=== PATIENT | female | born 1935 | race Caucasian/White ===

== ENCOUNTER 2020-01-27 09:09 | Inpatient (IN) | payer OTHER, SELFPAY ==
[2020-01-27 09:32] VITALS: BP 168/90; PULSE 75; PULSE 80; RESP 16; RESP 18; TEMP 36.9; O2SAT 95; BMI 24.5
--- NOTE | 2020-01-27 09:42 | ECG_ITS ---
Test Reason : HEADACHE Blood Pressure : / mmHG Vent. Rate : 063 BPM Atrial Rate : 063 BPM P-R Int : 158 ms QRS Dur : 080 ms QT Int : 420 ms P-R-T Axes : 020 -03 033 degrees QTc Int : 429 ms Normal sinus rhythm T wave abnormality, consider anterior ischemia Abnormal ECG When compared with ECG of 21-SEP-2014 07:11, No significant change was found Referred By: Gina Dominique Electronically Signed By:ROSHAN KRAMER MD
--- NOTE | 2020-01-27 09:42 | XR_ITS ---
EXAMINATION: XR CHEST CLINICAL INFORMATION: Shortness of breath. Chest pain. COMPARISON: 10/20/2014 TECHNIQUE: Frontal view of the chest was obtained. FINDINGS: Cardiac leads overlie the chest. The lungs are well expanded. There is no focal consolidation, edema, or effusion. No pneumothorax. The cardiomediastinal silhouette is within normal limits of size with a tortuous aorta. No acute osseous abnormality. IMPRESSION: No acute pulmonary finding.
--- NOTE | 2020-01-27 09:42 | US_ITS ---
EXAMINATION: US ABDOMEN LIMITED CLINICAL INFORMATION: Right upper quadrant pain and epigastric pain. COMPARISON: Report abdominal ultrasound 06/30/2007. TECHNIQUE: Real-time imaging of the right upper quadrant abdominal viscera. FINDINGS: PANCREAS: The pancreatic head, neck, and body appears normal in size and contour and echogenicity. The distal body and tail are partly obscured by bowel gas and not completely imaged. There is no pancreatic ductal distention or retroperitoneal effusion. LIVER: Normal. The liver is normal in size. The liver contour is normal. Parenchymal echogenicity is normal. No focal hepatic lesion. There is no intrahepatic biliary duct dilatation seen. Doppler shows portal flow towards the liver. GALLBLADDER: Normal. The gallbladder is physiologically distended without evidence of stones, sludge, polyps, wall thickening or pericholecystic fluid. COMMON BILE DUCT: Normal in caliber measuring 0.4 cm in diameter. RIGHT KIDNEY: The right kidney is normal in size measuring 10.4 cm in length. There is normal renal parenchymal thickness and echogenicity. There is mild fullness central renal collecting system. No significant hydronephrosis. No perinephric fluid. No visible renal calculi. There is a circumscribed homogeneous echogenic lesion lower pole measuring 0.9 cm statistically most likely angiomyolipoma. There is also a tiny cyst interpolar region measuring 0.5 cm. FREE FLUID: None. IMPRESSION: 1. No cholelithiasis or ductal dilatation. 2. Normal liver. Visualized pancreas unremarkable. 3. Mild fullness right renal collecting system. No visible calculi. 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
--- NOTE | 2020-01-27 10:06 | ED_ITS ---
HPI - General Adult General Chief complaint: General Medical Stated complaint: HEADACHE Time Seen by Provider: 01/27/20 09:25 Source: patient Mode of arrival: ambulatory History of Present Illness HPI narrative: 84-year-old female with a past medical history of hypertension, hyperlipidemia presenting to ED complaining of myalgias, subjective fever, dry cough, SOB, CP, upper back pain times a few days. Admits was with son who recently tested positive for COVID-19. Also reports upper abdominal pain. Denies sore throat, Nausea, vomiting, diarrhea, recent travel, LE edema Onset (ago): day(s) Related Data Allergies Allergy/AdvReac Type Severity Reaction Status Date / Time No Known Allergies Allergy Unverified 12/23/19 15:31 [No Known Allergies*] Review of Systems Review of Systems: Constitutional: No Weight loss, +subjective Fever,+ Chills, No Night Sweats, + Fatigue, + Malaise ENT/Mouth: No sore throat, No Rhinorrhea Cardiovascular: + Chest Pain, + SOB, No Dyspnea on Exertion, No Edema Respiratory: No Cough, No Sputum, No Wheezing, No Smoke Exposure, No Dyspnea Gastrointestinal: No Nausea, No Vomiting, No Diarrhea, No Constipation, + Abdo branden pain Genitourinary: No Urinary Incontinence, No Urgency, No Flank Pain Musculoskeletal: +back pain, + Myalgias, No Joint Swelling Skin: No Skin Lesions, No rash Yes all other systems are reviewed and are negative [facility] Past Medical History Attestation statement: The following information was validated with the patient. Medical History (Updated 01/27/20 @ 11:17 by ANJANA De La O) Dyspnea Hypertension Social History Social History Alcohol intake: unknown Smoking Status: Unknown if ever smoked Use of substances other than those prescribed or required for medical reasons: No Advance Directives: No Advance Directives Information Provided: Yes Physical Exam Vital Signs: Vital Signs: Vital Signs Temp Pulse Resp BP Pulse Ox 01/27/20 09:32 98.4 F 75 16 168/90 H 95 Body Mass Index 24.5 Const: General: cooperative and healthy appearing O rientation/consciousness: patient oriented x3 Limitations: no limitations HENMT: Head: Yes normal to inspection Ears: hearing grossly normal bilaterally General nose exam: Normal external nose present Face and sinu s: Yes normal facial exam Eyes: General: appearance normal, both eyes and all related structures EOM: EOMs intact bilaterally Neck: Neck: Yes normal visual inspection and Yes no meningeal signs Resp: Effort & Inspection: normal respiratory effort Auscultation: clear to auscultation bilaterally, no crackles, no rales and no rhonchi Cardio: Rate: regular rate Heart sounds: S1 normal heart sound present and S2 normal heart sound present GI: Inspection: Yes normal to inspection Palpation (GI): Soft to palpation, Tenderness to palpation present (GI) in the epigastrum and in the RUQ, no guarding and not rigid Back/Spine/Pelvis: Other: no midline spinous tenderness throughout Skin: Rashes: no rashes Wounds: no wounds Neuro: General: patient oriented x3, no meningeal signs and no focal motor deficits Extrem: General: Yes normal to inspection Course Course Course Narrative: -1112-- ferritin elevated, labs otherwise unremarkable, CXR neg -US: mild fulness right renal collecting system. No visible calculi. no cholelithiasis or ductal dilation. Normal liver -1154-- Initial troponin 7.7 > will obtain 3 hour repeat -1432-- 2nd troponin 20.2 > cardiology paged - spoke to Dr. Morgan, likely patient with COVID-19 rather than acute ischemic changes. Recommended additional repeat troponin 3 hours (5:45pm) -1709-- ED care transferred to [facility] E[facility]ria pending repeat troponin at 5:45 p.m. Medical Decision Making [facility] Narrative Medical decision making narrative: 84-year-old female with a past medical history of hypertension, hyperlipidemia presenting to ED complaining of myalgias, subjective fever, dry cough, SOB, CP, upper back pain x a few days. On exam VS, NAD/ nontoxic appearing, lungs CTA, abdomen soft with RUQ / epigastric TTP. Concern for viral syndrome/COVID-19 vs cholecystitis/pancreatitis. Rule out pneumonia and ACS. Low concern for PE/DVT, appendicitis / diverticulitis Plan: EKG, labs, UA, CXR, abdomen US, reassess Lab Data Result diagrams: 01/27/20 09:55 01/27/20 09:55 Labs: Lab Results 01/27/20 01/27/20 01/27/20 Range/Units 09:55 09:55 09:55 WBC 3.7 L (4.8-10.8) X10*3/uL RBC 4.87 (4.20-5.50) X10*6/uL Hgb 14.3 (12.0-16.0) g/dl Hct 43.6 (37-47) % MCV 89.5 (80-98) fL MCH 29.4 (27.0-33.0) pg MCHC 32.8 (31.0-35.0) g/dl RDW 12.7 (11.0-16.0) % Plt Count 145 L (160-400) X10*3/uL MPV 9.1 L (9.4-12.3) fL Immature Gran % (Auto) 0.3 (0.0-0.4) % Neut % (Auto) 63.4 (45-73) % Lymph % (Auto) 20.6 (20-40) % [place] % (Auto) 15.4 H (2-11) % Eos % (Auto) 0.0 (0-4) % Baso % (Auto) 0.3 (0-2) % Lymph # (Auto) 0.8 L (1.2-4.9) X10*3/uL [place] # (Auto) 0.6 (0.1-1.2) X10*3/uL Eos # (Auto) 0.0 (0.0-0.4) X10*3/uL Baso # (Auto) 0.0 (0.0-0.2) X10*3/uL Abs Immat Gran (auto) 0.01 (0.00-0.03) X10*3/uL Absolute Neuts (auto) 2.3 (2.0-8.3) X10*3/uL Absolute Nucleated RBC 0.000 (0.0-0.012) X10*3/uL Nucleated RBC % (auto) 0.0 (0.0-0.2) /100WBC Hold Blue Top SEE NOTE Sodium 139 (135-145) mmol/L Potassium 4.1 (3.3-5.1) mmol/l Chloride 103 (96-108) mmol/L Carbon Dioxide 26 (22-29) mmol/L Anion Gap 14 (12-20) BUN 13 (9-16) mg/dL Creatinine 0.94 (0.5-1.4) mg/dL Estim Creat Clear Calc 36.8 Estimated GFR 57 Random Glucose 110 (60-115) mg/dL Calcium 9.0 (8.4-10.2) mg/dL Magnesium 1.9 (1.6-2.6) mg/dL Ferritin 260 H (10-250) ng/mL Total Bilirubin 0.5 (0.0-1.0) mg/dL Direct Bilirubin 0.2 (0.0-0.5) mg/dL AST 25 (5-31) U/L ALT 16 (0-31) U/L Alkaline Phosphatase 53 (39-117) U/L Lactate Dehydrogenase 193 (122-220) U/L Troponin I High Sens (<3.5-17.0) ng/L Total Protein 6.9 (6.5-8.0) g/dL Albumin 4.4 (3.5-5.0) g/dL Lipase 40 (8-78) U/L Procalcitonin ng/mL Urine Color Urine Appearance Urine pH (5.0-8.0) Ur Specific [place] (1.005-1.025) Urine Protein (NEG-TRACE) MG/DL Urine Glucose (UA) (NEG) MG/DL Urine Ketones (NEG) MG/DL Urine Blood (NEG) Urine Nitrite (NEG) Ur Leukocyte Esterase (NEG) Urine RBC (0) /HPF Urine WBC (0-4) /HPF Ur Squamous Epith Cells /LPF Urine Bacteria /LPF 01/27/20 01/27/20 01/27/20 Range/Units 09:55 09:55 12:45 WBC (4.8-10.8) X10*3/uL RBC (4.20-5.50) X10*6/uL Hgb (12.0-16.0) g/dl Hct (37-47) % MCV (80-98) fL MCH (27.0-33.0) pg MCHC (31.0-35.0) g/dl RDW (11.0-16.0) % Plt Count (160-400) X10*3/uL MPV (9.4-12.3) fL Immature Gran % (Auto) (0.0-0.4) % Neut % (Auto) (45-73) % Lymph % (Auto) (20-40) % [place] % (Auto) (2-11) % Eos % (Auto) (0-4) % Baso % (Auto) (0-2) % Lymph # (Auto) (1.2-4.9) X10*3/uL [place] # (Auto) (0.1-1.2) X10*3/uL Eos # (Auto) (0.0-0.4) X10*3/uL Baso # (Auto) (0.0-0.2) X10*3/uL Abs Immat Gran (auto) (0.00-0.03) X10*3/uL Absolute Neuts (auto) (2.0-8.3) X10*3/uL Absolute Nucleated RBC (0.0-0.012) X10*3/uL Nucleated RBC % (auto) (0.0-0.2) /100WBC Hold Blue Top Sodium (135-145) mmol/L Potassium (3.3-5.1) mmol/l Chloride (96-108) mmol/L Carbon Dioxide (22-29) mmol/L Anion Gap (12-20) BUN (9-16) mg/dL Creatinine (0.5-1.4) mg/dL Estim Creat Clear Calc Estimated GFR Random Glucose (60-115) mg/dL Calcium (8.4-10.2) mg/dL Magnesium (1.6-2.6) mg/dL Ferritin (10-250) ng/mL Total Bilirubin (0.0-1.0) mg/dL Direct Bilirubin (0.0-0.5) mg/dL AST (5-31) U/L ALT (0-31) U/L Alkaline Phosphatase (39-117) U/L Lactate Dehydrogenase (122-220) U/L Troponin I High Sens 7.7 (<3.5-17.0) ng/L Total Protein (6.5-8.0) g/dL Albumin (3.5-5.0) g/dL Lipase (8-78) U/L Procalcitonin 0.05 ng/mL Urine Color YELLOW Urine Appearance CLEAR Urine pH 6.0 (5.0-8.0) Ur Specific [place] 1.020 (1.005-1.025) Urine Protein NEG (NEG-TRACE) MG/DL Urine Glucose (UA) NEG (NEG) MG/DL Urine Ketones 5 (NEG) MG/DL Urine Blood 1+ H (NEG) Urine Nitrite NEG (NEG) Ur Leukocyte Esterase NEG (NEG) Urine RBC 1-4 (0) /HPF Urine WBC 0 (0-4) /HPF Ur Squamous Epith Cells NONE /LPF Urine Bacteria NONE /LPF 01/27/20 Range/Units 13:17 WBC (4.8-10.8) X10*3/uL RBC (4.20-5.50) X10*6/uL Hgb (12.0-16.0) g/dl Hct (37-47) % MCV (80-98) fL MCH (27.0-33.0) pg MCHC (31.0-35.0) g/dl RDW (11.0-16.0) % Plt Count (160-400) X10*3/uL MPV (9.4-12.3) fL Immature Gran % (Auto) (0.0-0.4) % Neut % (Auto) (45-73) % Lymph % (Auto) (20-40) % [place] % (Auto) (2-11) % Eos % (Auto) (0-4) % Baso % (Auto) (0-2) % Lymph # (Auto) (1.2-4.9) X10*3/uL [place] # (Auto) (0.1-1.2) X10*3/uL Eos # (Auto) (0.0-0.4) X10*3/uL Baso # (Auto) (0.0-0.2) X10*3/uL Abs Immat Gran (auto) (0.00-0.03) X10*3/uL Absolute Neuts (auto) (2.0-8.3) X10*3/uL Absolute Nucleated RBC (0.0-0.012) X10*3/uL Nucleated RBC % (auto) (0.0-0.2) /100WBC Hold Blue Top Sodium (135-145) mmol/L Potassium (3.3-5.1) mmol/l Chloride (96-108) mmol/L Carbon Dioxide (22-29) mmol/L Anion Gap (12-20) BUN (9-16) mg/dL Creatinine (0.5-1.4) mg/dL Estim Creat Clear Calc Estimated GFR Random Glucose (60-115) mg/dL Calcium (8.4-10.2) mg/dL Magnesium (1.6-2.6) mg/dL Ferritin (10-250) ng/mL Total Bilirubin (0.0-1.0) mg/dL Direct Bilirubin (0.0-0.5) mg/dL AST (5-31) U/L ALT (0-31) U/L Alkaline Phosphatase (39-117) U/L Lactate Dehydrogenase (122-220) U/L Troponin I High Sens 20.2 H D (<3.5-17.0) ng/L Total Protein (6.5-8.0) g/dL Albumin (3.5-5.0) g/dL Lipase (8-78) U/L Procalcitonin ng/mL Urine Color Urine Appearance Urine pH (5.0-8.0) Ur Specific [place] (1.005-1.025) Urine Protein (NEG-TRACE) MG/DL Urine Glucose (UA) (NEG) MG/DL Urine Ketones (NEG) MG/DL Urine Blood (NEG) Urine Nitrite (NEG) Ur Leukocyte Esterase (NEG) Urine RBC (0) /HPF Urine WBC (0-4) /HPF Ur Squamous Epith Cells /LPF Urine Bacteria /LPF ECG Data Attestation: I personally reviewed and interpreted this ECG as follows: Prior ECG tracings: available for review Interpretation: vital signs stable. Rate 63. Nonspecific T-wave abnormality. No acute ischemic changes. Good tracing Discharge Plan Discharge Clinical Impression: Viral syndrome Patient Disposition: Home, Self-Care Instructions: Viral Syndrome (ED) Additional Instructions: Based on your symptoms and history we have sent a COVID-19. Although your RESULT IS PENDING at this time. RESULTS should return within 72 hours. At this time you will be contacted with either NEGATIVE OR POSITIVE results. -Please wait until we contact you for your results. At this time you will be okay for discharge. Please plan for self quarantine for up to 14 days. Do not expose yourself to others. You may not go to work. If testing does come back negative you may return to activities as long as you are no longer having any symptoms for at least 3 days. Please continue to follow cold instructions and wash your hands frequently. You may take Tylenol as directed on the bottle for pain or fever. Patient seen in the emergency department on 10/01/2019 and should be excused from work until negative test results AND until 72 hours without any symptoms AND at least 10 days have passed since symptoms first appeared or since last exposure to COVID-19 positive patient CDC Guidelines for home isolation: - Stay away from others - WEAR A MASK if you are sick AND STAY HOME - Cover your mouth and nose with a tissue when you cough or sneeze. Dispose of tissues in a lined trash can and wash your hands immediately with soap and water for at least 20 seconds. If soap and water are not available, clean hands with a lcohol-based hand forensic materials engineer that contains at least 60% alcohol. - Clean your hands often with soap and water for at least 20 seconds - Avoid touching your eyes, nose and mouth with unwashed hands - Do not share dishes, drinking glasses, cups, eating utensils, towels, or bedding with other people in your home. After using these items, wash them thoroughly with soap and water or put in the optical worker. - Clean high-touch surfaces in your isolation area ( sick room and bathroom) every day; let a caregiver clean and disinfect high-touch surfaces in other areas of the home. Clean the area or item with soap and water or another detergent if it is dirty. Then, use a household disinfectant. - Limit contact with pets and animals: If you must care for a pet, wash your hands before and after interacting with them) Referrals: Krissy Shirley NP [Primary Care Provider] - 2 days Print Language: Paraguayan
[2020-01-27 10:08] LABS: MANUAL DIFF FLAG NO
[2020-01-27 10:16] LABS: Basophils Percent Auto 0.3 % (0-2); Hematocrit 43.6 % (37-47); Hemoglobin 14.3 g/dl (12.0-16.0); Imm Gran Abs Auto 0.01 X10*3/uL (0.00-0.03); Imm Gran Pct Auto 0.3 % (0.0-0.4); Lymphocytes Absolute Auto 0.8 X10*3/uL (1.2-4.9); Lymphocytes Percent Auto 20.6 % (20-40); Mean Corpuscular HGB Conc 32.8 g/dl (31.0-35.0); Mean Corpuscular Hemoglobin 29.4 pg (27.0-33.0); Mean Corpuscular Volume 89.5 fL (80-98); Mean Platelet Volume 9.1 fL (9.4-12.3); Monocytes Absolute Auto 0.6 X10*3/uL (0.1-1.2); Monocytes Percent Auto 15.4 % (2-11); Neutrophils Absolute Auto 2.3 X10*3/uL (2.0-8.3); Neutrophils Percent Auto 63.4 % (45-73); Platelet Count 145 X10*3/uL (160-400); Red Blood Count 4.87 X10*6/uL (4.20-5.50); Red Cell Distribution Width 12.7 % (11.0-16.0); White Blood Count 3.7 X10*3/uL (4.8-10.8)
[2020-01-27 10:38] LABS: Alanine Aminotransferase 16 U/L (0-31); Albumin Level 4.4 g/dL (3.5-5.0); Alkaline Phosphatase 53 U/L (39-117); Anion Gap 14 (12-20); Aspartate Amino Transferase 25 U/L (5-31); Bilirubin Direct 0.2 mg/dL (0.0-0.5); Bilirubin Total 0.5 mg/dL (0.0-1.0); Blood Urea Nitrogen 13 mg/dL (9-16); Carbon Dioxide 26 mmol/L (22-29); Chloride 103 mmol/L (96-108); Creatinine Clr Calc Pharmacy 36.8; Estimated Glomerular Filt Rate 57; Glucose Random 110 mg/dL (60-115); Lactate Dehydrogenase 193 U/L (122-220); Lipase 40 U/L (8-78); Magnesium 1.9 mg/dL (1.6-2.6); Potassium 4.1 mmol/l (3.3-5.1); Sodium 139 mmol/L (135-145); Total Protein 6.9 g/dL (6.5-8.0)
[2020-01-27 10:58] LABS: Ferritin 260 ng/mL (10-250)
[2020-01-27] MEDS: Magnesium Hydrox/Alum Hydrox 30 ML ORAL.SUSP PO (10:58)
[2020-01-27] MEDS: Famotidine/PF 20 MG/2 ML VIAL IVPUSH (10:58)
[2020-01-27 11:02] LABS: Procalcitonin 0.05 ng/mL
[2020-01-27 11:44] LABS: Troponin-I High Sensitivity 7.7 ng/L (<3.5-17.0)
[2020-01-27 13:14] LABS: Glucose Urine UA NEG (NEG); Leukocyte Esterase Urine NEG (NEG); Nitrite Urine NEG (NEG); Urine Blood 1+ (NEG); Urine Ketones 5 MG/DL (NEG); Urine Protein NEG (NEG-TRACE)
[2020-01-27 13:20] LABS: Appearance Urine CLEAR; Color Urine YELLOW
[2020-01-27 13:49] LABS: WBC Urine 0 /HPF (0-4)
[2020-01-27 14:11] LABS: Troponin-I High Sensitivity 20.2 ng/L (<3.5-17.0)
[2020-01-27 18:49] LABS: Troponin-I High Sensitivity 115.7 ng/L (<3.5-17.0)
[2020-01-27 19:05] VITALS: BP 182/81; PULSE 61; RESP 16; TEMP 37.3; O2SAT 97
[2020-01-27 20:00] VITALS: BP 168/92; PULSE 68; RESP 16; O2SAT 97
--- NOTE | 2020-01-27 20:23 | P.HPIM_ITS ---
History of Present Illness Date of Service: 01/27/20 Chief Complaint: generalized pain 84 y/o female with PMHX of vertigo and HTN who presented from home due to generalized pain / malaise. Per patient's history, for the past 3-4 days has been having on and off episodes of mild dizziness assocaited with generalized pain more present in the chest/back. Patient denies any fever, cough, nausea, vomiting or diarrhea, no sick contacts or recent travel. Does reports occasional SOB when has this episodes. BP elevated, now 160/90 mmHg, HR 80 and saturation of oxygen normal on room air. WBC of 3.7, plt 145, ferritin 260. Troponin increased from 7 to 20 to 115. EKG shows T wave inversion in anterior leads concerning for ischemia. Dr Morgan contaqcted per ED but no recommendations for heparin drip were given as it is unlikely patient is having true NSTEMI. Decision for admission given and covid test is pending. Patient seen and examined at the bedside, remains mildly hypertensive now but reports that feels well and denies any chest pain or dizziness at present. ROS as above otherwise negative. Physical exam unremarkable. PMHX: HTN, Vertigo PSX: none Toxic habits: No hx of alcohol abuse, smoking or IVDA Review of Systems Constitutional: Constitutional: Reports malaise and Reports other (dizziness) Cardiovascular: Cardiovascular: Reports chest pain Musculoskeletal: Musculoskeletal: Reports back pain [facility] Medical History Dyspnea Hypertension Functional capacity: independent ambulation Family history: reviewed and not pertinent Social History Alcohol intake: unknown Smoking Status: Unknown if ever smoked Use of substances other than those prescribed or required for medical reasons: No Advance Directives: No Advance Directives Information Provided: Yes Meds Allergies Allergy/AdvReac Type Severity Reaction Status Date / Time No Known Allergies Allergy Unverified 12/23/19 15:31 [No Known Allergies*] Home Medications Medication Instructions Recorded Confirmed Type ergocalciferol (vitamin D2) 1,250 mcg PO QWEEK 01/27/20 01/27/20 History fluticasone propionate 2 spray INTRANASAL QAM 01/27/20 01/27/20 History gabapentin 100 mg PO BEDTIME 01/27/20 01/27/20 History lisinopril-hydrochlorothiazide 1 tab PO DAILY 01/27/20 01/27/20 History meclizine 12.5 mg PO 01/27/20 History rosuvastatin 20 mg PO BEDTIME 01/27/20 01/27/20 History triamcinolone acetonide applic TOPICAL ONCE 01/27/20 History Physical Exam Vital Signs and Narrative: Vital Signs: Last Vital Signs Temp 99.1 F 01/27/20 19:05 Pulse 61 01/27/20 19:05 Resp 16 01/27/20 19:05 BP 182/81 H 01/27/20 19:05 Pulse Ox 97 01/27/20 19:05 Body Mass Index 24.5 Const: General: cooperative, healthy appearing and comfortable HENMT: Head: Yes normal to inspection Eyes: General: appearance normal, both eyes and all related structures Neck: Yes normal visual inspection Chest: Chest palpation & inspection: normal inspection of the chest Resp: Effort & Inspection: normal respiratory effort Results Labs Labs: Laboratory Tests 01/27/20 01/27/20 01/27/20 09:55 09:55 09:55 WBC 3.7 L RBC 4.87 Hgb 14.3 Hct 43.6 MCV 89.5 MCH 29.4 MCHC 32.8 RDW 12.7 Plt Count 145 L MPV 9.1 L Immature Gran % (Auto) 0.3 Neut % (Auto) 63.4 Lymph % (Auto) 20.6 [place] % (Auto) 15.4 H Eos % (Auto) 0.0 Baso % (Auto) 0.3 Lymph # (Auto) 0.8 L [place] # (Auto) 0.6 Eos # (Auto) 0.0 Baso # (Auto) 0.0 Abs Immat Gran (auto) 0.01 Absolute Neuts (auto) 2.3 Absolute Nucleated RBC 0.000 Nucleated RBC % (auto) 0.0 Hold Blue Top SEE NOTE Sodium 139 Potassium 4.1 Chloride 103 Carbon Dioxide 26 Anion Gap 14 BUN 13 Creatinine 0.94 Estim Creat Clear Calc 36.8 Estimated GFR 57 Random Glucose 110 Calcium 9.0 Magnesium 1.9 Ferritin 260 H Total Bilirubin 0.5 Direct Bilirubin 0.2 AST 25 ALT 16 Alkaline Phosphatase 53 Lactate Dehydrogenase 193 Troponin I High Sens Total Protein 6.9 Albumin 4.4 Lipase 40 Procalcitonin Urine Color Urine Appearance Urine pH Ur Specific [place] Urine Protein Urine Glucose (UA) Urine Ketones Urine Blood Urine Nitrite Ur Leukocyte Esterase Urine RBC Urine WBC Ur Squamous Epith Cells Urine Bacteria 01/27/20 01/27/20 01/27/20 09:55 09:55 12:45 WBC RBC Hgb Hct MCV MCH MCHC RDW Plt Count MPV Immature Gran % (Auto) Neut % (Auto) Lymph % (Auto) [place] % (Auto) Eos % (Auto) Baso % (Auto) Lymph # (Auto) [place] # (Auto) Eos # (Auto) Baso # (Auto) Abs Immat Gran (auto) Absolute Neuts (auto) Absolute Nucleated RBC Nucleated RBC % (auto) Hold Blue Top Sodium Potassium Chloride Carbon Dioxide Anion Gap BUN Creatinine Estim Creat Clear Calc Estimated GFR Random Glucose Calcium Magnesium Ferritin Total Bilirubin Direct Bilirubin AST ALT Alkaline Phosphatase Lactate Dehydrogenase Troponin I High Sens 7.7 Total Protein Albumin Lipase Procalcitonin 0.05 Urine Color YELLOW Urine Appearance CLEAR Urine pH 6.0 Ur Specific [place] 1.020 Urine Protein NEG Urine Glucose (UA) NEG Urine Ketones 5 Urine Blood 1+ H Urine Nitrite NEG Ur Leukocyte Esterase NEG Urine RBC 1-4 Urine WBC 0 Ur Squamous Epith Cells NONE Urine Bacteria NONE 01/27/20 01/27/20 13:17 18:05 WBC RBC Hgb Hct MCV MCH MCHC RDW Plt Count MPV Immature Gran % (Auto) Neut % (Auto) Lymph % (Auto) [place] % (Auto) Eos % (Auto) Baso % (Auto) Lymph # (Auto) [place] # (Auto) Eos # (Auto) Baso # (Auto) Abs Immat Gran (auto) Absolute Neuts (auto) Absolute Nucleated RBC Nucleated RBC % (auto) Hold Blue Top Sodium Potassium Chloride Carbon Dioxide Anion Gap BUN Creatinine Estim Creat Clear Calc Estimated GFR Random Glucose Calcium Magnesium Ferritin Total Bilirubin Direct Bilirubin AST ALT Alkaline Phosphatase Lactate Dehydrogenase Troponin I High Sens 20.2 H D 115.7 H D Total Protein Albumin Lipase Procalcitonin Urine Color Urine Appearance Urine pH Ur Specific [place] Urine Protein Urine Glucose (UA) Urine Ketones Urine Blood Urine Nitrite Ur Leukocyte Esterase Urine RBC Urine WBC Ur Squamous Epith Cells Urine Bacteria Assessment and Plan (1) NSTEMI (non-ST elevated myocardial infarction): Status: Acute Elevated troponin with changes on EKG as above surveillance system monitor IMC No heparin drip at present per cardio Follow up 2D echo in the am Cardiology consult in the am (2) Generalized pain: Status: Acute none specific. likely viral in etiology follow up covid test to r/o continue with gabapentin for peripheral neuropathy (3) Hypertension: Status: Acute cone dose of lisinopril to be given now and then continue with home dose (4) Hyperlipidemia: Status: Acute continue with statin home dose
[2020-01-27 20:56] LABS: SARS COV2 PCR INHOUSE POSITIVE (Negative)
[2020-01-27] MEDS: Gabapentin 100 MG CAPSULE PO (21:27)
[2020-01-27] MEDS: Atorvastatin Calcium 80 MG TABLET PO (21:27)
[2020-01-27 21:32] VITALS: BP 169/87; PULSE 66; RESP 16; O2SAT 97
--- NOTE | 2020-01-27 21:40 | PC.NURSE ---
pt daughter franklin called and made aware the pt is going to [facility] to [facility]. [facility] rn will call back for report.
--- NOTE | 2020-01-27 22:25 | PC.NURSE ---
nurse to nurse report given to davonte millan on [facility]. pt is ready for transfer.
[2020-01-27 22:52] VITALS: BP 169/87; PULSE 63; RESP 18; TEMP 36.8; O2SAT 94
[2020-01-28] VITALS (7 sets, daily range): BP systolic 108–147; BP diastolic 56–86; PULSE 53–77; RESP 14–19; TEMP 36.7–37.4; O2SAT 93–96; BMI 24.7
[2020-01-28] MEDS: Heparin Sodium,Porcine 5,000 UNIT/ML VIAL 5000 UNIT SUBCUT ×4 (00:02→23:48)
[2020-01-28] MEDS: 0.9 % Sodium Chloride Flush 3 ML SYRINGE IVFLUSH ×4 (00:03→23:48)
[2020-01-28 04:30] LABS: Glucose, Whole Blood 107 mg/dL (60-115)
[2020-01-28 06:16] LABS: MANUAL DIFF FLAG NO
[2020-01-28 06:30] LABS: Hematocrit 41.6 % (37-47); Hemoglobin 13.6 g/dl (12.0-16.0); Imm Gran Abs Auto 0.01 X10*3/uL (0.00-0.03); Imm Gran Pct Auto 0.3 % (0.0-0.4); Lymphocytes Absolute Auto 0.8 X10*3/uL (1.2-4.9); Mean Corpuscular HGB Conc 32.7 g/dl (31.0-35.0); Mean Corpuscular Hemoglobin 29.2 pg (27.0-33.0); Mean Corpuscular Volume 89.5 fL (80-98); Mean Platelet Volume 9.4 fL (9.4-12.3); Monocytes Absolute Auto 0.4 X10*3/uL (0.1-1.2); Monocytes Percent Auto 10.6 % (2-11); Neutrophils Absolute Auto 2.4 X10*3/uL (2.0-8.3); Neutrophils Percent Auto 68.1 % (45-73); Platelet Count 141 X10*3/uL (160-400); Red Blood Count 4.65 X10*6/uL (4.20-5.50); Red Cell Distribution Width 12.7 % (11.0-16.0); White Blood Count 3.6 X10*3/uL (4.8-10.8)
[2020-01-28 06:55] LABS: Anion Gap 14 (12-20); Blood Urea Nitrogen 16 mg/dL (9-16); Carbon Dioxide 25 mmol/L (22-29); Chloride 101 mmol/L (96-108); Creatinine Clr Calc Pharmacy 43.2; Estimated Glomerular Filt Rate > 60; Glucose Random 120 mg/dL (60-115); Potassium 3.3 mmol/l (3.3-5.1); Sodium 137 mmol/L (135-145)
[2020-01-28 07:07] LABS: Calcium 8.5 mg/dL (8.4-10.2)
[2020-01-28 07:57] LABS: Troponin-I High Sensitivity 203.9 ng/L (<3.5-17.0)
--- NOTE | 2020-01-28 09:05 | ECG_ITS ---
Test Reason : elevated trop Blood Pressure : / mmHG Vent. Rate : 063 BPM Atrial Rate : 063 BPM P-R Int : 166 ms QRS Dur : 078 ms QT Int : 432 ms P-R-T Axes : -04 -25 041 degrees QTc Int : 442 ms Normal sinus rhythm ST & T wave abnormality, consider anterior ischemia Abnormal ECG Compare to Previous EKG 27-Jan-2020 09:58 No significant changes seen Referred By: Bipin Galarza Electronically Signed By:ROSHAN KRAMER MD
[2020-01-28] MEDS: lisinopriL 20 MG TABLET PO (09:13)
[2020-01-28] MEDS: hydroCHLOROthiazide 12.5 MG TABLET PO (09:26)
--- NOTE | 2020-01-28 10:08 | P.CONCA_ITS ---
History of Present Illness History of Present Illness Date of Consult: January 28, 2020 Requesting physician: Bipin Galarza Chief complaint: NSTEMI Narrative: 84-year-old female with background history of hypertension and hyperlipidemia. I saw her in the office last year and she had dyspnea on exertion for which she underwent echocardiography and stress testing. She also had some chest discomfort at that time. She underwent exercise stress test which did not show any perfusion defect. echocardiography showed normal biventricular function without any significant valvular pathology with mildly dilated ascending aorta. She is now presenting with generalized body ache and dizziness. She also had abdominal distension and abdominal pain. She also had upper back discomfort. She did not have chest pain. Her younger son has alvino richardsonirus. She has been admitted for rule out for coronavirus. Her high sensitivity troponin is positive. She is denying any chest discomfort right now. Review of Systems Review of Systems: Dizziness, body aches Yes all other systems are reviewed and are negative PMFSH Past Medical History Medical History (Updated 01/27/20 @ 20:33 by Romie Lai MD) Dyspnea Hypertension Functional capacity: independent ambulation Family History Family history: reviewed and not pertinent Social History Social History Household Members: Other Housing: Unknown / Unable to assess Do you presently have visiting nurse or other home services: Yes ([employer]) Alcohol intake: unknown Smoking Status: Never smoker Use of substances other than those prescribed or required for medical reasons: No Currently Displaying Signs/Symptoms of Drug Intoxication Withdrawal: No [facility] Practices: EPISCOPAL Advance Directives: No Advance Directives Information Provided: Yes Do you have thoughts of harming others: None Recently lost weight without trying: Unsure Meds Allergies Allergy/AdvReac Type Severity Reaction Status Date / Time No Known Allergies Allergy Verified 01/28/20 02:27 [No Known Allergies*] Home Medications Medication Instructions Recorded Confirmed Type ergocalciferol (vitamin D2) 1,250 mcg PO QWEEK 01/27/20 01/27/20 History fluticasone propionate 2 spray INTRANASAL QAM 01/27/20 01/27/20 History gabapentin 100 mg PO BEDTIME 01/27/20 01/27/20 History lisinopril-hydrochlorothiazide 1 tab PO DAILY 01/27/20 01/27/20 History meclizine 12.5 mg PO 01/27/20 History rosuvastatin 20 mg PO BEDTIME 01/27/20 01/27/20 History triamcinolone acetonide applic TOPICAL ONCE 01/27/20 History Physical Exam Vital Signs: Vital Signs: Vital Signs Temp Pulse Resp BP Pulse Ox 01/28/20 03:43 98.3 F 68 18 133/82 94 01/28/20 00:11 98.1 F 69 18 147/86 H 96 01/27/20 22:52 98.2 F 63 18 169/87 H 94 01/27/20 21:32 66 16 169/87 H 97 01/27/20 20:00 68 16 168/92 H 97 01/27/20 19:05 99.1 F 61 16 182/81 H 97 Body Mass Index 24.7 GENERAL APPEARANCE: in no acute distress, well developed, well nourished. HEENT: unremarkable. HEAD: normocephalic, atraumatic. NECK/THYROID: no carotid bruit, no jugular venous distention. SKIN: no suspicious lesions, warm and dry. HEART: no murmurs, regular rate and rhythm, S1, S2 normal. LUNGS: clear to auscultation bilaterally. ABDOMEN: normal, bowel sounds present, soft, nontender, nondistended. EXTREMITIES: no clubbing, cyanosis, or edema. PERIPHERAL PULSES: equal. NEUROLOGIC: nonfocal, alert and oriented. PSYCH: mood/affect full range. Results Labs and Meds Result diagrams: 01/28/20 05:44 01/28/20 05:44 Lab results: Laboratory Results - last 24 hr 01/27/20 01/27/20 01/27/20 09:55 09:55 09:55 WBC 3.7 L RBC 4.87 Hgb 14.3 Hct 43.6 MCV 89.5 MCH 29.4 MCHC 32.8 RDW 12.7 Plt Count 145 L MPV 9.1 L Immature Gran % (Auto) 0.3 Neut % (Auto) 63.4 Lymph % (Auto) 20.6 [place] % (Auto) 15.4 H Eos % (Auto) 0.0 Baso % (Auto) 0.3 Lymph # (Auto) 0.8 L [place] # (Auto) 0.6 Eos # (Auto) 0.0 Baso # (Auto) 0.0 Abs Immat Gran (auto) 0.01 Absolute Neuts (auto) 2.3 Absolute Nucleated RBC 0.000 Nucleated RBC % (auto) 0.0 Hold Blue Top SEE NOTE Sodium 139 Potassium 4.1 Chloride 103 Carbon Dioxide 26 Anion Gap 14 BUN 13 Creatinine 0.94 Estim Creat Clear Calc 36.8 Estimated GFR 57 POC Glucose Random Glucose 110 Calcium 9.0 Magnesium 1.9 Ferritin 260 H Total Bilirubin 0.5 Direct Bilirubin 0.2 AST 25 ALT 16 Alkaline Phosphatase 53 Lactate Dehydrogenase 193 Troponin I High Sens Total Protein 6.9 Albumin 4.4 Lipase 40 Procalcitonin Urine Color Urine Appearance Urine pH Ur Specific [place] Urine Protein Urine Glucose (UA) Urine Ketones Urine Blood Urine Nitrite Ur Leukocyte Esterase Urine RBC Urine WBC Ur Squamous Epith Cells Urine Bacteria Coronavirus (PCR) 01/27/20 01/27/20 01/27/20 09:55 09:55 12:45 WBC RBC Hgb Hct MCV MCH MCHC RDW Plt Count MPV Immature Gran % (Auto) Neut % (Auto) Lymph % (Auto) [place] % (Auto) Eos % (Auto) Baso % (Auto) Lymph # (Auto) [place] # (Auto) Eos # (Auto) Baso # (Auto) Abs Immat Gran (auto) Absolute Neuts (auto) Absolute Nucleated RBC Nucleated RBC % (auto) Hold Blue Top Sodium Potassium Chloride Carbon Dioxide Anion Gap BUN Creatinine Estim Creat Clear Calc Estimated GFR POC Glucose Random Glucose Calcium Magnesium Ferritin Total Bilirubin Direct Bilirubin AST ALT Alkaline Phosphatase Lactate Dehydrogenase Troponin I High Sens 7.7 Total Protein Albumin Lipase Procalcitonin 0.05 Urine Color YELLOW Urine Appearance CLEAR Urine pH 6.0 Ur Specific [place] 1.020 Urine Protein NEG Urine Glucose (UA) NEG Urine Ketones 5 Urine Blood 1+ H Urine Nitrite NEG Ur Leukocyte Esterase NEG Urine RBC 1-4 Urine WBC 0 Ur Squamous Epith Cells NONE Urine Bacteria NONE Coronavirus (PCR) 01/27/20 01/27/20 01/27/20 13:17 18:05 20:11 WBC RBC Hgb Hct MCV MCH MCHC RDW Plt Count MPV Immature Gran % (Auto) Neut % (Auto) Lymph % (Auto) [place] % (Auto) Eos % (Auto) Baso % (Auto) Lymph # (Auto) [place] # (Auto) Eos # (Auto) Baso # (Auto) Abs Immat Gran (auto) Absolute Neuts (auto) Absolute Nucleated RBC Nucleated RBC % (auto) Hold Blue Top Sodium Potassium Chloride Carbon Dioxide Anion Gap BUN Creatinine Estim Creat Clear Calc Estimated GFR POC Glucose Random Glucose Calcium Magnesium Ferritin Total Bilirubin Direct Bilirubin AST ALT Alkaline Phosphatase Lactate Dehydrogenase Troponin I High Sens 20.2 H D 115.7 H D Total Protein Albumin Lipase Procalcitonin Urine Color Urine Appearance Urine pH Ur Specific [place] Urine Protein Urine Glucose (UA) Urine Ketones Urine Blood Urine Nitrite Ur Leukocyte Esterase Urine RBC Urine WBC Ur Squamous Epith Cells Urine Bacteria Coronavirus (PCR) POSITIVE A 01/28/20 01/28/20 01/28/20 04:25 05:44 05:44 WBC 3.6 L RBC 4.65 Hgb 13.6 Hct 41.6 MCV 89.5 MCH 29.2 MCHC 32.7 RDW 12.7 Plt Count 141 L MPV 9.4 Immature Gran % (Auto) 0.3 Neut % (Auto) 68.1 Lymph % (Auto) 21.0 [place] % (Auto) 10.6 Eos % (Auto) 0.0 Baso % (Auto) 0.0 Lymph # (Auto) 0.8 L [place] # (Auto) 0.4 Eos # (Auto) 0.0 Baso # (Auto) 0.0 Abs Immat Gran (auto) 0.01 Absolute Neuts (auto) 2.4 Absolute Nucleated RBC 0.000 Nucleated RBC % (auto) 0.0 Hold Blue Top Sodium 137 Potassium 3.3 Chloride 101 Carbon Dioxide 25 Anion Gap 14 BUN 16 Creatinine 0.87 Estim Creat Clear Calc 43.2 Estimated GFR > 60 POC Glucose 107 Random Glucose 120 H Calcium 8.5 Magnesium Ferritin Total Bilirubin Direct Bilirubin AST ALT Alkaline Phosphatase Lactate Dehydrogenase Troponin I High Sens Total Protein Albumin Lipase Procalcitonin Urine Color Urine Appearance Urine pH Ur Specific [place] Urine Protein Urine Glucose (UA) Urine Ketones Urine Blood Urine Nitrite Ur Leukocyte Esterase Urine RBC Urine WBC Ur Squamous Epith Cells Urine Bacteria Coronavirus (PCR) 01/28/20 05:44 WBC RBC Hgb Hct MCV MCH MCHC RDW Plt Count MPV Immature Gran % (Auto) Neut % (Auto) Lymph % (Auto) [place] % (Auto) Eos % (Auto) Baso % (Auto) Lymph # (Auto) [place] # (Auto) Eos # (Auto) Baso # (Auto) Abs Immat Gran (auto) Absolute Neuts (auto) Absolute Nucleated RBC Nucleated RBC % (auto) Hold Blue Top Sodium Potassium Chloride Carbon Dioxide Anion Gap BUN Creatinine Estim Creat Clear Calc Estimated GFR POC Glucose Random Glucose Calcium Magnesium Ferritin Total Bilirubin Direct Bilirubin AST ALT Alkaline Phosphatase Lactate Dehydrogenase Troponin I High Sens 203.9 H D Total Protein Albumin Lipase Procalcitonin Urine Color Urine Appearance Urine pH Ur Specific [place] Urine Protein Urine Glucose (UA) Urine Ketones Urine Blood Urine Nitrite Ur Leukocyte Esterase Urine RBC Urine WBC Ur Squamous Epith Cells Urine Bacteria Coronavirus (PCR) Cardiology Testing Echo: report reviewed EKG Interpretation EKG Comments: Sinus rhythm, anterior T-wave inversions. Assessment and Plan (1) Hypertension: Status: Acute (2) NSTEMI (non-ST elevated myocardial infarction): Status: Acute (3) Generalized pain: Status: Acute (4) Viral syndrome: Status: Acute Pleasant 84-year-old female here for generalized body aches and dizziness. Her son had coronavirus recently. She is positive for coronavirus at this point. In this setting she had mildly abnormal troponin levels. I think she has a type 2 [place]. Blood pressure is well controlled. I do not think she needs further testing inpatient. With elevated troponins and COVID-19 1 c oncern can be venous thromboembolism. I think it will be worth checking a D- dimer on her to make sure she does not have significantly elevated D-dimer levels because in that situation anticoagulation will help. Clinically she does not look like severe COVID-19 infection. Thank you for allowing me to participate in the care of your patient. Please feel free to contact me if you have any questions.
--- NOTE | 2020-01-28 13:34 | HO.PM.IMPN ---
Subjective Subjective Date of Service: 01/28/20 Interval History: patient seen and examined at bedside patient reported weakness denies any chest pain Constitutional Constitutional: Reports weakness Cardiovascular Cardiovascular: Denies chest pain and Denies dyspnea Respiratory Respiratory: Denies dyspnea Neurologic Neurologic: Reports weakness Physical Exam Vital Signs: Vital Signs: Vital Signs Temp Pulse Resp BP Pulse Ox 01/28/20 11:12 99.0 F 77 120/78 93 01/28/20 08:00 98.6 F 65 18 114/77 93 01/28/20 03:43 98.3 F 68 18 133/82 94 01/28/20 00:11 98.1 F 69 18 147/86 H 96 01/27/20 22:52 98.2 F 63 18 169/87 H 94 01/27/20 21:32 66 16 169/87 H 97 01/27/20 20:00 68 16 168/92 H 97 01/27/20 19:05 99.1 F 61 16 182/81 H 97 Body Mass Index 24.7 Const: General: no acute distress Orientation/consciousness: patient oriented x3 Resp: Effort & Inspection: normal respiratory effort Cardio: Jugular venous distension: no JVD Heart sounds: S1 normal heart sound present and S2 normal heart sound present Neuro: General: patient oriented x3 Objective Data Current Medications Generic Name Dose Route Start Last Admin Trade Name Davidq PRN Reason Stop Dose Admin Atorvastatin Calcium 80 mg 01/27/20 21:00 01/27/20 21:27 Atorvastatin Calcium 80 Mg Tablet PO 80 mg BEDTIME MARY ANN Administration Gabapentin 100 mg 01/27/20 21:00 01/27/20 21:27 Gabapentin 100 Mg Capsule PO 100 mg BEDTIME MARY ANN Administration Heparin Sodium (Porcine) 5,000 unit 01/27/20 23:00 01/28/20 06:20 Heparin Sodium,Porcine 5,000 Unit/Ml Vial SUBCUT 5,000 unit Q8H MARY ANN Administration Hydrochlorothiazide 12.5 mg 01/28/20 09:00 01/28/20 09:26 Hydrochlorothiazide 12.5 Mg Tablet PO 12.5 mg DAILY MARY ANN Administration Protocol Lisinopril 20 mg 01/28/20 09:00 01/28/20 09:13 Lisinopril 20 Mg Tablet PO 20 mg DAILY MARY ANN Administration Sodium Chloride 3 ml 01/28/20 00:00 01/28/20 09:15 0.9 % Sodium Chloride Flush 3 Ml Syringe IVFLUSH 3 ml QSHIFT MARY ANN Administration Labs CBC & Chem 7: 01/28/20 05:44 01/28/20 05:44 Assessment and Plan (1) NSTEMI (non-ST elevated myocardial infarction): Status: Acute (2) Generalized pain: Status: Acute (3) Hypertension: Status: Acute (4) Hyperlipidemia: Status: Acute (5) COVID-19 virus detected: Status: Acute Assessment and Plan: type 2 NSTEMI troponin mildly elevated with EKG change no chest pain now seen by Cardiology recommended no intervention and medical management COVID-19 infection currently not hypoxic COVID PCR positive will check D-dimer continue supportive management chest x-ray shows no acute infiltrates hypertension continue lisinopril and hydrochlorothiazide hyperlipidemia continue statin DVT prophylaxis heparin subcu
--- NOTE | 2020-01-28 13:41 | MHC.CM.PN ---
Addendum entered by Zamzam Chacko 01/28/20 13:52: PCP: Krissy Shirley Original Note: CM spoke to pts daughter Julissa Bain [phone] who reports the pt lives alone and has [employer] services daily. She reports the pt has a walker but does not use it most of the time. Pts [employer] drives her to appointments however, Julissa reports she can pick her up at DC. Julissa reports she does not know the pts PCP off hand but she goes to the [facility], CM will call to verify PCP. Julissa also reports the pt has completed a HCP in the past. IMM delivered and a copy will be mailed. Current DC plan is home with resumption of [employer] daughterJulissa, to transport
[2020-01-28 14:23] LABS: D Dimer 414 NG/ML
[2020-01-28] MEDS: Gabapentin 100 MG CAPSULE PO (20:34)
[2020-01-28] MEDS: Atorvastatin Calcium 80 MG TABLET PO (20:34)
[2020-01-29 03:23] VITALS: BP 99/60; PULSE 76; RESP 19; TEMP 36.7; O2SAT 94
[2020-01-29] MEDS: Heparin Sodium,Porcine 5,000 UNIT/ML VIAL 5000 UNIT SUBCUT (06:21)
[2020-01-29 07:17] VITALS: BP 94/53; PULSE 60; RESP 18; TEMP 36.9; O2SAT 96
[2020-01-29 08:34] VITALS: BP 132/70; PULSE 72
[2020-01-29] MEDS: 0.9 % Sodium Chloride Flush 3 ML SYRINGE IVFLUSH (08:43)
[2020-01-29 08:44] VITALS: BP 132/70; PULSE 72
[2020-01-29] MEDS: hydroCHLOROthiazide 12.5 MG TABLET PO (08:44)
[2020-01-29] MEDS: lisinopriL 20 MG TABLET PO (08:44)
[2020-01-29 11:13] VITALS: BP 94/71; PULSE 68; RESP 18; TEMP 37.2; O2SAT 94
[2020-01-29 11:37] LABS: Troponin-I High Sensitivity 47.3 ng/L (<3.5-17.0)
[2020-01-29 11:50] VITALS: BP 100/53; PULSE 72
--- NOTE | 2020-01-29 11:53 | PM.DS ---
DS: Providers Provider Date of admission: 01/27/20 20:50 Primary care physician: Krissy Shirley NP Consults: 01/27/20 22:25 Consult to Physician Routine [place]ing [place] [facility] [place] [facility] Reason for consultation: NSTEMI Has provider been notified: Yes DS: Diagnosis Discharge Diagnosis (1) NSTEMI (non-ST elevated myocardial infarction): Status: Acute (2) Generalized pain: Status: Acute (3) Hypertension: Status: Acute (4) Hyperlipidemia: Status: Acute (5) COVID-19 virus detected: Status: Acute DS: Summary Hospital Course Hospital Course: 84-year-old female admitted with generalized pain and chest pain found to have mildly elevated troponin with EKG changes admitted with NSTEMI and COVID PCR was positive cardiology was consulted troponin was mildly elevated and remains flat , patient remains chest pain-free, cardiology reconciled likely secondary NSTEMI and no further intervention for now, COVID PCR was positive , patient remains afebrile and was saturating well on room air, chest x-ray was negative for any infiltrate, patient remained stable and asymptomatic and discharged home, patient was instructed to isolate for 2 weeks, patient was also instructed to come to emergency if patient developed shortness of breath or worsening symptoms Time Spent with Patient Time attestation: Total time spent providing and/or coordinating discharge services: Physical Exam Vital Signs: Vital Signs: Vital Signs Temp Pulse Resp BP Pulse Ox 01/29/20 11:13 98.9 F 68 18 94/71 94 01/29/20 08:44 72 132/70 01/29/20 08:34 72 132/70 01/29/20 07:17 98.4 F 60 18 94/53 L 96 01/29/20 03:23 98.1 F 76 19 99/60 94 01/28/20 23:25 98.5 F 53 19 108/68 94 01/28/20 19:15 99.3 F 76 19 109/56 L 94 01/28/20 16:00 99 F 69 14 114/81 96 Body Mass Index 24.7 DS: Data Data Completed and Pending Labs on day of discharge: Labs from last 24 hours 01/29/20 01/28/20 10:15 13:50 D-Dimer 414 Troponin I High Sens 47.3 H D Discharge Plan Discharge Anticipated Discharge Date/Time: 10/24/20 11:51 Patient Disposition: Home, Self-Care Referrals: Krissy Shirley NP [Primary Care Provider] - 2 days Discharge Medications: Continued lisinopril-hydrochlorothiazide 20-12.5 mg tablet 1 tab PO DAILY RF: 0 meclizine 12.5 mg tablet 12.5 mg PO RF: 0 triamcinolone acetonide 0.1 % cream topical ONCE RF: 0 gabapentin 100 mg capsule 100 mg PO BEDTIME RF: 0 ergocalciferol (vitamin D2) 1,250 mcg (50,000 unit) capsule 1,250 mcg PO QWEEK RF: 0 fluticasone propionate 50 mcg/actuation spray,suspension 2 spray intranasal QAM RF: 0 rosuvastatin 20 mg tablet 20 mg PO BEDTIME RF: 0 Discharge Orders: Discharge Order (Routine); Ordered 01/29/20 Ordered By: Bipin Galarza Activity on Discharge: As tolerated Patient Instructions: Viral Syndrome (ED) Print Language: American Activity Restrictions/Additional Instructions: Based on your symptoms and history we have sent a COVID-19. Although your RESULT IS PENDING at this time. RESULTS should return within 72 hours. At this time you will be contacted with either NEGATIVE OR POSITIVE results. -Please wait until we contact you for your results. At this time you will be okay for discharge. Please plan for self quarantine for up to 14 days. Do not expose yourself to others. You may not go to work. If testing does come back negative you may return to activities as long as you are no longer having any symptoms for at least 3 days. Please continue to follow cold instructions and wash your hands frequently. You may take Tylenol as directed on the bottle for pain or fever. Patient seen in the emergency department on 10/01/2019 and should be excused from work until negative test results AND until 72 hours without any symptoms AND at least 10 days have passed since symptoms first appeared or since last exposure to COVID-19 positive patient CDC Guidelines for home isolation: - Stay away from others - WEAR A MASK if you are sick AND STAY HOME - Cover your mouth and nose with a tissue when you cough or sneeze. Dispose of tissues in a lined trash can and wash your hands immediately with soap and water for at least 20 seconds. If soap and water are not available, clean hands with alcohol-based hand marketing proposal coordinator that contains at least 60% alcohol. - Clean your hands often with soap and water for at least 20 seconds - Avoid touching your eyes, nose and mouth with unwashed hands - Do not share dishes, drinking glasses, cups, eating utensils, towels, or bedding with other people in your home. After using these items, wash them thoroughly with soap and water or put in the shuttle inspector. - Clean high-touch surfaces in your isolation area ( sick room and bathroom) every day; let a caregiver clean and disinfect high-touch surfaces in other areas of the home. Clean the area or item with soap and water or another detergent if it is dirty. Then, use a household disinfectant. - Limit contact with pets and animals: If you must care for a pet, wash your hands before and after interacting with them) Visit Report Forms: Patient Portal Discharge page Care Plan Goals: See discharge instructions Health Concerns: see discharge instruction Plan of Treatment: see discharge instructions
== END 2020-01-29 14:30 | disposition home or self-care (01) | DRG 177 ==
LOC: HO.ED 19:35 → HO.IMC 21:18
PROVIDERS: Nurse Practitioner Family; Physician Assistant; Admitting Provider Internal Medicine; Emergency Provider Emergency Medicine; PCP Nurse Practitioner Family; Visit Provider Internal Medicine
DX: U07.1 COVID-19 (principal); I21.A1 Myocardial infarction type 2; E78.5 Hyperlipidemia, unspecified; G62.9 Polyneuropathy, unspecified; I10 Essential (primary) hypertension; Z79.51 Long term (current) use of inhaled steroids; Z79.899 Other long term (current) drug therapy
CPT/HCPCS: 36415; 71045; 76705; 80048; 80076; 81001; 81003; 82728; 82947; 83615; 83690; 83735; 84145; 84484; 85025; 85379; 87635; 93005; 96374; 99285

== ENCOUNTER 2020-01-31 19:32 | Emergency (ER) | payer OTHER, SELFPAY ==
[2020-01-31 20:11] VITALS: BP 125/79; PULSE 70; RESP 20; TEMP 37.1; O2SAT 100; BMI 23.4
--- NOTE | 2020-01-31 20:24 | ECG_ITS ---
Test Reason : CHEST PAIN Blood Pressure : / mmHG Vent. Rate : 065 BPM Atrial Rate : 065 BPM P-R Int : 176 ms QRS Dur : 072 ms QT Int : 418 ms P-R-T Axes : 023 -26 004 degrees QTc Int : 434 ms Normal sinus rhythm Left axis deviation Low voltage QRS RSR' or QR pattern in V1 suggests right ventricular conduction delay ST & T wave abnormality, consider anterolateral ischemia Abnormal ECG When compared with ECG of 28-JAN-2020 08:40, Inverted T waves have replaced nonspecific T wave abnormality in Lateral leads Referred By: Deborah Holloway Electronically Signed By:ROSHAN KRAMER MD
[2020-01-31 20:43] LABS: MANUAL DIFF FLAG NO
[2020-01-31 20:44] LABS: Hematocrit 41.9 % (37-47); Hemoglobin 13.9 g/dl (12.0-16.0); Imm Gran Abs Auto 0.01 X10*3/uL (0.00-0.03); Imm Gran Pct Auto 0.2 % (0.0-0.4); Lymphocytes Absolute Auto 0.8 X10*3/uL (1.2-4.9); Lymphocytes Percent Auto 20.7 % (20-40); Mean Corpuscular HGB Conc 33.2 g/dl (31.0-35.0); Mean Corpuscular Hemoglobin 29.3 pg (27.0-33.0); Mean Corpuscular Volume 88.4 fL (80-98); Mean Platelet Volume 9.4 fL (9.4-12.3); Monocytes Absolute Auto 0.6 X10*3/uL (0.1-1.2); Monocytes Percent Auto 15.1 % (2-11); Neutrophils Absolute Auto 2.6 X10*3/uL (2.0-8.3); Platelet Count 128 X10*3/uL (160-400); Red Blood Count 4.74 X10*6/uL (4.20-5.50); Red Cell Distribution Width 12.6 % (11.0-16.0); White Blood Count 4.1 X10*3/uL (4.8-10.8)
[2020-01-31 21:13] LABS: Alanine Aminotransferase 62 U/L (0-31); Alkaline Phosphatase 50 U/L (39-117); Anion Gap 15 (12-20); Aspartate Amino Transferase 66 U/L (5-31); Bilirubin Total 0.5 mg/dL (0.0-1.0); Blood Urea Nitrogen 23 mg/dL (9-16); Calcium 8.3 mg/dL (8.4-10.2); Carbon Dioxide 24 mmol/L (22-29); Chloride 101 mmol/L (96-108); Creatinine Clr Calc Pharmacy 41.9; Estimated Glomerular Filt Rate 55; Glucose Random 106 mg/dL (60-115); Potassium 3.7 mmol/l (3.3-5.1); Sodium 136 mmol/L (135-145); Total Protein 6.4 g/dL (6.5-8.0)
--- NOTE | 2020-01-31 21:18 | ED.CHESTPAIN ---
HPI - Chest Pain General Chief Complaint: Chest Pain Stated Complaint: COVID+ Time Seen by Provider: 01/31/20 20:02 Source: patient Mode of arrival: EMS Limitations: language barrier History of Present Illness HPI narrative: patient is an 84-year-old female with a past medical history hypertension who was diagnosed with COVID-19 2 days ago, brought in by EMS complaining intermittent chest pain and nausea, patient received 324 mg aspirin with EMS. patient denies fevers but admits to abdominal pain specifically in the right upper quadrant. she denies shortness of breath, arm pain neck pain are any other complaints. Related Data Home Medications Medication Instructions Recorded Confirmed ergocalciferol (vitamin D2) 1,250 mcg PO QWEEK 01/27/20 01/27/20 fluticasone propionate 2 spray INTRANASAL QAM 01/27/20 01/27/20 gabapentin 100 mg PO BEDTIME 01/27/20 01/27/20 lisinopril-hydrochlorothiazide 1 tab PO DAILY 01/27/20 01/27/20 meclizine 12.5 mg PO 01/27/20 rosuvastatin 20 mg PO BEDTIME 01/27/20 01/27/20 triamcinolone acetonide applic TOPICAL ONCE 01/27/20 Allergies Allergy/AdvReac Type Severity Reaction Status Date / Time No Known Allergies Allergy Verified 01/28/20 02:27 [No Known Allergies*] Review of Systems Review of Systems: Constitutional: No Weight loss, No Fever, No Chills, No Night Sweats, No Fatigue, No Malaise ENT/Mouth: No Hearing loss, No Ear Pain, No Nasal Congestion, No Sinus Pain, No Hoarseness, No sore throat, No Rhinorrhea, No Swallowing Difficulty Eyes: No Eye Pain, No Swelling, No Redness, No Foreign Body, No Discharge, No Vision Changes Cardiovascular: intermittent chest pain, denies radiation Respiratory: no SOB Gastrointestinal: + right-sided abdominal pain, + Nausea, No Vomiting, No Diarrhea, No Constipation, No Hematochezia, No Melena Genitourinary: no irregular bleeding, No Dysuria, No Urinary Frequency, No Hematuria, No Urinary Incontinence, No Urgency, No Flank Pain, No Urinary Flow Changes, No Hesitancy Musculoskeletal: No joint pain, No Myalgias, No Joint Swelling Skin: No Skin Lesions, No rash Neuro: No Weakness, No Numbness, No Paresthesias, No Loss of Consciousness, No Dizziness, No Headache Yes all other systems are reviewed and are negative [facility] Past Medical History Attestation statement: The following information was validated with the patient. Medical History Dyspnea Hypertension Social History Social History Household Members: Other Housing: Unknown / Unable to assess Alcohol intake: unknown Smoking Status: Never smoker Advance Directives: No service: No Current occupational status: retired Physical Exam Vital Signs: Vital Signs: Vital Signs Temp Pulse Resp BP Pulse Ox 01/31/20 23:46 98.4 F 65 18 119/64 98 01/31/20 21:58 62 20 127/70 95 01/31/20 20:11 98.7 F 70 20 125/79 100 Body Mass Index 23.4 Const: General: cooperative, healthy appearing, comfortable, no acute distress and well developed Orientation/consciousness: patient oriented x3 Limitations: no limitations HENMT: Head: Yes normal to inspection Eyes: General: appearance normal, both eyes and all related structures Neck: Neck: Yes normal visual inspection, Yes full ROM and Yes supple Chest: Chest palpation & inspection: normal inspection of the chest Resp: Effort & Inspection: normal respiratory effort and able to speak in complete sentences Auscultation: clear to auscultation bilaterally, no crackles, no rales, no rhonchi and no wheezes Cardio: Rate: regular rate Rhythm: regular rhythm Heart sounds: S1 normal heart sound present, S2 normal heart sound present and normal S1 and S2 GI: Inspection: Yes normal to inspection Palpation (GI): Soft to palpation and Tenderness to palpation present (GI) in the RUQ and Rosen's sign positive; not in the epigastrum, not in the LLQ, not in the RLQ, not in the LUQ, not periumbilically and not suprapubicly Skin: General skin exam: no rashes or lesions noted Neuro: General: patient oriented x3 Extrem: General: Yes normal to inspection Course Course Course Narrative: EDT 4-year-old female diagnosed with COVID-19 2 days ago complaining of intermittent chest pain and nausea. Given 324 ASA with EMS. Will get EKG, troponin, labs and reassess. 11pm EKG was NSR, troponin negative US abdomen showed: Patient: Tisha LopezMR#: [id number] : 6Acct:[id number] Age/Sex: 84 / FADM Date: 01/31/20 Loc: HO.ED Attending Dr: Ordering Physician: YASMEEN BUITRAGO Date of Service: 01/31/20 Procedure(s): US abdomen limited Accession Number(s): [id number] cc: YASMEEN BUITRAGO~ EXAMINATION: US ABDOMEN LIMITED CLINICAL INFORMATION: Elevated LFTs. Tenderness to palpation.. COMPARISON: 01/27/2020 TECHNIQUE: Real-time imaging of the right upper quadrant abdominal viscera. FINDINGS: PANCREAS: Normal. LIVER: Normal. The liver is normal in size. The liver contour is normal. Parenchymal echogenicity is normal. No focal hepatic lesion. There is no intrahepatic biliary duct dilatation seen. GALLBLADDER: 0.2 cm gallbladder wall polyp noted. The gallbladder is physiologically distended without evidence of stones, sludge, wall thickening or pericholecystic fluid. COMMON BILE DUCT: Normal in caliber measuring 0.7 cm in diameter. RIGHT KIDNEY: Visualization is limited. No hydronephrosis. No renal calculi or focal parenchymal lesions. The kidney measures 9.9 cm in maximum dimension. FREE FLUID: None. US/US abdomen limited IMPRESSION: No acute or suspicious findings. Normal appearance of the liver. No inflammatory changes. with gastroenterology professor over the phone, patient states she is feeling better and is okay to go home and feels she can continue to eating soup and staying hydrated, she has a a pickler helper with her tomorrow. we will try to reach her kids to pick her up. I will also send a prescription for Zofran to her pharmacy. MDM - Chest Pain Lab Data Attestation: I reviewed the patient's lab results. Result diagrams: 01/31/20 20:36 01/31/20 20:36 Labs: Lab Results 01/31/20 01/31/20 01/31/20 Range/Units 20:36 20:36 20:36 WBC 4.1 L (4.8-10.8) X10*3/uL RBC 4.74 (4.20-5.50) X10*6/uL Hgb 13.9 (12.0-16.0) g/dl Hct 41.9 (37-47) % MCV 88.4 (80-98) fL MCH 29.3 (27.0-33.0) pg MCHC 33.2 (31.0-35.0) g/dl RDW 12.6 (11.0-16.0) % Plt Count 128 L (160-400) X10*3/uL MPV 9.4 (9.4-12.3) fL Immature Gran % (Auto) 0.2 (0.0-0.4) % Neut % (Auto) 64.0 (45-73) % Lymph % (Auto) 20.7 (20-40) % [place] % (Auto) 15.1 H (2-11) % Eos % (Auto) 0.0 (0-4) % Baso % (Auto) 0.0 (0-2) % Lymph # (Auto) 0.8 L (1.2-4.9) X10*3/uL [place] # (Auto) 0.6 (0.1-1.2) X10*3/uL Eos # (Auto) 0.0 (0.0-0.4) X10*3/uL Baso # (Auto) 0.0 (0.0-0.2) X10*3/uL Abs Immat Gran (auto) 0.01 (0.00-0.03) X10*3/uL Absolute Neuts (auto) 2.6 (2.0-8.3) X10*3/uL Absolute Nucleated RBC 0.000 (0.0-0.012) X10*3/uL Nucleated RBC % (auto) 0.0 (0.0-0.2) /100WBC Hold Blue Top SEE NOTE Sodium 136 (135-145) mmol/L Potassium 3.7 (3.3-5.1) mmol/l Chloride 101 (96-108) mmol/L Carbon Dioxide 24 (22-29) mmol/L Anion Gap 15 (12-20) BUN 23 H (9-16) mg/dL Creatinine 0.97 (0.5-1.4) mg/dL Estim Creat Clear Calc 41.9 Estimated GFR 55 Random Glucose 106 (60-115) mg/dL Calcium 8.3 L (8.4-10.2) mg/dL Total Bilirubin 0.5 (0.0-1.0) mg/dL AST 66 H (5-31) U/L ALT 62 H (0-31) U/L Alkaline Phosphatase 50 (39-117) U/L Troponin I High Sens (<3.5-17.0) ng/L Total Protein 6.4 L (6.5-8.0) g/dL Albumin 4.0 (3.5-5.0) g/dL 01/31/20 Range/Units 20:36 WBC (4.8-10.8) X10*3/uL RBC (4.20-5.50) X10*6/uL Hgb (12.0-16.0) g/dl Hct (37-47) % MCV (80-98) fL MCH (27.0-33.0) pg MCHC (31.0-35.0) g/dl RDW (11.0-16.0) % Plt Count (160-400) X10*3/uL MPV (9.4-12.3) fL Immature Gran % (Auto) (0.0-0.4) % Neut % (Auto) (45-73) % Lymph % (Auto) (20-40) % [place] % (Auto) (2-11) % Eos % (Auto) (0-4) % Baso % (Auto) (0-2) % Lymph # (Auto) (1.2-4.9) X10*3/uL [place] # (Auto) (0.1-1.2) X10*3/uL Eos # (Auto) (0.0-0.4) X10*3/uL Baso # (Auto) (0.0-0.2) X10*3/uL Abs Immat Gran (auto) (0.00-0.03) X10*3/uL Absolute Neuts (auto) (2.0-8.3) X10*3/uL Absolute Nucleated RBC (0.0-0.012) X10*3/uL Nucleated RBC % (auto) (0.0-0.2) /100WBC Hold Blue Top Sodium (135-145) mmol/L Potassium (3.3-5.1) mmol/l Chloride (96-108) mmol/L Carbon Dioxide (22-29) mmol/L Anion Gap (12-20) BUN (9-16) mg/dL Creatinine (0.5-1.4) mg/dL Estim Creat Clear Calc Estimated GFR Random Glucose (60-115) mg/dL Calcium (8.4-10.2) mg/dL Total Bilirubin (0.0-1.0) mg/dL AST (5-31) U/L ALT (0-31) U/L Alkaline Phosphatase (39-117) U/L Troponin I High Sens 16.5 D (<3.5-17.0) ng/L Total Protein (6.5-8.0) g/dL Albumin (3.5-5.0) g/dL ECG Data ECG #1: Attestation: I personally reviewed and interpreted this ECG as follows: ECG interpretation date: 01/31/20 ECG interpretation time: 21:19 Prior ECG tracings: available for review Interpretation: 833 ANJANA Back Find Patient ECG 12 lead EKG Stat Tisha Lopez 84 F 1935 ACTIVITY DATE EXAM STATUS AUTHOR 01/31/20 20:24 Draft [place] [id number] Electrocardiograph Report Draft Patient: Tisha LopezMR#: [id number] : 1935cct:[id number] Age/Sex: 84 / FADM Date: 01/31/20 Loc: HO.ED Attending Dr: Ordering Physician: YASMEEN BUITRAGO Date of Service: 01/31/20 Procedure(s): ECG 12 lead EKG Accession Number(s): [id number] cc: ~ Test Reason : CP Blood Pressure : / mmHG Vent. Rate : 065 BPM Atrial Rate : 065 BPM P-R Int : 176 ms QRS Dur : 072 ms QT Int : 418 ms P-R-T Axes : 023 -26 004 degrees QTc Int : 434 ms Normal sinus rhythm Low voltage QRS ST & T wave abnormality, consider anterolateral ischemia Abnormal ECG When compared with ECG of 28-JAN-2020 08:40, Inverted T waves have replaced nonspecific T wave abnormality in Lateral leads Referred By: Yasmeen Buitrago Electronically Signed By: reviewed EKG with Dr. Weaver and compared to previous EKG done 3 days ago, he agreed today's actually looks better, nothing acute. Discharge Plan Discharge Clinical Impression: COVID-19 virus detected Patient Disposition: Home, Self-Care Instructions: COVID-19 (Coronavirus Disease 2019) (ED) Prescriptions: No Action lisinopril-hydrochlorothiazide 20-12.5 mg tablet 1 tab PO DAILY RF: 0 meclizine 12.5 mg tablet 12.5 mg PO RF: 0 triamcinolone acetonide 0.1 % cream topical ONCE RF: 0 gabapentin 100 mg capsule 100 mg PO BEDTIME RF: 0 ergocalciferol (vitamin D2) 1,250 mcg (50,000 unit) capsule 1,250 mcg PO QWEEK RF: 0 fluticasone propionate 50 mcg/actuation spray,suspension 2 spray intranasal QAM RF: 0 rosuvastatin 20 mg tablet 20 mg PO BEDTIME RF: 0 Print Language: Khmer
[2020-01-31 21:19] LABS: Troponin-I High Sensitivity 16.5 ng/L (<3.5-17.0)
--- NOTE | 2020-01-31 21:37 | US_ITS ---
EXAMINATION: US ABDOMEN LIMITED CLINICAL INFORMATION: Elevated LFTs. Tenderness to palpation.. COMPARISON: 01/27/2020 TECHNIQUE: Real-time imaging of the right upper quadrant abdominal viscera. FINDINGS: PANCREAS: Normal. LIVER: Normal. The liver is normal in size. The liver contour is normal. Parenchymal echogenicity is normal. No focal hepatic lesion. There is no intrahepatic biliary duct dilatation seen. GALLBLADDER: 0.2 cm gallbladder wall polyp noted. The gallbladder is physiologically distended without evidence of stones, sludge, wall thickening or pericholecystic fluid. COMMON BILE DUCT: Normal in caliber measuring 0.7 cm in diameter. RIGHT KIDNEY: Visualization is limited. No hydronephrosis. No renal calculi or focal parenchymal lesions. The kidney measures 9.9 cm in maximum dimension. FREE FLUID: None. US/US abdomen limited IMPRESSION: No acute or suspicious findings. Normal appearance of the liver. No inflammatory changes.
[2020-01-31 21:58] VITALS: BP 127/70; PULSE 62; RESP 20; O2SAT 95
[2020-01-31 23:46] VITALS: BP 119/64; PULSE 65; RESP 18; TEMP 36.9; O2SAT 98
[2020-01-31] MEDS: ondansetron HCL 4 MG/2 ML VIAL IVPUSH (23:47)
[2020-01-31] MEDS: 0.9 % Sodium Chloride 1,000 ML 500 ML IVCONT (23:48)
--- NOTE | 2020-02-01 00:31 | PC.NURSE ---
Provider to bedside at this time to discuss plan for DC with phone general lithographic worker.
== END 2020-02-01 01:35 | disposition home or self-care (01) ==
PROVIDERS: Physician Assistant; Emergency Provider Internal Medicine
DX: U07.1 COVID-19 (principal); Z79.899 Other long term (current) drug therapy
CPT/HCPCS: 36415; 76705; 80053; 84484; 85025; 93005; 96361; 96374; 99284; J2405

== ENCOUNTER 2020-03-15 09:42 | Outpatient (RCR) | payer OTHER, SELFPAY ==
[2020-03-15 10:14] VITALS: BP 146/74; PULSE 61
== END 2020-03-27 09:26 | disposition other institution (70) ==
LOC: HO.PT 09:42
PROVIDERS: PCP Nurse Practitioner Family; Visit Provider Family Medicine
DX: R26.81 Unsteadiness on feet (principal)
CPT/HCPCS: 97162

== ENCOUNTER → 2020-04-24 10:29 | Outpatient (BNVA) | payer OTHER, SELFPAY | PROVIDERS: Visit Provider Internal Medicine Cardiovascular Disease ==

== ENCOUNTER → 2020-05-29 09:35 | Outpatient (BNVA) | payer OTHER, SELFPAY | PROVIDERS: Visit Provider Internal Medicine Cardiovascular Disease ==

== ENCOUNTER 2020-09-22 08:30 | Outpatient (REF) | payer MEDICARE, SELFPAY ==
[2020-09-22 09:14] LABS: MANUAL DIFF FLAG NO
[2020-09-22 09:21] LABS: Basophils Percent Auto 0.3 % (0-2); Eosinophils Absolute Auto 0.1 X10*3/uL (0.0-0.4); Eosinophils Percent Auto 1.5 % (0-4); Hematocrit 42.2 % (37-47); Hemoglobin 13.6 g/dl (12.0-16.0); Imm Gran Abs Auto 0.03 X10*3/uL (0.00-0.03); Imm Gran Pct Auto 0.5 % (0.0-0.4); Lymphocytes Absolute Auto 1.7 X10*3/uL (1.2-4.9); Lymphocytes Percent Auto 28.2 % (20-40); Mean Corpuscular HGB Conc 32.2 g/dl (31.0-35.0); Mean Corpuscular Hemoglobin 29.5 pg (27.0-33.0); Mean Corpuscular Volume 91.5 fL (80-98); Mean Platelet Volume 9.3 fL (9.4-12.3); Monocytes Absolute Auto 0.4 X10*3/uL (0.1-1.2); Monocytes Percent Auto 6.8 % (2-11); Neutrophils Absolute Auto 3.9 X10*3/uL (2.0-8.3); Neutrophils Percent Auto 62.7 % (45-73); Platelet Count 187 X10*3/uL (160-400); Red Blood Count 4.61 X10*6/uL (4.20-5.50); Red Cell Distribution Width 12.9 % (11.0-16.0); White Blood Count 6.2 X10*3/uL (4.8-10.8)
[2020-09-22 09:40] LABS: Alanine Aminotransferase 18 U/L (0-31); Albumin Level 4.4 g/dL (3.5-5.0); Alkaline Phosphatase 63 U/L (39-117); Anion Gap 13 (12-20); Aspartate Amino Transferase 18 U/L (5-31); Bilirubin Total 0.5 mg/dL (0.0-1.0); Blood Urea Nitrogen 20 mg/dL (9-16); Calcium 9.7 mg/dL (8.4-10.2); Carbon Dioxide 27 mmol/L (22-29); Chloride 108 mmol/L (96-108); Cholesterol 221 mg/dL; Estimated Glomerular Filt Rate 54; Glucose Fasting 101 mg/dL (60-99); HDL Cholesterol 45 mg/dL; LDL Cholesterol Calculated 149 mg/dl; Potassium 4.5 mmol/L (3.3-5.1); Sodium 143 mmol/L (135-145); Total Protein 6.8 g/dL (6.5-8.0); Triglycerides 138 mg/dL
[2020-09-26 20:37] LABS: Vitamin D 25-OH, D2 109 ng/mL; Vitamin D 25-OH, D3 4 ng/mL; Vitamin D 25-OH, Total 113 ng/mL (30-100)
== END 2020-09-22 08:31 | disposition home or self-care (01) ==
LOC: HO.LAB 08:30
PROVIDERS: PCP Internal Medicine; Visit Provider Internal Medicine
DX: E55.9 Vitamin D deficiency, unspecified (principal); D64.9 Anemia, unspecified; I10 Essential (primary) hypertension; D75.89 Other specified diseases of blood and blood-forming organs; E78.5 Hyperlipidemia, unspecified
CPT/HCPCS: 36415; 80053; 80061; 82306; 85025

== ENCOUNTER → 2020-11-09 12:46 | Outpatient (BNVA) | payer MEDICARE, SELFPAY | PROVIDERS: PCP Internal Medicine; Referring Provider Internal Medicine; Visit Provider Internal Medicine Cardiovascular Disease | DX: R07.89 Other chest pain (principal); I10 Essential (primary) hypertension; E78.5 Hyperlipidemia, unspecified | CPT/HCPCS: 93005; 99212 ==

== ENCOUNTER 2021-07-04 09:12 | Outpatient (REF) | payer MEDICARE, SELFPAY ==
[2021-07-04 09:48] LABS: MANUAL DIFF FLAG NO
[2021-07-04 09:59] LABS: Basophils Percent Auto 0.3 % (0-2); Eosinophils Absolute Auto 0.1 X10*3/uL (0.0-0.4); Eosinophils Percent Auto 1.4 % (0-4); Hematocrit 40.1 % (37.0-47.0); Hemoglobin 13.2 g/dl (12.0-16.0); Imm Gran Abs Auto 0.02 X10*3/uL (0.00-0.03); Imm Gran Pct Auto 0.3 % (0.0-0.4); Lymphocytes Percent Auto 34.4 % (20-40); Mean Corpuscular HGB Conc 32.9 g/dl (31.0-35.0); Mean Corpuscular Hemoglobin 29.6 pg (27.0-33.0); Mean Corpuscular Volume 89.9 fL (80.0-98.0); Monocytes Absolute Auto 0.5 X10*3/uL (0.1-1.2); Monocytes Percent Auto 8.2 % (2-11); Neutrophils Absolute Auto 3.2 x10*3/uL (2.0-8.3); Neutrophils Percent Auto 55.4 % (45-73); Platelet Count 171 X10*3/uL (160-400); Red Blood Count 4.46 X10*6/uL (4.20-5.50); White Blood Count 5.9 X10*3/uL (4.8-10.8)
[2021-07-04 10:39] LABS: Alanine Aminotransferase 13 U/L (0-31); Albumin Level 4.2 g/dL (3.5-5.0); Alkaline Phosphatase 53 U/L (39-117); Anion Gap 9 (12-20); Aspartate Amino Transferase 15 U/L (5-31); Bilirubin Total 0.6 mg/dL (0.0-1.0); Blood Urea Nitrogen 16 mg/dL (9-16); Calcium 9.6 mg/dL (8.4-10.2); Carbon Dioxide 28 mmol/L (22-29); Chloride 106 mmol/L (96-108); Cholesterol 267 mg/dL; Estimated Glomerular Filt Rate 50; Glucose Fasting 96 mg/dL (60-99); HDL Cholesterol 44 mg/dL; LDL Cholesterol Calculated 193 mg/dl; Potassium 4.3 mmol/L (3.3-5.1); Sodium 139 mmol/L (135-145); Total Protein 6.4 g/dL (6.5-8.0); Triglycerides 150 mg/dL
[2021-07-08 13:41] LABS: Vitamin D 25-OH, D2 33 ng/mL; Vitamin D 25-OH, D3 8 ng/mL; Vitamin D 25-OH, Total 41 ng/mL (30-100)
== END 2021-07-04 09:13 | disposition home or self-care (01) ==
LOC: HO.LAB 09:12
PROVIDERS: PCP Internal Medicine; Visit Provider Internal Medicine
DX: E55.9 Vitamin D deficiency, unspecified (principal); E78.5 Hyperlipidemia, unspecified; I10 Essential (primary) hypertension; D75.89 Other specified diseases of blood and blood-forming organs
CPT/HCPCS: 36415; 80053; 80061; 82306; 85025

== ENCOUNTER → 2021-08-15 13:13 | Outpatient (BNVA) | payer MEDICARE, SELFPAY | PROVIDERS: PCP Internal Medicine; Referring Provider Internal Medicine; Visit Provider Nurse Practitioner Family | DX: I10 Essential (primary) hypertension (principal); E78.5 Hyperlipidemia, unspecified | CPT/HCPCS: 99212 ==

== ENCOUNTER 2021-10-12 08:22 | Outpatient (REF) | payer MEDICARE, SELFPAY ==
[2021-10-12 08:37] LABS: MANUAL DIFF FLAG NO
[2021-10-12 08:50] LABS: Basophils Percent Auto 0.4 % (0-2); Eosinophils Absolute Auto 0.1 X10*3/uL (0.0-0.4); Hematocrit 41.6 % (37.0-47.0); Hemoglobin 13.7 g/dl (12.0-16.0); Imm Gran Abs Auto 0.02 X10*3/uL (0.00-0.03); Imm Gran Pct Auto 0.4 % (0.0-0.4); Lymphocytes Absolute Auto 1.7 X10*3/uL (1.2-4.9); Mean Corpuscular HGB Conc 32.9 g/dl (31.0-35.0); Mean Corpuscular Hemoglobin 29.4 pg (27.0-33.0); Mean Corpuscular Volume 89.3 fL (80.0-98.0); Mean Platelet Volume 8.8 fL (9.4-12.3); Monocytes Absolute Auto 0.4 X10*3/uL (0.1-1.2); Monocytes Percent Auto 7.4 % (2-11); Neutrophils Absolute Auto 3.2 x10*3/uL (2.0-8.3); Neutrophils Percent Auto 58.8 % (45-73); Platelet Count 174 X10*3/uL (160-400); Red Blood Count 4.66 X10*6/uL (4.20-5.50); Red Cell Distribution Width 12.9 % (11.0-16.0); White Blood Count 5.4 X10*3/uL (4.8-10.8)
[2021-10-12 09:14] LABS: Alanine Aminotransferase 24 U/L (0-31); Albumin Level 4.3 g/dL (3.5-5.0); Alkaline Phosphatase 65 U/L (39-117); Anion Gap 10 (12-20); Aspartate Amino Transferase 22 U/L (5-31); Bilirubin Total 0.3 mg/dL (0.0-1.0); Blood Urea Nitrogen 15 mg/dL (9-16); Calcium 9.2 mg/dL (8.4-10.2); Carbon Dioxide 28 mmol/L (22-29); Chloride 107 mmol/L (96-108); Cholesterol 165 mg/dL; Estimated Glomerular Filt Rate 53; Glucose Fasting 120 mg/dL (60-99); HDL Cholesterol 45 mg/dL; LDL Cholesterol Calculated 106 mg/dl; Potassium 4.2 mmol/L (3.3-5.1); Sodium 141 mmol/L (135-145); Total Protein 6.6 g/dL (6.5-8.0); Triglycerides 73 mg/dL
== END 2021-10-12 08:23 | disposition home or self-care (01) ==
LOC: HO.LAB 08:22
PROVIDERS: PCP Internal Medicine; Visit Provider Internal Medicine
DX: E78.5 Hyperlipidemia, unspecified (principal); D64.9 Anemia, unspecified; I10 Essential (primary) hypertension
CPT/HCPCS: 36415; 80053; 80061; 85025

== ENCOUNTER → 2022-03-06 13:35 | Outpatient (BNVA) | payer MEDICARE, SELFPAY | PROVIDERS: PCP Internal Medicine; Referring Provider Internal Medicine; Visit Provider Internal Medicine Cardiovascular Disease | DX: R07.89 Other chest pain (principal); I10 Essential (primary) hypertension; G47.30 Sleep apnea, unspecified | CPT/HCPCS: 93005; 99212 ==

== ENCOUNTER → 2022-07-03 12:33 | Outpatient (BNVA) | payer MEDICARE, SELFPAY | PROVIDERS: PCP Internal Medicine; Referring Provider Internal Medicine; Visit Provider Internal Medicine Cardiovascular Disease | DX: R07.9 Chest pain, unspecified (principal); I10 Essential (primary) hypertension; E78.5 Hyperlipidemia, unspecified | CPT/HCPCS: 99212 ==

== ENCOUNTER 2022-09-03 09:23 | Outpatient (REF) | payer OTHER, SELFPAY ==
[2022-09-03 10:44] LABS: Alanine Aminotransferase 14 U/L (0-31); Albumin Level 4.4 g/dL (3.5-5.0); Alkaline Phosphatase 55 U/L (39-117); Anion Gap 11 (12-20); Aspartate Amino Transferase 17 U/L (5-31); Bilirubin Total 0.6 mg/dL (0.0-1.0); Blood Urea Nitrogen 15 mg/dL (9-16); Calcium 9.6 mg/dL (8.4-10.2); Carbon Dioxide 29 mmol/L (22-29); Chloride 107 mmol/L (96-108); Cholesterol 182 mg/dL; Estimated Glomerular Filt Rate 52; Glucose Fasting 104 mg/dL (60-99); HDL Cholesterol 38 mg/dL; LDL Cholesterol Calculated 108 mg/dl; Potassium 4.4 mmol/L (3.3-5.1); Sodium 143 mmol/L (135-145); Total Protein 6.7 g/dL (6.5-8.0); Triglycerides 183 mg/dL
[2022-09-03 11:14] LABS: Vitamin B12 325 pg/mL (200-900)
== END 2022-09-03 09:24 | disposition home or self-care (01) ==
LOC: HO.LAB 09:23
PROVIDERS: PCP Internal Medicine; Visit Provider Internal Medicine
DX: E53.8 Deficiency of other specified B group vitamins (principal); E55.9 Vitamin D deficiency, unspecified; R73.02 Impaired glucose tolerance (oral); E78.5 Hyperlipidemia, unspecified
CPT/HCPCS: 36415; 80053; 80061; 82306; 82607; 82746

== ENCOUNTER 2023-03-05 08:39 | Outpatient (AMB) | payer OTHER, SELFPAY ==
--- NOTE | 2023-03-05 08:47 | MHC.PC.OV ---
Vital Signs 03/05/23 08:48 Height 5 ft 7 in Weight 145 lb BMI 22.7 BP 148/90 H Blood Pressure Location Lt brachial Position Sitting Pulse 64 Pulse Source Pulse Oximeter Pulse Oximetry (%) 98 Oxygen Delivery Method Room Air Intake Visit Reasons: bp Intake Note: Patient here for a follow up bp, c/o right arm and knee pain Pancake Professional Required: No Accompanied by: Self / Same As Patient Allergies No Known Allergies [No Known Allergies*] Allergy (Verified 03/05/23 09:00) Medication List - Last Reconciled 03/05/23 by Sandy Hartmann MD amlodipine 2.5 mg PO DAILY brimonidine 0.2% 1 drp ophthalmic (eye) fluocinolone 0.01% 1 appl topical BID 30 days fluticasone propionate 50 mcg/actuation 2 sprays intranasal QAM 30 days lisinopril-hydrochlorothiazide 20-12.5 mg 1 tab PO DAILY meclizine 12.5 mg PO DAILY PRN 90 days rosuvastatin 40 mg PO DAILY triamcinolone acetonide 0.1% appl topical ONCE Tobacco use date assessed: 03/05/23 Fall risk assessment: No Falls in past year Last assessed Fall Risk: 03/05/23 Dental Screening Dental Screen Date: 03/05/23 Did you have a dental visit in the last 12 months?: No Did you have a dental problem in the last 6 months where you did not have access to dental care?: No Was dental information given to patient?: Patient declined HPI HPI Comments History of Present Illness Details This is an 87-year-old female with hypertension, pure hypercholesterolemia and dizziness that comes today complaining of bilateral knee pain and right shoulder pain that has been present for few weeks. She declines ortho referral. X-rays will be order. Tylenol was recommended as needed for pain. Blood pressure elevated because she ran out of her medications. Blood pressure will be recheck in 3 weeks by nurse navigator. Last cholesterol was well control. Dizziness happen occasionally and has been stable with meclizine as needed. FOR[facility]LY [facility], [facility] Medical History (Updated 03/05/23 @ 09:06 by Sandy Hartmann MD) Bicytopenia Dizziness Allergic rhinitis Hypovitaminosis D Transaminitis Dyspnea Hypertension Surgical History No pertinent past surgical history Family History Daughter Pacemaker Mother Heart attack Father Heart attack Social History Household Members: Other Housing: Apartment Do you presently have visiting nurse or other home services: Yes (HEALTH CARE MANAGER) Alcohol intake: never Patient Tobacco Use Status: Never used Tobacco e-Cigarette/Vaping Use: Never Used Second Hand Smoke Exposure: No service: No Current occupational status: retired Cognitive needs: Yes Hearing needs: No Vision needs: Yes Questionnaire Thrive Questionnaire Date Thrive assessed: 08/13/21 EBER-7 AMB Questionnaire EBER-7 Date EBER - 7 assessed: 08/13/21 Source: Developed by Drs. Sukhdev Alaniz, Monse Hester, Da Rivera and colleagues, with an educational damián from [employer]. Review of Systems Const All systems reviewed & are unremarkable except as noted in HPI and below Eyes Reports no additional complaints, Denies change in vision and Denies other visual disturbances Card Denies chest pain at rest, Denies chest pain with activity, Denies edema, Denies irregular heart rhythm, Denies claudication, Denies dyspnea, Denies dyspnea on exertion, Denies orthopnea, Denies paroxysmal nocturnal dyspnea and Denies slow heart rate Resp Denies cough, Denies dyspnea and Denies dyspnea on exertion GI Denies abdominal pain, Denies change in bowel habits, Denies excessive flatus, Denies nausea and Denies vomiting Denies urinary incontinence, Denies urinary hesitancy and Denies urinary urgency Musc Denies abnormal gait, Denies atrophy, Denies deformity, Reports arthralgias and Reports limited range of motion Skin/Breast Denies bleeding lesions, Denies changing lesions and Denies rash Neuro Denies abnormal gait and Denies lack of coordination Physical exam (Primary Care) Vital Signs: Last Vital Signs Pulse 64 03/05/23 08:48 BP 148/90 H 03/05/23 08:48 Pulse Ox 98 03/05/23 08:48 Oxygen Delivery Method Room Air 03/05/23 08:48 BMI result Body Mass Index 22.7 Tobacco/Smoking Status: Tobacco use Status Tobacco use date assessed 03/05/23 03/05/23 08:53 Patient Tobacco Use Status Never used Tobacco 03/05/23 08:53 Tobacco use type 11/09/20 13:25 e-Cigarette/Vaping Use Never Used 03/05/23 08:53 Thrive Assessment: Date of Thrive Assessment Date Thrive assessed 08/13/21 03/05/23 08:53 Eyes General: appearance normal, both eyes and all related structures Eyelids: Yes eyelids normal Conjunctivae: conjunctivae normal Neck Neck: Yes normal visual inspection and Yes supple Resp Effort & Inspection: normal respiratory effort Auscultation: clear to auscultation bilaterally Cardio Jugular venous distension: no JVD Rate: regular rate Rhythm: regular rhythm Heart sounds: S1 normal heart sound present and S2 normal heart sound present Extrem Right upper extremity: shoulder/upper arm Details: tenderness and abnormal ROM Details: pain with active ROM Details: in ABduction and in extension Assessment and Plan Assessment & Plan (1) Hypertension: Comment: Stable Code(s): I10 - Essential (primary) hypertension Qualifiers: Hypertension type: essential hypertension Qualified Code(s): I10 - Essential (primary) hypertension Plan: Continue amlodipine and lisinopril-hydrochlorothiazide. Blood pressure goal is equal or less than 130/80. Blood pressure will be recheck with nurse navigator in 3 weeks (2) Hyperlipidemia: Code(s): E78.5 - Hyperlipidemia, unspecified Qualifiers: Hyperlipidemia type: unspecified Qualified Code(s): E78.5 - Hyperlipidemia, unspecified Plan: Continue statins. (3) Dizziness: Code(s): R42 - Dizziness and giddiness Plan: Continue meclizine as needed. (4) Right shoulder pain: Code(s): M25.511 - Pain in right shoulder Plan: X-ray ordered. Orders: Orders XR shoulder RT min 2V Today M25.511 - Pain in right shoulder XR knee LT 2V Today M25.562 - Pain in left knee XR knee RT 2V Today M25.561 - Pain in right knee Medications: Changed From lisinopril-hydrochlorothiazide 20-12.5 mg 1 tab PO DAILY To lisinopril-hydrochlorothiazide 20-12.5 mg 1 tab PO DAILY 90 days 90 tabs 1RF Refilled amlodipine 2.5 mg PO DAILY 90 tabs 0RF fluocinolone 0.01% 1 appl topical BID 30 days 60 mL 3RF I10 - Essential (primary) hypertension meclizine 12.5 mg PO DAILY 90 days PRN 90 tabs 3RF dizziness I10 - Essential (primary) hypertension Coding Level of Care Code Est Pt Level 4 (05445) Diagnoses Essential hypertension I10 Hypertension type: essential hypertension Hyperlipidemia, unspecified hyperlipidemia type E78.5 Hyperlipidemia type: unspecified Dizziness R42 Right shoulder pain M25.511 Time Spent (min) 22
[2023-03-05 08:48] VITALS: BP 148/90; PULSE 64; O2SAT 98; BMI 22.7
== END 2023-03-05 09:08 | disposition home or self-care (01) ==
PROVIDERS: PCP Internal Medicine; Visit Provider Internal Medicine
DX: I10 Essential (primary) hypertension (principal); E78.5 Hyperlipidemia, unspecified; R42 Dizziness and giddiness; M25.511 Pain in right shoulder
CPT/HCPCS: 99214

== ENCOUNTER 2023-03-07 08:48 | Outpatient (REF) | payer OTHER, SELFPAY ==
--- NOTE | ~2023-03-07 | XR_ITS ---
EXAMINATION: XR KNEE, RIGHT CLINICAL INFORMATION: Pain. COMPARISON: None available. TECHNIQUE: AP and lateral views of the right knee. FINDINGS: Bony alignment and mineralization are normal. The lateral, medial and patellofemoral joint space compartments are well-maintained. There is mild peripheral osteophyte formation of the medial and patellofemoral compartments. No fracture, dislocation or significant joint effusion is seen. There is no foreign body. XR/XR knee LT 2V IMPRESSION: 1. 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 2. No fracture, dislocation or significant joint effusion is seen. EXAMINATION: XR KNEE, LEFT CLINICAL INFORMATION: Pain. COMPARISON: None available. TECHNIQUE: AP and lateral views of the left knee. FINDINGS: Bony alignment and mineralization are normal. The lateral, medial and patellofemoral joint space compartments are well-maintained. There is mild peripheral osteophyte formation of the medial and patellofemoral compartments. No fracture, dislocation or joint effusion is seen. There is no foreign body. IMPRESSION: 1. 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 2. No left knee fracture, dislocation or joint effusion is seen.
--- NOTE | ~2023-03-07 | XR_ITS ---
EXAMINATION: XR KNEE, RIGHT CLINICAL INFORMATION: Pain. COMPARISON: None available. TECHNIQUE: AP and lateral views of the right knee. FINDINGS: Bony alignment and mineralization are normal. The lateral, medial and patellofemoral joint space compartments are well-maintained. There is mild peripheral osteophyte formation of the medial and patellofemoral compartments. No fracture, dislocation or significant joint effusion is seen. There is no foreign body. XR/XR knee RT 2V IMPRESSION: 1. 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 2. No fracture, dislocation or significant joint effusion is seen. EXAMINATION: XR KNEE, LEFT CLINICAL INFORMATION: Pain. COMPARISON: None available. TECHNIQUE: AP and lateral views of the left knee. FINDINGS: Bony alignment and mineralization are normal. The lateral, medial and patellofemoral joint space compartments are well-maintained. There is mild peripheral osteophyte formation of the medial and patellofemoral compartments. No fracture, dislocation or joint effusion is seen. There is no foreign body. IMPRESSION: 1. 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 2. No left knee fracture, dislocation or joint effusion is seen.
--- NOTE | ~2023-03-07 | XR_ITS ---
EXAMINATION: XR SHOULDER, RIGHT CLINICAL INFORMATION: Pain. COMPARISON: None available. TECHNIQUE: AP external rotation, Grashey, scapular Y, and axillary views of the right shoulder. FINDINGS: Bony alignment and mineralization are normal. The glenohumeral joint is intact. The acromioclavicular and coracoclavicular intervals are normal. There is a tiny distal acromial undersurface osteophyte, and there is cortical irregularity of the greater tuberosity of the proximal right humerus. No fracture or dislocation is seen. No soft tissue calcification or foreign body is noted. There is no right pneumothorax. XR/XR shoulder RT min 2V IMPRESSION: 1. No fracture or dislocation is seen. 2. Findings suggest possible right rotator cuff impingement, without trish calcific tendinitis noted.
== END 2023-03-07 08:49 | disposition home or self-care (01) ==
LOC: HO.XRAY 08:48
PROVIDERS: PCP Internal Medicine; Visit Provider Internal Medicine
DX: M25.511 Pain in right shoulder (principal); M25.562 Pain in left knee; M25.561 Pain in right knee
CPT/HCPCS: 73030; 73560

== ENCOUNTER 2023-03-24 09:38 | Emergency (ER) | payer OTHER, SELFPAY ==
--- NOTE | ~2023-03-24 | XR_ITS ---
EXAMINATION: XR CHEST CLINICAL INFORMATION: Dyspnea COMPARISON: Chest 01/27/2020 TECHNIQUE: AP upright portable view of the chest was obtained. 10:15 AM FINDINGS: Cardiac leads overlie the chest. The lungs are well expanded. There is slight blunting of the right costophrenic angle consistent with a small pleural effusion. Streaky opacity in the right costophrenic angle may represent atelectasis, less likely minimal pneumonia. No pneumothorax or interstitial pulmonary edema. There is mild peribronchial thickening. No significant abnormality is noted involving the heart, mediastinum, bony thorax or soft tissues. XR/XR chest 1V IMPRESSION: 1. Small right pleural effusion. 2. Streaky opacity in the right costophrenic angle may represent atelectasis, less likely minimal pneumonia.
[2023-03-24 09:52] VITALS: BP 181/103; PULSE 76; O2SAT 96
[2023-03-24 09:57] VITALS: BP 151/68; PULSE 63; RESP 26; TEMP 36.6; O2SAT 99; BMI 28.3
--- NOTE | 2023-03-24 10:02 | ECG_ITS ---
Test Reason : DYSPNEA Blood Pressure : / mmHG Vent. Rate : 065 BPM Atrial Rate : 065 BPM P-R Int : 182 ms QRS Dur : 080 ms QT Int : 438 ms P-R-T Axes : 050 -18 009 degrees QTc Int : 455 ms Normal sinus rhythm Nonspecific T wave abnormality Abnormal ECG When compared with ECG of 31-JAN-2020 20:37, T wave inversion no longer evident in Lateral leads Referred By: Generic ED Physician Electronically Signed By:BINH MCDOWELL MD
[2023-03-24 10:13] LABS: MANUAL DIFF FLAG NO
[2023-03-24 10:16] LABS: Basophils Percent Auto 0.4 % (0-2); Eosinophils Absolute Auto 0.1 X10*3/uL (0.0-0.4); Eosinophils Percent Auto 1.6 % (0-4); Hematocrit 39.1 % (37.0-47.0); Hemoglobin 12.8 g/dl (12.0-16.0); Imm Gran Abs Auto 0.01 X10*3/uL (0.00-0.03); Imm Gran Pct Auto 0.2 % (0.0-0.4); Lymphocytes Absolute Auto 1.7 X10*3/uL (1.2-4.9); Lymphocytes Percent Auto 29.8 % (20-40); Mean Corpuscular HGB Conc 32.7 g/dl (31.0-35.0); Mean Corpuscular Hemoglobin 29.4 pg (27.0-33.0); Mean Corpuscular Volume 89.9 fL (80.0-98.0); Mean Platelet Volume 8.9 fL (9.4-12.3); Monocytes Absolute Auto 0.4 X10*3/uL (0.1-1.2); Monocytes Percent Auto 7.1 % (2-11); Neutrophils Absolute Auto 3.4 x10*3/uL (2.0-8.3); Neutrophils Percent Auto 60.9 % (45-73); Platelet Count 158 X10*3/uL (160-400); Red Blood Count 4.35 X10*6/uL (4.20-5.50); Red Cell Distribution Width 12.7 % (11.0-16.0); White Blood Count 5.6 X10*3/uL (4.8-10.8)
[2023-03-24 10:30] LABS: Anion Gap 13 (12-20); Blood Urea Nitrogen 14 mg/dL (9-16); Calcium 9.3 mg/dL (8.4-10.2); Carbon Dioxide 24 mmol/L (22-29); Chloride 108 mmol/L (96-108); Estimated Glomerular Filt Rate 57; Glucose Random 99 mg/dL (60-115); Potassium 3.7 mmol/L (3.3-5.1); Sodium 141 mmol/L (135-145)
--- NOTE | 2023-03-24 10:38 | ED.GENADULT ---
HPI - General Adult General Chief complaint: Dyspnea Stated complaint: SOB,96% RA,DIZZY, PER EMS Time Seen by Provider: 03/24/23 10:30 History of Present Illness HPI narrative: Patient is an 87-year-old woman who has been feeling somewhat unwell for a couple of weeks. She is here with her son who was also her MENTAL RETARDATION NURSE. Apparently she has been having pains in her right shoulder for about a month. She has seen her doctor, Dr. Suero. She had an outpatient x-ray of her right shoulder 2 and half weeks ago which showed possible right rotator cuff impingement but without more definite findings. Apparently over the last 1-2 weeks she has also had a sense of shortness of breath. She says that she feels there is something in the middle of her chest which impedes her breathing. She has not had any definite fever. No significant coughing. No pain or swelling in her legs. The patient lives with her autistic grandchild. Her son is her MENTAL RETARDATION NURSE who is with her a great deal. The patient apartment with a walker. The patient does not have any definite history of coronary disease. She has seen Dr. Morgan for her hypertension and for follow-up of transiently elevated troponins when she had COVID. Related Data Home Medications Medication Instructions Recorded Confirmed triamcinolone acetonide 0.1 % applic topical ONCE 01/27/20 03/05/23 topical cream brimonidine 0.2 % eye drops 1 drp ophthalmic (eye) 08/15/21 03/05/23 Previous Rx's Medication Instructions Recorded rosuvastatin 40 mg tablet 40 mg PO DAILY #90 tabs 09/24/21 fluticasone propionate 50 2 spray intranasal QAM 30 days #16 11/11/21 mcg/actuation nasal grams spray,suspension amlodipine 2.5 mg tablet 2.5 mg PO DAILY #90 tabs 03/05/23 fluocinolone 0.01 % topical 1 appl topical BID 30 days #60 mL 03/05/23 solution lisinopril 20 1 tab PO DAILY 90 days #90 tabs 03/05/23 mg-hydrochlorothiazide 12.5 mg tablet meclizine 12.5 mg tablet 12.5 mg PO DAILY PRN dizziness 90 03/05/23 days #90 tabs albuterol sulfate 90 mcg/actuation 2 puff inhalation Q4-6H PRN 03/24/23 aerosol inhaler shortness of breath or wheezing, cough #8.5 grams Allergies Allergy/AdvReac Type Severity Reaction Status Date / Time No Known Allergies Allergy Verified 03/05/23 09:00 [No Known Allergies*] [facility] Past Medical History Medical History Allergic rhinitis Bicytopenia Dizziness Dyspnea Hypertension Hypovitaminosis D Transaminitis Surgical History No pertinent past surgical history Family History Family History Daughter Pacemaker Mother Heart attack Father Heart attack Social History Social History Household Members: Other Housing: Apartment Do you presently have visiting nurse or other home services: Yes (MENTAL 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 NURSE) Alcohol intake: never Patient Tobacco Use Status: Never used Tobacco Smoked in Last 30 Days: No e-Cigarette/Vaping Use: Never Used Second Hand Smoke Exposure: No Use of substances other than those prescribed or required for medical reasons: No Advance Directives: Yes Advance Directives on File: Yes Advance Directives Date on File: 03/24/23 service: No Current occupational status: retired Cognitive needs: Yes Hearing needs: No Vision needs: Yes Physical Exam ED Vital Signs: Vital Signs - 24 hr 03/24/23 09:57 03/24/23 11:10 03/24/23 12:00 Temperature 98 F 98 F Pulse Rate 63 61 64 Respiratory Rate 26 H 18 12 Blood Pressure 151/68 H 152/83 H Pulse Oximetry 99 97 Oxygen Delivery Method Room Air Room Air 03/24/23 12:19 03/24/23 12:59 Temperature Pulse Rate 67 83 Respiratory Rate 18 20 Blood Pressure 140/92 H Pulse Oximetry 97 Oxygen Delivery Method Room Air BMI result Body Mass Index 28.3 Const Other: The patient is an elderly woman who is awake and alert. She does not appear in obvious distress. HENMT Other: Face is symmetrical. Mucous membranes moist. Eyes Other: Pupils are round equal, conjunctivae clear Neck Other: No definite JVD. Resp Other: Breath sounds are fairly clear bilaterally. Cardio Other: The patient has regular rate and rhythm no murmur GI Other: The abdomen is soft and nontender Skin Other: Skin is dry and unremarkable Neuro Other: The patient is awake and alert. Face is symmetrical. Speech is clear. She moves her extremities symmetrically. She seems grossly neurologically intact. Extrem Other: No pitting edema. No calf swelling or tenderness. No asymmetry. Medications Administered Discontinued Medications Generic Name Dose Route Start Last Admin Trade Name Kirti PRN Reason Stop Dose Admin Acetaminophen 975 mg 03/24/23 10:47 03/24/23 12:00 Acetaminophen 325 Mg Tablet PO 03/24/23 10:48 Not Given ONCE ONE Albuterol Sulfate 2 puff 03/24/23 12:41 03/24/23 12:57 Albuterol Sulfate 90 Mcg 8 Gm Inhaler INHALE 03/24/23 12:42 2 puff ONCE ONE Administration Albuterol/Ipratropium 3 ml 03/24/23 11:03 03/24/23 11:08 Albuterol/Iprat 2.5/0.5mg 3 Ml Ampul.Neb INHALE 03/24/23 11:04 3 ml ONCE ONE Administration Medical Decision Making Medical Decision Making [facility] Narrative: The patient is an 87-year-old woman who presents with symptoms of feeling unwell for a couple of weeks. She has had a cough and some shortness of breath. Clinically the patient does not appear obviously ill today. She has a normal white count differential. She has a normal basic metabolic panel. She has an undetectable troponin. Undetectable CRP. Normal BNP. She is negative for the flu, RSV, and COVID. Chest x-ray was read as showing a small right pleural effusion and a streaky opacity in the right costophrenic angle which is likely atelectasis. EKG is unremarkable. Overall I feel the patient's workup is essentially quite negative and I do not think she requires additional testing. She looks well enough for discharge home. We will trial albuterol to see if this is helpful. She was instructed in the use of an inhaler. She should follow up with her regular doctor or return to the ER if worse. Lab Data 03/24/23 10:04 03/24/23 10:04 Labs: Lab Results 03/24/23 Range/Units 10:04 WBC 5.6 (4.8-10.8) X10*3/uL RBC 4.35 (4.20-5.50) X10*6/uL Hgb 12.8 (12.0-16.0) g/dl Hct 39.1 (37.0-47.0) % MCV 89.9 (80.0-98.0) fL MCH 29.4 (27.0-33.0) pg MCHC 32.7 (31.0-35.0) g/dl RDW 12.7 (11.0-16.0) % Plt Count 158 L (160-400) X10*3/uL MPV 8.9 L (9.4-12.3) fL Immature Gran % (Auto) 0.2 (0.0-0.4) % Neut % (Auto) 60.9 (45-73) % Lymph % (Auto) 29.8 (20-40) % [place] % (Auto) 7.1 (2-11) % Eos % (Auto) 1.6 (0-4) % Baso % (Auto) 0.4 (0-2) % Lymph # (Auto) 1.7 (1.2-4.9) X10*3/uL [place] # (Auto) 0.4 (0.1-1.2) X10*3/uL Eos # (Auto) 0.1 (0.0-0.4) X10*3/uL Baso # (Auto) 0.0 (0.0-0.2) X10*3/uL Abs Immat Gran (auto) 0.01 (0.00-0.03) X10*3/uL Absolute Neuts (auto) 3.4 (2.0-8.3) x10*3/uL Absolute Nucleated RBC 0.000 (0.0-0.012) X10*3/uL Nucleated RBC % (auto) 0.0 (0.0-0.2) /100WBC Sodium 141 (135-145) mmol/L Potassium 3.7 (3.3-5.1) mmol/L Chloride 108 (96-108) mmol/L Carbon Dioxide 24 (22-29) mmol/L Anion Gap 13 (12-20) BUN 14 (9-16) mg/dL Creatinine 0.93 (0.5-1.4) mg/dL Estim Creat Clear Calc 36.0 Estimated GFR 57 Random Glucose 99 (60-115) mg/dL Calcium 9.3 (8.4-10.2) mg/dL Troponin I High Sens < 2.7 (<3.5-17.0) ng/L C-Reactive Protein < 0.04 (< or = 0.50) mg/dL B-Natriuretic Peptide 66 (<100) pg/mL Influenza Type A (PCR) NEGATIVE (Negative) Influenza Type B (PCR) NEGATIVE (Negative) RSV RNA Qual (PCR) NEGATIVE (Negative) SARS-CoV-2 RNA (RT-PCR) NEGATIVE (Negative) Independent Interpretation I performed an independent interpretation of an: EKG Interpretation: EKG at 10:07 shows normal sinus rhythm at 65 beats per minute. No definite acute ischemic change Discharge Plan Discharge Clinical Impression: Shortness of breath Patient Disposition: Home, Self-Care Additional Instructions: Your testing today seems very reassuring. Please use the albuterol inhaler to help with coughing or shortness of breath. Take 2 puffs every 4 hours as needed. Use the AeroChamber (spacer) when you use the inhaler device. Please contact your primary care doctor's office to make a follow-up appointment very soon. Return to the emergency room a significantly worse. Prescriptions: New albuterol sulfate 90 mcg/actuation HFA aerosol inhaler 2 puff inhalation Q4-6H PRN (Reason: shortness of breath or wheezing, cough) Qty: 8.5 0RF No Action rosuvastatin 40 mg tablet 40 mg PO DAILY Qty: 90 3RF fluticasone propionate 50 mcg/actuation spray,suspension 2 spray intranasal QAM 30 Days Qty: 16 1RF triamcinolone acetonide 0.1 % cream topical ONCE fluocinolone 0.01 % solution 1 appl topical BID 30 Days Qty: 60 3RF amlodipine 2.5 mg tablet 2.5 mg PO DAILY Qty: 90 0RF meclizine 12.5 mg tablet 12.5 mg PO DAILY PRN (Reason: dizziness) 90 Days Qty: 90 3RF lisinopril-hydrochlorothiazide 20-12.5 mg tablet 1 tab PO DAILY 90 Days Qty: 90 1RF brimonidine 0.2 % drops 1 drp ophthalmic (eye) Referrals: Sandy Loja MD [Primary Care Provider] - (Shortness of breath) Interventions: ED Discharge Assessment Last Done: 03/24/23 13:10 Discharge Date/Time: 03/24/23 13:00
[2023-03-24 10:51] LABS: Troponin-I High Sensitivity < 2.7 ng/L (<3.5-17.0)
[2023-03-24] MEDS: Albuterol/Iprat 2.5/0.5MG 3 ML AMPUL.NEB INHALE (11:08)
[2023-03-24 11:10] VITALS: PULSE 61; RESP 18; O2SAT 99
[2023-03-24 11:23] LABS: C Reactive Protein < 0.04 mg/dL (< or = 0.50)
[2023-03-24 11:29] LABS: B Type Natriuretic Peptide 66 pg/mL (<100)
--- NOTE | 2023-03-24 11:36 | PC.NURSE ---
walked to bathroom well w/o distress.
[2023-03-24 11:56] LABS: Influenza A PCR NEGATIVE (Negative); Influenza B PCR NEGATIVE (Negative); Resp Syncy Virus RNA Qual PCR NEGATIVE (Negative); SARS COV2 PCR INHOUSE NEGATIVE (Negative)
[2023-03-24 12:00] VITALS: BP 152/83; PULSE 64; RESP 12; TEMP 36.6; O2SAT 97
[2023-03-24 12:19] VITALS: BP 140/92; PULSE 67; RESP 18; O2SAT 97
--- NOTE | 2023-03-24 12:29 | PC.NURSE ---
awaiting order from md montano inhaler before can d/c pt- RT came to room to do so but no order. no resp distress
--- NOTE | 2023-03-24 12:48 | PC.NURSE ---
historic interpreter came to bedside for d/c- understands instructions. RT to come do teaching w spacer before d/c. no distress. iv out
[2023-03-24] MEDS: Albuterol Sulfate 90 MCG 8 GM INHALER 2 PUFF INHALE (12:57)
[2023-03-24 12:59] VITALS: PULSE 83; RESP 20; O2SAT 99
== END 2023-03-24 13:00 | disposition home or self-care (01) ==
PROVIDERS: Emergency Provider Emergency Medicine; PCP Internal Medicine
DX: R06.02 Shortness of breath (principal); J90 Pleural effusion, not elsewhere classified; R42 Dizziness and giddiness; R05.9 Cough, unspecified; R94.31 Abnormal electrocardiogram [ECG] [EKG]; Z20.822 Contact with and (suspected) exposure to COVID-19; Z20.828 Contact with and (suspected) exposure to other viral communicable diseases; Z79.899 Other long term (current) drug therapy
CPT/HCPCS: 0241U; 71045; 80048; 83880; 84484; 85025; 86140; 93005; 94640; 99284; 99285

== ENCOUNTER → 2023-03-24 10:02 | Outpatient (BNV) | payer OTHER, SELFPAY | PROVIDERS: Emergency Provider Emergency Medicine; PCP Internal Medicine; Visit Provider Internal Medicine Cardiovascular Disease | DX: R94.31 Abnormal electrocardiogram [ECG] [EKG] (principal); R06.09 Other forms of dyspnea | CPT/HCPCS: 93010 ==

== ENCOUNTER 2023-03-29 16:28 | Emergency (ER) | payer OTHER, SELFPAY ==
--- NOTE | 2023-03-29 | ECG_ITS ---
Test Reason : CP Blood Pressure : / mmHG Vent. Rate : 063 BPM Atrial Rate : 063 BPM P-R Int : 176 ms QRS Dur : 072 ms QT Int : 446 ms P-R-T Axes : 010 -11 001 degrees QTc Int : 456 ms Normal sinus rhythm Low voltage QRS Nonspecific ST and T wave abnormality Abnormal ECG When compared with ECG of 24-MAR-2023 10:07, T wave inversion now evident in Lateral leads Referred By: Generic ED Physician Electronically Signed By:BINH MCDOWELL MD
--- NOTE | ~2023-03-29 | XR_ITS ---
EXAMINATION: XR CHEST CLINICAL INFORMATION: Chest pain COMPARISON: None available. TECHNIQUE: 2 views of the chest were obtained. FINDINGS: No significant abnormality is noted involving the heart, lungs, mediastinum, bony thorax or soft tissues. XR/XR chest 2V IMPRESSION: Unremarkable chest examination.
[2023-03-29 16:50] VITALS: BP 128/58; PULSE 90; O2SAT 98; BMI 24.9
--- NOTE | 2023-03-29 17:10 | ED.CHESTPAIN ---
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 Patient was evaluated for similar symptoms in the emergency department 5 days ago. Related Data Home Medications Medication Instructions Recorded Confirmed triamcinolone acetonide 0.1 % applic topical ONCE 01/27/20 03/05/23 topical cream brimonidine 0.2 % eye drops 1 drp ophthalmic (eye) 08/15/21 03/05/23 Previous Rx's Medication Instructions Recorded rosuvastatin 40 mg tablet 40 mg PO DAILY #90 tabs 09/24/21 fluticasone propionate 50 2 spray intranasal QAM 30 days #16 11/11/21 mcg/actuation nasal grams spray,suspension amlodipine 2.5 mg tablet 2.5 mg PO DAILY #90 tabs 03/05/23 fluocinolone 0.01 % topical 1 appl topical BID 30 days #60 mL 03/05/23 solution lisinopril 20 1 tab PO DAILY 90 days #90 tabs 03/05/23 mg-hydrochlorothiazide 12.5 mg tablet meclizine 12.5 mg tablet 12.5 mg PO DAILY PRN dizziness 90 03/05/23 days #90 tabs albuterol sulfate 90 mcg/actuation 2 puff inhalation Q4-6H PRN 03/24/23 aerosol inhaler shortness of breath or wheezing, cough #8.5 grams Allergies Allergy/AdvReac Type Severity Reaction Status Date / Time No Known Allergies Allergy Verified 03/05/23 09:00 [No Known Allergies*] Review of Systems Review of Systems: All other systems are reviewed and are negative Constitutional: Reports as per HPI and Reports no additional constitutional complaints Eyes: Reports as per HPI and Reports no additional eye complaints Reports system reviewed and no additional complaints, except as documented Cardiovascular: Reports as per HPI and Reports no additional cardiovascular complaints Respiratory: Reports as per HPI and Reports no additional respiratory complaints Gastrointestinal: Reports as per HPI and Reports no additional gastrointestinal complaints Genitourinary: Reports no additional female genitourinary complaints Musculoskeletal: Reports no additional musculoskeletal complaints Skin/Breast: Reports system reviewed and no additional complaints, except as docu Psychiatric: Reports no additional psychiatric complaints Endocrine: Reports no additional endocrine complaints Hematologic/Lymphatic: Reports no additional hematologic/lymphatic complaints Allergic/Immunologic: Reports no additional allergic/immunologic complaints Reports system reviewed and no additional complaints, except as documented and Reports Abnormal speech present [facility] Past Medical History Medical History Bicytopenia Dizziness Allergic rhinitis Hypovitaminosis D Transaminitis Dyspnea Hypertension Surgical History No pertinent past surgical history Family History Family History Daughter Pacemaker Mother Heart attack Father Heart attack Social History Social History Household Members: Other Housing: Apartment Do you presently have 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) Alcohol intake: never Patient Tobacco Use Status: Never used Tobacco Smoked in Last 30 Days: No e-Cigarette/Vaping Use: Never Used Second Hand Smoke Exposure: No Use of substances other than those prescribed or required for medical reasons: No Advance Directives: Yes Advance Directives on File: Yes Advance Directives Date on File: 03/24/23 service: No Current occupational status: retired Cognitive needs: Yes Hearing needs: No Vision needs: Yes Physical Exam Vital Signs: Vital Signs: Last Vital Signs Temp 97.7 F 03/29/23 19:44 Pulse 95 03/29/23 19:44 Resp 12 03/29/23 19:44 BP 144/71 H 03/29/23 19:44 Pulse Ox 96 03/29/23 19:44 O2 Del Method Room Air 03/29/23 19:44 BMI result Body Mass Index 24.9 Vital signs have been reviewed and appear to be correct. Blood pressure elevated. Heart rate normal. Respiratory rate normal. Temperature normal. Oxygen saturation normal. Appearance: Alert. Oriented X3. No acute distress. Head: Normal external exam. Normocephalic. Atraumatic. No Garcia signs noted. No raccoon eyes noted Eyes: PERRLA. EOMI. Conjunctiva and sclera normal. Eyelids normal. ENT: TM's Normal. Pharynx normal. Uvula midline. Moist mucous membranes. No trismus noted. No drooling noted. No muffled voice noted. Neck: Normal inspection. Neck supple. FROM. No adenopathy. Thyroid Normal. No meningeal signs. No neck mass noted. CVS: Normal heart rate and rhythm. Heart sound normal. No murmurs noted. Pulses normal throughout. Respiratory: No respiratory distress. Painless inspiration. Breath sounds normal. No wheezes/rales/rhonchi noted. Chest nontender. No accessory muscle usage noted or decreased air movement noted. Abdomen: Soft and nontender. Bowel sounds normal in all 4 quadrants. No distention noted. No organomegaly noted. No visible injury noted. Back: No CVA tenderness. Full range of motion noted. Skin: Skin warm and dry. Normal skin color. Normal skin turgor. No rashes/lesions/lacerations noted. Extremities: No lower extremity edema. Extremities exhibit normal range of motion. Extremities nontender. Neuro: Oriented X 3. Cranial nerve exam: II-XII are grossly intact No motor deficit. No sensory deficit. Reflexes normal. Course Reevaluation(s) Reevaluation #1: Patient is COVID positive, O2 sat is 96 with RR 12, chest x-ray was unremarkable for any other pathology, no indication to admit the patient will discharge the patient with instruction to return if having difficulty breathing. Time: 21:34 Medications Administered Discontinued Medications Generic Name Dose Route Start Last Admin Trade Name Freq PRN Reason Stop Dose Admin Sodium Chloride 1,000 mls @ 250 mls/hr 03/29/23 17:07 03/29/23 17:54 Ns IV 03/29/23 21:06 250 mls/hr .Q4H ONE Administration Medical Decision Making Differential Diagnosis Differential Diagnoses: The differential diagnosis associated with the presentation includes (Pneumonia, pneumothorax, pleural effusion, COVID-19 infection, influenza, RSV, severe anemia, electrolyte abnormality, ACS.) Admission/Observation Consideration of admission/observation: Escalation of care including admission/observation considered Lab Data MDM Lab Attestation statement: I reviewed the patient's lab results. 03/29/23 17:39 03/29/23 17:39 Labs: Lab Results 03/29/23 03/29/23 Range/Units 17:39 19:31 WBC 9.2 (4.8-10.8) X10*3/uL RBC 4.87 (4.20-5.50) X10*6/uL Hgb 14.4 (12.0-16.0) g/dl Hct 43.6 (37.0-47.0) % MCV 89.5 (80.0-98.0) fL MCH 29.6 (27.0-33.0) pg MCHC 33.0 (31.0-35.0) g/dl RDW 13.0 (11.0-16.0) % Plt Count 166 (160-400) X10*3/uL MPV 8.9 L (9.4-12.3) fL Immature Gran % (Auto) 0.3 (0.0-0.4) % Neut % (Auto) 76.6 H (45-73) % Lymph % (Auto) 10.2 L (20-40) % [place] % (Auto) 12.3 H (2-11) % Eos % (Auto) 0.4 (0-4) % Baso % (Auto) 0.2 (0-2) % Lymph # (Auto) 0.9 L (1.2-4.9) X10*3/uL [place] # (Auto) 1.1 (0.1-1.2) X10*3/uL Eos # (Auto) 0.0 (0.0-0.4) X10*3/uL Baso # (Auto) 0.0 (0.0-0.2) X10*3/uL Abs Immat Gran (auto) 0.03 (0.00-0.03) X10*3/uL Absolute Neuts (auto) 7.1 (2.0-8.3) x10*3/uL Absolute Nucleated RBC 0.000 (0.0-0.012) X10*3/uL Nucleated RBC % (auto) 0.0 (0.0-0.2) /100WBC PT 11.7 (11.1-13.3) SEC INR 1.0 (0.9-1.1) APTT 28.3 (26.0-36.4) SEC Sodium 138 (135-145) mmol/L Potassium 3.8 (3.3-5.1) mmol/L Chloride 102 (96-108) mmol/L Carbon Dioxide 24 (22-29) mmol/L Anion Gap 16 (12-20) BUN 18 H (9-16) mg/dL Creatinine 1.03 (0.5-1.4) mg/dL Estim Creat Clear Calc 35.9 Estimated GFR 51 Random Glucose 119 H (60-115) mg/dL Lactic Acid 1.8 (0.5-2.0) mmol/L Calcium 9.7 (8.4-10.2) mg/dL Magnesium 2.2 (1.6-2.6) mg/dL Total Bilirubin 0.6 (0.0-1.0) mg/dL AST 32 H (5-31) U/L ALT 27 (0-31) U/L Alkaline Phosphatase 59 (39-117) U/L Troponin I High Sens 7.4 D (<3.5-17.0) ng/L Total Protein 7.8 (6.5-8.0) g/dL Albumin 4.6 (3.5-5.0) g/dL Urine Color Yellow Urine Appearance Clear Urine pH 5.5 (5.0-9.0) Ur Specific [place] >= 1.030 H (1.005-1.025) Urine Protein Trace (Neg-Trace) mg/dL Urine Glucose (UA) Negative (Negative) mg/dL Urine Ketones 15 (Negative) mg/dL Urine Blood Small (1+) H (Negative) Urine Nitrite Negative (Negative) Ur Leukocyte Esterase Trace H (Negative) Urine RBC >20 H (0-2) /HPF Urine WBC 6-10 H (0-5) /HPF Ur Squamous Epith Cells 0-2 (0-2) /HPF Urine Bacteria None Seen (None Seen) Hyaline Casts 0-2 (0-2) /LPF Influenza Type A (PCR) NEGATIVE (Negative) Influenza Type B (PCR) NEGATIVE (Negative) RSV RNA Qual (PCR) NEGATIVE (Negative) SARS-CoV-2 RNA (RT-PCR) POSITIVE A (Negative) Independent Interpretation I performed an independent interpretation of an: Plain X-Ray (Chest: Unremarkable chest examination.) Radiology Impression Discussion of test interpretation with radiology: I have reviewed the radiologist's reading. Discharge Plan Discharge Clinical Impression: COVID-19 virus infection Patient Disposition: Home, Self-Care Instructions: COVID-19 (Coronavirus Disease 2019) (ED) Additional Instructions: Wear a face mask at all times, frequent handwashing, keep social distance, seek immediate medical attention if any shortness of breath, self quarantine at home for the next week. Prescriptions: No Action rosuvastatin 40 mg tablet 40 mg PO DAILY Qty: 90 3RF fluticasone propionate 50 mcg/actuation spray,suspension 2 spray intranasal QAM 30 Days Qty: 16 1RF triamcinolone acetonide 0.1 % cream topical ONCE albuterol sulfate 90 mcg/actuation HFA aerosol inhaler 2 puff inhalation Q4-6H PRN (Reason: shortness of breath or wheezing, cough) Qty: 8.5 0RF fluocinolone 0.01 % solution 1 appl topical BID 30 Days Qty: 60 3RF amlodipine 2.5 mg tablet 2.5 mg PO DAILY Qty: 90 0RF meclizine 12.5 mg tablet 12.5 mg PO DAILY PRN (Reason: dizziness) 90 Days Qty: 90 3RF lisinopril-hydrochlorothiazide 20-12.5 mg tablet 1 tab PO DAILY 90 Days Qty: 90 1RF brimonidine 0.2 % drops 1 drp ophthalmic (eye) Referrals: Sandy Loja MD [Primary Care Provider] -
[2023-03-29 17:44] LABS: MANUAL DIFF FLAG NO
[2023-03-29 17:49] LABS: Basophils Percent Auto 0.2 % (0-2); Eosinophils Percent Auto 0.4 % (0-4); Hematocrit 43.6 % (37.0-47.0); Hemoglobin 14.4 g/dl (12.0-16.0); Imm Gran Abs Auto 0.03 X10*3/uL (0.00-0.03); Imm Gran Pct Auto 0.3 % (0.0-0.4); Lymphocytes Absolute Auto 0.9 X10*3/uL (1.2-4.9); Lymphocytes Percent Auto 10.2 % (20-40); Mean Corpuscular Hemoglobin 29.6 pg (27.0-33.0); Mean Corpuscular Volume 89.5 fL (80.0-98.0); Mean Platelet Volume 8.9 fL (9.4-12.3); Monocytes Absolute Auto 1.1 X10*3/uL (0.1-1.2); Monocytes Percent Auto 12.3 % (2-11); Neutrophils Absolute Auto 7.1 x10*3/uL (2.0-8.3); Neutrophils Percent Auto 76.6 % (45-73); Platelet Count 166 X10*3/uL (160-400); Red Blood Count 4.87 X10*6/uL (4.20-5.50); White Blood Count 9.2 X10*3/uL (4.8-10.8)
[2023-03-29] MEDS: 0.9 % Sodium Chloride 1,000 ML 250 ML IV (17:54)
[2023-03-29 17:58] LABS: Lactic Acid 1.8 mmol/L (0.5-2.0)
[2023-03-29 18:03] LABS: Alanine Aminotransferase 27 U/L (0-31); Albumin Level 4.6 g/dL (3.5-5.0); Alkaline Phosphatase 59 U/L (39-117); Anion Gap 16 (12-20); Aspartate Amino Transferase 32 U/L (5-31); Bilirubin Total 0.6 mg/dL (0.0-1.0); Blood Urea Nitrogen 18 mg/dL (9-16); Calcium 9.7 mg/dL (8.4-10.2); Carbon Dioxide 24 mmol/L (22-29); Chloride 102 mmol/L (96-108); Creatinine Clr Calc Pharmacy 35.9; Estimated Glomerular Filt Rate 51; Glucose Random 119 mg/dL (60-115); Magnesium 2.2 mg/dL (1.6-2.6); Potassium 3.8 mmol/L (3.3-5.1); Sodium 138 mmol/L (135-145); Total Protein 7.8 g/dL (6.5-8.0)
[2023-03-29 18:04] VITALS: BP 129/70; PULSE 50; RESP 14; TEMP 36.6; O2SAT 96
[2023-03-29 18:06] LABS: Prothrombin Time 11.7 SEC (11.1-13.3)
[2023-03-29 18:09] LABS: Partial Thromboplastin Time 28.3 SEC (26.0-36.4); Troponin-I High Sensitivity 7.4 ng/L (<3.5-17.0)
[2023-03-29 18:25] LABS: Influenza A PCR NEGATIVE (Negative); Influenza B PCR NEGATIVE (Negative); Resp Syncy Virus RNA Qual PCR NEGATIVE (Negative); SARS COV2 PCR INHOUSE POSITIVE (Negative)
[2023-03-29 19:37] LABS: Appearance Urine Clear; Color Urine Yellow; Glucose Urine UA Negative (Negative); Leukocyte Esterase Urine Trace (Negative); Nitrite Urine Negative (Negative); PH 5.5 (5.0-9.0); Specific Gravity - Urine >= 1.030 (1.005-1.025); UMIC TRIGGER UACC YES; Urine Blood Small (1+) (Negative); Urine Ketones 15 mg/dL (Negative); Urine Protein Trace mg/dL (Neg-Trace)
--- NOTE | 2023-03-29 19:37 | PC.NURSE ---
this rn assumed care of pt. this rn straight cath pt per provider order, pt tolerated well. pt urinated 50ml of dark yellow urine. urine sample obtained and sent at this time. pt repositioned in bed, no new orders at this time.
[2023-03-29 19:40] LABS: Bacteria Urine None Seen (None Seen); Hyaline Casts Urine 0-2 /LPF (0-2); RBC Urine >20 /HPF (0-2); Squamous Epithelial Cell Urine 0-2 /HPF (0-2); UACC Culture Trigger YES
[2023-03-29 19:44] VITALS: BP 144/71; PULSE 95; RESP 12; TEMP 36.5; O2SAT 96
--- NOTE | 2023-03-29 22:09 | PC.NURSE ---
this rn contacted pt son, pt son reports he will come provider transport for pt home.
[2023-03-29 22:10] VITALS: BP 140/64; PULSE 58; RESP 16; TEMP 36.7; O2SAT 98
== END 2023-03-29 22:33 | disposition home or self-care (01) ==
PROVIDERS: Physician Assistant Medical; Emergency Provider Emergency Medicine; PCP Internal Medicine
DX: U07.1 COVID-19 (principal); R07.89 Other chest pain; R11.2 Nausea with vomiting, unspecified; Z79.899 Other long term (current) drug therapy
CPT/HCPCS: 0241U; 36415; 71046; 80053; 81001; 83605; 83735; 84484; 85025; 85610; 85730; 87040; 87086; 93005; 96360; 96361; 99285

== ENCOUNTER → 2023-03-29 17:05 | Outpatient (BNV) | payer OTHER, SELFPAY | PROVIDERS: Emergency Provider Emergency Medicine; PCP Internal Medicine; Visit Provider Internal Medicine Cardiovascular Disease | DX: R94.31 Abnormal electrocardiogram [ECG] [EKG] (principal) | CPT/HCPCS: 93010 ==

== ENCOUNTER 2023-04-03 16:41 | Outpatient (AMB) | payer OTHER, SELFPAY ==
--- NOTE | 2023-04-03 16:30 | A.OFFPC_ITS ---
Intake Visit Reasons: ED f/u Covid Intake Note: Telehealth visit follow Covid Croze Cutter Required: No Allergies No Known Allergies [No Known Allergies*] Allergy (Verified 04/03/23 16:31) Medication List - Last Reconciled 04/03/23 by Sandy Hartmann MD albuterol sulfate 90 mcg/actuation 2 puffs inhalation Q4-6H PRN amlodipine 2.5 mg PO DAILY brimonidine 0.2% 1 drp ophthalmic (eye) fluocinolone 0.01% 1 appl topical BID 30 days fluticasone propionate 50 mcg/actuation 2 sprays intranasal QAM 30 days lisinopril-hydrochlorothiazide 20-12.5 mg 1 tab PO DAILY 90 days meclizine 12.5 mg PO DAILY PRN 90 days rosuvastatin 40 mg PO DAILY triamcinolone acetonide 0.1% appl topical ONCE Tobacco use date assessed: 03/05/23 HPI HPI Comments History of Present Illness Details This is an 87-year-old female with hypertension and hyperlipidemia that has tele health visit by phone for hospital discharge follow-up with discharge date 03/29/2023 due to COVID-19 infection. She was feeling very tired and not well. Did not have Paxlovid. She had chest x-ray that was normal and labs did not show any significant abnormality. She still feels tired. No chest pain or shortness of breath. Cholesterol well controlled with medications. Blood pressure also stable with medications. 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 Sukhdev Alaniz, Monse Hester, Da Rivera and colleagues, with an educational damián from [employer]. Review of Systems Const All systems reviewed & are unremarkable except as noted in HPI and below Eyes Reports no additional complaints, Denies change in vision and Denies other visual disturbances Card Denies chest pain at rest, Denies chest pain with activity, Denies edema, Denies irregular heart rhythm, Denies claudication, Denies dyspnea, Denies dyspnea on exertion, Denies orthopnea, Denies paroxysmal nocturnal dyspnea and Denies slow heart rate Resp Denies cough, Denies dyspnea and Denies dyspnea on exertion GI Denies abdominal pain, Denies change in bowel habits, Denies excessive flatus, Denies nausea and Denies vomiting Denies urinary incontinence, Denies urinary hesitancy and Denies urinary urgency Musc Denies atrophy, Denies deformity and Denies limited range of motion Skin/Breast Denies bleeding lesions, Denies changing lesions and Denies rash Physical exam (Primary Care) Tobacco/Smoking Status: Tobacco use Status Tobacco use date assessed 03/05/23 04/03/23 16:31 Patient Tobacco Use Status Never used Tobacco 04/03/23 16:31 Tobacco use type 11/09/20 13:25 e-Cigarette/Vaping Use Never Used 04/03/23 16:31 Thrive Assessment: Date of Thrive Assessment Date Thrive assessed 08/13/21 04/03/23 16:31 Telehealth Telehealth Location of provider rendering services: practice address Location of patient: address on file Patient Identification confirmed using: Name, : Yes Telehealth method: voice only Patient verbally consented to treatment: Yes Patient verbally consented to billing insurance company: Yes Patient informed of any privacy concerns related to visit: Yes Minutes spent on Phone/Video with Pt.: 15 Assessment and Plan Assessment & Plan (1) Hospital discharge follow-up: Code(s): Z09 - Encounter for follow-up examination after completed treatment for conditions other than malignant neoplasm Plan: Discharge date 03/29/2023 due to COVID-19. Receive IV fluids. Chest x-ray was normal as well as labs. Still feels tired but improved. (2) COVID-19 virus infection: Code(s): U07.1 - COVID-19 Plan: Completed isolation. Still feels tired. (3) Hypertension: Comment: Stable Code(s): I10 - Essential (primary) hypertension Qualifiers: Hypertension type: essential hypertension Qualified Code(s): I10 - Essential (primary) hypertension Plan: Continue amlodipine lisinopril-hydrochlorothiazide. Blood pressure goal is equal or less than 130/80. (4) Hyperlipidemia: Code(s): E78.5 - Hyperlipidemia, unspecified Qualifiers: Hyperlipidemia type: unspecified Qualified Code(s): E78.5 - Hyperlipidemia, unspecified Plan: Continue statins. Coding Level of Care Code TCM Mod MDM <= 7 Days Diagnoses Hospital discharge follow-up Z09 COVID-19 virus infection U07.1 Essential hypertension I10 Hypertension type: essential hypertension Hyperlipidemia, unspecified hyperlipidemia type E78.5 Hyperlipidemia type: unspecified Time Spent (min) 15
== END 2023-04-03 17:03 | disposition home or self-care (01) ==
LOC: HO.HMGH 16:41
PROVIDERS: PCP Internal Medicine; Visit Provider Internal Medicine
DX: U07.1 COVID-19 (principal); I10 Essential (primary) hypertension; E78.5 Hyperlipidemia, unspecified
CPT/HCPCS: 99214

== ENCOUNTER 2023-04-08 12:43 | Outpatient (AMB) | payer OTHER, SELFPAY ==
[2023-04-08 12:46] VITALS: BP 130/50; PULSE 66; BMI 24.4
--- NOTE | 2023-04-08 12:46 | MHC.OFFVIS ---
Intake Vital Signs 04/08/23 12:46 Height 5 ft 4 in Weight 142 lb 6.698 oz BMI 24.4 BP 130/50 L Blood Pressure Location Lt brachial Position Sitting Pulse 66 Pulse Source Pulse Oximeter Intake Visit Reasons: 6 month f/up Intake Note: 6 mnth f/up pt its feeling fine but tired and some shortness of breath due to covid. Control Systems Specialist Required: Yes Control Systems Specialist Name: Rocky/cyracom Accompanied by: Self / Same As Patient Allergies No Known Allergies [No Known Allergies*] Allergy (Verified 04/08/23 13:01) Medication List - Last Reconciled 04/08/23 by Amanda Mcnally NP amlodipine 2.5 mg PO DAILY brimonidine 0.2% 1 drp ophthalmic (eye) fluocinolone 0.01% 1 appl topical BID 30 days fluticasone propionate 50 mcg/actuation 2 sprays intranasal QAM 30 days lisinopril-hydrochlorothiazide 20-12.5 mg 1 tab PO DAILY 90 days meclizine 12.5 mg PO DAILY PRN 90 days rosuvastatin 40 mg PO DAILY HPI HPI Comments History of Present Illness Details 87-year-old female presents for a follow-up. She has a history of dyspnea on exertion, chest pain, and HTN. She reports she has been doing well with no issues or concerns. She had recently been short of breath on and off due to a COVID infection on 03/29/23 but that has improved and some shoulder pain which is being followed by her PCP. She checks her blood pressures at home and they are in the 120s. 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) Alcohol intake: never Patient Tobacco Use Status: Never used Tobacco e-Cigarette/Vaping Use: Never Used Second Hand Smoke Exposure: No Advance Directives Date on File: 03/24/23 service: No Current occupational status: retired Cognitive needs: Yes Hearing needs: No Vision needs: Yes Review of Systems Const Reports chills, Reports fatigue, Reports fever(s), Reports frequent falls, Reports weakness, Reports weight gain and Reports weight loss ENT Reports dizziness Card Reports chest pain, Reports leg edema, Reports lightheadedness, Reports palpitations, Reports dyspnea and Reports dyspnea on exertion Resp Reports cough, Reports dyspnea and Reports dyspnea on exertion GI Reports hematochezia Musc Reports abnormal gait, Reports muscle weakness, Reports numbness, Reports radiating pain into limb and Reports tingling Neuro Reports abnormal gait, Reports dizziness, Reports frequent falls, Reports numbness, Reports tingling and Reports weakness Endo Reports fatigue and Reports palpitations Physical Exam Vital Signs: Last Vital Signs Pulse 66 04/08/23 12:46 BP 130/50 L 04/08/23 12:46 BMI result Body Mass Index 24.4 Assessment & Plan Assessment & Plan (1) Chest pain: Code(s): R07.9 - Chest pain, unspecified (2) Hypertension: Comment: Stable Code(s): I10 - Essential (primary) hypertension Qualifiers: Hypertension type: essential hypertension Qualified Code(s): I10 - Essential (primary) hypertension Plan Blood pressure good at this time. Will have her check peroidically at home. No chest pain or shortness of breath currently. Report any new or worsening symptoms. ED care if needed. Avoidance of salt and continuing a heart heatlhy diet and exercise as tolerated encouraged. Quality Reporting (2019) Adult ([facility] 138/05/29/68) Smoking risk assessment performed?: Yes Patient Tobacco Use Status: Never used Tobacco Coding Level of Care Code Est Pt Level 3 (79997) Diagnoses Chest pain R07.9 Essential hypertension I10 Hypertension type: essential hypertension
== END 2023-04-08 13:18 | disposition home or self-care (01) ==
PROVIDERS: PCP Internal Medicine; Visit Provider Nurse Practitioner
DX: R07.9 Chest pain, unspecified (principal); I10 Essential (primary) hypertension
CPT/HCPCS: 99213

== ENCOUNTER → 2023-04-08 12:43 | Outpatient (BNVA) | payer OTHER, SELFPAY | PROVIDERS: PCP Internal Medicine; Visit Provider Nurse Practitioner | DX: R07.9 Chest pain, unspecified (principal); I10 Essential (primary) hypertension | CPT/HCPCS: 99212 ==

== ENCOUNTER 2023-05-19 11:00 | Outpatient (RCR) | payer OTHER, SELFPAY ==
--- NOTE | 2023-05-06 10:56 | MHC.PT.EP ---
[facility] [place] Office [place] Office [place] Office [address] Alicia Mendoza [address] [phone] F: [phone] F: [phone] F: [phone] F: [phone] Physical Therapy Plan of Care Date of Evaluation: 05/06/23 Date of Surgery: N/A Diagnosis: calcific tendinitis of R shoulder (RL) Assessment: pt is a 87 y/o female presenting to physical therapy w/ referring diagnosis of calcific tendinitis of right shoulder. Xray as of 03/07/23 does not show calcific tendinitis but does show osteophyte to acromion which may be causing impingement symptom. pt's signs and symptoms are more consistent w/ poor habitual posturing and UT compensatory patterns. She does seem to have some mild-moderate cognitive impairments that will limit her carryover and overall prognosis. Impairments include pain, decreased range of motion, decreased strength, impaired functional mobility, impaired postural awareness, and altered ambulation mechanics. pt is a fair candidate for skilled PT due to age, potential remediation of impairments, typical disease/condition progression and prognosis, comorbidities, and motivation. pt would benefit from skilled PT intervention to provide a tailored strengthening and stretching exercise program, functional training, gait training, postural re-training, neuromuscular re-education, modalities as needed for pain, equipment safety demonstration. Frequency and Duration: The patient will be seen 2x/wk for 3 wks Short Term Goals: pt will be I w/ HEP to promote self-management of condition. pt will improve R shoulder flexion by at least 10 degrees to promote ease in reaching for objects on higher shelves. Jail Goals: pt will be setup only for upper body dressing to reduce caregiver burden. pt will improve B shoulder and elbow flexion strength by 1 MMT to promote ease in lifting/carrying purse. Treatment Plan: Modalities to reduce pain, spasms and effusion. Manual therapy to restore motion and function. Therapeutic exercise to improve strength and flexibility. Neuromuscular re-education for posture and balance. Therapeutic activities to return to functional activities of daily living. Electronically signed by: Tammi Baker PT, DPT Please sign and return to therapist. Thank you for your referral.
--- NOTE | 2023-06-09 15:28 | MHC.PT.DC ---
[facility] [place] Office [place] Office [place] Office [address] Alicia Mendoza 140 [facility] [phone] F: [phone] F: [phone] F: [phone] F: [phone] Physical Therapy Discharge Report Diagnosis: calcific tendinitis of R shoulder (RL) Date of Surgery: N/A Date of Evaluation: 05/06/23 Date of Discharge: 06/09/23 Treatments to Date: 3 Cancellations to Date: 1 No Shows to Date: 2 Discharge Status: Visit Non-compliance Discharge Summary: The patient has no showed two appointments. Per [facility] policy she is being discharged from this PT plan of care. She most likely would not make any meaningful improvement in physical therapy due to some cognitive limitation that would impede her ability to have good carryover of education at home. Electronically signed by: Tammi Baker PT, DPT Please sign and return to therapist. Thank you for your referral.
== END 2023-06-09 15:29 | disposition home or self-care (01) ==
LOC: HO.PT 11:00
PROVIDERS: PCP Internal Medicine; Visit Provider Internal Medicine
DX: M75.31 Calcific tendinitis of right shoulder (principal)
CPT/HCPCS: 97110; 97140; 97162

== ENCOUNTER 2023-07-07 09:47 | Outpatient (AMB) | payer OTHER, SELFPAY ==
--- NOTE | 2023-07-07 09:53 | MHC.PC.OV ---
Vital Signs 07/07/23 10:00 07/07/23 11:47 Height 5 ft 4 in Weight 139 lb BMI 23.9 BP 160/88 H 160/90 H Blood Pressure Location Lt brachial Lt brachial Position Sitting Sitting Intake Visit Reasons: BP Intake Note: Patient here for a follow up BP Surgical Supervisor Required: No Accompanied by: Self / Same As Patient Allergies No Known Allergies [No Known Allergies*] Allergy (Verified 07/07/23 10:12) Medication List - Last Reconciled 07/07/23 by Sandy Hartmann MD amlodipine 2.5 mg PO DAILY brimonidine 0.2% 1 drp ophthalmic (eye) fluocinolone 0.01% 1 appl topical BID 30 days fluticasone propionate 50 mcg/actuation 2 sprays intranasal QAM 30 days lisinopril-hydrochlorothiazide 20-12.5 mg 1 tab PO DAILY 90 days meclizine 12.5 mg PO DAILY PRN 90 days rosuvastatin 40 mg PO DAILY Tobacco use date assessed: 07/07/23 Fall risk assessment: 1 Fall in past year Last assessed Fall Risk: 07/07/23 Dental Screening Dental Screen Date: 07/07/23 Did you have a dental visit in the last 12 months?: No Did you have a dental problem in the last 6 months where you did not have access to dental care?: No Was dental information given to patient?: Patient declined HPI HPI Comments History of Present Illness Details This is an 88-year-old female with hypertension, hyperlipidemia, and dizziness that comes today complaining of dysuria that started few days ago. Blood pressure elevated but she has not take her medications yet. Blood pressure will be recheck in 3 weeks by nurse navigator. Lipid panel was order. Dizziness has been well controlled with meclizine as needed. Denies any chest pain or shortness of breath. 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 1. Little interest or pleasure in doing things: several days 2. Feeling down, depressed, or hopeless: several days 3. Trouble falling or staying asleep, or sleeping too much: several days 4. Feeling tired or having little energy: several days 5. Poor appetite or overeating: not at all 6. Feeling bad about yourself - or that you are a failure or have let yourself or your family down: not at all 7. Trouble concentrating on things, such as reading the newspaper or watching television: not at all 8. Moving or speaking so slowly that other people could have noticed. Or the opposite - being so fidgety or restless that you have been moving around a lot more than usual: not at all 9. Thoughts that you would be better off or of hurting yourself in some way: not at all Total score: 4 Depression Screening Interpretation: Positive Depression Screening Follow-up: Existing condition and Declines treatment Depression Screening Done: Yes 09872 - PHQ-9 Billing: Yes Source: Developed by Drs. Sukhdev Alaniz, Monse Hester, Da Rivera and colleagues, with an educational damián from [employer]. Thrive Questionnaire Date Thrive assessed: 07/07/23 I am a: Patient What is your living situation today?: I have a steady place to live Within the past 12 months, did the food you bought not last and you didn't have the money to get more?: Never true Within the past 12 months, did you worry whether your food would run out before you got money to buy more?: Never true Do you have trouble paying for medicines?: No Do you have trouble getting transportation to medical appointments?: No Do you have trouble paying your heating and electricity bill?: No Do you have trouble taking care of your child, family member or friend?: No Do you have trouble with day-to-day activities such as bathing, preparing meals, shopping, managing finances, etc.?: No Are you currently unemployed and looking for a job?: No Are you interested in more education?: No Please select the resources that you would like help with: None THRIVE Score: 0 AUDIT C Alcohol Use Questionnaire (AUDIT-C) 1. How often do you have a drink containing alcohol?: Never Total Score: 0 Score Reviewed/Action Taken: No EBER-7 AMB Questionnaire BEER-7 Date EBER - 7 assessed: 07/07/23 Feeling nervous, anxious, or on edge: 1 = Several days Not being able to stop or control worryin = Not at all Worrying too much about different things: 1 = Several days Trouble relaxin = Not at all Being so restless that it is hard to sit still: 0 = Not at all Becoming easily annoyed or irritable: 0 = Not at all Feeling afraid as if something awful might happen: 0 = Not at all Total EBER-7 score (0-4 normal; 5-9 mild; 10-14 moderate; 15-21 severe): 2 Source: Developed by Drs. Sukhdev Alaniz, Monse Hester, Da Rivera and colleagues, with an educational damián from [employer]. EBER-7 Assessment Billing EBER-7 Assessment Tool: EBER-7 Assessment 99969 Review of Systems Const All systems reviewed & are unremarkable except as noted in HPI and below Eyes Reports no additional complaints, Denies change in vision and Denies other visual disturbances Card Denies chest pain at rest, Denies chest pain with activity, Denies edema, Denies irregular heart rhythm, Denies claudication, Denies dyspnea, Denies dyspnea on exertion, Denies orthopnea, Denies paroxysmal nocturnal dyspnea and Denies slow heart rate Resp Denies cough, Denies dyspnea and Denies dyspnea on exertion GI Denies abdominal pain, Denies change in bowel habits, Denies excessive flatus, Denies nausea and Denies vomiting Denies urinary incontinence, Denies urinary hesitancy and Denies urinary urgency Musc Denies atrophy, Denies deformity and Denies limited range of motion Neuro Denies confusion Psych Denies confusion Physical exam (Primary Care) Vital Signs: Last Vital Signs BP 160/88 H 07/07/23 10:00 BMI result Body Mass Index 23.9 Tobacco/Smoking Status: Tobacco use Status Tobacco use date assessed 07/07/23 07/07/23 10:04 Patient Tobacco Use Status Never used Tobacco 07/07/23 09:58 Tobacco use type 11/09/20 13:25 e-Cigarette/Vaping Use Never Used 07/07/23 09:58 PHQ-9: PHQ-9 Score PHQ-9: Total score 4 07/07/23 10:27 Depression Screening Interpretation: Positive Depression Screening Follow-up: Existing condition and Declines treatment Thrive Assessment: Date of Thrive Assessment Date Thrive assessed 07/07/23 07/07/23 09:58 Const General: No confusion Orientation/consciousness: No confusion Resp Effort & Inspection: normal respiratory effort Auscultation: clear to auscultation bilaterally Cardio Jugular venous distension: no JVD Rate: regular rate Rhythm: regular rhythm Heart sounds: S1 normal heart sound present and S2 normal heart sound present Neuro General: no focal motor deficits and No confusion Extrem General: Yes full ROM Results AMB Urinalysis, Automated UA Leukoctes 3 Acosta/uL Last Edit by JORDEN Anderson on 07/07/23 10:30 UA Nitrite Positive Last Edit by JORDEN Anderson on 07/07/23 10:30 UA Urobilinogen 0.2 mg/dL Last Edit by JORDEN Anderson on 07/07/23 10:30 UA Protein 0 mg/dL Last Edit by JORDEN Anderson on 07/07/23 10:30 UA pH 5.5 Last Edit by JORDEN Anderson on 07/07/23 10:30 UA Blood 2 Luis/uL Last Edit by JORDEN Anderson on 07/07/23 10:30 UA Specific [place] 1.030 Last Edit by JORDEN Anderson on 07/07/23 10:30 UA Ketone Negative Last Edit by JORDEN Anderson on 07/07/23 10:30 UA Bilirubin 0 mg/dL Last Edit by JORDEN Anderson on 07/07/23 10:30 UA Glucose 0 mg/dL Last Edit by JORDEN Anderson on 07/07/23 10:30 Results Reviewed Results Reviewed: Laboratory Last Values Urine pH (Auto) 5.5 07/07/23 10:29 Specific [place] (Auto) 1.030 07/07/23 10:29 Urine Protein (Auto) 0 mg/dL 07/07/23 10:29 Glucose (UA)(Auto) 0 mg/dL 07/07/23 10:29 Urine Ketones (Auto) Negative 07/07/23 10:29 Urine Blood (Auto) 2 Luis/uL 07/07/23 10:29 Urine Nitrite (Auto) Positive 07/07/23 10:29 Urine Bilirubin (Auto) 0 mg/dL 07/07/23 10:29 Urine Urobilinogen (Auto) 0.2 mg/dL 07/07/23 10:29 Leukocyte Esterase (Auto) 3 Acosta/uL 07/07/23 10:29 Assessment and Plan Assessment & Plan (1) UTI (urinary tract infection): Code(s): N39.0 - Urinary tract infection, site not specified Plan: Start nitrofurantoin. (2) Hypertension: Comment: Stable Code(s): I10 - Essential (primary) hypertension Qualifiers: Hypertension type: essential hypertension Qualified Code(s): I10 - Essential (primary) hypertension Plan: Continue lisinopril-hydrochlorothiazide. Continue amlodipine. Blood pressure goal is equal or less than 130/80. Recheck blood pressure with nurse navigator in 3 weeks. (3) Hyperlipidemia: Code(s): E78.5 - Hyperlipidemia, unspecified Qualifiers: Hyperlipidemia type: unspecified Qualified Code(s): E78.5 - Hyperlipidemia, unspecified Plan: Continue statins. Repeat lipid panel. Follow a low-cholesterol diet. (4) Dizziness: Code(s): R42 - Dizziness and giddiness Plan: Continue meclizine as needed. Orders: Orders Complete Blood Count Auto Diff Today D64.9 - Anemia, unspecified, D75.89 - Other specified diseases of blood and blood-forming organs Vitamin B12 and Folate Today E53.8 - Deficiency of other specified B group vitamins AMB Urinalysis Automated Today N39.0 - Urinary tract infection, site not specified Lipid Panel Today E78.5 - Hyperlipidemia, unspecified Vitamin D 25-OH Total Today E55.9 - Vitamin D deficiency, unspecified Comprehensive [place]. Panel Fast Today R74.01 - Elevation of levels of liver transaminase levels Urine Culture Today N39.0 - Urinary tract infection, site not specified Medications: New nitrofurantoin macrocrystal must administer with a meal/food 100 mg PO BID 7 days 14 caps 0RF Refilled fluticasone propionate 50 mcg/actuation 2 sprays intranasal QAM 30 days 16 grams 1RF fluocinolone 0.01% 1 appl topical BID 30 days 60 mL 3RF I10 - Essential (primary) hypertension Coding Level of Care Code Est Pt Level 4 (11273) Diagnoses UTI (urinary tract infection) N39.0 Essential hypertension I10 Hypertension type: essential hypertension Hyperlipidemia, unspecified hyperlipidemia type E78.5 Hyperlipidemia type: unspecified Dizziness R42 Additional Codes EBER-7 Assessment Billing - EBER-7 Assessment Tool: EBER-7 Assessment 83935 ([id number]) Time Spent (min) 22
[2023-07-07 10:00] VITALS: BP 160/88; BMI 23.9
[2023-07-07 11:47] VITALS: BP 160/90
== END 2023-07-07 10:26 | disposition home or self-care (01) ==
PROVIDERS: PCP Internal Medicine; Visit Provider Internal Medicine
DX: N39.0 Urinary tract infection, site not specified (principal); I10 Essential (primary) hypertension; E78.5 Hyperlipidemia, unspecified; R42 Dizziness and giddiness
CPT/HCPCS: 81003; 99214

== ENCOUNTER 2023-07-07 10:25 | Outpatient (REF) | payer OTHER, SELFPAY | END 2023-07-07 10:26 | disposition home or self-care (01) | LOC: HO.LAB 10:25 | PROVIDERS: Visit Provider Internal Medicine | DX: N39.0 Urinary tract infection, site not specified (principal) | CPT/HCPCS: 87086; 87088; 87186 ==

== ENCOUNTER 2023-07-18 09:03 | Outpatient (REF) | payer MEDICARE, SELFPAY ==
[2023-07-18 09:22] LABS: MANUAL DIFF FLAG NO
[2023-07-18 10:13] LABS: Basophils Percent Auto 0.5 % (0-2); Eosinophils Absolute Auto 0.1 X10*3/uL (0.0-0.4); Eosinophils Percent Auto 2.4 % (0-4); Hematocrit 39.9 % (37.0-47.0); Hemoglobin 13.1 g/dl (12.0-16.0); Imm Gran Abs Auto 0.02 X10*3/uL (0.00-0.03); Imm Gran Pct Auto 0.3 % (0.0-0.4); Lymphocytes Absolute Auto 1.8 X10*3/uL (1.2-4.9); Lymphocytes Percent Auto 31.5 % (20-40); Mean Corpuscular HGB Conc 32.8 g/dl (31.0-35.0); Mean Corpuscular Hemoglobin 29.6 pg (27.0-33.0); Mean Corpuscular Volume 90.1 fL (80.0-98.0); Mean Platelet Volume 9.5 fL (9.4-12.3); Monocytes Absolute Auto 0.5 X10*3/uL (0.1-1.2); Monocytes Percent Auto 8.4 % (2-11); Neutrophils Absolute Auto 3.3 x10*3/uL (2.0-8.3); Neutrophils Percent Auto 56.9 % (45-73); Platelet Count 175 X10*3/uL (160-400); Red Blood Count 4.43 X10*6/uL (4.20-5.50); Red Cell Distribution Width 12.3 % (11.0-16.0); White Blood Count 5.7 X10*3/uL (4.8-10.8)
[2023-07-18 11:51] LABS: Vitamin D 25-OH Total 18.5 ng/mL (>30)
[2023-07-18 11:58] LABS: Anion Gap 9 (12-20)
[2023-07-18 12:03] LABS: Alanine Aminotransferase 10 U/L (0-31); Albumin Level 3.9 g/dL (3.5-5.0); Alkaline Phosphatase 56 U/L (39-117); Aspartate Amino Transferase 16 U/L (5-31); Bilirubin Total 0.5 mg/dL (0.0-1.0); Blood Urea Nitrogen 14 mg/dL (9-16); Calcium 9.2 mg/dL (8.4-10.2); Carbon Dioxide 29 mmol/L (22-29); Chloride 107 mmol/L (96-108); Cholesterol 162 mg/dL (<200); Estimated Glomerular Filt Rate > 60; Glucose Fasting 90 mg/dL (60-99); HDL Cholesterol 38 mg/dL (>40); LDL Cholesterol Calculated 98 mg/dL (<100); Potassium 4.2 mmol/L (3.3-5.1); Sodium 141 mmol/L (135-145); Total Protein 6.4 g/dL (6.5-8.0); Triglycerides 130 mg/dL (<150)
[2023-07-18 12:09] LABS: Folate 7.2 ng/mL (> or = 4.0); Vitamin B12 279 pg/mL (200-900)
== END 2023-07-18 09:04 | disposition home or self-care (01) ==
LOC: HO.LAB 09:03
PROVIDERS: PCP Internal Medicine; Visit Provider Internal Medicine
DX: E53.8 Deficiency of other specified B group vitamins (principal); D64.9 Anemia, unspecified; D75.89 Other specified diseases of blood and blood-forming organs; E78.5 Hyperlipidemia, unspecified; E55.9 Vitamin D deficiency, unspecified; R74.01 Elevation of levels of liver transaminase levels
CPT/HCPCS: 36415; 80053; 80061; 82306; 82607; 82746; 85025

== ENCOUNTER 2023-10-09 12:10 | Emergency (ER) | payer MEDICARE, SELFPAY ==
--- NOTE | ~2023-10-09 | CT_ITS ---
EXAMINATION: CT HEAD WITHOUT CONTRAST CLINICAL INFORMATION: Unwitnessed fall. COMPARISON: CTA head dated 09/21/2014; CT brain dated 06/26/2006. TECHNIQUE: Contiguous axial imaging was performed from the skull base to vertex without intravenous administration of contrast. Multiplanar reformatted images are submitted. This CT examination was performed using dose optimization techniques as appropriate, variously including the following: *Automated exposure control *Adjustment of mA and/or kV according to patient size (this includes techniques or standardized protocols for targeted exams where dose is matched to indication/reason for exam; i.e. extremities or head) *Use of iterative reconstruction technique DLP: 885 mGy-cm (head and cervical spine) FINDINGS: There is no acute intracranial hemorrhage or evidence of territorial infarction. No abnormal mass effect or midline shift is seen. Lynn to white matter differentiation is well preserved. There is no abnormal attenuation within the brain parenchyma. The ventricles are normal in size. No extra-axial fluid collections are identified. The calvarium and scalp soft tissues are normal. There is mild hyperostosis frontalis interna. The middle ear cavity and mastoid air cells are clear. There are atherosclerotic calcifications of the skull base vasculature. The visualized paranasal sinuses are clear. CT/CT cervical spine wo IV con IMPRESSION: No acute intracranial pathology. EXAMINATION: CT CERVICAL SPINE WITHOUT CONTRAST CLINICAL INFORMATION: Unwitnessed fall. COMPARISON: None available. TECHNIQUE: Contiguous axial imaging was performed through the cervical spine without intravenous administration of contrast. Multiplanar reformatted images are submitted. This CT examination was performed using dose optimization techniques as appropriate, variously including the following: *Automated exposure control *Adjustment of mA and/or kV according to patient size (this includes techniques or standardized protocols for targeted exams where dose is matched to indication/reason for exam; i.e. extremities or head) *Use of iterative reconstruction technique DLP: As above FINDINGS: Vertebral body heights and alignment are normal. At C3-C4, there is mild posterior disc space narrowing, with vacuum disc phenomenon. At C4-C5 and C5-C6, there is moderate posterior disc space, with endplate arthropathy. At C6-C7, there is a 2 mm anterolisthesis. The remaining disc spaces are well-maintained. No acute fracture or spondylolisthesis is seen. The posterior elements are intact. There is no prevertebral soft tissue swelling. The dens is intact. The bilateral lung apices are clear. IMPRESSION: 1. There is moderate degenerative disc disease at C4-C5 and C5-C6, and mild degenerative disc is seen at C3-C4 and C6-C7. 2. No acute fracture or spondylolisthesis is seen. Fleischner guidelines were followed.
--- NOTE | ~2023-10-09 | XR_ITS ---
EXAMINATION: XR CHEST CLINICAL INFORMATION: Shortness of breath COMPARISON: 03/30/2023 TECHNIQUE: Frontal view of the chest was obtained. FINDINGS: No significant abnormality is noted involving the heart, lungs, mediastinum, bony thorax or soft tissues. XR/XR chest 1V IMPRESSION: Unremarkable examination.
[2023-10-09 12:18] VITALS: BP 140/90; PULSE 69; O2SAT 97; BMI 23.0
--- NOTE | 2023-10-09 12:20 | ECG_ITS ---
Test Reason : POSSIBLE SYNCOPE Blood Pressure : / mmHG Vent. Rate : 048 BPM Atrial Rate : 048 BPM P-R Int : 212 ms QRS Dur : 078 ms QT Int : 486 ms P-R-T Axes : -06 -17 010 degrees QTc Int : 434 ms Sinus bradycardia with 1st degree A-V block Nonspecific T wave abnormality Abnormal ECG When compared with ECG of 29-MAR-2023 17:05, WA interval has increased Nonspecific T wave abnormality has replaced inverted T waves in Lateral leads Referred By: Jluis Ribeiro Electronically Signed By:TRAMAINE BAKER
[2023-10-09 12:39] LABS: MANUAL DIFF FLAG NO
[2023-10-09 12:40] LABS: Basophils Percent Auto 0.3 % (0-2); Eosinophils Absolute Auto 0.1 X10*3/uL (0.0-0.4); Eosinophils Percent Auto 1.7 % (0-4); Hematocrit 40.5 % (37.0-47.0); Hemoglobin 13.6 g/dl (12.0-16.0); Imm Gran Abs Auto 0.02 X10*3/uL (0.00-0.03); Imm Gran Pct Auto 0.3 % (0.0-0.4); Lymphocytes Percent Auto 33.8 % (20-40); Mean Corpuscular HGB Conc 33.6 g/dl (31.0-35.0); Mean Corpuscular Hemoglobin 30.5 pg (27.0-33.0); Mean Corpuscular Volume 90.8 fL (80.0-98.0); Mean Platelet Volume 8.8 fL (9.4-12.3); Monocytes Absolute Auto 0.5 X10*3/uL (0.1-1.2); Monocytes Percent Auto 7.9 % (2-11); Neutrophils Absolute Auto 3.2 x10*3/uL (2.0-8.3); Platelet Count 190 X10*3/uL (160-400); Red Blood Count 4.46 X10*6/uL (4.20-5.50); Red Cell Distribution Width 13.2 % (11.0-16.0); White Blood Count 5.8 X10*3/uL (4.8-10.8)
--- NOTE | 2023-10-09 12:40 | PC.NURSE ---
Daughter in Law itzel can be reached at [phone]
[2023-10-09 12:56] LABS: Anion Gap 15 (12-20); Blood Urea Nitrogen 15 mg/dL (9-16); Calcium 10.2 mg/dL (8.4-10.2); Carbon Dioxide 23 mmol/L (22-29); Chloride 106 mmol/L (96-108); Creatinine Clr Calc Pharmacy 29.8; Estimated Glomerular Filt Rate 48; Glucose Random 86 mg/dL (60-115); Potassium 3.6 mmol/L (3.3-5.1); Sodium 140 mmol/L (135-145)
[2023-10-09 13:07] LABS: Troponin-I High Sensitivity < 2.7 ng/L (<3.5-17.0)
[2023-10-09 13:49] VITALS: BP 121/67; PULSE 48; RESP 21; TEMP 36.5; O2SAT 95
--- NOTE | 2023-10-09 14:42 | ED.GENADULT ---
HPI - General Adult General Chief complaint: General Medical Stated complaint: UNWITT FALL, DIZZINESS PER EMS Time Seen by Provider: 10/09/23 12:14 Source: EMS Mode of arrival: EMS Limitations: language barrier and altered mental status History of Present Illness ED Provider: Dr. Ribeiro HPI narrative: Patient told EMS that she fell but does not know how. It appears that her neighbor called EMS. Upon EMS arrival patient complained of anxiety and than either had a panic attack or seizure. The BLS crew was uncertain. There were no visible injuries. Onset (ago): minute(s) Related Data Home Medications ?Medication ?Instructions ?Recorded ?Confirmed brimonidine 0.2 % eye drops 1 drp ophthalmic (eye) 08/15/21 07/07/23 Previous Rx's ?Medication ?Instructions ?Recorded rosuvastatin 40 mg tablet 40 mg PO DAILY #90 tabs 09/24/21 meclizine 12.5 mg tablet 12.5 mg PO DAILY PRN dizziness 90 03/05/23 days #90 tabs fluocinolone 0.01 % topical 1 appl topical BID 30 days #60 mL 07/07/23 solution fluticasone propionate 50 2 spray intranasal QAM 30 days #16 07/07/23 mcg/actuation nasal grams spray,suspension nitrofurantoin macrocrystal 100 mg 100 mg PO BID 7 days #14 caps 07/07/23 capsule cholecalciferol (vitamin D3) 50 50 mcg PO DAILY 90 days #90 caps 07/19/23 mcg (2,000 unit) capsule lisinopril 20 1 tab PO DAILY 90 days #90 tabs 08/30/23 mg-hydrochlorothiazide 12.5 mg tablet amlodipine 2.5 mg tablet 2.5 mg PO DAILY #90 tabs 09/21/23 Allergies Allergy/AdvReac Type Severity Reaction Status Date / Time No Known Allergies Allergy Verified 10/09/23 12:20 [No Known Allergies*] Review of Systems Review of Systems: Yes Unobtainable due to mental status Neurologic: Denies Sensory deficit (Neuro) [facility] Past Medical History Medical History Bicytopenia Dizziness Allergic rhinitis Hypovitaminosis D Transaminitis Dyspnea Hypertension Surgical History No pertinent past surgical history Family History Family History Daughter Pacemaker Mother Heart attack Father Heart attack Social History Social History Household Members: Other Housing: Apartment Do you presently have visiting nurse or other home services: Yes ([employer]) Alcohol intake: former Patient Tobacco Use Status: Never used Tobacco Smoked in Last 30 Days: No e-Cigarette/Vaping Use: Never Used Second Hand Smoke Exposure: No Use of substances other than those prescribed or required for medical reasons: No Advance Directives: Yes Advance Directives on File: Yes Advance Directives Date on File: 03/24/23 service: No Current occupational status: retired Cognitive needs: Yes Hearing needs: No Vision needs: Yes Physical Exam ED Vital Signs: Vital Signs - 24 hr 10/09/23 13:49 10/09/23 16:05 Temperature 97.7 F 97.9 F Pulse Rate 48 L 54 Respiratory Rate 21 H 16 Blood Pressure 121/67 103/76 Pulse Oximetry 95 98 Oxygen Delivery Method Room Air Room Air BMI result Body Mass Index 23.0 Const Other: elderly female not speaking but appears to be understanding in no acute distress Nutritional Appearance: average body habitus Limitations: altered mental status HENMT Head: Yes normal to inspection Ears: external ears normal General nose exam: Normal external nose present Mouth: Normal oral and palatal mucosa present and oropharynx normal Throat: Yes posterior oropharynx normal Eyes General: appearance normal, both eyes and all related structures Neck Neck: Yes normal visual inspection Chest Chest palpation & inspection: normal inspection of the chest Resp Auscultation: clear to auscultation bilaterally Cardio Jugular venous distension: no JVD Rate: regular rate Rhythm: regular rhythm Heart sounds: S1 normal heart sound present and S2 normal heart sound present GI Inspection: Yes normal to inspection Palpation (GI): Soft to palpation, nontender and No hepatosplenomegaly present Auscultation: normal bowel sounds General: Yes no CVA tenderness Back/Spine/Pelvis Back: no CVA tenderness Skin General skin exam: no rashes or lesions noted Neuro Cranial nerves: Yes CN's II-XII intact bilaterally Motor exam (neuro): 5/5 motor strength present throughout Sensory Exam: No Sensory deficit (Neuro) Extrem General: Yes normal to inspection Psych Other: eyes closed but awake, not speaking Course Reevaluation(s) Reevaluation #1: patient appears back to baseline awaiting urine Time: 16:00 Reevaluation #2: physician observation started at 4pm, patient to receive IV fluids, need to check UA and needs time to see if she improves Time: 16:05 Medical Decision Making Differential Diagnosis Differential Diagnoses: The differential diagnosis associated with the presentation includes (UTI, weakness, anxiety, panic attack) Admission/Observation Consideration of admission/observation: Escalation of care including admission/observation considered (upon arrival patient considered for admission) Lab Data 10/09/23 12:35 10/09/23 12:35 Labs: Lab Results 10/09/23 Range/Units 12:35 WBC 5.8 (4.8-10.8) X10*3/uL RBC 4.46 (4.20-5.50) X10*6/uL Hgb 13.6 (12.0-16.0) g/dl Hct 40.5 (37.0-47.0) % MCV 90.8 (80.0-98.0) fL MCH 30.5 (27.0-33.0) pg MCHC 33.6 (31.0-35.0) g/dl RDW 13.2 (11.0-16.0) % Plt Count 190 (160-400) X10*3/uL MPV 8.8 L (9.4-12.3) fL Immature Gran % (Auto) 0.3 (0.0-0.4) % Neut % (Auto) 56.0 (45-73) % Lymph % (Auto) 33.8 (20-40) % Elmore % (Auto) 7.9 (2-11) % Eos % (Auto) 1.7 (0-4) % Baso % (Auto) 0.3 (0-2) % Lymph # (Auto) 2.0 (1.2-4.9) X10*3/uL Elmore # (Auto) 0.5 (0.1-1.2) X10*3/uL Eos # (Auto) 0.1 (0.0-0.4) X10*3/uL Baso # (Auto) 0.0 (0.0-0.2) X10*3/uL Abs Immat Gran (auto) 0.02 (0.00-0.03) X10*3/uL Absolute Neuts (auto) 3.2 (2.0-8.3) x10*3/uL Absolute Nucleated RBC 0.000 (0.0-0.012) X10*3/uL Nucleated RBC % (auto) 0.0 (0.0-0.2) /100WBC Sodium 140 (135-145) mmol/L Potassium 3.6 (3.3-5.1) mmol/L Chloride 106 (96-108) mmol/L Carbon Dioxide 23 (22-29) mmol/L Anion Gap 15 (12-20) BUN 15 (9-16) mg/dL Creatinine 1.08 (0.5-1.4) mg/dL Estim Creat Clear Calc 29.8 Estimated GFR 48 Random Glucose 86 (60-115) mg/dL Calcium 10.2 D (8.4-10.2) mg/dL Troponin I High Sens < 2.7 D (<3.5-17.0) ng/L Independent Interpretation I performed an independent interpretation of an: EKG (sinus bradycardia rate 50, nonspecific twave changes), Plain X-Ray (CXR: no infiltrate) and CT Scan (Head: no bleed, cervical: djd) Radiology Impression Discussion of test interpretation with radiology: I have reviewed the radiologist's reading. Independent Historian Clinical information obtained from an independent historian. History obtained from or confirmed by: EMS and Other (family) Prescription Management I considered prescription management with: Antibiotic (no infection seen) Chronic Conditions Patient?s care impacted by: Hypertension Discharge Plan Discharge Clinical Impression: Weakness, Anxiety Patient Disposition: Still a Patient Prescriptions: No Action rosuvastatin 40 mg tablet 40 mg PO DAILY Qty: 90 3RF cholecalciferol (vitamin D3) 50 mcg (2,000 unit) capsule 50 mcg PO DAILY 90 Days Qty: 90 1RF lisinopril-hydrochlorothiazide 20-12.5 mg tablet 1 tab PO DAILY 90 Days Qty: 90 1RF amlodipine 2.5 mg tablet 2.5 mg PO DAILY Qty: 90 0RF meclizine 12.5 mg tablet 12.5 mg PO DAILY PRN (Reason: dizziness) 90 Days Qty: 90 3RF fluticasone propionate 50 mcg/actuation spray,suspension 2 spray intranasal QAM 30 Days Qty: 16 1RF fluocinolone 0.01 % solution 1 appl topical BID 30 Days Qty: 60 3RF nitrofurantoin macrocrystal 100 mg capsule 100 mg PO BID 7 Days Qty: 14 0RF Rx Instructions: must administer with a meal/food brimonidine 0.2 % drops 1 drp ophthalmic (eye) Print Language: Jordanian
--- NOTE | 2023-10-09 15:13 | PC.NURSE ---
Patient alert and oriented, speaking in Ukrainian with family. States she got up and felt dizzy and she was walking to the kitchen she went down. Denies pain, denies currently feeling dizzy.
--- NOTE | 2023-10-09 15:24 | PC.NURSE ---
Patient declined to be straight cathed. provided with fluids. c collar removed per provider
[2023-10-09 16:05] VITALS: BP 103/76; PULSE 54; RESP 16; TEMP 36.6; O2SAT 98
--- NOTE | 2023-10-09 16:06 | MHC.EDTECH ---
tHIS PCT ASSUMED CARE OF PATIENT AT 1500 ,PATIENT WAS ON BED [place] HAD MEDIUM FIRM BOWEL MOVEMENT ,EDISON CARE GIVEN .PATIENT DAUGHTER AT BEDSIDE .
[2023-10-09] MEDS: 0.9 % Sodium Chloride 1,000 ML 500 ML IVCONT (16:11)
[2023-10-09 17:43] LABS: Appearance Urine Clear; Color Urine Yellow; Glucose Urine UA Negative (Negative); Leukocyte Esterase Urine Small (1+) (Negative); Nitrite Urine Negative (Negative); PH 6.5 (5.0-9.0); Specific Gravity - Urine <= 1.005 (1.005-1.025); UMIC TRIGGER UACC YES; Urine Blood Negative (Negative); Urine Ketones Negative (Negative); Urine Protein Negative (Neg-Trace)
[2023-10-09 17:59] VITALS: BP 147/77; PULSE 54; RESP 16; TEMP 36.6; O2SAT 97
[2023-10-09 18:02] LABS: Bacteria Urine Trace (None Seen); Hyaline Casts Urine 0-2 /LPF (0-2); RBC Urine 0-2 /HPF (0-2); Squamous Epithelial Cell Urine 0-2 /HPF (0-2); UACC Culture Trigger YES; WBC Urine 0-5 /HPF (0-5)
[2023-10-09 18:12] VITALS: BP 147/77; PULSE 54; RESP 18; TEMP 36.6
== END 2023-10-09 18:34 | disposition home or self-care (01) ==
PROVIDERS: Emergency Medicine; Emergency Provider Emergency Medicine
DX: R53.1 Weakness (principal); F41.9 Anxiety disorder, unspecified; R00.1 Bradycardia, unspecified; R94.31 Abnormal electrocardiogram [ECG] [EKG]; R11.2 Nausea with vomiting, unspecified; M54.2 Cervicalgia; R51.9 Headache, unspecified; Z79.899 Other long term (current) drug therapy
CPT/HCPCS: 36415; 70450; 71045; 72125; 80048; 81001; 84484; 85025; 87086; 93005; 96360; 99284

== ENCOUNTER → 2023-10-09 12:20 | Outpatient (BNV) | payer MEDICARE, SELFPAY | PROVIDERS: Emergency Provider Emergency Medicine; Visit Provider Internal Medicine | DX: R94.31 Abnormal electrocardiogram [ECG] [EKG] (principal) | CPT/HCPCS: 93010 ==

== ENCOUNTER 2023-10-20 09:34 | Outpatient (AMB) | payer OTHER, SELFPAY ==
[2023-10-20 09:41] VITALS: BP 110/80; PULSE 72; BMI 23.9
--- NOTE | 2023-10-20 09:41 | MHC.OFFVIS ---
Vital Signs 10/20/23 09:41 Height 5 ft 3 in Weight 134 lb 14.766 oz BMI 23.9 BP 110/80 Blood Pressure Location Lt brachial Position Sitting Pulse 72 Pulse Source Pulse Oximeter Intake Visit Reasons: 6 mth f/up Intake Note: pt is here for her 6 mth f/up/ pt state that she was on ED on October 08 and since then she is feeling much better she just feel alittle more unbalance. Cloth Calender Required: Yes Cloth Calender Name: Vee/robinson/sami Accompanied by: Self / Same As Patient Allergies No Known Allergies [No Known Allergies*] Allergy (Verified 10/09/23 12:20) Medication List - Last Reconciled 10/20/23 by Chaka Morgan MD amlodipine 2.5 mg PO DAILY aspirin (Adult Low Dose Aspirin) 81 mg PO DAILY brimonidine 0.2% 1 drp ophthalmic (eye) cholecalciferol (vitamin D3) 50 mcg PO DAILY 90 days fluocinolone 0.01% 1 appl topical BID 30 days lisinopril-hydrochlorothiazide 20-12.5 mg 1 tab PO DAILY 90 days meclizine 12.5 mg PO DAILY PRN 90 days nitrofurantoin macrocrystal 100 mg PO BID 7 days rosuvastatin 40 mg PO DAILY HPI Comments Details: 88-year-old female here for follow-up. She previously was seen for dyspnea on exertion and she underwent stress testing and echocardiography did not show any significant issues. Recently she got admitted to [facility] with mild COVID-19 infection. In that setting she had a rise and fall in her troponin levels which was very mild. She has been experiencing some chest pressure which happen when she wakes up in the morning. This has been going on for approximately 5 months now. She also gets some chest pressure with exertion. She has been taking baby aspirin and other medications regularly. She has no lung disease reportedly. After discussion with her patient was started on amlodipine for blood pressure control and has anti anginal. She returns for follow-up today. She has been doing fine. She has no chest discomfort shortness of breath. Blood pressure control is reasonable. 10/20/2023: She is here for follow-up. She was in the ER on 10/09/2023. She said she was hot inside the house because the a conditioning was not working well and while standing in the kitchen she felt dizzy and passed out. Apparently her neighbor called EMS that she is confused and was brought in. Her workup was negative and she was given hydration and she felt better and was discharged back home. She is saying she has been getting some dizziness off and on which she feels like a spinning sensation like vertigo. Her blood pressure in the office is little low. She is taking medications otherwise regularly. [facility] Medical History Bicytopenia Dizziness Allergic rhinitis Hypovitaminosis D Transaminitis Dyspnea Hypertension Surgical History No pertinent past surgical history Family History Daughter Pacemaker Mother Heart attack Father Heart attack Social History Household Members: Other Housing: Apartment Do you presently have visiting nurse or other home services: Yes ([employer]) Alcohol intake: former Patient Tobacco Use Status: Never used Tobacco e-Cigarette/Vaping Use: Never Used Second Hand Smoke Exposure: No Advance Directives Date on File: 03/24/23 service: No Current occupational status: retired Cognitive needs: Yes Hearing needs: No Vision needs: Yes Review of Systems Const Denies chills, Denies fatigue, Denies fever(s), Reports frequent falls, Reports weakness, Denies weight gain and Denies weight loss ENT Reports dizziness Card Denies chest pain, Denies leg edema, Reports lightheadedness, Denies palpitations, Denies dyspnea and Denies dyspnea on exertion Resp Denies cough, Denies dyspnea and Denies dyspnea on exertion GI Denies hematochezia Musc Denies abnormal gait, Denies muscle weakness, Denies numbness, Denies radiating pain into limb and Denies tingling Neuro Denies abnormal gait, Reports dizziness, Reports frequent falls, Denies numbness, Denies tingling and Reports weakness Endo Denies fatigue and Denies palpitations Physical Exam Vital Signs: Last Vital Signs Pulse 72 10/20/23 09:41 BP 110/80 10/20/23 09:41 BMI result Body Mass Index 23.9 GENERAL APPEARANCE: in no acute distress. NECK/THYROID: no carotid bruit, no jugular venous distention. SKIN: no suspicious lesions, warm and dry. HEART: no murmurs, regular rate and rhythm, S1, S2 normal. LUNGS: clear to auscultation bilaterally. ABDOMEN: normal, bowel sounds present, soft, nontender, nondistended. EXTREMITIES: no clubbing, cyanosis, or edema. PERIPHERAL PULSES: equal. NEUROLOGIC: nonfocal, alert and oriented. PSYCH: mood/affect full range. Quality Reporting (2019) Adult ([facility] 138//) Smoking risk assessment performed?: Yes Patient Tobacco Use Status: Never used Tobacco Assessment & Plan Assessment & Plan (1) Dizziness: Code(s): R42 - Dizziness and giddiness Category: Medical (2) Hypertension: Comment: Stable Code(s): I10 - Essential (primary) hypertension Category: Medical Qualifiers: Hypertension type: essential hypertension Qualified Code(s): I10 - Essential (primary) hypertension (3) Syncope: Code(s): R55 - Syncope and collapse Category: Medical Plan Pleasant 88-year-old female who is here for follow-up. She has background history of chest pains and hypertension. Blood pressure is well controlled. She has not been complaining of chest discomfort on follow-up. She had a syncopal episode reportedly on 10/09/2023. She was in the ER and apparently received IV hydration and was discharged back home. Workup was negative. Blood pressure is a little low and I have advised her to stop the amlodipine for now. I have advised her to keep herself well hydrated. I think likely cause is dehydration and significant heat. She said that air conditioning was not working in the house that day. She will report to us if she is still getting some dizzy episodes in the next week or 2. Thank you for allowing me to participate in the care of your patient. Please feel free to contact me if you have any questions. Medications: Discontinued amlodipine Discontinued Reason: Doctor's Order 2.5 mg PO DAILY 90 tabs 0RF Coding Level of Care Code Est Pt Level 4 (68908) Diagnoses Dizziness R42 Essential hypertension I10 Hypertension type: essential hypertension Syncope R55
== END 2023-10-20 10:11 | disposition home or self-care (01) ==
PROVIDERS: PCP Internal Medicine; Visit Provider Internal Medicine Cardiovascular Disease
DX: R42 Dizziness and giddiness (principal); I10 Essential (primary) hypertension; R55 Syncope and collapse
CPT/HCPCS: 99214

== ENCOUNTER → 2023-10-20 09:34 | Outpatient (BNVA) | payer OTHER, SELFPAY | PROVIDERS: PCP Internal Medicine; Visit Provider Internal Medicine Cardiovascular Disease | DX: R42 Dizziness and giddiness (principal); I10 Essential (primary) hypertension; R55 Syncope and collapse | CPT/HCPCS: 99212 ==

== ENCOUNTER 2023-10-28 13:14 | Inpatient (IN) | payer OTHER, SELFPAY ==
--- NOTE | 2023-10-28 | ECG_ITS ---
Test Reason : DIZZINESS Blood Pressure : / mmHG Vent. Rate : 054 BPM Atrial Rate : 054 BPM P-R Int : 210 ms QRS Dur : 076 ms QT Int : 472 ms P-R-T Axes : 019 -06 044 degrees QTc Int : 447 ms Sinus bradycardia with 1st degree A-V block Otherwise normal ECG When compared with ECG of 28-OCT-2023 13:30, Premature atrial complexes are no longer Present Referred By: Florecita Madrigal Electronically Signed By:TRAMAINE BAKER
--- NOTE | ~2023-10-28 | CT_ITS ---
EXAMINATION: CT ANGIOGRAM OF THE CHEST WITH AND WITHOUT CONTRAST (CT PULMONARY ANGIOGRAM FOR PE) CLINICAL INFORMATION: Reason for Exam fall syncope COMPARISON: None available. TECHNIQUE: Prior to contrast administration, noncontrast localization images were obtained. Subsequently, multidetector volumetric imaging was performed from the thoracic inlet to below the diaphragms following the administration of 80 mL Omnipaque 350 intravenous contrast. No contrast reaction reported Sagittal, coronal, and MIP oblique sagittal reformatted images were obtained on the CT workstation, uploaded to PACS, and reviewed. This CT examination was performed using dose optimization techniques as appropriate, variously including the following: *Automated exposure control *Adjustment of mA and/or kV according to patient size (this includes techniques or standardized protocols for targeted exams where dose is matched to indication/reason for exam; i.e. extremities or head) *Use of iterative reconstruction technique Total exam dose-length product 880 mGy-cm FINDINGS: QUALITY OF STUDY/CONTRAST BOLUS: Satisfactory. PULMONARY ARTERIES: No pulmonary emboli. THORACIC AORTA: No aneurysm. Descending thoracic aorta is tortuous. The mid and lower thoracic aorta crosses the midline to the right side of the spine. LUNG: No focal consolidation, nodules or masses. PLEURA: No pleural effusion or pneumothorax. MEDIASTINUM: Normal heart size. No pericardial effusion. No hilar or mediastinal lymphadenopathy. No evidence of septal bowing or right heart strain. CORONARY ARTERY CALCIFICATION: None visualized on this study. CHEST WALL/AXILLA: No axillary or internal mammary lymphadenopathy. OSSEOUS STRUCTURES: No acute or suspicious osseous abnormality. UPPER ABDOMEN: Unremarkable. No reflux of contrast into the hepatic veins to suggest elevated right heart pressures. CT/CT angio chest PE protocol IMPRESSION: Normal CT of chest. No evidence of pulmonary embolism. VTE: negative.
--- NOTE | ~2023-10-28 | US_ITS ---
EXAMINATION: US ABDOMEN LIMITED CLINICAL INFORMATION: Right upper quadrant pain and nausea. COMPARISON: Ultrasound abdomen 01/31/2020 TECHNIQUE: Real-time imaging of the right upper quadrant abdominal viscera. FINDINGS: PANCREAS: Normal. Pancreatic duct measures 0.24 cm. LIVER: The liver is normal in size. The liver contour is normal. Parenchymal echogenicity is normal. With an anechoic cysts cyst left hepatic lobe measuring 0.9 x 0.6 x 0.6 cm. No additional lesions seen. There is no intrahepatic biliary duct dilatation seen. GALLBLADDER: Normal. The gallbladder is physiologically distended without evidence of stones, sludge, polyps, wall thickening or pericholecystic fluid. COMMON BILE DUCT: Normal in caliber measuring 0.61 cm in diameter. RIGHT KIDNEY: No hydronephrosis. No renal calculi or caliectasis. There is an echogenic lesion in the right kidney lower pole measuring 0.8 x 0.7 x 0.7 cm suggestive of small angiomyolipomas. The kidney measures 9.6 cm in maximum dimension. FREE FLUID: None. US/US abdomen limited IMPRESSION: 1. Left hepatic lobe cyst. 2. Small angiomyolipoma lower pole right kidney. Unchanged to previous ultrasound from 2019 3. Visualized pancreas, gallbladder, CBD and the right kidney is unremarkable.
--- NOTE | ~2023-10-28 | CT_ITS ---
EXAMINATION: CT HEAD WITHOUT CONTRAST CLINICAL INFORMATION: Dizziness and syncope COMPARISON: 10/09/2023 TECHNIQUE: Contiguous axial imaging was performed from the skull base to vertex without intravenous administration of contrast. This CT examination was performed using dose optimization techniques as appropriate, variously including the following: *Automated exposure control *Adjustment of mA and/or kV according to patient size (this includes techniques or standardized protocols for targeted exams where dose is matched to indication/reason for exam; i.e. extremities or head) *Use of iterative reconstruction technique DLP: 663 mGy-cm FINDINGS: Mild prominence to the sulci and ventricles with mild white matter gliosis observed unchanged. No intra or extra-axial fluid collection, hemorrhage, mass, or mass effect. Calvarium is intact. CT/CT head/brain wo IV con IMPRESSION: No acute intracranial pathology.
--- NOTE | ~2023-10-28 | XR_ITS ---
EXAMINATION: XR CHEST CLINICAL INFORMATION: Shortness of breath COMPARISON: Prior chest radiograph 10/09/2023 TECHNIQUE: Frontal view of the chest was obtained. FINDINGS: Heart size borderline. There is ectasia of the ascending and transverse aorta are unchanged. Pulmonary vessels are of normal caliber. Lungs grossly clear. XR/XR chest 1V IMPRESSION: No active disease. Stable findings.
--- NOTE | ~2023-10-28 | NM_ITS ---
Resting myocardial perfusion study INDICATION: Atypical chest discomfort with abnormal troponin to evaluate for resting myocardial perfusion TECHNIQUE: Patient was injected with 25 mCi of sestamibi at rest on 10/29/2023. Patient then underwent imaging using a SPECT camera interlaced with gating device associated with CT attenuation. Images were obtained with reformatted. Total DLP 32 mGy-cm. FINDINGS: Non attenuated images show mildly reduced uptake in the basal and mid inferior and inferolateral segments of LV myocardium. Remainder of the LV myocardium is normally perfused. Attenuated corrected images show normal uptake of radiotracer in all segments of LV myocardium. This is most suggestive diaphragmatic attenuation. Gated study shows normal LV ejection fraction of 75% with normal systolic wall motion and thickening of the LV myocardium. LV cavity is of normal size. CONCLUSION: Normal resting myocardial perfusion
--- NOTE | 2023-10-28 13:18 | ECG_ITS ---
Test Reason : CHEST PAIN Blood Pressure : / mmHG Vent. Rate : 059 BPM Atrial Rate : 059 BPM P-R Int : 186 ms QRS Dur : 078 ms QT Int : 466 ms P-R-T Axes : 073 001 059 degrees QTc Int : 461 ms Sinus bradycardia with Premature atrial complexes Low voltage QRS Nonspecific T wave abnormality Abnormal ECG When compared with ECG of 09-OCT-2023 12:37, Premature atrial complexes are now Present Nonspecific T wave abnormality no longer evident in Inferior leads Referred By: Neil Sharma Electronically Signed By:TRAMAINE BAKER
[2023-10-28 13:27] VITALS: BP 134/80; PULSE 69; RESP 18; TEMP 36.4; O2SAT 98; BMI 26.4
[2023-10-28 13:34] VITALS: BP 116/72; PULSE 80; O2SAT 98
--- NOTE | 2023-10-28 13:34 | ED_ITS ---
HPI - Chest Pain General Chief Complaint: Chest Pain Stated Complaint: Chest pain ROBERSON Time Seen by Provider: 10/28/23 13:34 Source: patient and EMS Mode of arrival: EMS Limitations: no limitations History of Present Illness ED Provider: Ibrahima MACIEL HPI narrative: This is an 80-year-old female history of allergic rhinitis by cytopenia, dizziness, dyspnea, hypertension, hypovitaminosis D, transaminitis, presenting to the emergency department for evaluation of syncope this afternoon. She reports she was eating this afternoon and began to feel epigastric pain that doreen to her chest, she became lightheaded and lost consciousness. Denies head strike, takes aspirin but no anticoagulants. She currently reports chest pain and pressure, a headache, and fatigue. Denies visual changes, sob, fevers, chills, nausea, vomiting. Related Data Home Medications ?Medication ?Instructions ?Recorded ?Confirmed brimonidine 0.2 % eye drops 1 drp ophthalmic (eye) 08/15/21 10/20/23 aspirin 81 mg tablet,delayed 81 mg PO DAILY 10/20/23 10/20/23 release (Adult Low Dose Aspirin) Previous Rx's ?Medication ?Instructions ?Recorded rosuvastatin 40 mg tablet 40 mg PO DAILY #90 tabs 09/24/21 meclizine 12.5 mg tablet 12.5 mg PO DAILY PRN dizziness 90 03/05/23 days #90 tabs fluocinolone 0.01 % topical 1 appl topical BID 30 days #60 mL 07/07/23 solution nitrofurantoin macrocrystal 100 mg 100 mg PO BID 7 days #14 caps 07/07/23 capsule cholecalciferol (vitamin D3) 50 50 mcg PO DAILY 90 days #90 caps 07/19/23 mcg (2,000 unit) capsule lisinopril 20 1 tab PO DAILY 90 days #90 tabs 08/30/23 mg-hydrochlorothiazide 12.5 mg tablet Allergies Allergy/AdvReac Type Severity Reaction Status Date / Time No Known Allergies Allergy Verified 10/28/23 13:31 [No Known Allergies*] Review of Systems 2 Review of Systems: Yes all other systems are reviewed and are negative PMFSH Past Medical History Attestation statement: The following information was validated with the patient. Source: old records reviewed and nursing notes reviewed Medical History Bicytopenia Dizziness Allergic rhinitis Hypovitaminosis D Transaminitis Dyspnea Hypertension Surgical History No pertinent past surgical history Family History Family History Daughter Pacemaker Mother Heart attack Father Heart attack Social History Social History Household Members: Other Housing: Apartment Do you presently have visiting nurse or other home services: Yes ([employer]) Alcohol intake: former Patient Tobacco Use Status: Never used Tobacco e-Cigarette/Vaping Use: Never Used Second Hand Smoke Exposure: No Advance Directives: Yes Advance Directives on File: Yes Advance Directives Date on File: 03/24/23 service: No Current occupational status: retired Cognitive needs: Yes Hearing needs: No Vision needs: Yes Physical Exam 2 Vital Signs: Vital Signs: Last Vital Signs Temp 97.8 F 10/28/23 14:47 Pulse 62 10/28/23 14:47 Resp 12 10/28/23 14:47 BP 153/69 H 10/28/23 14:47 Pulse Ox 97 10/28/23 14:47 O2 Del Method Room Air 10/28/23 14:47 BMI result Body Mass Index 26.4 vss Appearance: Alert.? Oriented X3.? No acute distress.? Head: Normocephalic, atraumatic, no step-offs or deformities Eyes: Pupils equal, round and reactive to light.? Neck: Normal inspection.? Neck supple.? CVS: Normal heart rate and rhythm.? Pulses normal.? Respiratory: No respiratory distress.? Breath sounds normal.? Skin: Skin warm and dry.? Normal skin color.? Normal skin turgor.? Extremities: No lower extremity edema.? No calf ttp. 5/5 strength to bilateral upper and lower extremities Back: No midline tenderness, no C-spine tenderness, full range of motion, no CVA tenderness bilaterally Neuro: Oriented X 3.? No motor deficit.? No sensory deficit. CN 2-12 intact. Normal romberg and pronator drift. Course Reevaluation(s) Reevaluation #1: CBC unremarkable. Chemistry no acute findings requiring intervention. Troponin 2.9, repeat pending however nonischemic EKG.. Coags normal. CTA unremarkable. CT head no acute intracranial pathology. Time: 15:55 Reevaluation #2: Plan hospital admisison. Time: 15:56 Medications Administered Discontinued Medications Generic Name Dose Route Start Last Admin Trade Name Kirti PRN Reason Stop Dose Admin Iohexol 100 ml 10/28/23 15:02 10/28/23 15:02 Iohexol 350 Mg/Ml 100 Ml Infus..Btl IV 10/28/23 15:03 65 ml ONCE ONE Administration Medical Decision Making Medical Decision Making [facility] Narrative: This is an 88 year old female with history of allergic rhinitis by cytopenia, dizziness, dyspnea, hypertension, hypovitaminosis D, transaminitis presenting after an episode of syncope this afternoon, chest pain and headache. PE - benign Hx and PE concerning for arrhythmia vs vasovagal syncope vs orthostatic hypotension. Unlikely ACS, PE, dissection. Plan - labs, imaging, EKG Differential Diagnosis Differential Diagnoses: The differential diagnosis associated with the presentation includes Hx and PE concerning for arrhythmia vs vasovagal syncope vs orthostatic hypotension. Unlikely ACS, PE, dissection Admission/Observation Consideration of admission/observation: Escalation of care including admission/observation considered Consult Healthcare Provider Management of the patient was discussed with: Hospitalist Lab Data [facility] Lab Attestation statement: I reviewed the patient's lab results. 10/28/23 13:55 10/28/23 13:55 Labs: Lab Results 10/28/23 Range/Units 13:55 WBC 4.9 (4.8-10.8) X10*3/uL RBC 4.25 (4.20-5.50) X10*6/uL Hgb 12.9 (12.0-16.0) g/dl Hct 38.6 (37.0-47.0) % MCV 90.8 (80.0-98.0) fL MCH 30.4 (27.0-33.0) pg MCHC 33.4 (31.0-35.0) g/dl RDW 12.9 (11.0-16.0) % Plt Count 173 (160-400) X10*3/uL MPV 9.0 L (9.4-12.3) fL Immature Gran % (Auto) 0.2 (0.0-0.4) % Neut % (Auto) 59.9 (45-73) % Lymph % (Auto) 30.6 (20-40) % [place] % (Auto) 7.1 (2-11) % Eos % (Auto) 1.6 (0-4) % Baso % (Auto) 0.6 (0-2) % Lymph # (Auto) 1.5 (1.2-4.9) X10*3/uL [place] # (Auto) 0.4 (0.1-1.2) X10*3/uL Eos # (Auto) 0.1 (0.0-0.4) X10*3/uL Baso # (Auto) 0.0 (0.0-0.2) X10*3/uL Abs Immat Gran (auto) 0.01 (0.00-0.03) X10*3/uL Absolute Neuts (auto) 3.0 (2.0-8.3) x10*3/uL Absolute Nucleated RBC 0.000 (0.0-0.012) X10*3/uL Nucleated RBC % (auto) 0.0 (0.0-0.2) /100WBC PT 11.6 (11.1-13.3) SEC INR 1.0 (0.9-1.1) Sodium 141 (135-145) mmol/L Potassium 3.7 (3.3-5.1) mmol/L Chloride 107 (96-108) mmol/L Carbon Dioxide 24 (22-29) mmol/L Anion Gap 14 (12-20) BUN 13 (9-16) mg/dL Creatinine 1.03 (0.5-1.4) mg/dL Estim Creat Clear Calc 33.5 Estimated GFR 51 Random Glucose 161 H (60-115) mg/dL Calcium 9.2 D (8.4-10.2) mg/dL Magnesium 2.1 (1.6-2.6) mg/dL Total Bilirubin 0.5 (0.0-1.0) mg/dL AST 17 (5-31) U/L ALT 11 (0-31) U/L Alkaline Phosphatase 69 (39-117) U/L Troponin I High Sens 2.9 (<3.5-17.0) ng/L Total Protein 6.5 (6.5-8.0) g/dL Albumin 4.2 (3.5-5.0) g/dL Independent Interpretation I performed an independent interpretation of an: EKG (Vent. Rate : 059 BPM Atrial Rate : 059 BPM P-R Int : 186 ms QRS Dur : 078 ms QT Int : 466 ms P-R-T Axes : 073 001 059 degrees QTc Int : 461 ms Sinus bradycardia with Premature atrial complexes Low voltage QRS Nonspecific T wave abnormality Abnormal ECG When compared wi), Plain X-Ray (XR/XR chest 1V IMPRESSION: No active disease. Stable findings. ) and CT Scan (CT/CT head/brain wo IV con IMPRESSION: No acute intracranial pathology.) Radiology Impression Discussion of test interpretation with radiology: I have reviewed the radiologist's reading. External Record Review External record reviewed: Inpatient record, Office record, Outpatient record, Prior outpatient labs, Prior outpatient radiology, Primary care record and Outside ED record Chronic Conditions Patient?s care impacted by: Hypertension and Other (LD) Critical Care Time Critical Care Time Critical Care Time: No Discharge Plan Discharge Clinical Impression: Syncope Patient Disposition: Admitted As Inpatient Print Language: Puerto Rican
[2023-10-28 13:59] LABS: MANUAL DIFF FLAG NO
[2023-10-28 14:01] LABS: Basophils Percent Auto 0.6 % (0-2); Eosinophils Absolute Auto 0.1 X10*3/uL (0.0-0.4); Eosinophils Percent Auto 1.6 % (0-4); Hematocrit 38.6 % (37.0-47.0); Hemoglobin 12.9 g/dl (12.0-16.0); Imm Gran Abs Auto 0.01 X10*3/uL (0.00-0.03); Imm Gran Pct Auto 0.2 % (0.0-0.4); Lymphocytes Absolute Auto 1.5 X10*3/uL (1.2-4.9); Lymphocytes Percent Auto 30.6 % (20-40); Mean Corpuscular HGB Conc 33.4 g/dl (31.0-35.0); Mean Corpuscular Hemoglobin 30.4 pg (27.0-33.0); Mean Corpuscular Volume 90.8 fL (80.0-98.0); Monocytes Absolute Auto 0.4 X10*3/uL (0.1-1.2); Monocytes Percent Auto 7.1 % (2-11); Neutrophils Percent Auto 59.9 % (45-73); Platelet Count 173 X10*3/uL (160-400); Red Blood Count 4.25 X10*6/uL (4.20-5.50); Red Cell Distribution Width 12.9 % (11.0-16.0); White Blood Count 4.9 X10*3/uL (4.8-10.8)
[2023-10-28 14:05] LABS: Prothrombin Time 11.6 SEC (11.1-13.3)
[2023-10-28 14:23] LABS: Alanine Aminotransferase 11 U/L (0-31); Albumin Level 4.2 g/dL (3.5-5.0); Alkaline Phosphatase 69 U/L (39-117); Anion Gap 14 (12-20); Aspartate Amino Transferase 17 U/L (5-31); Bilirubin Total 0.5 mg/dL (0.0-1.0); Blood Urea Nitrogen 13 mg/dL (9-16); Calcium 9.2 mg/dL (8.4-10.2); Carbon Dioxide 24 mmol/L (22-29); Chloride 107 mmol/L (96-108); Creatinine Clr Calc Pharmacy 33.5; Estimated Glomerular Filt Rate 51; Glucose Random 161 mg/dL (60-115); Magnesium 2.1 mg/dL (1.6-2.6); Potassium 3.7 mmol/L (3.3-5.1); Sodium 141 mmol/L (135-145); Total Protein 6.5 g/dL (6.5-8.0)
[2023-10-28 14:31] LABS: Troponin-I High Sensitivity 2.9 ng/L (<3.5-17.0)
[2023-10-28 14:47] VITALS: BP 153/69; PULSE 62; RESP 12; TEMP 36.6; O2SAT 97
[2023-10-28] MEDS: iohexoL 350 MG/ML 100 ML INFUS..BTL IV (15:02)
[2023-10-28 16:13] LABS: Lipase 21 U/L (8-78)
--- NOTE | 2023-10-28 16:30 | PC.NURSE ---
patient ambulated to bathroom one assist with steady gait
[2023-10-28 16:49] VITALS: BP 166/79; BP 172/87; PULSE 55; PULSE 58
[2023-10-28 16:50] VITALS: BP 166/79; BP 172/87; PULSE 55; PULSE 69; RESP 15; TEMP 36.8; O2SAT 99
[2023-10-28 17:00] LABS: Appearance Urine Clear; Color Urine Yellow; Glucose Urine UA Negative (Negative); Leukocyte Esterase Urine Small (1+) (Negative); Nitrite Urine Negative (Negative); Specific Gravity - Urine >= 1.030 (1.005-1.025); UMIC TRIGGER UACC YES; Urine Blood Negative (Negative); Urine Ketones Negative (Negative); Urine Protein Negative (Neg-Trace)
--- NOTE | 2023-10-28 17:06 | PM.IMHP ---
History of Present Illness Date of Service: 10/28/23 Attending physician on admission: [facility] Chief Complaint: syncope 88 year old female with history of htn, hld, and recurrent syncope presented to the ed [facility] today for evaluation of syncope. Refused interpretor, daughter assists with bhutanese interpretation. Reports this is the 5th syncopsal episode since march. The episode today was unwitnessed and duration of loss of consciousness is unknown. The patient does report that prior to syncopal episode, was experiencing retrosternal chest pressure, lightheadedness, nausea as well as epigastric discomfort. She reports similar symptoms prior to other syncopal episodes. She is still reporting a mild retrosternal chest pressure that is nonradiating as well as nausea and epigastric discomfort. No diaphoresis, dyspnea, current lightheadedness. She has seen Cardiology for these symptoms, most rate listed only on 10/19. Episodes were thought to possibly be related to dehydration the patient assures me she drinks adequate water. While in Cardiology, blood pressures were also soft so amlodipine was discontinued. On arrival today, patient has a mild bradycardia in the high 50s and is actually hypertensive on admission at 172/87. Orthostatic vital signs are negative. There is no leukocytosis or significant anemia. Renal function is baseline, electrolyte levels are normal. Glucose 161. Initial troponin is 2.9 with delta change on repeat at 5.0. Urinalysis is unremarkable. Head CT negative for acute intracranial abnormality. CT of the chest negative for PE or any acute cardiopulmonary abnormality. EKG shows sinus bradycardia with PACs, rate 59, no AV alex blocks. No evidence of acute ischemia. There are slight T-wave inversions in V1, otherwise no ST/T-wave abnormality. Discussed case with Cardiology recommending patient be observed with echocardiogram and cardiac monitoring. Denies recent illness. No fevers, chills, sore throat, congestion, vomiting, diarrhea, melena, hematochezia, wheezing, cough, shortness of breath. [facility] Medical History Bicytopenia Dizziness Allergic rhinitis Hypovitaminosis D Transaminitis Dyspnea Hypertension Family History Daughter Pacemaker Mother Heart attack Father Heart attack Surgical History No pertinent past surgical history Social History Household Members: Other Housing: Apartment Do you presently have visiting nurse or other home services: Yes ([employer]) Alcohol intake: former Patient Tobacco Use Status: Never used Tobacco e-Cigarette/Vaping Use: Never Used Second Hand Smoke Exposure: No Advance Directives: Yes Advance Directives on File: Yes Advance Directives Date on File: 03/24/23 service: No Current occupational status: retired Cognitive needs: Yes Hearing needs: No Vision needs: Yes Meds Allergies Allergy/AdvReac Type Severity Reaction Status Date / Time No Known Allergies Allergy Verified 10/28/23 13:31 [No Known Allergies*] Home Medications ?Medication ?Instructions ?Recorded ?Confirmed ?Last Taken ?Type brimonidine 0.2 % eye drops 1 drp ophthalmic (eye) 08/15/21 10/20/23 10/28/23 06:30 History aspirin 81 mg tablet,delayed 81 mg PO DAILY 10/20/23 10/20/23 10/28/23 06:30 History release (Adult Low Dose Aspirin) amlodipine 2.5 mg tablet 2.5 mg PO DAILY 10/28/23 10/28/23 06:30 History Physical Exam Vital Signs and Narrative: Vital Signs: Last Vital Signs Temp 98.2 F 10/28/23 16:50 Pulse 55 10/28/23 16:50 Resp 15 10/28/23 16:50 BP 166/79 H 10/28/23 16:50 Pulse Ox 99 10/28/23 16:50 O2 Del Method Room Air 10/28/23 16:50 BMI result Body Mass Index 26.4 Constitutional - Awake and Alert, No apparent distress Eyes - PERRLA, EOMI Cardiovascular - S1S2, RRR, no murmurs, No edema Respiratory - Normal lung expansion, Normal respiratory effort, No respiratory distress, CTA bilaterally Gastrointestinal - NT / ND; +BS; No rebound or guarding Extremities - no calf tenderness bilaterally, no swelling Skin - Warm/Dry Neurological - Alert & oriented x3, CN II-XII in tact, 5/5 strength BUE and BLE Psychological - Appropriate affect Results Labs 10/28/23 13:55 10/28/23 13:55 Labs: Laboratory Results - last 24 hr 10/28/23 10/28/23 10/28/23 13:55 15:43 16:53 MCV 90.8 MCH 30.4 MCHC 33.4 RDW 12.9 Plt Count 173 MPV 9.0 L Immature Gran % (Auto) 0.2 Neut % (Auto) 59.9 Lymph % (Auto) 30.6 [place] % (Auto) 7.1 Eos % (Auto) 1.6 Baso % (Auto) 0.6 Lymph # (Auto) 1.5 [place] # (Auto) 0.4 Eos # (Auto) 0.1 Baso # (Auto) 0.0 Abs Immat Gran (auto) 0.01 Absolute Neuts (auto) 3.0 Absolute Nucleated RBC 0.000 Nucleated RBC % (auto) 0.0 PT 11.6 INR 1.0 Anion Gap 14 Estim Creat Clear Calc 33.5 Estimated GFR 51 Random Glucose 161 H Calcium 9.2 D Magnesium 2.1 Total Bilirubin 0.5 AST 17 ALT 11 Alkaline Phosphatase 69 Troponin I High Sens 2.9 5.0 D Total Protein 6.5 Albumin 4.2 Lipase 21 Urine Color Yellow Urine Appearance Clear Urine pH 8.0 Ur Specific [place] >= 1.030 H Urine Protein Negative Urine Glucose (UA) Negative Urine Ketones Negative Urine Blood Negative Urine Nitrite Negative Ur Leukocyte Esterase Small (1+) H Imaging Radiologist's Impressions: Impressions Chest X-Ray 10/28/23 13:45 IMPRESSION: No active disease. Stable findings. Head CT 10/28/23 15:04 IMPRESSION: No acute intracranial pathology. Chest CTA 10/28/23 15:05 IMPRESSION: Normal CT of chest. No evidence of pulmonary embolism. VTE: negative. Assessment and Plan (1) Syncope: Status: Acute (2) Chest pain: Status: Acute Plan 88 year old female with history of htn, hld, and recurrent syncope to be observed for recurrent syncopal episode #Recurrent syncope- suspect cardiogenic -head CT without any acute intracranial abnormality. CTA negative for PE -orthostatic vital signs negative -mild bradycardia in the high 50s, but no AV alex block noted on EKG -Trops wnl., but with delta change: 2.9-->5.o. repeat troponin. Received 81 mg aspirin this morning, give additional 243 mg aspirin now. Continue 81 mg daily. Hold on AC for now per Cardiology -cardiology consult -echo -monitor on telemetry #Chest pain -trops as above. EKG without acute ishcemia -give asa as above -echo -cardiology consult -monitor on tele # hypertension -resume amlodipine 2.5 mg #HLD -statin DVT prophylaxis-heparin Do not intubate Quality Stroke Does the patient have a stroke diagnosis?: No VTE Prior VTE?: No VTE Risk Level:: Medical - moderate - high VTE Device Contraindication: Treatment Not Indicated VTE Drug Contraindication: N/A - Med Ordered
[2023-10-28 17:12] LABS: Bacteria Urine None Seen (None Seen); Hyaline Casts Urine 0-2 /LPF (0-2); Squamous Epithelial Cell Urine 0-2 /HPF (0-2); UACC Culture Trigger YES
[2023-10-28 17:13] LABS: RBC Urine 0-2 /HPF (0-2)
--- NOTE | 2023-10-28 17:34 | PHA.MEDREC ---
Pharmacy Consult ? Medication Reconciliation Pharmacy has completed the medication reconciliation. Confirmed medications with patient and help of daughter and granddaughter who interpreted. Patient stated they were taking Lisinopril-Hydrochlorothiazide but her Sales Training Representative told her to stop it in the last month. Patient confirmed they are taking Rosuvastatin 40mg tabs daily and stated they fill at [facility], but looking in claims I couldn't find anything about that so I called the pharmacy on file to confirm and they stated they never filled it in their facility.
[2023-10-28] MEDS: Aspirin 81 MG TAB.CHEW 243 MG PO (18:01)
[2023-10-28] MEDS: Heparin Sodium,Porcine 5,000 UNIT/ML VIAL 5000 UNIT SUBCUT (18:06)
--- NOTE | 2023-10-28 18:07 | PC.NURSE ---
patients daughters phone number is Julissa [phone]
[2023-10-28] MEDS: amLODIPine Besylate 2.5 MG TABLET PO (18:36)
[2023-10-28 19:14] LABS: Troponin-I High Sensitivity 9.6 ng/L (<3.5-17.0)
[2023-10-28] MEDS: Calcium Carbonate 750 MG TAB.CHEW PO (19:42)
--- NOTE | 2023-10-28 20:53 | PM.EVENT ---
Event Note Date of Service: 10/28/23 Event Note: Patient continues to experience lightheadedness, particularly with ambulation. She also continues to report epigastric pain with a mild chest pressure described as ?something stuck in my chest? with associated nausea. Trops 2.9-->5.0--9.6. EKG repeated, again without any acute ischemic changes. There is sinus bradycardia in the high 50s without any significant AV alex block. Right upper quadrant ultrasound ordered with final read pending but appears to be negative for any acute abnormality. Given Tums. Will continue monitoring on telemetry. Has already received aspirin. Discussed with cardiology. Will repeat troponin in the morning. Echocardiogram pending Time Spent With Patient Time: Total time managing care of this patient today ____ minutes.
[2023-10-28 21:42] VITALS: BP 156/85; PULSE 47; RESP 12; TEMP 36.1; O2SAT 97
[2023-10-29] VITALS (11 sets, daily range): BP systolic 114–180; BP diastolic 75–105; PULSE 50–70; RESP 13–20; TEMP 36.4–36.8; O2SAT 92–99; BMI 24.6; BMI 24.4
--- NOTE | 2023-10-29 | ECG_ITS ---
Test Reason : elevated Trop Blood Pressure : / mmHG Vent. Rate : 054 BPM Atrial Rate : 054 BPM P-R Int : 216 ms QRS Dur : 082 ms QT Int : 472 ms P-R-T Axes : 043 -26 033 degrees QTc Int : 447 ms Sinus bradycardia with 1st degree A-V block Otherwise normal ECG When compared with ECG of 28-OCT-2023 19:28, No significant change was found Referred By: Florecita Madrigal Electronically Signed By:TRAMAINE BAKER
[2023-10-29 04:47] LABS: Basophils Percent Auto 0.6 % (0-2); Eosinophils Absolute Auto 0.1 X10*3/uL (0.0-0.4); Eosinophils Percent Auto 2.2 % (0-4); Hematocrit 40.4 % (37.0-47.0); Imm Gran Abs Auto 0.01 X10*3/uL (0.00-0.03); Imm Gran Pct Auto 0.2 % (0.0-0.4); Lymphocytes Absolute Auto 1.4 X10*3/uL (1.2-4.9); Lymphocytes Percent Auto 26.8 % (20-40); MANUAL DIFF FLAG NO; Mean Corpuscular HGB Conc 34.7 g/dl (31.0-35.0); Mean Corpuscular Hemoglobin 30.7 pg (27.0-33.0); Mean Corpuscular Volume 88.6 fL (80.0-98.0); Mean Platelet Volume 9.1 fL (9.4-12.3); Monocytes Absolute Auto 0.5 X10*3/uL (0.1-1.2); Monocytes Percent Auto 8.9 % (2-11); Neutrophils Absolute Auto 3.3 x10*3/uL (2.0-8.3); Neutrophils Percent Auto 61.3 % (45-73); Platelet Count 189 X10*3/uL (160-400); Red Blood Count 4.56 X10*6/uL (4.20-5.50); Red Cell Distribution Width 12.5 % (11.0-16.0); White Blood Count 5.4 X10*3/uL (4.8-10.8)
[2023-10-29 05:03] LABS: Anion Gap 14 (12-20); Blood Urea Nitrogen 9 mg/dL (9-16); Calcium 9.8 mg/dL (8.4-10.2); Carbon Dioxide 23 mmol/L (22-29); Chloride 108 mmol/L (96-108); Creatinine Clr Calc Pharmacy 40.1; Estimated Glomerular Filt Rate > 60; Glucose Random 92 mg/dL (60-115); Potassium 3.7 mmol/L (3.3-5.1); Sodium 141 mmol/L (135-145)
[2023-10-29 05:08] LABS: Troponin-I High Sensitivity 27.3 ng/L (<3.5-17.0)
[2023-10-29] MEDS: Heparin Sodium,Porcine 5,000 UNIT/ML VIAL 5000 UNIT SUBCUT (05:52)
--- NOTE | 2023-10-29 07:00 | CA_ITS ---
Transthoracic Echocardiogram Patient (Last, First, Middle): Tisha Lopez, Gender: Female Date of : 1935 Age: 88 Procedure Date: 10/29/2023 Procedure Type: Transthoracic Echocardiogram Location: ER Height: 157.48 cm Weight: 65.32 kg BSA: 1.66 m2 Heart Rate: bpm BP: 163 / 88 mmHg Training Consultant: Referring MD: Florecita YEUNG Symptoms: syncope Study Quality: Adequate ECG Rhythm: Sinus Conclusions: - The left ventricular systolic function is normal. The calculated ejection fraction is 64% by biplane method. - The basal inferior and basal inferolateral segments are hypokinetic. - No obvious valvular pathology seen on this study. Findings Left Ventricle Normal left ventricular cavity size. There is mildly increased left ventricular wall thickness. The left ventricular systolic function is normal. The calculated ejection fraction is 64% by biplane method. There is evidence of regional wall motion abnormalities. Evidence suggests grade I (mild) diastolic dysfunction. Wall Motion Rest Echo Findings The basal inferior and basal inferolateral segments are hypokinetic. Right Ventricle Normal right ventricular cavity size and systolic function. Atria Both atria are normal in size. Aortic Valve There is a normal trileaflet aortic valve. There is no aortic valve stenosis. There is no aortic valve regurgitation. Mitral Valve The mitral valve appears normal. There is mild mitral valve regurgitation. There is no mitral valve stenosis. Pulmonic Valve The pulmonic valve is likely normal. Tricuspid Valve Normal tricuspid valve structure. There is trace tricuspid valve regurgitation. There is no evidence of pulmonary hypertension. Great Vessels The asc aorta is normal in size. Venous The inferior vena cava is normal in size and collapses greater than 50% with inspiration. Pericardium/Pleural There is no evidence of pericardial effusion. Prior Study Comparison Changes noted compared to prior study dated: 10/05/2018. see comment on wall motion. Recommendations, Care & Conclusions No obvious valvular pathology seen on this study. Measurements 2D Linear Measurements IVSd: 1.03 0.6-0.9/0.6-1.0 cm LVIDd: 4.25 3.9-5.3/4.2-5.9 cm LVIDd Index: 2.56 2.4-3.2/2.2-3.1 cm/m2 LVIDs: 2.62 2.0-3.6 cm LVPWd: 1.02 0.7-1.1 cm LA Diam: 2.80 2.7-3.8/3.0-4.0 cm LAIDs Index: 1.69 1.5-2.3 cm/m2 LV Mass: 180.21 67-162/88-224 g LV Mass Index: 108.56 43-95/49-115 g/m2 LVOT Diam: 2.00 3.0+(-)1.3 cm 2D Systolic Function EF 4C: 63.60 >55% EF 2C: 66.60 >55% EF BiP: 63.90 >55% Mitral Valve MV Pk E: 0.53 MV PK A: 0.85 MV Decel Time: 220.00 E/A: 0.60 E'Lateral: 4.97 E'Medial: 3.05 E/E' Med: 17.50 E/E' Lat: 10.70 PHT: 64.00 MVA PHT: 3.44 Decel Woodruff: 2.42 Aortic Valve AoV Pk Ankit: 1.38 AoV Mn Ankit: 0.79 AoV VTI: 0.31 AoV Pk Grad: 8.00 Aov Mn Grad: 3.00 ECTOR Cont.VTI: 2.28 LVOT LVOT Pk Ankit: 1.05 LVOT Mn Ankit: 0.63 LVOT VTI: 0.22 LVOT Pk Grad: 4.00 LVOT Mn Grad: 2.00 LVOT Diam: 2.00 LVOT Area: 3.14 Diastolic Function MV Pk E: 0.53 MV Pk A: 0.85 E/A: 0.60 E'Medial: 3.05 E/E' Med: 17.50 E' Laterial: 4.97 E/E' Lat: 10.70 Right Ventricle TAPSE (mm): 17.20 Tricuspid Valve TR Pk Ankit: 2.05 TR Pk Grad: 17.00 RA Press: 3.00 RVSP: 20.00 Great Vessels Aorta Sinus of Valsalva: 3.10 2.0-3.5 cm Ao Asc: 3.60 2.1-3.4 cm Pulmonary Valve PV Pk Ankit: 0.89 Peak PV Grad: 3.00 Updated in Other Vendor System with Status of Final Abdoul Emanuel MD electronically signed on 10/29/2023 10:11:29 AM with status of Final
[2023-10-29 07:25] LABS: Glucose, Whole Blood 95 mg/dL (60-115)
[2023-10-29] MEDS: amLODIPine Besylate 2.5 MG TABLET PO (08:07)
[2023-10-29] MEDS: Cholecalciferol (Vitamin D3) 25 MCG TABLET 50 MCG PO (08:07)
[2023-10-29] MEDS: Aspirin Enteric Coated 81 MG TABLET.DR PO (08:07)
[2023-10-29] MEDS: 0.9 % Sodium Chloride Flush 3 ML SYRINGE IVFLUSH ×3 (08:08→20:10)
--- NOTE | 2023-10-29 09:01 | PC.NURSE ---
Pt alert and oriented, breathing even and unlabored. Sinus bobby on bedside director of cardiac cath lab. Denies any CP or pain. Echo now at bedside.
--- NOTE | 2023-10-29 09:42 | P.CONCA_ITS ---
History of Present Illness History of Present Illness Date of Service: 10/29/23 Chief complaint: syncope, chest pain Narrative: This is a cardiology consultation regarding various symptoms that are difficult to interpret. I discussed with the patient's daughter at the bedside and we also had a health program manager to help with the Japanese translation. Also discussed with hospitalist. There is somewhat of a different story between admission and now. Per admission documentation, patient has had 5 syncopal episodes. However, repeatedly asked the same question using health program manager and daughter states that the only about 2 episodes or so and not 5. Hence not clear what the actual issues. Current admissions apparently for unwitnessed loss of consciousness of unknown duration. Prior to that, apparently had some chest pressure as well as belly discomfort. She apparently had some rice and then a few minutes later these symptoms started. Then she was brought to the ER for evaluation. However, so far no clear findings. She has been complaining of abdominal discomfort somewhat in the epigastric area since that time. According daughter, there is no previous history of any cardiac issues including coronary artery disease or myocardial infarction or cardiomyopathy. Review of Systems 2 Review of Systems: Yes all other systems are reviewed and are negative Constitutional: Constitutional: Reports as per HPI and Reports no additional constitutional complaints Eyes: Eyes: Reports as per HPI and Denies no additional eye complaints ENT: Denies system reviewed and no additional complaints, except as documented and Reports as per HPI Cardiovascular: Cardiovascular: Reports as per HPI, Reports no additional cardiovascular complaints, Denies acrocyanosis, Denies cool extremities, Denies chest pain, Denies leg edema, Denies lightheadedness, Denies palpitations and Denies dyspnea Respiratory: Respiratory: Reports as per HPI, Denies no additional respiratory complaints and Denies dyspnea Gastrointestinal: Gastrointestinal: Reports as per HPI and Denies no additional gastrointestinal complaints Genitourinary: Genitourinary: Reports as per HPI Musculoskeletal: Musculoskeletal: Reports no additional musculoskeletal complaints and Reports as per HPI Integumentary/Breasts: Skin/Breast: Reports system reviewed and no additional complaints, except as docu Neurologic: Reports system reviewed and no additional complaints, except as documented and Reports as per HPI Psychiatric: Psychiatric: Reports no additional psychiatric complaints and Reports as per HPI Endocrine: Endocrine: Reports no additional endocrine complaints, Reports as per HPI and Denies palpitations Hematologic/Lymphatic: Hematologic/Lymphatic: Reports no additional hematologic/lymphatic complaints and Reports as per HPI Allergic/Immunologic: Allergic/Immunologic: Reports no additional allergic/immunologic complaints and Reports as per HPI [facility] Past Medical History Medical History Bicytopenia Dizziness Allergic rhinitis Hypovitaminosis D Transaminitis Dyspnea Hypertension Family History Family History Daughter Pacemaker Mother Heart attack Father Heart attack Surgical History Surgical History No pertinent past surgical history Social History Social History Household Members: Other Housing: Apartment Do you presently have visiting nurse or other home services: Yes ([employer]) Alcohol intake: former Patient Tobacco Use Status: Never used Tobacco e-Cigarette/Vaping Use: Never Used Second Hand Smoke Exposure: No Advance Directives: Yes Advance Directives on File: Yes Advance Directives Date on File: 03/24/23 Do you have a plan to hurt others: No Plan Nutrition Risks: No Nutritional Risk service: No Current occupational status: retired Cognitive needs: Yes Hearing needs: No Vision needs: Yes Meds Allergies Allergy/AdvReac Type Severity Reaction Status Date / Time No Known Allergies Allergy Verified 10/28/23 13:31 [No Known Allergies*] Active Medications: Current Medications Acetaminophen (Acetaminophen 325 Mg Tablet) 650 mg PO Q6H PRN PRN Reason: Pain, Mild (Pain Scale 1-3), fever or headache Amlodipine Besylate (Amlodipine Besylate 2.5 Mg Tablet) 2.5 mg PO DAILY [facility]; Protocol Last Admin: 10/29/23 08:07 Dose: 2.5 mg Aspirin (Aspirin Enteric Coated 81 Mg Tablet.Dr) 81 mg PO DAILY [facility] Last Admin: 10/29/23 08:07 Dose: 81 mg Brimonidine Tartrate (Brimonidine Tartrate 0.2% Oph 5 Ml Bottle) 1 drop EYE- BOTH BID [facility] Last Admin: 10/28/23 23:31 Dose: Not Given Calcium Carbonate (Calcium Carbonate 750 Mg Tab.Chew) 750 mg PO Q4H PRN PRN Reason: Heartburn Last Admin: 10/28/23 19:42 Dose: 750 mg Heparin Sodium (Porcine) (Heparin Sodium,Porcine 5,000 Unit/Ml Vial) 5,000 unit SUBCUT Q12H [facility] Last Admin: 10/29/23 05:52 Dose: 5,000 unit Magnesium Hydroxide (Milk Of Magnesia 30 Ml Oral.Susp) 30 ml PO DAILY PRN PRN Reason: Constipation Meclizine HCl (Meclizine Hcl 12.5 Mg Tablet) 12.5 mg PO DAILY PRN PRN Reason: dizziness Melatonin (Melatonin 3 Mg Tablet) 6 mg PO BEDTIME PRN PRN Reason: Insomnia Sodium Chloride (0.9 % Sodium Chloride Flush 3 Ml Syringe) 3 ml IVFLUSH QSHIFT [facility] Last Admin: 10/29/23 08:08 Dose: 3 ml Vitamin D (Cholecalciferol (Vitamin D3) 25 Mcg Tablet) 50 mcg PO DAILY [facility] Last Admin: 10/29/23 08:07 Dose: 50 mcg Home Medications ?Medication ?Instructions ?Recorded ?Confirmed ?Last Taken ?Type brimonidine 0.2 % eye drops 1 drp ophthalmic (eye) BID 08/15/21 10/28/23 10/28/23 06:30 History aspirin 81 mg tablet,delayed 81 mg PO DAILY 10/20/23 10/28/23 10/28/23 06:30 History release (Adult Low Dose Aspirin) amlodipine 2.5 mg tablet 2.5 mg PO DAILY 10/28/23 10/28/23 10/28/23 06:30 History Physical Exam 2 Vital Signs: Vital Signs: Last Vital Signs Temp 97.6 F 10/29/23 06:41 Pulse 56 10/29/23 06:41 Resp 16 10/29/23 06:41 BP 159/82 H 10/29/23 08:07 Pulse Ox 97 10/29/23 06:41 O2 Del Method Room Air 10/29/23 06:41 BMI result Body Mass Index 26.4 Const: General: comfortable and no acute distress O rientation/consciousness: patient oriented x3 HEENT: Other: Unremarkable Head: Yes normal to inspection Neck: Neck: Yes normal visual inspection Chest: Chest palpation & inspection: normal inspection of the chest Resp: Auscultation: clear to auscultation bilaterally Cardio: Palpation: normal PMI Heart sounds: S1 normal heart sound present, S2 normal heart sound present, no gallops, no murmurs and no rubs GI: Other: Mild tenderness more so in the right upper quadrant area. Palpation (GI): Soft to palpation Back/Spine/Pelvis: Other: unremarkable Skin: General skin exam: no rashes or lesions noted Neuro: General: patient oriented x3 Extrem: General: Yes normal to inspection Psych: Mental Status: mental status grossly normal Objective Labs and Meds 10/29/23 04:27 10/29/23 04:27 Lab results: Laboratory Results - last 24 hr 10/28/23 10/28/23 10/28/23 13:55 15:43 16:53 WBC 4.9 RBC 4.25 Hgb 12.9 Hct 38.6 MCV 90.8 MCH 30.4 MCHC 33.4 RDW 12.9 Plt Count 173 MPV 9.0 L Immature Gran % (Auto) 0.2 Neut % (Auto) 59.9 Lymph % (Auto) 30.6 [place] % (Auto) 7.1 Eos % (Auto) 1.6 Baso % (Auto) 0.6 Lymph # (Auto) 1.5 [place] # (Auto) 0.4 Eos # (Auto) 0.1 Baso # (Auto) 0.0 Abs Immat Gran (auto) 0.01 Absolute Neuts (auto) 3.0 Absolute Nucleated RBC 0.000 Nucleated RBC % (auto) 0.0 PT 11.6 INR 1.0 Sodium 141 Potassium 3.7 Chloride 107 Carbon Dioxide 24 Anion Gap 14 BUN 13 Creatinine 1.03 Estim Creat Clear Calc 33.5 Estimated GFR 51 POC Glucose Random Glucose 161 H Calcium 9.2 D Magnesium 2.1 Total Bilirubin 0.5 AST 17 ALT 11 Alkaline Phosphatase 69 Troponin I High Sens 2.9 5.0 D Total Protein 6.5 Albumin 4.2 Lipase 21 Urine Color Yellow Urine Appearance Clear Urine pH 8.0 Ur Specific [place] >= 1.030 H Urine Protein Negative Urine Glucose (UA) Negative Urine Ketones Negative Urine Blood Negative Urine Nitrite Negative Ur Leukocyte Esterase Small (1+) H Urine RBC 0-2 Urine WBC 6-10 Ur Squamous Epith Cells 0-2 Urine Bacteria None Seen Hyaline Casts 0-2 10/28/23 10/29/23 10/29/23 18:49 04:27 07:21 WBC 5.4 RBC 4.56 Hgb 14.0 Hct 40.4 MCV 88.6 MCH 30.7 MCHC 34.7 RDW 12.5 Plt Count 189 MPV 9.1 L Immature Gran % (Auto) 0.2 Neut % (Auto) 61.3 Lymph % (Auto) 26.8 [place] % (Auto) 8.9 Eos % (Auto) 2.2 Baso % (Auto) 0.6 Lymph # (Auto) 1.4 [place] # (Auto) 0.5 Eos # (Auto) 0.1 Baso # (Auto) 0.0 Abs Immat Gran (auto) 0.01 Absolute Neuts (auto) 3.3 Absolute Nucleated RBC 0.000 Nucleated RBC % (auto) 0.0 PT INR Sodium 141 Potassium 3.7 Chloride 108 Carbon Dioxide 23 Anion Gap 14 BUN 9 Creatinine 0.86 Estim Creat Clear Calc 40.1 Estimated GFR > 60 POC Glucose 95 Random Glucose 92 Calcium 9.8 D Magnesium Total Bilirubin AST ALT Alkaline Phosphatase Troponin I High Sens 9.6 D 27.3 H D Total Protein Albumin Lipase Urine Color Urine Appearance Urine pH Ur Specific [place] Urine Protein Urine Glucose (UA) Urine Ketones Urine Blood Urine Nitrite Ur Leukocyte Esterase Urine RBC Urine WBC Ur Squamous Epith Cells Urine Bacteria Hyaline Casts ECG Interpretation: EKG with underlying sinus bradycardia 59/Min and nonspecific ST-T changes in the anterior leads. Repeat EKGs also similar. Mild ID prolongation. Imaging Radiologist's impression: Impressions Chest X-Ray 10/28/23 13:45 IMPRESSION: No active disease. Stable findings. Head CT 10/28/23 15:04 IMPRESSION: No acute intracranial pathology. Chest CTA 10/28/23 15:05 IMPRESSION: Normal CT of chest. No evidence of pulmonary embolism. VTE: negative. Abdomen Ultrasound 10/28/23 20:09 IMPRESSION: 1. Left hepatic lobe cyst. 2. Small angiomyolipoma lower pole right kidney. Unchanged to previous ultrasound from 2019 3. Visualized pancreas, gallbladder, CBD and the right kidney is unremarkable. Assessment and Plan (1) Syncope: Status: Acute (2) Chest discomfort: Status: Acute (3) Abdominal pain: Status: Acute Plan Constellation of symptoms including epigastric discomfort, possible chest discomfort, question of unresponsiveness. It seems she does have a history of dizziness in the past. EKG shows sinus bradycardia and nothing else. She is not on telemetry in the emergency room. Advised them to put her back on it. Blood pressure is rather on the higher side but not profoundly high. No suggestion of any hypotensive episodes. With regard to the troponin levels, they include 2.9, 5, 9.6 and 27.3. There is an overall increase but still these are very low-grade levels. Could be demand related. Chest CTA reported as normal. Abdominal ultrasound also unremarkable. Overall, no clear-cut etiology is identified. Can keep her on telemetry and monitor for another day or so or any suggestion of heart blocks and profound bradycardia extra. Will review the echocardiogram once completed. Procedures Date of Service Date of Service: 10/29/23
[2023-10-29 10:46] LABS: INTERNATIONAL NORM RATIO 0.9 (0.9-1.1); Prothrombin Time 11.2 SEC (11.1-13.3)
[2023-10-29 10:49] LABS: PTT Heparin Drip 32.9 SEC (53-77.9)
--- NOTE | 2023-10-29 10:58 | MHC.CM.PN ---
Flavia 10/29/23, CM met with pt and her dtr, dtr translated. Pt. lives with her grandson, she has 25 hours a week of [employer] services, HCP is on file, naming [facility] and [facility]. PCP confirmed: Sandy Hartmann. For DME, pt has a walker and a cane. Family can transport home at DC. DCP: home with services. CM to follow and assist with DC plan.
[2023-10-29 11:05] LABS: Troponin-I High Sensitivity 20.4 ng/L (<3.5-17.0)
[2023-10-29] MEDS: Heparin Sodium,Porcine 5,000 UNIT/ML VIAL 3700 UNIT IVPUSH (11:47)
[2023-10-29] MEDS: amLODIPine Besylate 2.5 MG TABLET 7.5 MG PO (11:48)
[2023-10-29] MEDS: Heparin Sodium,Porcine/1/2NS 25,000 UNIT/250 ML IV.SOLN 7.31 UNIT IVCONT (12:03)
--- NOTE | 2023-10-29 15:15 | P.PNIM_ITS ---
Subjective Subjective Date of Service: 10/29/23 Interval History: Seen in follow up for syncope, chest pain Interval history: Still reporting epigastric pain, lightheadedness, nausea, globus sensation/chest pressre. Trop peaked at 27. Hypertensive Review of Systems Review of Systems: Yes all other systems are reviewed and are negative Physical Exam 2 Vital Signs: Vital Signs: Last Vital Signs Temp 97.6 F 10/29/23 15:02 Pulse 66 10/29/23 15:02 Resp 18 10/29/23 15:02 BP 146/82 H 10/29/23 15:02 Pulse Ox 94 10/29/23 15:02 O2 Del Method Room Air 10/29/23 15:02 BMI result Body Mass Index 24.4 Constitutional - Awake and Alert, No apparent distress Eyes - PERRLA, EOMI Cardiovascular - S1S2, RRR, No edema Respiratory - Normal lung expansion, Normal respiratory effort, No respiratory distress, CTA bilaterally Gastrointestinal - epigastric ttp without guarding or rebound. ND; +BS - No CVA tenderness Extremities - no calf tenderness bilaterally, no swelling Skin - Warm/Dry Neurological - Alert & oriented x3 Psychological - Appropriate affect Objective Data Active Medications Acetaminophen (Acetaminophen 325 Mg Tablet) 650 mg PO Q6H PRN PRN Reason: Pain, Mild (Pain Scale 1-3), fever or headache Amlodipine Besylate (Amlodipine Besylate 10 Mg Tablet) 10 mg PO DAILY [facility]; Protocol Aspirin (Aspirin Enteric Coated 81 Mg Tablet.) 81 mg PO DAILY [facility] Last Admin: 10/29/23 08:07 Dose: 81 mg Documented By: NATHAN Brimonidine Tartrate (Brimonidine Tartrate 0.2% Oph 5 Ml Bottle) 1 drop EYE- BOTH BID [facility] Last Admin: 10/29/23 10:09 Dose: Not Given Documented By: YOLI Non-Admin Reason: Med Not Available Calcium Carbonate (Calcium Carbonate 750 Mg Tab.Chew) 750 mg PO Q4H PRN PRN Reason: Heartburn Last Admin: 10/28/23 19:42 Dose: 750 mg Documented By: LUCIE Heparin Sodium (Porcine) (Heparin Sodium,Porcine 5,000 Unit/Ml Vial) 2,400 unit 40 unit/kg (2400 unit) IVPUSH PROTOCOL BOLUS PRN; Protocol PRN Reason: 40 unit/kg - Heparin Protocol Heparin Sodium (Porcine) (Heparin Sodium,Porcine 5,000 Unit/Ml Vial) 4,900 unit 80 unit/kg (4900 unit) IVPUSH PROTOCOL BOLUS PRN; Protocol PRN Reason: 80 unit/kg - Heparin Protocol Heparin Sodium/Sodium Chloride (Heparin Sodium,Porcine/1/2ns) 25,000 unit in 250 mls @ 0 mls/hr IVCONT .Q0M [facility]; Protocol Last Admin: 10/29/23 12:03 Dose: 12 units/kg/hr, 7.31 mls/hr Documented By: YOLI Co-signed By: JOYCE Isosorbide Mononitrate (Isosorbide Mononitrate 30 Mg Tab.Er.24h) 30 mg PO DAILY [facility]; Protocol Magnesium Hydroxide (Milk Of Magnesia 30 Ml Oral.Susp) 30 ml PO DAILY PRN PRN Reason: Constipation Meclizine HCl (Meclizine Hcl 12.5 Mg Tablet) 12.5 mg PO DAILY PRN PRN Reason: dizziness Melatonin (Melatonin 3 Mg Tablet) 6 mg PO BEDTIME PRN PRN Reason: Insomnia Sodium Chloride (0.9 % Sodium Chloride Flush 3 Ml Syringe) 3 ml IVFLUSH QSHIFT [facility] Last Admin: 10/29/23 08:08 Dose: 3 ml Documented By: NATHAN Vitamin D (Cholecalciferol (Vitamin D3) 25 Mcg Tablet) 50 mcg PO DAILY [facility] Last Admin: 10/29/23 08:07 Dose: 50 mcg Documented By: NATHAN Labs 10/29/23 04:27 10/29/23 04:27 Labs: Laboratory Results - last 24 hr 10/28/23 10/28/23 10/28/23 13:55 15:43 16:53 MCV MCH MCHC RDW Plt Count MPV Immature Gran % (Auto) Neut % (Auto) Lymph % (Auto) Saline % (Auto) Eos % (Auto) Baso % (Auto) Lymph # (Auto) Saline # (Auto) Eos # (Auto) Baso # (Auto) Abs Immat Gran (auto) Absolute Neuts (auto) Absolute Nucleated RBC Nucleated RBC % (auto) Hold Purple Top PT INR aPTT Heparin Protocol Anion Gap Estim Creat Clear Calc Estimated GFR POC Glucose Random Glucose Calcium Troponin I High Sens 5.0 D Lipase 21 Urine Color Yellow Urine Appearance Clear Urine pH 8.0 Ur Specific [place] >= 1.030 H Urine Protein Negative Urine Glucose (UA) Negative Urine Ketones Negative Urine Blood Negative Urine Nitrite Negative Ur Leukocyte Esterase Small (1+) H Urine RBC 0-2 Urine WBC 6-10 Ur Squamous Epith Cells 0-2 Urine Bacteria None Seen Hyaline Casts 0-2 10/28/23 10/29/23 10/29/23 18:49 04:27 07:21 MCV 88.6 MCH 30.7 MCHC 34.7 RDW 12.5 Plt Count 189 MPV 9.1 L Immature Gran % (Auto) 0.2 Neut % (Auto) 61.3 Lymph % (Auto) 26.8 Saline % (Auto) 8.9 Eos % (Auto) 2.2 Baso % (Auto) 0.6 Lymph # (Auto) 1.4 Saline # (Auto) 0.5 Eos # (Auto) 0.1 Baso # (Auto) 0.0 Abs Immat Gran (auto) 0.01 Absolute Neuts (auto) 3.3 Absolute Nucleated RBC 0.000 Nucleated RBC % (auto) 0.0 Hold Purple Top PT INR aPTT Heparin Protocol Anion Gap 14 Estim Creat Clear Calc 40.1 Estimated GFR > 60 POC Glucose 95 Random Glucose 92 Calcium 9.8 D Troponin I High Sens 9.6 D 27.3 H D Lipase Urine Color Urine Appearance Urine pH Ur Specific [place] Urine Protein Urine Glucose (UA) Urine Ketones Urine Blood Urine Nitrite Ur Leukocyte Esterase Urine RBC Urine WBC Ur Squamous Epith Cells Urine Bacteria Hyaline Casts 10/29/23 10/29/23 10:26 10:30 MCV MCH MCHC RDW Plt Count MPV Immature Gran % (Auto) Neut % (Auto) Lymph % (Auto) Saline % (Auto) Eos % (Auto) Baso % (Auto) Lymph # (Auto) Saline # (Auto) Eos # (Auto) Baso # (Auto) Abs Immat Gran (auto) Absolute Neuts (auto) Absolute Nucleated RBC Nucleated RBC % (auto) Hold Purple Top SEE NOTE PT 11.2 INR 0.9 aPTT Heparin Protocol 32.9 L Anion Gap Estim Creat Clear Calc Estimated GFR POC Glucose Random Glucose Calcium Troponin I High Sens 20.4 H Lipase Urine Color Urine Appearance Urine pH Ur Specific [place] Urine Protein Urine Glucose (UA) Urine Ketones Urine Blood Urine Nitrite Ur Leukocyte Esterase Urine RBC Urine WBC Ur Squamous Epith Cells Urine Bacteria Hyaline Casts Microbiology Microbiology Results: Microbiology 10/28/23 16:52 Urine Culture - Preliminary Urine clean catch - Clean Catch Midstream Culture too young to evaluate. Assessment and Plan (1) Abdominal pain: Status: Acute (2) Syncope: Status: Acute (3) Chest pain: Status: Acute Plan 88 year old female with history of htn, hld, and recurrent syncope to be observed for recurrent syncopal episode #Chest pain/?ACS -Trop 2.9-->5.0-->9.9-->27-->20 -EKG x3 non ischemic -continue asa 81mg daily -lipid profile pending. Statin -Imdur 30mg daily added 10/28. Amlodipine increased to 10mg daily. If bp remains uncontrolled, add addl 30mg imdur -cardiology input appreciated -monitor on telemetry -transfer to [facility] for cardiac catheterization 10/[address] Emanuel/Eddie #Recurrent syncope- suspect cardiogenic -head CT without any acute intracranial abnormality. CTA negative for PE -orthostatic vital signs negative -mild bradycardia in the high 50s, but no AV alex block noted on EKG -Trops eleavted. See above. ., but with delta change: 2.9-->5.o. repeat troponin. Received 81 mg aspirin this morning, give additional 243 mg aspirin now. Continue 81 mg daily. Hold on AC for now per Cardiology -cardiology consult -echo -monitor on telemetry # epigastric pain -?r/t chest pain.acs above -RUQ u/s negative for acute intra-abdominal abnormality -trial famotidine 20 mg b.i.d. IV. Carafate #Chest pain -trops as above. EKG without acute ishcemia -give asa as above -echo -cardiology consult -monitor on tele # hypertension -increase amlodipine to 10 mg daily, add Imdur 30 mg daily #HLD -statin DVT prophylaxis-heparin Do not intubate Patient requires inpatient stay at least 2 midnights for management of recurrent syncope possibly related to ACS, now being treated with heparin drip per protocol and will be transferred to tertiary care facility per Cardiology for cardiac catheterization on 10/29 Quality Stroke Does the patient have a stroke diagnosis?: No VTE Prior VTE?: No VTE Risk Level:: Medical - moderate - high VTE Device Contraindication: Treatment Not Indicated VTE Drug Contraindication: N/A - Med Ordered
[2023-10-29 15:38] LABS: Cholesterol 220 mg/dL (<200); HDL Cholesterol 48 mg/dL (>40); LDL Cholesterol Calculated 149 mg/dL (<100); Triglycerides 119 mg/dL (<150)
[2023-10-29] MEDS: Famotidine/PF 20 MG/2 ML VIAL IVPUSH ×2 (15:50→20:10)
[2023-10-29] MEDS: Sucralfate 1 GM TABLET PO ×2 (15:50→20:10)
[2023-10-29] MEDS: Brimonidine Tartrate 0.2% Oph 5 ML BOTTLE 1 DROP EYE-BOTH (20:10)
[2023-10-29] MEDS: Atorvastatin Calcium 80 MG TABLET PO (20:10)
[2023-10-29 22:38] LABS: PTT Heparin Drip 126.2 SEC (53-77.9)
[2023-10-29 23:43] LABS: PTT Heparin Drip 67.6 SEC (53-77.9)
[2023-10-30 03:26] VITALS: BP 151/80; PULSE 74; RESP 16; TEMP 36.8; O2SAT 98
[2023-10-30 05:36] LABS: PTT Heparin Drip 70.6 SEC (53-77.9)
[2023-10-30 05:49] VITALS: BMI 24.3
[2023-10-30 06:44] LABS: Hematocrit 45.1 % (37.0-47.0); Hemoglobin 15.3 g/dl (12.0-16.0); Mean Corpuscular HGB Conc 33.9 g/dl (31.0-35.0); Mean Corpuscular Hemoglobin 30.5 pg (27.0-33.0); Mean Corpuscular Volume 89.8 fL (80.0-98.0); Mean Platelet Volume 9.2 fL (9.4-12.3); Platelet Count 201 X10*3/uL (160-400); Red Blood Count 5.02 X10*6/uL (4.20-5.50); White Blood Count 6.2 X10*3/uL (4.8-10.8)
[2023-10-30 08:00] VITALS: BP 131/83; PULSE 64; RESP 18; TEMP 36.2; O2SAT 98
[2023-10-30 08:49] VITALS: BP 130/84
[2023-10-30] MEDS: amLODIPine Besylate 10 MG TABLET PO (08:49)
[2023-10-30] MEDS: Brimonidine Tartrate 0.2% Oph 5 ML BOTTLE 1 DROP EYE-BOTH (08:49)
[2023-10-30 08:50] VITALS: BP 130/84
[2023-10-30] MEDS: Sucralfate 1 GM TABLET PO (08:50)
[2023-10-30] MEDS: Aspirin Enteric Coated 81 MG TABLET.DR PO (08:50)
[2023-10-30] MEDS: Isosorbide Mononitrate 30 MG TAB.ER.24H PO (08:50)
[2023-10-30] MEDS: 0.9 % Sodium Chloride Flush 3 ML SYRINGE IVFLUSH (08:51)
[2023-10-30] MEDS: Cholecalciferol (Vitamin D3) 25 MCG TABLET 50 MCG PO (08:51)
[2023-10-30] MEDS: Famotidine/PF 20 MG/2 ML VIAL IVPUSH (08:51)
--- NOTE | 2023-10-30 10:20 | PM.PNCARD ---
Subjective Subjective Date of Service: 10/30/23 Interval history: Still having some vague discomfort in the chest. Difficult to assess what it is. 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 Review of Systems Review of Systems Yes all other systems are reviewed and are negative Constitutional: Reports as per HPI and Reports no additional constitutional complaints Eyes: Reports as per HPI and Denies no additional eye complaints Denies system reviewed and no additional complaints, except as documented and Reports as per HPI Cardiovascular: Reports as per HPI, Reports no additional cardiovascular complaints, Denies acrocyanosis, Denies cool extremities, Reports chest pain, Denies leg edema, Denies lightheadedness, Denies palpitations and Denies dyspnea Respiratory: Reports as per HPI, Denies no additional respiratory complaints and Denies dyspnea Gastrointestinal: Reports as per HPI and Denies no additional gastrointestinal complaints Genitourinary: Reports as per HPI Musculoskeletal: Reports no additional musculoskeletal complaints and Reports as per HPI Skin/Breast: Reports system reviewed and no additional complaints, except as docu Reports system reviewed and no additional complaints, except as documented and Reports as per HPI Psychiatric: Reports no additional psychiatric complaints and Reports as per HPI Endocrine: Reports no additional endocrine complaints, Reports as per HPI and Denies palpitations Hematologic/Lymphatic: Reports no additional hematologic/lymphatic complaints and Reports as per HPI Allergic/Immunologic: Reports no additional allergic/immunologic complaints and Reports as per HPI Physical Exam Vital Signs: Last Vital Signs Temp 97.2 F 10/30/23 08:00 Pulse 64 10/30/23 08:00 Resp 18 10/30/23 08:00 BP 130/84 10/30/23 08:50 Pulse Ox 98 10/30/23 08:00 O2 Del Method Room Air 10/30/23 08:00 BMI result Body Mass Index 24.3 Const General: comfortable and no acute distress Orientation/consciousness: patient oriented x3 HEENT Other: Unremarkable Head: Yes normal to inspection Neck Neck: Yes normal visual inspection Chest Chest palpation & inspection: normal inspection of the chest Resp Auscultation: clear to auscultation bilaterally Cardio Palpation: normal PMI Heart sounds: S1 normal heart sound present, S2 normal heart sound present, no gallops, no murmurs and no rubs GI Palpation (GI): Soft to palpation Back/Spine/Pelvis Other: unremarkable Skin General skin exam: no rashes or lesions noted Neuro General: patient oriented x3 Extrem General: Yes normal to inspection Psych Mental Status: mental status grossly normal Objective Labs and Meds 10/30/23 06:25 10/29/23 04:27 Lab results: Laboratory Results - last 24 hr 10/29/23 10/29/23 10/29/23 04:27 10:26 10:30 WBC RBC Hgb Hct MCV MCH MCHC RDW Plt Count MPV Absolute Nucleated RBC Nucleated RBC % (auto) Hold Purple Top SEE NOTE PT 11.2 INR 0.9 aPTT Heparin Protocol 32.9 L Troponin I High Sens 20.4 H Triglycerides 119 Cholesterol 220 H LDL Cholesterol, Calc 149 H HDL Cholesterol 48 10/29/23 10/29/23 10/29/23 18:11 21:51 23:14 WBC RBC Hgb Hct MCV MCH MCHC RDW Plt Count MPV Absolute Nucleated RBC Nucleated RBC % (auto) Hold Purple Top SEE NOTE PT INR aPTT Heparin Protocol 170.0 H* D 126.2 H* D 67.6 D Troponin I High Sens Triglycerides Cholesterol LDL Cholesterol, Calc HDL Cholesterol 10/30/23 10/30/23 05:22 06:25 WBC 6.2 RBC 5.02 Hgb 15.3 Hct 45.1 MCV 89.8 MCH 30.5 MCHC 33.9 RDW 13.0 Plt Count 201 MPV 9.2 L Absolute Nucleated RBC 0.000 Nucleated RBC % (auto) 0.0 Hold Purple Top PT INR aPTT Heparin Protocol 70.6 Troponin I High Sens Triglycerides Cholesterol LDL Cholesterol, Calc HDL Cholesterol Progress Note: A&P Assessment and plan (1) Syncope: Status: Acute (2) Chest discomfort: Status: Acute (3) Abdominal pain: Status: Acute Plan Assess patient as well as discussed with , her primary home care attendant. Admitted with vague complaints of chest and epigastric pain and question of unresponsiveness. Low-grade troponin leak. CTA unremarkable. Abdominal ultrasound unremarkable. Echocardiogram with inferior/inferolateral wall motion abnormality. Resting perfusion was performed. Formally read as normal. However, there is again inferolateral perfusion defect but not clear if it is some diaphragmatic attenuation artifact or visited true defect. As her symptoms are so vague and difficult to assess, we decided that we will do a diagnostic catheterization for further assessment of her coronaries. Of note, she has been complaining of chest pain for many months and almost years without any definitive diagnosis. Discussed with Maricarmen Gonzalez. Total time spent including review of data, counseling, documentation, coordination of care including arranging transfer-43 minutes. Time Spent With Patient Time: Total time managing care of this patient today ____ minutes. Progress Note: Quality Stroke Does the patient have a stroke diagnosis?: No Procedures Date of Service Date of Service: 10/30/23
--- NOTE | 2023-10-30 10:23 | P.DS_ITS ---
DS: Providers Provider Date of Service: 10/30/23 Date of admission: 10/29/23 10:35 Date of discharge: 10/30/23 Primary care physician: Sandy Hartmann MD Consults: 10/28/23 18:06 Consult to Cardiology Routine Consulting Provider: [facility] Reason for consultation: chest pain/syncope, trop w/ delta Attending physician on discharge: Barrett Coleman Discharging clinician: Maricarmen Gonzalez DS: Diagnosis Discharge Diagnosis (1) Syncope: Status: Acute (2) Chest discomfort: Status: Acute (3) Abdominal pain: Status: Acute DS: Summary Hospital Course Hospital Course: From H&P on the day of admission 88 year old female with history of htn, hld, and recurrent syncope presented to the [facility] today for evaluation of syncope. Refused interpretor, daughter assists with occitan interpretation. Reports this is the 5th syncopsal episode since march. The episode today was unwitnessed and duration of loss of consciousness is unknown. The patient does report that prior to syncopal episode, was experiencing retrosternal chest pressure, lightheadedness, nausea as well as epigastric discomfort. She reports similar symptoms prior to other syncopal episodes. She is still reporting a mild retrosternal chest pressure that is nonradiating as well as nausea and epigastric discomfort. No diaphoresis, dyspnea, current lightheadedness. She has seen Cardiology for these symptoms, most rate listed only on 10/19. Episodes were thought to possibly be related to dehydration the patient assures me she drinks adequate water. While in Cardiology, blood pressures were also soft so amlodipine was discontinued. On arrival today, patient has a mild bradycardia in the high 50s and is actually hypertensive on admission at 172/87. Orthostatic vital signs are negative. There is no leukocytosis or significant anemia. Renal function is baseline, electrolyte levels are normal. Glucose 161. Initial troponin is 2.9 with delta change on repeat at 5.0. Urinalysis is unremarkable. Head CT negative for acute intracranial abnormality. CT of the chest negative for PE or any acute cardiopulmonary abnormality. EKG shows sinus bradycardia with PACs, rate 59, no AV alex blocks. No evidence of acute ischemia. There are slight T-wave inversions in V1, otherwise no ST/T-wave abnormality. Discussed case with Cardiology recommending patient be observed with echocardiogram and cardiac monitoring. Denies recent illness. No fevers, chills, sore throat, congestion, vomiting, diarrhea, melena, hematochezia, wheezing, cough, shortness of breath. Chest pain/?ACS Trop 2.9-->5.0-->9.9-->27-->20 EKG x3 non ischemic continue asa 81mg daily, statin added Imdur 30mg daily added 10/28. Amlodipine increased to 10mg daily Echocardiogram with inferior/inferolateral wall motion abnormality. Resting perfusion performed, there is inferolateral perfusion defect but not clear if it is some diaphragmatic attenuation artifact or true defect. Was started on heparin drip and per cardiology recommendation have decided to proceed with diagnostic catheterization. She will be transferred to [facility] for further care. Recurrent syncope- suspect cardiogenic head CT without any acute intracranial abnormality. CTA negative for PE orthostatic vital signs negative mild bradycardia in the high 50s, but no AV alex block noted on EKG mild troponin leak as above epigastric pain ?r/t chest pain.acs above RUQ u/s negative for acute intra-abdominal abnormality trial famotidine 20 mg b.i.d. IV. Carafate HTN increased norvasc to 10 mg and imdur added. bp improved. follow closely Time Attestation Discharge Coordination Time (in mins): 36 Quality: Safe Use of Opioids Does Pt have an Active Cancer Diagnosis on the Problem List?: No Quality: Stroke Does the patient have a stroke diagnosis?: No Physical Exam Vital Signs: Vital Signs: Last Vital Signs Temp 97.2 F 10/30/23 08:00 Pulse 64 10/30/23 08:00 Resp 18 10/30/23 08:00 BP 130/84 10/30/23 08:50 Pulse Ox 98 10/30/23 08:00 O2 Del Method Room Air 10/30/23 08:00 BMI result Body Mass Index 24.3 Const: General: cooperative, comfortable, no acute distress, alert and awake Nutritional Appearance: average body habitus Orientation/consciousness: oriented to person and oriented to place Resp: Effort & Inspection: normal respiratory effort, able to speak in complete sentences, no respiratory distress and no use of accessory muscles Cardio: Rate: regular rate GI: Inspection: No distended Palpation (GI): Soft to palpation Neuro: General: oriented to person, oriented to place, moves all extremities and CN's II-XI intact bilaterally DS: Data Data Completed and Pending Labs on day of discharge: Laboratory Results - last 24 hr 10/29/23 10/29/23 10/29/23 04:27 10:26 10:30 WBC RBC Hgb Hct MCV MCH MCHC RDW Plt Count MPV Absolute Nucleated RBC Nucleated RBC % (auto) Hold Purple Top SEE NOTE PT 11.2 INR 0.9 aPTT Heparin Protocol 32.9 L Troponin I High Sens 20.4 H Triglycerides 119 Cholesterol 220 H LDL Cholesterol, Calc 149 H HDL Cholesterol 48 10/29/23 10/29/23 10/29/23 18:11 21:51 23:14 WBC RBC Hgb Hct MCV MCH MCHC RDW Plt Count MPV Absolute Nucleated RBC Nucleated RBC % (auto) Hold Purple Top SEE NOTE PT INR aPTT Heparin Protocol 170.0 H* D 126.2 H* D 67.6 D Troponin I High Sens Triglycerides Cholesterol LDL Cholesterol, Calc HDL Cholesterol 10/30/23 10/30/23 05:22 06:25 WBC 6.2 RBC 5.02 Hgb 15.3 Hct 45.1 MCV 89.8 MCH 30.5 MCHC 33.9 RDW 13.0 Plt Count 201 MPV 9.2 L Absolute Nucleated RBC 0.000 Nucleated RBC % (auto) 0.0 Hold Purple Top PT INR aPTT Heparin Protocol 70.6 Troponin I High Sens Triglycerides Cholesterol LDL Cholesterol, Calc HDL Cholesterol Preliminary micro results at discharge 10/28/23 16:52 Urine Culture - Preliminary Urine clean catch - Clean Catch Midstream Culture too young to evaluate. Discharge Plan Discharge Anticipated Discharge Date/Time: 10/30/23 11:10 Patient Disposition: [facility] Discharge Diagnosis: chest pain Referrals: Sandy Loja MD [Primary Care Provider] - 1 Week Discharge Medications: New heparin(porcine) in 0.45% NaCl 25,000 unit/250 mL Parenteral Solution 25,000 unit continuous IV infusion .Q0M Qty: 6000 0RF atorvastatin 80 mg Tablet 80 mg PO BEDTIME Qty: 30 0RF isosorbide mononitrate 30 mg Tablet Extended Release 24 Hr 30 mg PO DAILY Qty: 30 0RF Protocol: Hold for SBP< HOLD for SBP < : 90 amlodipine 10 mg Tablet 10 mg PO DAILY Qty: 30 0RF Protocol: Hold for SBP< HOLD for SBP < : 90 famotidine (PF) 20 mg/2 mL Solution 20 mg IVPUSH BID Qty: 50 0RF sucralfate 1 gram Tablet 1 g PO QIDACHS Qty: 30 0RF Continued cholecalciferol (vitamin D3) 50 mcg (2,000 unit) capsule 50 mcg PO DAILY 90 Days Qty: 90 1RF meclizine 12.5 mg tablet 12.5 mg PO DAILY PRN (Reason: dizziness) 90 Days Qty: 90 3RF brimonidine 0.2 % drops 1 drp ophthalmic (eye) BID aspirin [Adult Low Dose Aspirin] 81 mg tablet,delayed release (DR/EC) 81 mg PO DAILY Discontinued rosuvastatin 40 mg tablet 40 mg PO DAILY Qty: 90 3RF amlodipine 2.5 mg tablet 2.5 mg PO DAILY Discharge Orders: Discharge Order (Routine); Ordered 10/30/23 Ordered By: Maricarmen Gonzalez Activity on Discharge: As tolerated Stand Alone Forms: Patient Portal Discharge page Print Language: Uruguayan Care Plan Goals: See below Health Concerns: Chest pain, ACS Uncontrolled hypertension Plan of Treatment: Started on IV heparin, Imdur, high-intensity statin Dose of Norvasc increased to 10 mg daily IV Pepcid and Carafate for epigastric discomfort Transfer to [facility] for cardiac catheterization Assessment: See discharge summary
[2023-10-30 11:32] LABS: PTT Heparin Drip 49.5 SEC (53-77.9)
[2023-10-30 11:41] VITALS: BP 104/74; PULSE 76; RESP 18; TEMP 36.3; O2SAT 94
== END 2023-10-30 12:07 | disposition short-term general hospital (02) | DRG 312 ==
LOC: HO.ED 15:58 → HO.EDOVER 17:50 → HO.IMC 10-29 08:12
PROVIDERS: Internal Medicine; Physician Assistant; Admitting Provider Physician Assistant; Emergency Provider Emergency Medicine Emergency Medical Services; PCP Internal Medicine; Visit Provider Physician Assistant Medical
DX: R55 Syncope and collapse (principal); R07.9 Chest pain, unspecified; I10 Essential (primary) hypertension; R00.1 Bradycardia, unspecified; E78.5 Hyperlipidemia, unspecified; Z79.82 Long term (current) use of aspirin; Z79.899 Other long term (current) drug therapy
CPT/HCPCS: 36415; 70450; 71045; 71275; 76705; 78451; 80048; 80053; 80061; 81001; 82947; 83690; 83735; 84484; 85025; 85027; 85610; 85730; 87086; 93005; 93306; 99285; A9500; J1644; Q9957; Q9967

== ENCOUNTER → 2023-10-28 13:18 | Outpatient (BNV) | payer OTHER, SELFPAY | PROVIDERS: Admitting Provider Physician Assistant; Emergency Provider Emergency Medicine Emergency Medical Services; PCP Internal Medicine; Visit Provider Internal Medicine | DX: R94.31 Abnormal electrocardiogram [ECG] [EKG] (principal) | CPT/HCPCS: 93010 ==

== ENCOUNTER → 2023-10-28 17:36 | Outpatient (BNV) | payer OTHER, SELFPAY | PROVIDERS: Admitting Provider Physician Assistant; Emergency Provider Emergency Medicine Emergency Medical Services; PCP Internal Medicine; Visit Provider Internal Medicine | DX: R55 Syncope and collapse (principal); R07.89 Other chest pain; R10.9 Unspecified abdominal pain | CPT/HCPCS: 99223; 99233 ==

== ENCOUNTER → 2023-10-28 17:36 | Outpatient (BNV) | payer OTHER, SELFPAY | PROVIDERS: Admitting Provider Physician Assistant; Emergency Provider Emergency Medicine Emergency Medical Services; PCP Internal Medicine; Visit Provider Physician Assistant | DX: R55 Syncope and collapse (principal); R07.89 Other chest pain; R10.9 Unspecified abdominal pain | CPT/HCPCS: 99223; 99233; 99239; 99499 ==

== ENCOUNTER → 2023-10-29 07:00 | Outpatient (BNV) | payer OTHER, SELFPAY | PROVIDERS: Admitting Provider Physician Assistant; Emergency Provider Emergency Medicine Emergency Medical Services; PCP Internal Medicine; Visit Provider Internal Medicine | DX: I34.0 Nonrheumatic mitral (valve) insufficiency (principal); I51.89 Other ill-defined heart diseases; I44.0 Atrioventricular block, first degree | CPT/HCPCS: 93010; 93306 ==

== ENCOUNTER → 2023-10-30 23:59 | Outpatient (BNV) | payer OTHER, SELFPAY | PROVIDERS: PCP Internal Medicine; Visit Provider Internal Medicine Cardiovascular Disease | DX: I21.4 Non-ST elevation (NSTEMI) myocardial infarction (principal) | CPT/HCPCS: 93454; 99152 ==

== ENCOUNTER 2023-11-13 13:48 | Outpatient (AMB) | payer OTHER, SELFPAY ==
[2023-11-13 14:29] VITALS: BP 138/70; PULSE 65; BMI 24.6
--- NOTE | 2023-11-13 14:29 | MHC.OFFVIS ---
Vital Signs 11/13/23 14:29 11/14/23 08:36 11/14/23 08:37 11/14/23 08:37 Height 5 ft 2 in Weight 134 lb 7.712 oz BMI 24.6 BP 138/70 158/82 H 181/88 H 166/96 H Blood Pressure Location Lt brachial Lt brachial Lt brachial Lt brachial Position Sitting Supine Sitting Standing Pulse 65 67 67 76 Pulse Source Pulse Oximeter Pulse Oximeter Pulse Oximeter Pulse Oximeter Intake Visit Reasons: 2 wks followup post cardiac cath/wound check Talent Acquisition Director Required: Yes Talent Acquisition Director Name: HESHAM RAMIREZ Allergies amlodipine Adverse Reaction (Severe, Uncoded 11/17/23 10:42) Unknown Medication List - Last Reconciled 11/13/23 by Amanda Mcnally NP amlodipine 10 mg See Protocol PO DAILY aspirin (Adult Low Dose Aspirin) 81 mg PO DAILY atorvastatin 80 mg PO BEDTIME brimonidine 0.2% 1 drp ophthalmic (eye) BID cholecalciferol (vitamin D3) 50 mcg PO DAILY 90 days famotidine (PF) 20 mg (2 mL) IVPUSH BID isosorbide mononitrate ER 30 mg See Protocol PO DAILY meclizine 12.5 mg PO DAILY PRN 90 days sucralfate 1 g PO QIDACHS HPI Comments Details: 88-year-old female presents today for follow-up post cardiac catheterization. Her cardiac catheterization revealed no significant coronary artery disease. Not explaining her dizziness or shortness of breath. She reports hydrate well. She denies any pain, tenderness, swelling, or fevers and chills. She presents with her son who is translating and is her caregiver. [facility] Medical History Bicytopenia Dizziness Allergic rhinitis Hypovitaminosis D Transaminitis Dyspnea Hypertension Surgical History S/P cardiac catheterization Family History Daughter Pacemaker Mother Heart attack Father Heart attack Social History Household Members: Family Housing: Apartment Do you presently have visiting nurse or other home services: Yes Alcohol intake: former Patient Tobacco Use Status: Never used Tobacco e-Cigarette/Vaping Use: Never Used Second Hand Smoke Exposure: No Advance Directives Date on File: 03/24/23 service: No Current occupational status: retired Cognitive needs: Yes Hearing needs: No Vision needs: Yes Review of Systems Const Denies weakness ENT Denies dizziness Card Denies chest pain, Denies chest pain with activity, Denies syncope, Denies rapid heart rate, Denies pedal edema, Denies edema, Denies leg edema, Denies lightheadedness, Denies palpitations, Denies dyspnea, Denies dyspnea on exertion and Denies orthopnea Resp Denies cough, Denies dyspnea and Denies dyspnea on exertion GI Denies hematochezia and Denies change in stool character Musc Denies abnormal gait, Denies muscle cramps, Denies muscle weakness, Denies numbness, Denies radiating pain into limb and Denies tingling Neuro Denies abnormal gait, Denies dizziness, Denies syncope, Denies numbness, Denies tingling and Denies weakness Endo Denies palpitations Physical Exam Vital Signs: Last Vital Signs Pulse 76 11/14/23 08:37 BP 166/96 H 11/14/23 08:37 BMI result Body Mass Index 24.6 Right radial artery access healing appropriately. Const General: healthy appearing and no acute distress Orientation/consciousness: patient oriented x3 HEENT Head: Yes normal to inspection Eyes General: appearance normal, both eyes and all related structures Neck Neck: Yes normal visual inspection Chest Chest palpation & inspection: normal inspection of the chest Resp Effort & Inspection: normal respiratory effort Auscultation: clear to auscultation bilaterally Cardio Jugular venous distension: no JVD Palpation: normal PMI Rate: regular rate Rhythm: regular rhythm Heart sounds: S1 normal heart sound present, S2 normal heart sound present, no click, no gallops, no murmurs and no rubs GI Inspection: Yes normal to inspection Palpation (GI): Soft to palpation Skin General skin exam: no rashes or lesions noted Neuro General: patient oriented x3 Extrem General: Yes normal to inspection Psych Appearance: grossly normal Quality Reporting (2019) Adult ([facility] 138/2//69) Smoking risk assessment performed?: Yes Patient Tobacco Use Status: Never used Tobacco Assessment & Plan Assessment & Plan (1) S/P cardiac catheterization: Comment: with Dr. Morgan 10/30/2023 Cardiac Arteries and Lesion Findings LMCA: Normal. LAD: Normal. LCx: Normal. RCA: Normal.Mildly ectatic vessel. Ramus: Normal. Code(s): Z98.890 - Other specified postprocedural states Category: Medical (2) Syncope: Code(s): R55 - Syncope and collapse Category: Medical (3) Dizziness: Code(s): R42 - Dizziness and giddiness Category: Medical (4) Shortness of breath: Code(s): R06.02 - Shortness of breath Category: Medical (5) Hypertension: Comment: Stable Code(s): I10 - Essential (primary) hypertension Category: Medical Qualifiers: Hypertension type: essential hypertension Qualified Code(s): I10 - Essential (primary) hypertension Plan Cardiac catheterization revealing normal coronary arteries. Was noted the RCA was a mildly ectatic vessel, cardiac catheterization recommended for aspirin 81 mg indefinitely and risk factor modification. Right radial artery healing appropriately without erythema, tenderness, swelling, pulses present distal and proximal. Patient reports her dizzy spells come and go and she gets short of breath easily with exertion. States she eats and drinks just fine. History of orthostasis and syncope. Coronary disease does not explain her symptoms. We can refer to pulmonology to see if lung disease is a contributing factor. ED care if needed. [place] [facility] new. Asked to monitor BPs at home. Orders: Referrals Pulmonology Referral R06.02 - Shortness of breath, R42 - Dizziness and giddiness, R55 - Syncope and collapse Medications: On Hold amlodipine Hold Comment: Doctor's Order 10 mg See Protocol PO DAILY 30 tabs 0RF Coding Level of Care Code Est Pt Level 4 (64589) Diagnoses S/P cardiac catheterization Z98.890 Syncope R55 Dizziness R42 Shortness of breath R06.02 Essential hypertension I10 Hypertension type: essential hypertension
[2023-11-14 08:36] VITALS: BP 158/82; PULSE 67
[2023-11-14 08:37] VITALS: BP 166/96; BP 181/88; PULSE 67; PULSE 76
== END 2023-11-13 15:04 | disposition home or self-care (01) ==
PROVIDERS: PCP Internal Medicine; Visit Provider Nurse Practitioner
DX: Z98.890 Other specified postprocedural states (principal); R55 Syncope and collapse; R42 Dizziness and giddiness; R06.02 Shortness of breath; I10 Essential (primary) hypertension
CPT/HCPCS: 99214

== ENCOUNTER → 2023-11-13 13:48 | Outpatient (BNVA) | payer OTHER, SELFPAY | PROVIDERS: PCP Internal Medicine; Visit Provider Nurse Practitioner | DX: R06.02 Shortness of breath (principal); R42 Dizziness and giddiness; R55 Syncope and collapse; I10 Essential (primary) hypertension; Z98.890 Other specified postprocedural states | CPT/HCPCS: 99212 ==

== ENCOUNTER 2023-11-17 10:21 | Outpatient (AMB) | payer OTHER, SELFPAY ==
--- NOTE | 2023-11-17 10:22 | MHC.PC.OV ---
Vital Signs 11/17/23 10:23 11/17/23 10:42 Height 5 ft 2 in Weight 135 lb BMI 24.7 BP 142/82 H 135/80 Blood Pressure Location Lt brachial Lt brachial Position Sitting Sitting Intake Visit Reasons: bp Intake Note: Patient here for a follow up BP Director Quality Systems Required: No Accompanied by: Self / Same As Patient Allergies amlodipine Adverse Reaction (Severe, Uncoded 11/17/23 10:42) Unknown Medication List - Last Reconciled 11/17/23 by Sandy Hartmann MD aspirin (Adult Low Dose Aspirin) 81 mg PO DAILY atorvastatin 80 mg PO BEDTIME brimonidine 0.2% 1 drp ophthalmic (eye) BID cholecalciferol (vitamin D3) 50 mcg PO DAILY 90 days isosorbide mononitrate ER 30 mg See Protocol PO DAILY meclizine 12.5 mg PO DAILY PRN 90 days sucralfate 1 g PO QIDACHS Tobacco use date assessed: 07/07/23 Fall risk assessment: 2 + Falls in past year Last assessed Fall Risk: 11/17/23 Dental Screening Dental Screen Date: 07/07/23 HPI HPI Comments History of Present Illness Details This is an 88-year-old female with hypertension and hyperlipidemia that comes today for follow-up on her conditions. Blood pressure stable. On statins for her elevated cholesterol. Recent cardiac catheterization was negative. No chest pain or shortness on breath. Walks with a cane due to gait instability. [facility] Medical History Bicytopenia Dizziness Allergic rhinitis Hypovitaminosis D Transaminitis Dyspnea Hypertension Surgical History S/P cardiac catheterization Family History Daughter Pacemaker Mother Heart attack Father Heart attack Social History Household Members: Family Housing: Apartment Do you presently have visiting nurse or other home services: Yes Alcohol intake: former Patient Tobacco Use Status: Never used Tobacco e-Cigarette/Vaping Use: Never Used Second Hand Smoke Exposure: No Advance Directives Date on File: 12/18/23 service: No Current occupational status: retired Cognitive needs: Yes Hearing needs: No Vision needs: Yes Questionnaire Thrive Questionnaire Date Thrive assessed: 10/29/23 EBER-7 AMB Questionnaire EBER-7 Date EBER - 7 assessed: 07/07/23 Source: Developed by Drs. Sukhdev Alaniz, Monse Hester, Da Rivera and colleagues, with an educational damián from [employer]. Review of Systems Const All systems reviewed & are unremarkable except as noted in HPI and below Card Denies chest pain at rest, Denies chest pain with activity, Denies edema, Denies irregular heart rhythm, Denies claudication, Denies dyspnea, Denies dyspnea on exertion, Denies orthopnea, Denies paroxysmal nocturnal dyspnea and Denies slow heart rate Resp Denies cough, Denies dyspnea and Denies dyspnea on exertion GI Denies abdominal pain, Denies change in bowel habits, Denies excessive flatus, Denies nausea and Denies vomiting Denies urinary incontinence, Denies urinary hesitancy and Denies urinary urgency Musc Denies abnormal gait, Denies atrophy, Denies deformity and Denies limited range of motion Skin/Breast Denies bleeding lesions, Denies changing lesions and Denies rash Neuro Denies abnormal gait, Denies behavioral changes and Denies lack of coordination Psych Denies behavioral changes Physical exam (Primary Care) Vital Signs: Last Vital Signs BP 135/80 11/17/23 10:42 BMI result Body Mass Index 24.7 Tobacco/Smoking Status: Tobacco use Status Tobacco use date assessed 07/07/23 11/17/23 10:30 Patient Tobacco Use Status Never used Tobacco 11/17/23 10:30 Tobacco use type 11/09/20 13:25 e-Cigarette/Vaping Use Never Used 11/17/23 10:30 Thrive Assessment: Date of Thrive Assessment Date Thrive assessed 10/29/23 11/17/23 10:30 Const Limitations: ambulation with cane Resp Effort & Inspection: normal respiratory effort Auscultation: clear to auscultation bilaterally Cardio Jugular venous distension: no JVD Rate: regular rate Rhythm: regular rhythm Heart sounds: S1 normal heart sound present and S2 normal heart sound present Extrem General: Yes full ROM Assessment and Plan Assessment & Plan (1) Hypertension: Comment: Stable Code(s): I10 - Essential (primary) hypertension Qualifiers: Hypertension type: essential hypertension Qualified Code(s): I10 - Essential (primary) hypertension Plan: Discontinue amlodipine. Blood pressure goal is equal or less than 130/80. Follow-up with Cardiology. (2) Hyperlipidemia: Code(s): E78.5 - Hyperlipidemia, unspecified Qualifiers: Hyperlipidemia type: unspecified Qualified Code(s): E78.5 - Hyperlipidemia, unspecified Plan: Continue statins. Medications: Changed From atorvastatin 80 mg PO BEDTIME 30 tabs 0RF To atorvastatin 80 mg PO BEDTIME 90 tabs 1RF 90 days Coding Level of Care Code Est Pt Level 3 (95384) Complex EM visit Add On G2211 Diagnoses Essential hypertension I10 Hypertension type: essential hypertension Hyperlipidemia, unspecified hyperlipidemia type E78.5 Hyperlipidemia type: unspecified Time Spent (min) 19
[2023-11-17 10:23] VITALS: BP 142/82; BMI 24.7
[2023-11-17 10:42] VITALS: BP 135/80
== END 2023-11-17 10:56 | disposition home or self-care (01) ==
PROVIDERS: PCP Internal Medicine; Visit Provider Internal Medicine
DX: I10 Essential (primary) hypertension (principal); E78.5 Hyperlipidemia, unspecified
CPT/HCPCS: 99213; G2211

== ENCOUNTER 2023-12-01 10:57 | Outpatient (AMB) | payer OTHER, SELFPAY ==
[2023-12-01 11:10] VITALS: BP 172/74; PULSE 59; O2SAT 99; BMI 25.2
--- NOTE | 2023-12-01 11:10 | MHC.OFFVIS ---
Vital Signs 12/01/23 11:10 Height 5 ft 2 in Weight 137 lb 12.623 oz BMI 25.2 BP 172/74 H Blood Pressure Location Rt brachial Position Sitting Pulse 59 Pulse Source Pulse Oximeter Pulse Oximetry (%) 99 Oxygen Delivery Method Room Air Intake Visit Reasons: Shortness of breath Bilingual Office Assistant Required: Yes Bilingual Office Assistant Services: Bilingual Office Assistant Present Bilingual Office Assistant Name: KATELYNN Winter puleric office Allergies amlodipine Adverse Reaction (Severe, Uncoded 12/01/23 11:13) Unknown HPI HPI Shortness of breath: Details: Tisha is a pleasant 88 year old female, never smoker, with underlying HTN. She was referred by cardiology for pulmonary evaluation. She is unaccompanied and poor historian. Recent echo revealed mild diastolic dysfunction and cardiac catheterization revealed no significant coronary artery disease. CTA unremarkable. She reports ongoing chest tightness, dizziness and dyspnea. She denies cough. She also notes orthopnea using 3 pillows at night and BLE edema. She attributes more notable symptoms to recent change in cardiac medications in October. She denies any h/o asthma. She denies any pertinent family history. She denies any occupational exposures. [facility] Medical History (Updated 12/08/23 @ 20:47 by Peyton Correa NP) Bicytopenia Dizziness Allergic rhinitis Hypovitaminosis D Transaminitis Dyspnea Hypertension Surgical History S/P cardiac catheterization Family History Daughter Pacemaker Mother Heart attack Father Heart attack Social History Household Members: Family Housing: Apartment Do you presently have visiting nurse or other home services: Yes Alcohol intake: former Patient Tobacco Use Status: Never used Tobacco e-Cigarette/Vaping Use: Never Used Second Hand Smoke Exposure: No Advance Directives Date on File: 03/24/23 service: No Current occupational status: retired Cognitive needs: Yes Hearing needs: No Vision needs: Yes Review of Systems Const Denies chills, Denies excessive sweating, Denies fever(s), Denies headache(s) and Denies night sweats Eyes Denies dry eyes, Denies irritation and Denies itchy eyes ENT Reports Normal hearing present, Denies headache(s), Denies nasal congestion, Denies nasal discharge, Denies post nasal drip and Denies sore throat Card Denies claudication and Denies paroxysmal nocturnal dyspnea Resp Denies chest congestion, Denies cough, Denies excessive phlegm production, Denies pain on inspiration, Denies pain with cough, Denies stridor and Denies wheezing Musc Denies myalgias Neuro Reports Normal hearing present and Denies headache(s) Endo Denies excessive sweating Ramone/Lymph Denies lymphadenopathy Aller/Immun Denies itchy eyes, Denies seasonal rhinorrhea and Denies wheezing Physical Exam Vital Signs: Last Vital Signs Pulse 59 12/01/23 11:10 BP 172/74 H 12/01/23 11:10 Pulse Ox 99 12/01/23 11:10 Oxygen Delivery Method Room Air 12/01/23 11:10 BMI result Body Mass Index 25.2 Const General: cooperative, healthy appearing, comfortable, no acute distress, well developed and alert Orientation/consciousness: patient oriented x3 Limitations: ambulation with cane HEENT Head: Yes normal to inspection, Yes normocephalic and Yes atraumatic Ears: hearing grossly normal bilaterally and external ears normal Eyes General: appearance normal, both eyes and all related structures Eyelids: Yes eyelids normal Sclerae: sclerae normal EOM: EOMs intact bilaterally Neck Neck: Yes normal visual inspection and Yes no lymphadenopathy Lymphatic: no lymphadenopathy noted Chest Chest palpation & inspection: normal inspection of the chest Resp Effort & Inspection: normal respiratory effort, able to speak in complete sentences, no audible wheezes, no cough, no stridor, not tachypneic, no tripod positioning and no use of accessory muscles Auscultation: clear to auscultation bilaterally Cardio Jugular venous distension: no JVD Rate: regular rate Rhythm: regular rhythm Skin Other: warm, dry General skin exam: no rashes or lesions noted Neuro General: patient oriented x3 Cranial nerves: Yes Normal hearing present Cognition (Neuro): normal cognition Gait exam (Neuro): Normal gait present Extrem General: Yes normal to inspection, Yes capillary refill normal, Yes no clubbing, cyanosis or edema and Yes no pedal edema Psych Appearance: grossly normal and well kempt Speech and movement: Normal speech and movement present and Clear speech present Affect: normal affect Attitude: cooperative Thought process: Normal thought process present Thought content: Normal thought content present Insight: Fair insight present (Psych) Judgement: Fair judgement present (Psych) Quality Reporting (2019) Adult ([facility] 13805/29/68) Smoking risk assessment performed?: Yes Patient Tobacco Use Status: Never used Tobacco Results Reviewed Results Reviewed: [facility] [address] [place] [id number] Scan Report Signed Patient: Tisha Lopez MR#: [id number] : 1935 Acct:[id number] Age/Sex: 88 / F ADM Date: 10/28/23 Loc: .ED Attending Dr: Ordering Physician: Neil Sharma Date of Service: 10/28/23 Procedure(s): CT angio chest PE protocol Accession Number(s): [id number] cc: Neil Sharma; Sandy Loja MD~ EXAMINATION: CT ANGIOGRAM OF THE CHEST WITH AND WITHOUT CONTRAST (CT PULMONARY ANGIOGRAM FOR PE) CLINICAL INFORMATION: Reason for Exam fall syncope COMPARISON: None available. TECHNIQUE: Prior to contrast administration, noncontrast localization images were obtained. Subsequently, multidetector volumetric imaging was performed from the thoracic inlet to below the diaphragms following the administration of 80 mL Omnipaque 350 intravenous contrast. No contrast reaction reported Sagittal, coronal, and MIP oblique sagittal reformatted images were obtained on the CT workstation, uploaded to PACS, and reviewed. This CT examination was performed using dose optimization techniques as appropriate, variously including the following: *Automated exposure control *Adjustment of mA and/or kV according to patient size (this includes techniques or standardized protocols for targeted exams where dose is matched to indication/reason for exam; i.e. extremities or head) *Use of iterative reconstruction technique Total exam dose-length product 880 mGy-cm FINDINGS: QUALITY OF STUDY/CONTRAST BOLUS: Satisfactory. PULMONARY ARTERIES: No pulmonary emboli. THORACIC AORTA: No aneurysm. Descending thoracic aorta is tortuous. The mid and lower thoracic aorta crosses the midline to the right side of the spine. LUNG: No focal consolidation, nodules or masses. PLEURA: No pleural effusion or pneumothorax. MEDIASTINUM: Normal heart size. No pericardial effusion. No hilar or mediastinal lymphadenopathy. No evidence of septal bowing or right heart strain. CORONARY ARTERY CALCIFICATION: None visualized on this study. CHEST WALL/AXILLA: No axillary or internal mammary lymphadenopathy. OSSEOUS STRUCTURES: No acute or suspicious osseous abnormality. UPPER ABDOMEN: Unremarkable. No reflux of contrast into the hepatic veins to suggest elevated right heart pressures. CT/CT angio chest PE protocol IMPRESSION: Normal CT of chest. No evidence of pulmonary embolism. VTE: negative. Dictated By: Lorenzo Khan MD Signed By: <Electronically signed by Lorenzo Khan MD in OV> 10/28/23 1548 DD/ 1505 TD/TT: Coordinator Of Evaluation: ANDIE Assessment & Plan Assessment & Plan (1) Dyspnea: Code(s): R06.00 - Dyspnea, unspecified Category: Medical Plan Unclear etiology of dyspnea. Will send for PFT to assess for any obstructive defect. Recent CTA unremarkable. Echo revealed mild diastolic dysfunction and cardiac cath did not reveal any significant CAD. She did note BLE edema and orthopnea, worse since October, however no edema noted today. Will follow up to review results of PFT or sooner if needed. Advised patient discuss recent BP with cardiology. All questions were answered and patient is in agreement of plan. Orders: Orders PFT pulmonary function test Today R06.00 - Dyspnea, unspecified Coding Level of Care Code New Pt Level 3 (25696) Diagnoses Dyspnea R06.00
== END 2023-12-01 11:50 | disposition home or self-care (01) ==
PROVIDERS: PCP Internal Medicine; Referring Provider Internal Medicine; Visit Provider Nurse Practitioner Family
DX: R06.00 Dyspnea, unspecified (principal)
CPT/HCPCS: 99203

== ENCOUNTER → 2023-12-01 10:57 | Outpatient (BNVA) | payer OTHER, SELFPAY | PROVIDERS: PCP Internal Medicine; Referring Provider Internal Medicine; Visit Provider Nurse Practitioner Family | DX: R06.00 Dyspnea, unspecified (principal); I10 Essential (primary) hypertension | CPT/HCPCS: 99202 ==

== ENCOUNTER 2024-03-15 09:12 | Outpatient (AMB) | payer OTHER, SELFPAY ==
--- NOTE | 2024-03-15 09:37 | A.OFFVIS_ITS ---
Vital Signs 03/15/24 09:38 Height 5 ft 2 in Weight 134 lb 0.657 oz BMI 24.5 BP 134/62 Blood Pressure Location Lt brachial Position Sitting Pulse 80 Pulse Source Pulse Oximeter Intake Visit Reasons: 2 mth f/up Intake Note: 2 mth f/up Grinding Machine Operator Portable Required: No Grinding Machine Operator Portable Services: Grinding Machine Operator Portable Offered & Declined Grinding Machine Operator Portable Name: [email or web address]-son/[email or web address] Accompanied by: Son Allergies amlodipine Adverse Reaction (Severe, Uncoded 12/01/23 11:13) Unknown Medication List - Last Reconciled 03/15/24 by Chaka Morgan MD aspirin (Adult Low Dose Aspirin) 81 mg PO DAILY atorvastatin 80 mg PO BEDTIME 90 days brimonidine 0.2% 1 drp ophthalmic (eye) BID cholecalciferol (vitamin D3) 50 mcg PO DAILY 90 days isosorbide mononitrate ER 30 mg See Protocol PO DAILY meclizine 12.5 mg PO DAILY PRN 90 days sucralfate 1 g PO QIDACHS HPI Comments Details: 88-year-old female here for follow-up. She previously was seen for dyspnea on exertion and she underwent stress testing and echocardiography did not show any significant issues. Recently she got admitted to [facility] with mild COVID-19 infection. In that setting she had a rise and fall in her troponin levels which was very mild. She has been experiencing some chest pressure which happen when she wakes up in the morning. This has been going on for approximately 5 months now. She also gets some chest pressure with exertion. She has been taking baby aspirin and other medications regularly. She has no lung disease reportedly. After discussion with her patient was started on amlodipine for blood pressure control and has anti anginal. She returns for follow-up today. She has been doing fine. She has no chest discomfort shortness of breath. Blood pressure control is reasonable. 10/20/2023: She is here for follow-up. She was in the ER on 10/09/2023. She said she was hot inside the house because the a conditioning was not working well and while standing in the kitchen she felt dizzy and passed out. Apparently her neighbor called EMS that she is confused and was brought in. Her workup was negative and she was given hydration and she felt better and was discharged back home. She is saying she has been getting some dizziness off and on which she feels like a spinning sensation like vertigo. Her blood pressure in the office is little low. She is taking medications otherwise regularly. 03/15/2024: 10/30/2023 she was transferred to [facility] because she presented to [facility] with some chest discomfort and mildly elevated troponin levels. ECHO showed basal inferior inferolateral wall motion abnormality. Cardiac catheterization did not show any significant coronary disease. Today she is denying any chest discomfort. She gets some dizziness off and on especially in the morning hours. Her blood pressure has been up and down and currently she is just on isosorbide mononitrate. She was previously on amlodipine which has been discontinued. Some palpitations off and on at nighttime. She is quite vague about them. [facility] Medical History (Updated 01/22/24 @ 16:41 by Chaka Morgan MD) Bicytopenia Dizziness Allergic rhinitis Hypovitaminosis D Transaminitis Dyspnea Hypertension Surgical History S/P cardiac catheterization Family History Daughter Pacemaker Mother Heart attack Father Heart attack Social History Household Members: Family Housing: Apartment Do you presently have visiting nurse or other home services: Yes Alcohol intake: former Patient Tobacco Use Status: Never used Tobacco e-Cigarette/Vaping Use: Never Used Second Hand Smoke Exposure: No Advance Directives Date on File: 03/24/23 service: No Current occupational status: retired Cognitive needs: Yes Hearing needs: No Vision needs: Yes Review of Systems Const Denies chills, Denies fatigue, Denies fever(s), Denies frequent falls, Denies weakness, Denies weight gain and Denies weight loss ENT Denies dizziness Card Denies chest pain, Denies leg edema, Denies lightheadedness, Denies palpitations , Denies dyspnea and Denies dyspnea on exertion Resp Denies cough, Denies dyspnea and Denies dyspnea on exertion GI Denies hematochezia Musc Denies abnormal gait, Denies muscle weakness, Denies numbness, Denies radiating pain into limb and Denies tingling Neuro Denies abnormal gait, Denies dizziness, Denies frequent falls, Denies numbness, Denies tingling and Denies weakness Endo Denies fatigue and Denies palpitations Physical Exam Vital Signs: Last Vital Signs Pulse 80 03/15/24 09:38 BP 134/62 03/15/24 09:38 BMI result Body Mass Index 24.5 GENERAL APPEARANCE: in no acute distress. NECK/THYROID: no carotid bruit, no jugular venous distention. SKIN: no suspicious lesions, warm and dry. HEART: no murmurs, regular rate and rhythm, S1, S2 normal. LUNGS: clear to auscultation bilaterally. ABDOMEN: normal, bowel sounds present, soft, nontender, nondistended. EXTREMITIES: no clubbing, cyanosis, or edema. PERIPHERAL PULSES: equal. NEUROLOGIC: nonfocal, alert and oriented. Quality Reporting (2019) Adult ([facility] 138/05/29/68) Smoking risk assessment performed?: Yes Patient Tobacco Use Status: Never used Tobacco Assessment & Plan Assessment & Plan (1) Hypertension: Comment: Stable Code(s): I10 - Essential (primary) hypertension Category: Medical Qualifiers: Hypertension type: essential hypertension Qualified Code(s): I10 - Essential (primary) hypertension (2) Dizziness: Code(s): R42 - Dizziness and giddiness Category: Medical (3) Chest pain: Code(s): R07.9 - Chest pain, unspecified Category: Medical Plan Pleasant 88 year female who is here for follow-up. She has background history of dizziness with vasovagal syncope in the past and chest pain with mild NSTEMI in October of 2023. She underwent cardiac catheterization but no significant coronary disease was noted. Dizziness improved after stopping her blood pressure medications. She is just on isosorbide and blood pressure appears to be okay. I have advised her to keep herself well hydrated and drink more water. Occasional palpitations at nighttime. Currently no persistent or prolonged palpitations. Overall doing well. We will see us back in 6 months. Thank you for allowing me to participate in the care of your patient. Please feel free to contact me if you have any questions. Coding Level of Care Code Est Pt Level 4 (95770) Diagnoses Essential hypertension I10 Hypertension type: essential hypertension Dizziness R42 Chest pain R07.9
[2024-03-15 09:38] VITALS: BP 134/62; PULSE 80; BMI 24.5
== END 2024-03-15 09:59 | disposition home or self-care (01) ==
PROVIDERS: PCP Internal Medicine; Visit Provider Internal Medicine Cardiovascular Disease
DX: I10 Essential (primary) hypertension (principal); R42 Dizziness and giddiness; R07.9 Chest pain, unspecified
CPT/HCPCS: 99214

== ENCOUNTER → 2024-03-15 09:12 | Outpatient (BNVA) | payer OTHER, SELFPAY | PROVIDERS: PCP Internal Medicine; Visit Provider Internal Medicine Cardiovascular Disease | DX: R07.9 Chest pain, unspecified (principal); I10 Essential (primary) hypertension; R42 Dizziness and giddiness | CPT/HCPCS: 99212 ==

== ENCOUNTER 2024-05-19 09:50 | Outpatient (AMB) | payer OTHER, SELFPAY ==
[2024-05-19 10:13] VITALS: BP 118/70; BMI 24.5
--- NOTE | 2024-05-19 10:13 | MHC.PC.OV ---
Vital Signs 05/19/24 10:13 Height 5 ft 2 in Weight 134 lb BMI 24.5 BP 118/70 Blood Pressure Location Lt brachial Position Sitting Intake Visit Reasons: BP Intake Note: Patient here for a follow up BP Human Resources Specialist Required: Yes Human Resources Specialist Language: Eligibility Manager Name: Sandy Hartmann MD Information Interpreted: non-clinical & clinical Accompanied by: Self / Same As Patient Allergies amlodipine Adverse Reaction (Severe, Uncoded 05/19/24 10:37) Unknown Medication List - Last Reconciled 05/19/24 by Sandy Hartmann MD aspirin (Adult Low Dose Aspirin) 81 mg PO DAILY atorvastatin 80 mg PO BEDTIME 90 days brimonidine 0.2% 1 drp ophthalmic (eye) BID cholecalciferol (vitamin D3) 50 mcg PO DAILY 90 days fluticasone propionate 50 mcg/actuation 1 spray intranasal DAILY isosorbide mononitrate ER 30 mg See Protocol PO DAILY meclizine 12.5 mg PO DAILY PRN 90 days sucralfate 1 g PO QIDACHS Tobacco use date assessed: 05/19/24 Fall risk assessment: No Falls in past year Last assessed Fall Risk: 05/19/24 Dental Screening Dental Screen Date: 05/19/24 Did you have a dental visit in the last 12 months?: No Did you have a dental problem in the last 6 months where you did not have access to dental care?: No Was dental information given to patient?: Patient declined HPI HPI Comments History of Present Illness Details The patient is an 88-year-old female presenting with concerns regarding her skin condition and nasal sprays. She reports an adverse reaction to Amlodipine, which is characterized as an allergy. Seborrheic dermatitis affecting her scalp is also noted, causing dry and flaky skin. She reports the condition has been ongoing, with itching exacerbated by environmental factors such as cold weather. Rhinorrhea due to allergies has been noted for some time, which the patient has been managing with an unspecified nasal spray. Antihistamines like Claritin have not provided significant relief. The patient reports previously experiencing severe symptoms potentially linked with Isosorbide, causing dizziness, which ceased once the medication was discontinued approximately one month prior. A past non-ST elevation myocardial infarction was treated in 2023 with a catheterization that revealed no significant findings. Her therapeutic regimen includes aspirin and Atorvastatin, discontinued Isosorbide, and her dietary habits now exclude red meat with a focus on fish like salmon. [facility] Medical History (Updated 05/19/24 @ 22:06 by Sandy Hartmann MD) Bicytopenia Dizziness Allergic rhinitis Hypovitaminosis D Transaminitis Dyspnea Hypertension Surgical History S/P cardiac catheterization Family History Daughter Pacemaker Mother Heart attack Father Heart attack Social History Household Members: Family Housing: Apartment Do you presently have visiting nurse or other home services: Yes Alcohol intake: former Patient Tobacco Use Status: Never used Tobacco e-Cigarette/Vaping Use: Never Used Second Hand Smoke Exposure: No Advance Directives Date on File: 03/24/23 service: No Current occupational status: retired Cognitive needs: Yes Hearing needs: No Vision needs: Yes Questionnaire PHQ-9 Over the last 2 weeks, how often have you been bothered by any of the following problems? 1. Little interest or pleasure in doing things: not at all 2. Feeling down, depressed, or hopeless: not at all 3. Trouble falling or staying asleep, or sleeping too much: not at all 4. Feeling tired or having little energy: not at all 5. Poor appetite or overeating: not at all 6. Feeling bad about yourself - or that you are a failure or have let yourself or your family down: not at all 7. Trouble concentrating on things, such as reading the newspaper or watching television: not at all 8. Moving or speaking so slowly that other people could have noticed. Or the opposite - being so fidgety or restless that you have been moving around a lot more than usual: not at all 9. Thoughts that you would be better off or of hurting yourself in some way: not at all Total score: 0 Depression Screening Interpretation: Negative Depression Screening Done: Yes 16752 - PHQ-9 Billing: Yes Source: Developed by Drs. Sukhdev Alaniz, Monse Hester, Da Rivera and colleagues, with an educational damián from [employer]. Thrive Questionnaire Date Thrive assessed: 05/19/24 I am a: Patient What is your living situation today?: I have a steady place to live Within the past 12 months, did the food you bought not last and you didn't have the money to get more?: Never true Within the past 12 months, did you worry whether your food would run out before you got money to buy more?: Never true Do you have trouble paying for medicines?: No Do you have trouble getting transportation to medical appointments?: No Do you have trouble paying your heating and electricity bill?: No Do you have trouble taking care of your child, family member or friend?: No Do you have trouble with day-to-day activities such as bathing, preparing meals, shopping, managing finances, etc.?: No Are you currently unemployed and looking for a job?: No Are you interested in more education?: No Please select the resources that you would like help with: None Currently or been in a relationship where the following occur: No concerns reported THRIVE Score: 0 AUDIT C Alcohol Use Questionnaire (AUDIT-C) 1. How often do you have a drink containing alcohol?: Never Total Score: 0 Score Reviewed/Action Taken: No EBER-7 AMB Questionnaire EBER-7 Date EBER - 7 assessed: 05/19/24 Feeling nervous, anxious, or on edge: 0 = Not at all Not being able to stop or control worryin = Not at all Worrying too much about different things: 0 = Not at all Trouble relaxin = Not at all Being so restless that it is hard to sit still: 0 = Not at all Becoming easily annoyed or irritable: 0 = Not at all Feeling afraid as if something awful might happen: 0 = Not at all Total EBER-7 score (0-4 normal; 5-9 mild; 10-14 moderate; 15-21 severe): 0 Source: Developed by Drs. Sukhdev Alaniz, Monse Hester, Da Rivera and colleagues, with an educational damián from [employer]. EBER-7 Assessment Billing EBER-7 Assessment Tool: EBER-7 Assessment 66131 Review of Systems Const All systems reviewed & are unremarkable except as noted in HPI and below Card Denies chest pain at rest, Denies chest pain with activity, Denies edema, Denies irregular heart rhythm, Denies claudication, Denies dyspnea, Denies dyspnea on exertion, Denies orthopnea, Denies paroxysmal nocturnal dyspnea and Denies slow heart rate Resp Denies cough, Denies dyspnea and Denies dyspnea on exertion GI Denies abdominal pain, Denies change in bowel habits, Denies excessive flatus, Denies nausea and Denies vomiting Denies urinary incontinence, Denies urinary hesitancy and Denies urinary urgency Physical exam (Primary Care) Vital Signs: Last Vital Signs BP 118/70 05/19/24 10:13 BMI result Body Mass Index 24.5 Tobacco/Smoking Status: Tobacco use Status Tobacco use date assessed 05/19/24 05/19/24 10:20 Patient Tobacco Use Status Never used Tobacco 05/19/24 10:20 Tobacco use type 11/09/20 13:25 e-Cigarette/Vaping Use Never Used 05/19/24 10:20 PHQ-9: PHQ-9 Score PHQ-9: Total score 0 05/19/24 10:40 Depression Screening Interpretation: Negative Thrive Assessment: Date of Thrive Assessment Date Thrive assessed 05/19/24 05/19/24 10:20 Currently or been in a relationship where the following occur: No concerns reported Resp Effort & Inspection: normal respiratory effort Auscultation: clear to auscultation bilaterally Cardio Jugular venous distension: no JVD Rate: regular rate Rhythm: regular rhythm Heart sounds: S1 normal heart sound present and S2 normal heart sound present Extrem General: Yes full ROM Coding Level of Care Code Est Pt Level 4 (65742) Complex EM visit Add On G2211 Diagnoses NSTEMI (non-ST elevated myocardial infarction) I21.4 Seborrheic dermatitis of scalp L21.9 Seasonal allergic rhinitis due to pollen J30.1 Allergic rhinitis trigger: pollen Allergic rhinitis seasonality: seasonal Essential hypertension I10 Hypertension type: essential hypertension Hyperlipidemia, unspecified hyperlipidemia type E78.5 Hyperlipidemia type: unspecified Additional Codes EBER-7 Assessment Billing - EBER-7 Assessment Tool: EBER-7 Assessment 60861 ([id number]) PHQ-9 - 14858 - PHQ-9 Billing: Yes ([id number]) Time Spent (min) 22 Assessment & Plan Assessment & Plan (1) NSTEMI (non-ST elevated myocardial infarction): Code(s): I21.4 - Non-ST elevation (NSTEMI) myocardial infarction Category: Medical (2) Seborrheic dermatitis of scalp: Code(s): L21.9 - Seborrheic dermatitis, unspecified Category: Medical (3) Allergic rhinitis: Code(s): J30.9 - Allergic rhinitis, unspecified Category: Medical Qualifiers: Allergic rhinitis trigger: pollen Allergic rhinitis seasonality: seasonal Qualified Code(s): J30.1 - Allergic rhinitis due to pollen (4) Hypertension: Comment: Stable Code(s): I10 - Essential (primary) hypertension Category: Medical Qualifiers: Hypertension type: essential hypertension Qualified Code(s): I10 - Essential (primary) hypertension (5) Hyperlipidemia: Code(s): E78.5 - Hyperlipidemia, unspecified Category: Medical Qualifiers: Hyperlipidemia type: unspecified Qualified Code(s): E78.5 - Hyperlipidemia, unspecified Plan - Continue Aspirin and Atorvastatin for cardiac health maintenance. - Discontinue Isosorbide due to adverse effects, specifically dizziness. - Address seborrheic dermatitis with appropriate dermatologic care and recommend continuation of cold-weather protection strategies. - Evaluate alternative treatments for allergic rhinitis; consider escalation of care if symptoms persist. - Encourage dietary adherence and reinforce the benefits of omega-3 fatty acids from salmon consumption. Patient was informed and verbally consented to the use of an ambient scribe for clinic note documentation during this visit. During the visit, we discussed the discontinuation of Isosorbide due to its adverse effect profile, notably dizziness. We reviewed the patient's cardiac history, emphasizing the importance of continuing Aspirin and Atorvastatin. I advised on alternative management strategies for allergic rhinitis, noting the ineffectiveness of Claritin in this case. We discussed the benefits of dietary measures focusing on cardiovascular health, particularly the inclusion of fish. Proper management of seborrheic dermatitis was emphasized, including skincare routines and environmental strategies. Follow-up in six months was scheduled to reassess condition stability and medication effectiveness. Orders: Orders Lipid Panel 6 Months E78.5 - Hyperlipidemia, unspecified Comprehensive [place]. Panel Fast 6 Months I20.89 - Other forms of angina pectoris Vitamin D 25-OH Total 6 Months E55.9 - Vitamin D deficiency, unspecified Medications: New fluticasone propionate 50 mcg/actuation administer into each nostril 1 spray intranasal DAILY 16 grams 3RF 30 days fluocinolone 0.01% 1 appl topical BID 60 mL 0RF 30 days Changed From aspirin (Adult Low Dose Aspirin) 81 mg PO DAILY To aspirin (Adult Low Dose Aspirin) 81 mg PO DAILY 90 tabs 0RF 90 days Discontinued meclizine Discontinued Reason: Patient Completed Course 12.5 mg PO DAILY 90 days PRN 90 tabs 3RF dizziness I10 - Essential (primary) hypertension Patient Instructions: - Continue taking Aspirin and Atorvastatin as prescribed. - Discontinue use of Isosorbide due to dizziness. - Follow dermatologic care recommendations for seborrheic dermatitis. - Consider implementing additional measures for allergic rhinitis if symptoms continue. - Maintain dietary practices focusing on cardiac health, emphasizing fish consumption. - Return for follow-up in six months to evaluate health status and response to management strategies.
== END 2024-05-19 10:44 | disposition home or self-care (01) ==
PROVIDERS: PCP Internal Medicine; Visit Provider Internal Medicine
DX: I10 Essential (primary) hypertension (principal); I25.2 Old myocardial infarction; L21.9 Seborrheic dermatitis, unspecified; J30.1 Allergic rhinitis due to pollen; E78.5 Hyperlipidemia, unspecified

== ENCOUNTER → 2024-05-19 09:50 | Outpatient (BNVA) | payer OTHER, SELFPAY | PROVIDERS: PCP Internal Medicine; Visit Provider Internal Medicine | DX: I21.4 Non-ST elevation (NSTEMI) myocardial infarction (principal); L21.9 Seborrheic dermatitis, unspecified; J30.1 Allergic rhinitis due to pollen; I10 Essential (primary) hypertension; E78.5 Hyperlipidemia, unspecified | CPT/HCPCS: 96127; 99212 ==

== ENCOUNTER 2024-07-08 06:23 | Observation (INO) | payer OTHER, SELFPAY ==
--- NOTE | 2024-07-08 | ECG_ITS ---
Test Reason : bobby Blood Pressure : */* mmHG Vent. Rate : 64 BPM Atrial Rate : 64 BPM P-R Int : 194 ms QRS Dur : 72 ms QT Int : 432 ms P-R-T Axes : 63 -12 32 degrees QTcB Int : 445 ms Normal sinus rhythm Low voltage QRS Nonspecific T wave abnormality Abnormal ECG When compared with ECG of 29-Oct-2023 08:14, Nonspecific T wave abnormality, worse in Anterior leads Referred By: Generic ED Physician Electronically Signed By: TRAMAINE BAKER
--- NOTE | ~2024-07-08 | XR_ITS ---
EXAMINATION: XR CHEST CLINICAL INFORMATION: shortness of breath COMPARISON: 10/28/2023 chest x-ray and CTPA. TECHNIQUE: Frontal view of the chest was obtained. FINDINGS: The cardiac, hilar, and mediastinal contours are normal. Aorta is ectatic, tortuous and calcified. The lungs are diffusely hyperaerated, however clear bilaterally. No pneumothorax or effusion. No focal osseous or soft tissue abnormality. Mild degenerative changes in the shoulder joints and spine. XR/XR chest 1V IMPRESSION: Hyperaerated lungs, likely COPD. No active pulmonary disease. Electronically signed by: Brandyn Mcnally MD 07/08/2024 08:06 AM EDT
[2024-07-08 06:27] VITALS: BP 143/68; PULSE 70; O2SAT 99
[2024-07-08 06:31] VITALS: BP 162/94; PULSE 70; RESP 22; TEMP 36.4; O2SAT 100; BMI 24.4
[2024-07-08 06:45] VITALS: BP 162/94; PULSE 67; RESP 16; TEMP 36.1; O2SAT 98
--- NOTE | 2024-07-08 06:54 | PC.NURSE ---
Pt conversating with t/w and help desk specialist, feeling better and in good spirits. Labs drawn and IV in place from EMS.
[2024-07-08 07:01] LABS: Hematocrit 37.7 % (37.0-47.0); Hemoglobin 13.1 g/dl (12.0-16.0); Mean Corpuscular HGB Conc 34.7 g/dl (31.0-35.0); Mean Corpuscular Hemoglobin 30.4 pg (27.0-33.0); Mean Corpuscular Volume 87.5 fL (80.0-98.0); Platelet Count 161 X10*3/uL (160-400); Red Blood Count 4.31 X10*6/uL (4.20-5.50); Red Cell Distribution Width 12.5 % (11.0-16.0); White Blood Count 4.8 X10*3/uL (4.8-10.8)
[2024-07-08 07:05] LABS: Prothrombin Time 11.3 SEC (10.9-12.4)
[2024-07-08 07:18] LABS: Alanine Aminotransferase 14 U/L (0-31); Albumin Level 3.8 g/dL (3.5-5.0); Anion Gap 10 (12-20); Aspartate Amino Transferase 24 U/L (5-31); Bilirubin Total 0.6 mg/dL (0.0-1.0); Blood Urea Nitrogen 14 mg/dL (9-16); Calcium 9.1 mg/dL (8.4-10.2); Carbon Dioxide 24 mmol/L (22-29); Chloride 110 mmol/L (96-108); Creatinine Clr Calc Pharmacy 39.4; Estimated Glomerular Filt Rate > 60; Glucose Random 98 mg/dL (60-115); Potassium 4.1 mmol/L (3.3-5.1); Sodium 140 mmol/L (135-145); Total Protein 6.1 g/dL (6.5-8.0)
[2024-07-08 07:23] LABS: Troponin-I High Sensitivity 4.2 ng/L (<3.5-17.0)
[2024-07-08 07:40] LABS: Alkaline Phosphatase 58 U/L (39-117)
--- NOTE | 2024-07-08 07:43 | ED.DIZZY ---
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 Talbot HPI Narrative: 89-year-old female brought in by ambulance for evaluation of near syncopal episode. Patient woke up this morning at 4;15, patient was fixing her coffee when she started feeling lightheadedness, diaphoretic, extremely weak patient had 2 lay on the couch resting on her left side almost feels she has to pass out, patient also sustained shortness of breath with this. Called for help on her son called 911 on arrival patient was bradycardic was given atropine by EMS when her symptoms started improve and patient was transported to to the ER for further evaluation. Patient had cardiology evaluation, patient had cardiac catheterization on 10/30/2023 that showed no major abnormality as per cardiology note. Patient currently feels back to her baseline. Related Data Home Medications ?Medication ?Instructions ?Recorded ?Confirmed brimonidine 0.2 % eye drops 1 drp ophthalmic (eye) BID 08/15/21 05/19/24 Previous Rx's ?Medication ?Instructions ?Recorded sucralfate 1 gram tablet 1 g PO QIDACHS #30 tabs 10/30/23 cholecalciferol (vitamin D3) 50 50 mcg PO DAILY 90 days #90 caps 01/11/24 mcg (2,000 unit) capsule aspirin 81 mg tablet,delayed 81 mg PO DAILY 90 days #90 tabs 05/19/24 release (Adult Low Dose Aspirin) atorvastatin 80 mg tablet 80 mg PO BEDTIME 90 days #90 tabs 05/19/24 fluocinolone 0.01 % topical 1 appl topical BID 30 days #60 mL 05/19/24 solution fluticasone propionate 50 1 spray intranasal DAILY 30 days 05/19/24 mcg/actuation nasal #16 grams spray,suspension Allergies Allergy/AdvReac Type Severity Reaction Status Date / Time amlodipine AdvReac Severe Unknown Uncoded 07/08/24 06:44 Review of Systems Review of Systems: All other systems are reviewed and are negative Constitutional: Reports as per HPI and Reports no additional constitutional complaints Eyes: Reports as per HPI and Reports no additional eye complaints Reports system reviewed and no additional complaints, except as documented Cardiovascular: Reports as per HPI and Reports no additional cardiovascular complaints Respiratory: Reports as per HPI and Reports no additional respiratory complaints Gastrointestinal: Reports as per HPI and Reports no additional gastrointestinal complaints Genitourinary: Reports no additional female genitourinary complaints Musculoskeletal: Reports no additional musculoskeletal complaints Skin/Breast: Reports system reviewed and no additional complaints, except as docu Psychiatric: Reports no additional psychiatric complaints Endocrine: Reports no additional endocrine complaints Hematologic/Lymphatic: Reports no additional hematologic/lymphatic complaints Allergic/Immunologic: Reports no additional allergic/immunologic complaints Reports system reviewed and no additional complaints, except as documented and Reports Abnormal speech present [facility] Past Medical History Medical History Bicytopenia Dizziness Allergic rhinitis Hypovitaminosis D Transaminitis Dyspnea Hypertension Surgical History S/P cardiac catheterization Family History Family History Daughter Pacemaker Mother Heart attack Father Heart attack Social History Social History Household Members: Family Housing: Apartment Do you presently have visiting nurse or other home services: Yes Alcohol intake: former Patient Tobacco Use Status: Never used Tobacco e-Cigarette/Vaping Use: Never Used Second Hand Smoke Exposure: No Advance Directives: Yes Advance Directives on File: Yes Advance Directives Date on File: 03/24/23 service: No Current occupational status: retired Cognitive needs: Yes Hearing needs: No Vision needs: Yes Physical Exam Vital Signs: Vital Signs: Last Vital Signs Temp 97 F 07/08/24 06:45 Pulse 67 07/08/24 06:45 Resp 16 07/08/24 06:45 BP 162/94 H 07/08/24 06:45 Pulse Ox 98 07/08/24 06:45 O2 Del Method Room Air 07/08/24 06:45 BMI result Body Mass Index 24.4 Vital signs have been reviewed and appear to be correct. Blood pressure elevated. Heart rate normal. Respiratory rate normal. Temperature normal. Oxygen saturation normal. Appearance: Alert. Oriented X3. No acute distress. Head: Normal external exam. Normocephalic. Atraumatic. No Garcia signs noted. No raccoon eyes noted Eyes: PERRLA. EOMI. Conjunctiva and sclera normal. Eyelids normal. ENT: TM's Normal. Pharynx normal. Uvula midline. Moist mucous membranes. No trismus noted. No drooling noted. No muffled voice noted. Neck: Normal inspection. Neck supple. FROM. No adenopathy. Thyroid Normal. No meningeal signs. No neck mass noted. CVS: Normal heart rate and rhythm. Heart sound normal. No murmurs noted. Pulses normal throughout. Respiratory: No respiratory distress. Painless inspiration. Breath sounds normal. No wheezes/rales/rhonchi noted. Chest nontender. No accessory muscle usage noted or decreased air movement noted. Abdomen: Soft and nontender. Bowel sounds normal in all 4 quadrants. No distention noted. No organomegaly noted. No visible injury noted. Back: No CVA tenderness. Full range of motion noted. Skin: Skin warm and dry. Normal skin color. Normal skin turgor. No rashes/lesions/lacerations noted. Extremities: No lower extremity edema. Extremities exhibit normal range of motion. Extremities nontender. Neuro: Oriented X 3. Cranial nerve exam: II-XII are grossly intact No motor deficit. No sensory deficit. Reflexes normal. Course Reevaluation(s) Reevaluation #1: Near syncopal episode with bradycardia improved with atropine given by EMS, patient has been asymptomatic, will keep the patient for further monitoring. Time: 09:16 Medical Decision Making Differential Diagnosis Differential Diagnoses: The differential diagnosis associated with the presentation includes (ACS, bradycardia, dysrhythmia, severe anemia, electrolyte derangement, dehydration,) Admission/Observation Consideration of admission/observation: Escalation of care including admission/observation considered Consult Healthcare Provider Management of the patient was discussed with: Hospitalist (Dr. Truong) Lab Data MDM Lab Attestation statement: I reviewed the patient's lab results. 07/08/24 06:53 07/08/24 06:53 Labs: Lab Results 07/08/24 Range/Units 06:53 WBC 4.8 (4.8-10.8) X10*3/uL RBC 4.31 (4.20-5.50) X10*6/uL Hgb 13.1 (12.0-16.0) g/dl Hct 37.7 (37.0-47.0) % MCV 87.5 (80.0-98.0) fL MCH 30.4 (27.0-33.0) pg MCHC 34.7 (31.0-35.0) g/dl RDW 12.5 (11.0-16.0) % Plt Count 161 (160-400) X10*3/uL MPV 9.0 L (9.4-12.3) fL Absolute Nucleated RBC 0.000 (0.0-0.012) X10*3/uL Nucleated RBC % (auto) 0.0 (0.0-0.2) /100WBC PT 11.3 (10.9-12.4) SEC INR 1.0 (0.9-1.1) Sodium 140 (135-145) mmol/L Potassium 4.1 (3.3-5.1) mmol/L Chloride 110 H (96-108) mmol/L Carbon Dioxide 24 (22-29) mmol/L Anion Gap 10 L (12-20) BUN 14 (9-16) mg/dL Creatinine 0.83 (0.5-1.4) mg/dL Estim Creat Clear Calc 39.4 Estimated GFR > 60 Random Glucose 98 (60-115) mg/dL Calcium 9.1 D (8.4-10.2) mg/dL Magnesium 2.0 (1.6-2.6) mg/dL Total Bilirubin 0.6 (0.0-1.0) mg/dL AST 24 (5-31) U/L ALT 14 (0-31) U/L Alkaline Phosphatase 58 (39-117) U/L Troponin I High Sens 4.2 D (<3.5-17.0) ng/L Total Protein 6.1 L (6.5-8.0) g/dL Albumin 3.8 (3.5-5.0) g/dL Independent Interpretation I performed an independent interpretation of an: Plain X-Ray (chest: Hyperaerated lungs, likely COPD. No active pulmonary disease.) Radiology Impression Discussion of test interpretation with radiology: I have reviewed the radiologist's reading. Discharge Plan Discharge Clinical Impression: Bradycardia, Near syncope Patient Disposition: Admitted As Inpatient Print Language: Burkinan
[2024-07-08 09:53] VITALS: BP 147/82; PULSE 59; RESP 16; TEMP 36.4; O2SAT 99
--- NOTE | 2024-07-08 10:44 | PM.IMHP ---
History of Present Illness Date of Service: 07/08/24 Attending physician on admission: Yris Xavier Chief Complaint: Lightheadedness and dizziness Pt is a -year-old female with a PMH significant for?HTN, HLD, vertigo, and hx of recurrent syncope who presents to the ED with?lightheadedness, dizziness, and difficulty breathing since this morning. Pt reports awoke at 03:00 to use the bathroom. Went downstairs after, drank some coffee, sat on the couch, and fell asleep for about an hour. When pt will woke around 04:15 felt sweaty, lightheaded/dizzy, and could not breathe. Pt called her son who then called EMS. The next thing pt recalls is waking up in the hospital. Unclear whether this was a true syncopal event, though no reports that EMS found pt unresponsive. However, was found by EMS to be bradycardic in the 40-50s and given 250 mL NS and 1 mg of atropine with HR improvement to 70s. Pt also complains of having a ?rough? voice, feeling like there is something stuck in her throat, and nonproductive cough since yesterday. Has had ?no appetite? this week but reports drinking plenty of liquids. Some nausea, but no vomiting. Denies significant abdominal pain. Of note, pt has had similar symptoms of lightheadedness, dizziness, and presyncope/syncopal episodes, including negative workup on 10/20/2023 and the on 03/15/2024 when echo showed basal inferior and inferior lateral wall motion abnormalities. Was transferred to [facility] for cardiac catheterization that was negative for significant coronary disease. Follows with Dr. Morgan in Cardiology. In the ED pt was hypertensive up to 164/94, tachypneic up to 22, HR as low as 59, and satting at 99% on room air. Labs were grossly unremarkable and around baseline for pt. No leukocytosis. Stable H&H. Renal function baseline. No significant electrolyte abnormalities. Hepatic function WNL. Initial troponin 4.2. CXR showed hyperinflated lungs without active pulmonary disease. EKG demonstrated normal sinus rhythm without evidence of significant ST elevations or depressions AV alex delay. Pt will be admitted to the hospital under observation for evaluation of dizziness and presyncope in the setting of possible symptomatic bradycardia. Review of Systems Review of Systems: Negative except for that which is stated in the HPI. [facility] Medical History Bicytopenia Dizziness Allergic rhinitis Hypovitaminosis D Transaminitis Dyspnea Hypertension Family History Daughter Pacemaker Mother Heart attack Father Heart attack Surgical History S/P cardiac catheterization Social History Household Members: Family Housing: Apartment Do you presently have visiting nurse or other home services: Yes Alcohol intake: never Patient Tobacco Use Status: Never used Tobacco Smoked in Last 30 Days: No e-Cigarette/Vaping Use: Never Used Second Hand Smoke Exposure: No Use of substances other than those prescribed or required for medical reasons: No Advance Directives: Yes Advance Directives on File: Yes Advance Directives Date on File: 03/24/23 service: No Current occupational status: retired Cognitive needs: Yes Hearing needs: No Vision needs: Yes Meds Allergies Allergy/AdvReac Type Severity Reaction Status Date / Time amlodipine AdvReac Severe Unknown Uncoded 07/08/24 06:44 Home Medications ?Medication ?Instructions ?Recorded ?Confirmed ?Last Taken ?Type brimonidine 0.2 % eye drops 1 drp ophthalmic (eye) BID 08/15/21 07/08/24 07/07/24 History Physical Exam Vital Signs and Narrative: Vital Signs: Last Vital Signs Temp 97.6 F 07/08/24 09:53 Pulse 59 07/08/24 09:53 Resp 16 07/08/24 09:53 BP 147/82 H 07/08/24 09:53 Pulse Ox 99 07/08/24 09:53 O2 Del Method Room Air 07/08/24 09:53 BMI result Body Mass Index 24.4 General: AOx3, no acute distress Resp: CTA bilaterally CVS: S1, S2, regular rhythm GI: +BS, no distention Skin: Warm, dry Neuro: Cranial nerves II-XII grossly intact bilaterally. Motor grossly intact bilaterally Extremities: No edema Psych: Appropriate affect Results Labs 07/08/24 06:53 07/08/24 06:53 Labs: Laboratory Results - last 24 hr 07/08/24 06:53 MCV 87.5 MCH 30.4 MCHC 34.7 RDW 12.5 Plt Count 161 MPV 9.0 L Absolute Nucleated RBC 0.000 Nucleated RBC % (auto) 0.0 PT 11.3 INR 1.0 Anion Gap 10 L Estim Creat Clear Calc 39.4 Estimated GFR > 60 Random Glucose 98 Calcium 9.1 D Magnesium 2.0 Total Bilirubin 0.6 AST 24 ALT 14 Alkaline Phosphatase 58 Total Protein 6.1 L Albumin 3.8 Imaging Radiologist's Impressions: Impressions Chest X-Ray 07/08/24 07:10 IMPRESSION: Hyperaerated lungs, likely COPD. No active pulmonary disease. Electronically signed by: Brandyn Mcnally MD 07/08/2024 08:06 AM EDT RP Assessment and Plan (1) Near syncope: Status: Acute (2) Bradycardia: Status: Acute Plan Pt is a -year-old female with a PMH significant for?HTN, HLD, vertigo, and hx of recurrent syncope who presents to the ED with?lightheadedness, dizziness, and difficulty breathing since this morning. Pt will be admitted to the hospital under observation for evaluation of dizziness and presyncope in the setting of possible symptomatic bradycardia. Dizziness/presyncope Pt with lightheadedness, dizziness, difficulty breathing since this morning Noted to be bradycardic in 40s-50s by EMS who gave atropine 1 mg IV Patient's HR as high as 70 in the ED, currently in the 50s Pt with hx of multiple syncopal/presyncopal episodes since last year Cardiac catheterization at [facility] in 03/2024 negative for significant CAD Not on beta blockers Pacer pads in place, atropine 1mg prn Echocardiogram Cardiology consult Monitor on temetry HTN BP as high as 162/94, currently 147/82 Pt previously on amlodipine and isosorbide mononitrate No longer on home antihypertensives Monitor BP HLD Continue statin DNR/DNI Attending:?Dr. Xavier DVT Prophylaxis: Lovenox Pt will be admitted to the hospital under observation for treatment and further evaluation of dizziness and presyncope in the setting of likely symptomatic bradycardia. Pt will require close cardiac monitoring and specialist consultation with Cardiology. Quality Stroke Does the patient have a stroke diagnosis?: No VTE Prior VTE?: No VTE Risk Level:: Medical - moderate - high VTE Device Contraindication: Treatment Not Indicated VTE Drug Contraindication: N/A - Med Ordered
--- NOTE | 2024-07-08 11:31 | PHA.MEDREC ---
Addendum entered by Angel Gr 07/08/24 11:35: reviewed Original Note: Pharmacy Consult ? Medication Reconciliation Pharmacy has completed the medication reconciliation. Spoke to patient through car rental sales assistant service (Maricarmen) to confirm med list. Patient states she is not taking Fluocinolone 0.01% solution, and Sucralfate 1 g. Patient last took her medications yesterday.
[2024-07-08] MEDS: Aspirin Enteric Coated 81 MG TABLET.DR PO (11:58)
[2024-07-08] MEDS: Cholecalciferol (Vitamin D3) 25 MCG TABLET 50 MCG PO (11:58)
--- NOTE | 2024-07-08 12:00 | CA_ITS ---
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 The visually estimated ejection fraction is between 60-65%. - No obvious valvular pathology seen on this study. 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 Findings Left Ventricle Normal left ventricular cavity size. There is normal left ventricular wall thickness. The left ventricular systolic function is normal. The visually estimated ejection fraction is between 60-65%. There is no evidence of regional wall motion abnormalities. Right Ventricle Normal right ventricular cavity size and systolic function. Atria Both atria are normal in size. Aortic Valve There is a normal trileaflet aortic valve. There is no aortic valve stenosis. There is no aortic valve regurgitation. Mitral Valve The mitral valve appears normal. There is mild mitral valve regurgitation. There is no mitral valve stenosis. Pulmonic Valve The pulmonic valve is likely normal. Tricuspid Valve There is trace tricuspid valve regurgitation. There is no evidence of pulmonary hypertension. Great Vessels The asc aorta is normal in size. 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 (measurement adjacent to IVC, liver). Venous The inferior vena cava is normal in size and collapses greater than 50% with inspiration. Pericardium/Pleural There is no evidence of pericardial effusion. Prior Study Comparison No significant change compared to prior study dated: 10/29/2023. Recommendations, Care & Conclusions No obvious valvular pathology seen on this study. Measurements 2D Linear Measurements IVSd: 0.96 0.6-0.9/0.6-1.0 cm LVIDd: 4.49 3.9-5.3/4.2-5.9 cm LVIDd Index: 2.79 2.4-3.2/2.2-3.1 cm/m2 LVIDs: 2.81 2.0-3.6 cm LVPWd: 0.66 0.7-1.1 cm LA Diam: 3.30 2.7-3.8/3.0-4.0 cm LAIDs Index: 2.05 1.5-2.3 cm/m2 LV Mass: 142.73 67-162/88-224 g LV Mass Index: 88.65 43-95/49-115 g/m2 LVOT Diam: 2.10 3.0+(-)1.3 cm Aortic Valve AoV Pk Ankit: 1.49 AoV Mn Ankit: 0.87 AoV VTI: 0.36 AoV Pk Grad: 9.00 Aov Mn Grad: 4.00 ECTOR Cont.VTI: 2.17 LVOT LVOT Pk Ankit: 0.87 LVOT Mn Ankit: 0.60 LVOT VTI: 0.22 LVOT Pk Grad: 3.00 LVOT Mn Grad: 2.00 LVOT Diam: 2.10 LVOT Area: 3.46 Right Ventricle TAPSE (mm): 21.60 TVS' Ankit: 11.50 Tricuspid Valve TR Pk Ankit: 1.79 TR Pk Grad: 13.00 RA Press: 3.00 RVSP: 16.00 Great Vessels Aorta Sinus of Valsalva: 3.28 2.0-3.5 cm Ao Asc: 3.90 2.1-3.4 cm Ao Desc: 4.30 Updated in Other Vendor System with Status of Final Abdoul Emanuel MD electronically signed on 07/08/2024 4:21:41 PM with status of Final
[2024-07-08 12:36] LABS: Thyroid Stimulating Hormone 2.53 uIU/mL (0.32-4.0)
[2024-07-08] MEDS: Enoxaparin Sodium 40 MG/0.4 ML SYRINGE SUBCUT (13:46)
[2024-07-08 14:19] LABS: Influenza A PCR NEGATIVE (Negative); Influenza B PCR NEGATIVE (Negative); Resp Syncy Virus RNA Qual PCR NEGATIVE (Negative); SARS COV2 PCR INHOUSE NEGATIVE (Negative)
[2024-07-08] MEDS: 0.9 % Sodium Chloride Flush 3 ML SYRINGE IVFLUSH (16:29)
[2024-07-08 16:30] VITALS: BP 158/90; PULSE 57; RESP 16; TEMP 36.9; O2SAT 98
[2024-07-08 20:00] VITALS: BP 147/70; PULSE 51; RESP 16; TEMP 36.6; O2SAT 96
--- NOTE | 2024-07-08 20:08 | PC.NURSE ---
HR noted to range between 50s-70s on monitor, pt denies symptoms currently. axox4 ambulates with steady gait, assisted to commode. nad. call parmar within reach family at bedside.
[2024-07-08] MEDS: Brimonidine Tartrate 0.2% Oph 5 ML BOTTLE 1 DROP EYE-BOTH (21:09)
[2024-07-08] MEDS: Atorvastatin Calcium 80 MG TABLET PO (21:09)
--- NOTE | 2024-07-08 21:53 | PC.NURSE ---
HR noted to be sustaining 39-44 BPM on monitor, sinus bobby. BP 134/62, pt axox4 denies symptoms/complaints at this time. MD valdez aware, to continue monitoring.
[2024-07-09] VITALS (12 sets, daily range): BP systolic 103–167; BP diastolic 55–97; PULSE 39–67; RESP 13–20; TEMP 36.3–36.9; O2SAT 96–98; BMI 24.8
--- NOTE | 2024-07-09 | EEG_ITS ---
FINDINGS: This is a 16 channel EEG with an EKG lead. Patient is reported awake during the tracing. Background EEG rhythm is low amplitude fast with no obvious asymmetry or paroxysmal tendency. Photic stimulation does not produce any significant abnormality. Hyperventilation is not performed. Cardiac lead does not reveal any significant abnormality. No sharp wave spikes or paroxysmal tendency noted. IMPRESSION: Unremarkable EEG. MD YAMINI Garcia/RACHEL / [id number]
--- NOTE | 2024-07-09 00:12 | PC.NURSE ---
MD Berry aware of BP and HR. pt continues to deny symptoms/concerns. resting comfortably. call parmar within reach.
--- NOTE | 2024-07-09 00:56 | PC.NURSE ---
with bp documented at 0000 was going to give prn atropine per MD Berry verbal, upon rechecking BP at this time, 128/59 HR 40-44BPM on monitor. per Jamal to hold off at this time. pacer pads in place as precaution.
[2024-07-09] MEDS: 0.9 % Sodium Chloride Flush 3 ML SYRINGE IVFLUSH ×3 (00:57→20:54)
--- NOTE | 2024-07-09 01:06 | PC.NURSE ---
new iv established to [facility].
[2024-07-09] MEDS: Brimonidine Tartrate 0.2% Oph 5 ML BOTTLE 1 DROP EYE-BOTH ×2 (08:28→22:51)
[2024-07-09] MEDS: Fluticasone Propionate Nasal 16 GM SPRAY 1 SPRAY NOSTRIL-B (08:28)
[2024-07-09] MEDS: Cholecalciferol (Vitamin D3) 25 MCG TABLET 50 MCG PO (08:29)
[2024-07-09] MEDS: Aspirin Enteric Coated 81 MG TABLET.DR PO (08:29)
--- NOTE | 2024-07-09 08:40 | PC.NURSE ---
this RN resumed care of pt at 0645. a&ox4. vss and up to date aside from remaining sinus bradycardic on the cardiac cath tech. HR currently fluctuating between 45-80bpm. pt denies any chest pain/palpitations/dizziness/lightheadedness/sob at this time. has no acute complaints. denies pain. medication administered per provider order. pt currently remains on RA w/o difficulty. no sob/wob noted. respirations even/unlabored. family bedside for support. bed alarm turned on for safety precautions. pending bed assignment. plan of care ongoing. call parmar placed within reach.
--- NOTE | 2024-07-09 10:42 | P.CONCA_ITS ---
History of Present Illness History of Present Illness Date of Service: 07/09/24 Chief complaint: Presyncope Narrative: This is a cardiology consultation regarding bradycardia. Per ER note as well as discussion with patient and family, it seems that patient got up in the morning around 04:00 and was fixing her coffee when she started feeling lightheaded, diaphoretic and very weak. She felt she was going to pass out. Then it seems EMS came and she was thought to be bradycardic and give us some atropine. Then symptoms improved and she was transported to the ER for further evaluation. Currently, she states that she feels well. She is not having any complaints like angina or shortness of breath or in fact anything cardiac sounding at all. She has been on the tele monitoring there is no profound bradycardia except for the nighttime slowing which can be physiological. Patient is generally seen by in clinic. Review of Systems 2 Review of Systems: Yes all other systems are reviewed and are negative Constitutional: Constitutional: Reports as per HPI and Reports no additional constitutional complaints Eyes: Eyes: Reports as per HPI and Denies no additional eye complaints ENT: Denies system reviewed and no additional complaints, except as documented and Reports as per HPI Cardiovascular: Cardiovascular: Reports as per HPI, Reports no additional cardiovascular complaints, Denies acrocyanosis, Denies cool extremities, Denies chest pain, Denies leg edema, Denies lightheadedness, Denies palpitations and Denies dyspnea Respiratory: Respiratory: Reports as per HPI, Denies no additional respiratory complaints and Denies dyspnea Gastrointestinal: Gastrointestinal: Reports as per HPI and Denies no additional gastrointestinal complaints Genitourinary: Genitourinary: Reports as per HPI Musculoskeletal: Musculoskeletal: Reports no additional musculoskeletal complaints and Reports as per HPI Integumentary/Breasts: Skin/Breast: Reports system reviewed and no additional complaints, except as docu Neurologic: Reports system reviewed and no additional complaints, except as documented and Reports as per HPI Psychiatric: Psychiatric: Reports no additional psychiatric complaints and Reports as per HPI Endocrine: Endocrine: Reports no additional endocrine complaints, Reports as per HPI and Denies palpitations Hematologic/Lymphatic: Hematologic/Lymphatic: Reports no additional hematologic/lymphatic complaints and Reports as per HPI Allergic/Immunologic: Allergic/Immunologic: Reports no additional allergic/immunologic complaints and Reports as per HPI [facility] Past Medical History Medical History Bicytopenia Dizziness Allergic rhinitis Hypovitaminosis D Transaminitis Dyspnea Hypertension Family History Family History Daughter Pacemaker Mother Heart attack Father Heart attack Surgical History Surgical History S/P cardiac catheterization Social History Social History Household Members: Family Housing: Apartment Do you presently have visiting nurse or other home services: Yes Alcohol intake: never Patient Tobacco Use Status: Never used Tobacco Smoked in Last 30 Days: No e-Cigarette/Vaping Use: Never Used Second Hand Smoke Exposure: No Use of substances other than those prescribed or required for medical reasons: No Advance Directives: Yes Advance Directives on File: Yes Advance Directives Date on File: 03/24/23 Nutrition Risks: No Nutritional Risk service: No Current occupational status: retired Cognitive needs: Yes Hearing needs: No Vision needs: Yes Meds Allergies Allergy/AdvReac Type Severity Reaction Status Date / Time amlodipine AdvReac Severe Unknown Uncoded 07/08/24 06:44 Active Medications: Current Medications Acetaminophen (Acetaminophen 325 Mg Tablet) 650 mg PO Q6H PRN PRN Reason: Pain, Mild 1-3,fever,headache Aspirin (Aspirin Enteric Coated 81 Mg Tablet.Dr) 81 mg PO DAILY PENDING SALE TO [facility] Last Admin: 07/09/24 08:29 Dose: 81 mg Atorvastatin Calcium (Atorvastatin Calcium 80 Mg Tablet) 80 mg PO BEDTIME PENDING SALE TO [facility] Last Admin: 07/08/24 21:09 Dose: 80 mg Atropine Sulfate (Atropine Sulfate 1 Mg/10 Ml Syringe) 1 mg IVPUSH Q8H PRN PRN Reason: Symptomatic bradycardia Brimonidine Tartrate (Brimonidine Tartrate 0.2% Oph 5 Ml Bottle) 1 drop EYE- BOTH BID PENDING SALE TO [facility] Last Admin: 07/09/24 08:28 Dose: 1 drop Calcium Carbonate (Calcium Carbonate 750 Mg Tab.Chew) 750 mg PO Q4H PRN PRN Reason: Heartburn Enoxaparin Sodium (Enoxaparin Sodium 40 Mg/0.4 Ml Syringe) 40 mg SUBCUT Q24H PENDING SALE TO [facility] Last Admin: 07/08/24 13:46 Dose: 40 mg Fluticasone Propionate (Fluticasone Propionate Nasal 16 Gm Morrow) 1 spray NOSTRIL-B DAILY PENDING SALE TO [facility] Last Admin: 07/09/24 08:28 Dose: 1 spray Magnesium Hydroxide (Milk Of Magnesia 30 Ml Oral.Susp) 30 ml PO DAILY PRN PRN Reason: Constipation Melatonin (Melatonin 3 Mg Tablet) 6 mg PO BEDTIME PRN PRN Reason: Insomnia Ondansetron HCl (Ondansetron Hcl 4 Mg/2 Ml Vial) 4 mg IVPUSH Q8H PRN PRN Reason: Nausea and Vomiting Sodium Chloride (0.9 % Sodium Chloride Flush 3 Ml Syringe) 3 ml IVFLUSH QSHIFT PENDING SALE TO [facility] Last Admin: 07/09/24 08:12 Dose: Not Given Vitamin D (Cholecalciferol (Vitamin D3) 25 Mcg Tablet) 50 mcg PO DAILY PENDING SALE TO [facility] Last Admin: 07/09/24 08:29 Dose: 50 mcg Home Medications ?Medication ?Instructions ?Recorded ?Confirmed ?Last Taken ?Type brimonidine 0.2 % eye drops 1 drp ophthalmic (eye) BID 08/15/21 07/08/24 07/07/24 History Physical Exam 2 Vital Signs: Vital Signs: Last Vital Signs Temp 97.6 F 07/09/24 08:08 Pulse 53 07/09/24 08:08 Resp 18 07/09/24 08:08 BP 167/76 H 07/09/24 08:08 Pulse Ox 97 07/09/24 08:08 O2 Del Method Room Air 07/09/24 08:08 BMI result Body Mass Index 24.4 Const: General: comfortable and no acute distress O rientation/consciousness: patient oriented x3 HEENT: Other: Unremarkable Head: Yes normal to inspection Neck: Neck: Yes normal visual inspection Chest: Chest palpation & inspection: normal inspection of the chest Resp: Auscultation: clear to auscultation bilaterally Cardio: Palpation: normal PMI Heart sounds: S1 normal heart sound present, S2 normal heart sound present, no gallops, no murmurs and no rubs GI: Palpation (GI): Soft to palpation Back/Spine/Pelvis: Other: unremarkable Skin: General skin exam: no rashes or lesions noted Neuro: General: patient oriented x3 Extrem: General: Yes normal to inspection Psych: Mental Status: mental status grossly normal Objective Labs and Meds 07/08/24 06:53 07/08/24 06:53 Lab results: Laboratory Results - last 24 hr 07/08/24 07/08/24 06:53 11:52 TSH 2.53 Influenza Type A (PCR) NEGATIVE Influenza Type B (PCR) NEGATIVE RSV RNA Qual (PCR) NEGATIVE SARS-CoV-2 RNA (RT-PCR) NEGATIVE ECG Interpretation: EKG with underlying sinus rhythm at 64/Min; nonspecific ST-T changes; low- voltage QRS complexes; normal GA and corrected QT. Assessment and Plan (1) Bradycardia: Status: Acute (2) Near syncope: Status: Acute Plan Per the last echocardiogram, LVEF was 64%. Cardiac catheterization 2023-no significant coronary disease. With regard to the near syncopal episode, seems somewhat vasovagal. Not entirely clear if it is arrhythmogenic but there is no clear findings on telemetry here apart from nocturnal bradycardia which is physiological. We can do a 30 day monitor and then probably also consider ILR. Discussed with family at bedside. Procedures Date of Service Date of Service: 07/09/24
--- NOTE | 2024-07-09 11:20 | PC.NURSE ---
orthostatic VS completed and negative. pt reports increased dizziness w/ exertion/position change. pt assisted back into bed, turned/repositioned to comfort. lights dimmed to promote comfort. bed alarm remains in place for safety precautions. plan of care ongoing. call parmar placed within reach.
--- NOTE | 2024-07-09 11:22 | MHC.CM.PN ---
Flavia 07/09/24, Pt lives with her grandson (he has autism). 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 She uses a cane. HCP is on file and confirmed: Balaji. PCP is confirmed: Sandy Hartmann. Son to transport home at DC. DCP: home, resume TOPOGRAPHICAL ENGINEER services. CM to follow for DC needs.
[2024-07-09] MEDS: Enoxaparin Sodium 40 MG/0.4 ML SYRINGE SUBCUT (13:05)
--- NOTE | 2024-07-09 13:43 | PC.NURSE ---
pt being transported to have EEG completed at this time. will resume care of pt when she returns.
--- NOTE | 2024-07-09 17:13 | P.PNIM_ITS ---
Subjective Subjective Date of Service: 07/09/24 Interval History: This history was taken in Icelandic from the patient. No further presyncopal episodes HR 50s at baseline, 30s while asleep Pt estimates this was her 5th episode Not orthostatic Review of Systems Review of Systems: Yes all other systems are reviewed and are negative Physical Exam 2 Vital Signs: Vital Signs: Last Vital Signs Temp 97.9 F 07/09/24 16:09 Pulse 57 07/09/24 16:09 Resp 16 07/09/24 16:09 BP 160/97 H 07/09/24 16:09 Pulse Ox 98 07/09/24 16:09 O2 Del Method Room Air 07/09/24 16:09 BMI result Body Mass Index 24.8 Gen: in no acute distress HEENT: sclera anicteric, moist mucus membranes Neck: supple Lungs: clear to auscultation bilaterally Heart: regular, slow, no murmurs Abd: soft, non-tender, non-distended Ext: no edema Skin: warm/well-perfused Neuro: alert and oriented x3, no focal findings Psych: appropriate affect Objective Data Active Medications Acetaminophen (Acetaminophen 325 Mg Tablet) 650 mg PO Q6H PRN PRN Reason: Pain, Mild 1-3,fever,headache Aspirin (Aspirin Enteric Coated 81 Mg Tablet.) 81 mg PO DAILY [facility] Last Admin: 07/09/24 08:29 Dose: 81 mg Documented By: AGUSTIN Atorvastatin Calcium (Atorvastatin Calcium 80 Mg Tablet) 80 mg PO BEDTIME [facility] Last Admin: 07/08/24 21:09 Dose: 80 mg Documented By: NAYAN Atropine Sulfate (Atropine Sulfate 1 Mg/10 Ml Syringe) 1 mg IVPUSH Q8H PRN PRN Reason: Symptomatic bradycardia Brimonidine Tartrate (Brimonidine Tartrate 0.2% Oph 5 Ml Bottle) 1 drop EYE- BOTH BID [facility] Last Admin: 07/09/24 08:28 Dose: 1 drop Documented By: AGUSTIN Calcium Carbonate (Calcium Carbonate 750 Mg Tab.Chew) 750 mg PO Q4H PRN PRN Reason: Heartburn Enoxaparin Sodium (Enoxaparin Sodium 40 Mg/0.4 Ml Syringe) 40 mg SUBCUT Q24H [facility] Last Admin: 07/09/24 13:05 Dose: 40 mg Documented By: AGUSTIN Fluticasone Propionate (Fluticasone Propionate Nasal 16 Gm Nellis) 1 spray NOSTRIL-B DAILY [facility] Last Admin: 07/09/24 08:28 Dose: 1 spray Documented By: AGUSTIN Magnesium Hydroxide (Milk Of Magnesia 30 Ml Oral.Susp) 30 ml PO DAILY PRN PRN Reason: Constipation Melatonin (Melatonin 3 Mg Tablet) 6 mg PO BEDTIME PRN PRN Reason: Insomnia Ondansetron HCl (Ondansetron Hcl 4 Mg/2 Ml Vial) 4 mg IVPUSH Q8H PRN PRN Reason: Nausea and Vomiting Sodium Chloride (0.9 % Sodium Chloride Flush 3 Ml Syringe) 3 ml IVFLUSH QSHIFT [facility] Last Admin: 07/09/24 16:41 Dose: 3 ml Documented By: JORGE L Vitamin D (Cholecalciferol (Vitamin D3) 25 Mcg Tablet) 50 mcg PO DAILY [facility] Last Admin: 07/09/24 08:29 Dose: 50 mcg Documented By: AGUSTIN Labs 07/08/24 06:53 07/08/24 06:53 Assessment and Plan (1) Near syncope: Status: Acute Plan d2 for 89yo F with HTN, HLD, vertigo, recurrent sycnope presenting with lightheadness, dizziness, and dyspnea that has resolved dizziness presyncope - was given atropine by EMS for bradcardia in 40s-50s - cardiac cath at [facility] [place] [facility] Mar 2024 neg for significant CAD - not on B-blockers - Cardiology consulted; doubt related to bradycardia but will arrange 30d monitor and possibly ILR - TTE 07/08/24: - The left ventricular systolic function is normal. The visually estimated ejection fraction is between 60-65%. - No obvious valvular pathology seen on this study. 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 - will order EEG HTN - no longer on antihypertensives [was previously on amlodipine + Imdur] and BP appears well-controlled HLD - statin VTE ppx - enoxaparin dispo - PT eval In my clinical judgment, the patient requires continued inpatient hospitalization for the following reasons: syncope workup, placement Total time managing care of this patient today: 35 minutes. Quality Stroke Does the patient have a stroke diagnosis?: No VTE Prior VTE?: No VTE Risk Level:: Medical - moderate - high VTE Device Contraindication: Treatment Not Indicated VTE Drug Contraindication: N/A - Med Ordered
[2024-07-09] MEDS: Atorvastatin Calcium 80 MG TABLET PO (20:49)
[2024-07-10 03:44] VITALS: BP 121/74; PULSE 54; RESP 16; TEMP 36.1; O2SAT 96
[2024-07-10 08:00] VITALS: BP 167/73; PULSE 53; RESP 17; TEMP 36.5; O2SAT 97
[2024-07-10] MEDS: Brimonidine Tartrate 0.2% Oph 5 ML BOTTLE 1 DROP EYE-BOTH (09:35)
[2024-07-10] MEDS: Aspirin Enteric Coated 81 MG TABLET.DR PO (09:35)
[2024-07-10] MEDS: Cholecalciferol (Vitamin D3) 25 MCG TABLET 50 MCG PO (09:35)
[2024-07-10] MEDS: 0.9 % Sodium Chloride Flush 3 ML SYRINGE IVFLUSH (09:38)
[2024-07-10 11:14] VITALS: BP 167/73; PULSE 53; O2SAT 97
--- NOTE | 2024-07-10 11:28 | P.F2F_ITS ---
Service Date Service Date: 07/10/24 Encounter Date of encounter: 07/10/24 Reasons for Services Signs and symptoms assessed: see PT evaluation 07/10/24 Reason for physical therapy: home safety and mobility, therapeutic exercises, gait/transfer training, assess need for DME, ADL training and energy conservation MD Overseeing Care: Sandy Hartmann Homebound: Leaving the home is medically contraindicated at this time without the asist of a device and/or another person due th the listed conditions above and below. Reason homebound: unsteady gait / fall risk and weakness related to hospital stay Certification: Based on the above findings, I certify that this patient is confined to the home and needs intermittent intermediate care, physical therapy and/or speech therapy, or continues to need occupational therapy. The patient is under my care, and I have initiated the establishment of the plan of care. The patient will be followed by a physician who will periodically review the plan of care. Time Spent With Patient Time: Total time managing care of this patient today ____ minutes.
--- NOTE | 2024-07-10 11:31 | P.DS_ITS ---
DS: Providers Provider Date of Service: 07/10/24 Date of admission: 07/08/24 12:15 Date of discharge: 07/10/24 Primary care physician: Sandy Hartmann MD Consults: 07/08/24 11:47 Consult to Cardiology Routine Consulting Provider: [facility] Reason for consultation: Dizziness, presyncope, ?symptomatic bradycardia DS: Diagnosis Discharge Diagnosis (1) Near syncope: Status: Acute (2) Bradycardia: Status: Acute DS: Summary Hospital Course Hospital Course: From the history and physical by the admitting hospitalist, ANJANA Urrutia, 07/08/24: Pt is a [89]-year-old female with a PMH significant for?HTN, HLD, vertigo, and hx of recurrent syncope who presents to the ED with?lightheadedness, dizziness, and difficulty breathing since this morning. Pt reports awoke at 03:00 to use the bathroom. Went downstairs after, drank some coffee, sat on the couch, and fell asleep for about an hour. When pt will woke around 04:15 felt sweaty, lightheaded/dizzy, and could not breathe. Pt called her son who then called EMS. The next thing pt recalls is waking up in the hospital. Unclear whether this was a true syncopal event, though no reports that EMS found pt unresponsive. However, was found by EMS to be bradycardic in the 40-50s and given 250 mL NS and 1 mg of atropine with HR improvement to 70s. Pt also complains of having a ?rough? voice, feeling like there is something stuck in her throat, and nonproductive cough since yesterday. Has had ?no appetite? this week but reports drinking plenty of liquids. Some nausea, but no vomiting. Denies significant abdominal pain. Of note, pt has had similar symptoms of lightheadedness, dizziness, and presyncope/syncopal episodes, including negative workup on 10/20/2023 and the on 03/15/2024 when echo showed basal inferior and inferior lateral wall motion abnormalities. Was transferred to [facility] for cardiac catheterization that was negative for significant coronary disease. Follows with Dr. Morgan in Cardiology. In the ED pt was hypertensive up to 164/94, tachypneic up to 22, HR as low as 59, and satting at 99% on room air. Labs were grossly unremarkable and around baseline for pt. No leukocytosis. Stable H&H. Renal function baseline. No significant electrolyte abnormalities. Hepatic function WNL. Initial troponin 4.2. CXR showed hyperinflated lungs without active pulmonary disease. EKG demonstrated normal sinus rhythm without evidence of significant ST elevations or depressions AV alex delay. Pt will be admitted to the hospital under observation for evaluation of dizziness and presyncope in the setting of possible symptomatic bradycardia. 89yo F with HTN, HLD, vertigo, recurrent syncope presenting with lightheadness, dizziness, and dyspnea. She was admitted to the telemetry unit with cardiac consultation. Cardiac catheter[place] [facility] [place] above [place] 2024. She is not on b-blockers or other rate-lowering medications. Telemetry only showed sinus bradycardia in the 50s; while asleep, this dropped to the 30s-40s but this was considered physiologic. TTE 07/08/24 showed: - The left ventricular systolic function is normal. The visually estimated ejection fraction is between 60-65%. - No obvious valvular pathology seen on this study. 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 EEG was normal. Cardiology recommended outpatient cardiac event monitoring. She was discharged with [facility] services for home PT. Time Attestation Discharge Coordination Time (in mins): 45 Quality: Safe Use of Opioids Does Pt have an Active Cancer Diagnosis on the Problem List?: No Quality: Stroke Does the patient have a stroke diagnosis?: No Physical Exam Vital Signs: Vital Signs: Last Vital Signs Temp 97.7 F 07/10/24 08:00 Pulse 53 07/10/24 11:14 Resp 17 07/10/24 08:00 BP 167/73 H 07/10/24 11:14 Pulse Ox 97 07/10/24 11:14 O2 Del Method Room Air 07/10/24 08:00 BMI result Body Mass Index 24.8 Gen: in no acute distress HEENT: sclera anicteric, moist mucus membranes Neck: supple Lungs: clear to auscultation bilaterally Heart: regular rate and rhythm, no murmurs Abd: soft, non-tender, non-distended Ext: no edema Skin: warm/well-perfused Neuro: alert and oriented x3, no focal findings Psych: appropriate affect DS: Data Data Completed and Pending Completed studies during hospitalization [Text1]: Laboratory Results WBC 4.8 X10*3/uL (4.8-10.8) 07/08/24 06:53 RBC 4.31 X10*6/uL (4.20-5.50) 07/08/24 06:53 Hgb 13.1 g/dl (12.0-16.0) 07/08/24 06:53 Hct 37.7 % (37.0-47.0) 07/08/24 06:53 MCV 87.5 fL (80.0-98.0) 07/08/24 06:53 MCH 30.4 pg (27.0-33.0) 07/08/24 06:53 MCHC 34.7 g/dl (31.0-35.0) 07/08/24 06:53 RDW 12.5 % (11.0-16.0) 07/08/24 06:53 Plt Count 161 X10*3/uL (160-400) 07/08/24 06:53 MPV 9.0 fL (9.4-12.3) L 07/08/24 06:53 Absolute Nucleated RBC 0.000 X10*3/uL (0.0-0.012) 07/08/24 06:53 Nucleated RBC % (auto) 0.0 /100WBC (0.0-0.2) 07/08/24 06:53 PT 11.3 SEC (10.9-12.4) 07/08/24 06:53 INR 1.0 (0.9-1.1) 07/08/24 06:53 Sodium 140 mmol/L (135-145) 07/08/24 06:53 Potassium 4.1 mmol/L (3.3-5.1) 07/08/24 06:53 Chloride 110 mmol/L (96-108) H 07/08/24 06:53 Carbon Dioxide 24 mmol/L (22-29) 07/08/24 06:53 Anion Gap 10 (12-20) L 07/08/24 06:53 BUN 14 mg/dL (9-16) 07/08/24 06:53 Creatinine 0.83 mg/dL (0.5-1.4) 07/08/24 06:53 Estim Creat Clear Calc 39.4 07/08/24 06:53 Estimated GFR > 60 07/08/24 06:53 Random Glucose 98 mg/dL (60-115) 07/08/24 06:53 Calcium 9.1 mg/dL (8.4-10.2) D 07/08/24 06:53 Magnesium 2.0 mg/dL (1.6-2.6) 07/08/24 06:53 Total Bilirubin 0.6 mg/dL (0.0-1.0) 07/08/24 06:53 AST 24 U/L (5-31) 07/08/24 06:53 ALT 14 U/L (0-31) 07/08/24 06:53 Alkaline Phosphatase 58 U/L (39-117) 07/08/24 06:53 Troponin I High Sens 4.2 ng/L (<3.5-17.0) D 07/08/24 06:53 Total Protein 6.1 g/dL (6.5-8.0) L 07/08/24 06:53 Albumin 3.8 g/dL (3.5-5.0) 07/08/24 06:53 TSH 2.53 uIU/mL (0.32-4.0) 07/08/24 06:53 Influenza Type A (PCR) NEGATIVE (Negative) 07/08/24 11:52 Influenza Type B (PCR) NEGATIVE (Negative) 07/08/24 11:52 RSV RNA Qual (PCR) NEGATIVE (Negative) 07/08/24 11:52 SARS-CoV-2 RNA (RT-PCR) NEGATIVE (Negative) 07/08/24 11:52 Impressions Chest X-Ray 07/08/24 07:10 IMPRESSION: Hyperaerated lungs, likely COPD. No active pulmonary disease. Electronically signed by: Brandyn Mcnally MD 07/08/2024 08:06 AM EDT EEG 07/09/24 Unremarkable EEG. Discharge Plan Discharge Anticipated Discharge Date/Time: 07/10/24 11:30 Patient Disposition: Home Health Service Discharge Diagnosis: near-syncope Referrals: Sandy Loja MD [Primary Care Provider] - 1 Week Abdoul Emanuel MD [Physician] - 2 Weeks Discharge Medications: Continued cholecalciferol (vitamin D3) 50 mcg (2,000 unit) capsule 50 mcg PO DAILY 90 Days Qty: 90 1RF atorvastatin 80 mg tablet 80 mg PO BEDTIME 90 Days Qty: 90 1RF brimonidine 0.2 % drops 1 drp ophthalmic (eye) BID Rx Instructions: Both eyes fluticasone propionate 50 mcg/actuation spray,suspension 1 spray intranasal DAILY 30 Days Qty: 16 3RF Rx Instructions: administer into each nostril aspirin [Adult Low Dose Aspirin] 81 mg tablet,delayed release (DR/EC) 81 mg PO DAILY 90 Days Qty: 90 0RF Discharge Orders: Discharge Order (Routine); Ordered 07/10/24 Ordered By: Mala Méndez Diet: Advance to usual diet Activity on Discharge: As tolerated Stand Alone Forms: Patient Portal Discharge page Print Language: Nauruan Care Plan Goals: prevention of syncope Health Concerns: near-syncope Plan of Treatment: home with PT services no specific cause found; likely vasovagal syncope Cardiology will arrange cardiac event monitoring then follow up with them in 2 weeks Please follow up with your primary care doctor within 1 week. Return to the hospital if you experience recurrent or worsening symptoms. Assessment: See Discharge Summary.
[2024-07-10 11:47] VITALS: BP 149/75; PULSE 68; RESP 17; TEMP 36.4; O2SAT 96
--- NOTE | 2024-07-10 13:40 | MHC.CM.PN ---
[facility], pts family to transport her home today.
== END 2024-07-10 13:35 | disposition home health service (06) ==
LOC: HO.ED 09:16 → HO.EDOVER 12:16 → HO.IMC 07-09 13:59
PROVIDERS: Internal Medicine; Admitting Provider Student in an Organized Health Care Education/Training Program; Emergency Provider Emergency Medicine; PCP Internal Medicine; Visit Provider Family Medicine
DX: R55 Syncope and collapse (principal); R00.1 Bradycardia, unspecified; I10 Essential (primary) hypertension; E78.5 Hyperlipidemia, unspecified; Z03.818 Encounter for observation for suspected exposure to other biological agents ruled out
CPT/HCPCS: 0241U; 36415; 71045; 80053; 83735; 84443; 84484; 85027; 85610; 93005; 93306; 95816; 96372; 97162; 99222; 99285; J1650; Q9957

== ENCOUNTER → 2024-07-08 07:10 | Outpatient (BNV) | payer OTHER, SELFPAY | PROVIDERS: Emergency Provider Emergency Medicine; PCP Internal Medicine; Visit Provider Radiology Diagnostic Radiology | DX: J98.4 Other disorders of lung (principal) | CPT/HCPCS: 71045 ==

== ENCOUNTER → 2024-07-08 12:00 | Outpatient (BNV) | payer OTHER, SELFPAY | PROVIDERS: Admitting Provider Student in an Organized Health Care Education/Training Program; Emergency Provider Emergency Medicine; PCP Internal Medicine; Visit Provider Internal Medicine | DX: R94.31 Abnormal electrocardiogram [ECG] [EKG] (principal); I71.23 Aneurysm of the descending thoracic aorta, without rupture | CPT/HCPCS: 93010; 93306 ==

== ENCOUNTER → 2024-07-08 12:15 | Outpatient (BNV) | payer OTHER, SELFPAY | PROVIDERS: Admitting Provider Student in an Organized Health Care Education/Training Program; Emergency Provider Emergency Medicine; PCP Internal Medicine; Visit Provider Student in an Organized Health Care Education/Training Program | DX: R55 Syncope and collapse (principal) | CPT/HCPCS: 99222; 99232; 99239; G0180 ==

== ENCOUNTER → 2024-07-08 12:15 | Outpatient (BNV) | payer OTHER, SELFPAY | PROVIDERS: Admitting Provider Student in an Organized Health Care Education/Training Program; Emergency Provider Emergency Medicine; PCP Internal Medicine; Visit Provider Internal Medicine | DX: R00.1 Bradycardia, unspecified (principal); R55 Syncope and collapse | CPT/HCPCS: 99223 ==

== ENCOUNTER → 2024-07-16 10:43 | Outpatient (REF) | payer OTHER, SELFPAY | LOC: HO.CARD 10:43 | PROVIDERS: PCP Internal Medicine; Visit Provider Internal Medicine | DX: R00.1 Bradycardia, unspecified (principal) | CPT/HCPCS: 93270 ==

== ENCOUNTER → 2024-07-16 10:46 | Outpatient (BNV) | payer OTHER, SELFPAY | PROVIDERS: PCP Internal Medicine; Visit Provider Internal Medicine Cardiovascular Disease | DX: R00.1 Bradycardia, unspecified (principal) | CPT/HCPCS: 93272 ==

== ENCOUNTER 2024-07-20 14:33 | Outpatient (AMB) | payer OTHER, SELFPAY ==
[2024-07-20 14:36] VITALS: BP 98/56; PULSE 55; RESP 20; TEMP 36.3; O2SAT 99; BMI 24.2
--- NOTE | 2024-07-20 14:36 | A.OFFPC_ITS ---
Vital Signs 07/20/24 14:36 Height 5 ft 2 in Weight 132 lb 0.91 oz BMI 24.2 BP 98/56 L Blood Pressure Location Lt brachial Position Sitting Respiration 20 Pulse 55 Pulse Source Pulse Oximeter Temp 97.3 F Temp Source Oral Pulse Oximetry (%) 99 Oxygen Delivery Method Room Air Intake Visit Reasons: [facility] 07/10 [facility] Intake Note: Patient is here for hospital discharge follow up. Patient was discharged from [facility] in [place], [place] on 07/10/2024. Assembly Manager Required: Yes Assembly Manager Language: Environment Coordinator Name: Pt's son/SENIOR SAS DEVELOPER Accompanied by: Son Allergies amlodipine Adverse Reaction (Severe, Uncoded 07/20/24 14:37) Unknown Tobacco use date assessed: 07/20/24 Fall risk assessment: No Falls in past year Last assessed Fall Risk: 07/20/24 Dental Screening Dental Screen Date: 07/20/24 Did you have a dental visit in the last 12 months?: No Did you have a dental problem in the last 6 months where you did not have access to dental care?: No Was dental information given to patient?: No HPI [facility] 07/10 [facility] HPI Details The patient is an 89-year-old female presenting with episodes of syncope and bradycardia. She recently had an episode at home where she became unresponsive, which resulted in hospitalization. Upon arrival at the hospital, her heart rate was documented in the 30s, indicating bradycardia. Medical evaluation included a heart catheterization and an EKG, both failing to identify significant abnormalities. The patient currently has heart monitor on. The patient had awoken feeling unwell around 3:00 AM, which led to drinking coffee and resting on the sofa where she experienced sweating and dizziness upon waking again at 4:15 AM. In her records, the patient has hypertension managed with a lisinopril and hydrochlorothiazide combination pill. She reported feeling dehydrated, likely due to this diuretic, contributing to her symptoms. An effort is underway to adjust her medication by removing the diuretic to mitigate dehydration. The patient has not experienced recent cold symptoms, cough, or significant chest pain related to respiratory causes. However, since her recent distress, she mentions difficulty breathing in enclosed spaces, though her lungs sounded clear during examination. [facility] Medical History Bicytopenia Dizziness Allergic rhinitis Hypovitaminosis D Transaminitis Dyspnea Hypertension Surgical History S/P cardiac catheterization Family History Daughter Pacemaker Mother Heart attack Father Heart attack Social History Household Members: Family Housing: Apartment Do you presently have visiting nurse or other home services: No Alcohol intake: never Patient Tobacco Use Status: Never used Tobacco e-Cigarette/Vaping Use: Never Used Second Hand Smoke Exposure: No Advance Directives Date on File: 03/24/23 service: No Current occupational status: retired Cognitive needs: Yes (Walker/ Cane) Hearing needs: No Vision needs: Yes (Glasses) Questionnaire Thrive Questionnaire Date Thrive assessed: 07/20/24 I am a: Parent/Caregiver What is your living situation today?: I have a steady place to live Within the past 12 months, did the food you bought not last and you didn't have the money to get more?: Never true Within the past 12 months, did you worry whether your food would run out before you got money to buy more?: Never true Do you have trouble paying for medicines?: No Do you have trouble getting transportation to medical appointments?: No Do you have trouble paying your heating and electricity bill?: No Do you have trouble taking care of your child, family member or friend?: No Do you have trouble with day-to-day activities such as bathing, preparing meals, shopping, managing finances, etc.?: No Are you currently unemployed and looking for a job?: No Are you interested in more education?: No Please select the resources that you would like help with: None Currently or been in a relationship where the following occur: No concerns reported THRIVE Score: 0 AUDIT C Alcohol Use Questionnaire (AUDIT-C) 1. How often do you have a drink containing alcohol?: Never Total Score: 0 Score Reviewed/Action Taken: No EBER-7 AMB Questionnaire EBER-7 Date EBER - 7 assessed: 05/19/24 Source: Developed by Drs. Sukhdev Alaniz, Monse Hester, Da Rivera and colleagues, with an educational damián from [employer]. Review of Systems Const Denies headache(s), Reports lethargy, Reports weakness and Reports other (intermittent sweating) Eyes Denies loss of vision ENT Denies vertigo, Denies dizziness, Denies headache(s) and Denies sore throat Card Denies chest pain, Denies leg edema, Reports lightheadedness and Reports dyspnea Resp Denies cough, Denies hemoptysis, Reports dyspnea and Denies wheezing GI Denies abdominal pain, Denies melena, Denies constipation, Denies diarrhea and Denies vomiting Denies urinary frequency, Denies dysuria and Denies urinary urgency Neuro Denies Abnormal speech present, Denies behavioral changes, Denies vertigo, Denies dizziness, Denies headache(s), Denies loss of vision, Denies memory loss and Reports weakness Psych Denies anxiety, Denies behavioral changes, Denies depression, Denies memory loss and Denies panic attacks Aller/Immun Denies wheezing Physical exam (Primary Care) Vital Signs: Last Vital Signs Temp 97.3 F 07/20/24 14:36 Pulse 55 07/20/24 14:36 Resp 20 07/20/24 14:36 BP 98/56 L 07/20/24 14:36 Pulse Ox 99 07/20/24 14:36 Oxygen Delivery Method Room Air 07/20/24 14:36 BMI result Body Mass Index 24.2 Tobacco/Smoking Status: Tobacco use Status Tobacco use date assessed 07/20/24 07/20/24 14:40 Patient Tobacco Use Status Never used Tobacco 07/20/24 14:40 Tobacco use type 11/09/20 13:25 e-Cigarette/Vaping Use Never Used 07/20/24 14:40 Thrive Assessment: Date of Thrive Assessment Date Thrive assessed 07/20/24 07/20/24 14:40 Currently or been in a relationship where the following occur: No concerns reported Const General: healthy appearing, no acute distress, alert and awake Nutritional Appearance: well nourished Orientation/consciousness: oriented to person, oriented to place and oriented to time HENMT Ears: TM's normal bilaterally General nose exam: Normal nasal mucous membranes and turbinates present Eyes Conjunctivae: conjunctivae normal Sclerae: sclerae normal Pupils: Equal, round and reactive pupils present Neck Neck: Yes no lymphadenopathy and Yes no JVD Thyroid: Thyroid normal Carotids: no bruits Resp Effort & Inspection: normal respiratory effort and not tachypneic Auscultation: no crackles, no rales, no rhonchi and no wheezes Cardio Rate: regular rate Rhythm: regular rhythm Heart sounds: no murmurs and normal S1 and S2 GI Palpation (GI): Soft to palpation, nontender, no hepatomegaly and no splenomegaly Auscultation: normal bowel sounds Skin General skin exam: no rashes or lesions noted and dry skin Neuro General: oriented to person, oriented to place and oriented to time Cranial nerves: Yes Equal, round and reactive pupils present Speech: No Abnormal speech present Gait exam (Neuro): Normal gait present Motor exam (neuro): no tremor noted Extrem Right upper extremity: full ROM Left upper extremity: full ROM Right lower extremity: full ROM; no edema Left lower extremity: full ROM; no edema Psych Mental Status: mental status grossly normal Speech and movement: Normal speech and movement present Affect: normal affect Attitude: cooperative Thought process: Normal thought process present Coding Level of Care Code TCM Mod MDM <= 14 Days Diagnoses Syncope, unspecified syncope type R55 Syncope type: unspecified Shortness of breath R06.02 Dyspnea type: shortness of breath Bradycardia R00.1 Essential hypertension I10 Hypertension type: essential hypertension Time Spent (min) 39 Assessment & Plan Assessment & Plan (1) Syncope: Code(s): R55 - Syncope and collapse Category: Medical Qualifiers: Syncope type: unspecified Qualified Code(s): R55 - Syncope and collapse (2) Dyspnea: Code(s): R06.00 - Dyspnea, unspecified Category: Medical Qualifiers: Dyspnea type: shortness of breath Qualified Code(s): R06.02 - Shortness of breath (3) Bradycardia: Code(s): R00.1 - Bradycardia, unspecified Category: Medical (4) Hypertension: Comment: Stable Code(s): I10 - Essential (primary) hypertension Category: Medical Qualifiers: Hypertension type: essential hypertension Qualified Code(s): I10 - Essential (primary) hypertension Plan To manage the syncopal episode and associated bradycardia, the plan involves utilizing the heart monitor for continuous cardiac assessment and adjusting the patient's antihypertensive regimen by removing hydrochlorothiazide to address dehydration. The implementation of lisinopril alone as an antihypertensive strategy will continue. Emphasizing proper hydration and diligent monitoring are crucial to her recovery. Scheduled cardiology follow-up will assist in ongoing cardiac management. Reported SOB without any abnormal findings, lungs clear and respiratory rate and rhythm normal (unclear if this is anxiety driven). The plan includes a referral for home physical therapy, and ongoing discussions with the patient highlight the importance of effective primary care and follow-up. Patient was informed and verbally consented to the use of an ambient scribe for clinic note documentation during this visit. Orders: Referrals [facility]/Hospice Referral R53.1 - Weakness Medications: New lisinopril 20 mg PO DAILY 30 tabs 3RF
== END 2024-07-20 16:03 | disposition home or self-care (01) ==
LOC: HO.HMCH 14:33
PROVIDERS: PCP Internal Medicine
DX: R55 Syncope and collapse (principal); R06.02 Shortness of breath; R00.1 Bradycardia, unspecified; I10 Essential (primary) hypertension

== ENCOUNTER → 2024-07-20 14:33 | Outpatient (BNVA) | payer OTHER, SELFPAY | PROVIDERS: PCP Internal Medicine | DX: R55 Syncope and collapse (principal); R00.1 Bradycardia, unspecified; R06.02 Shortness of breath; I10 Essential (primary) hypertension; R53.1 Weakness | CPT/HCPCS: 99495 ==

== ENCOUNTER 2024-08-25 13:18 | Outpatient (AMB) | payer OTHER, SELFPAY ==
--- NOTE | 2024-08-25 13:21 | A.OFFPC_ITS ---
Vital Signs 08/25/24 13:30 08/25/24 13:55 Height 5 ft 2 in Weight 131 lb 6 oz BMI 24.0 BP 190/88 H 158/100 H Blood Pressure Location Lt brachial Lt brachial Position Sitting Sitting Pulse 87 Pulse Source Pulse Oximeter Temp 97.3 F Temp Source Temporal Artery Scan Pulse Oximetry (%) 97 Oxygen Delivery Method Room Air Comment 10 min after pt sitting Intake Visit Reasons: PREOP Medicaid Collection Specialist Required: No Accompanied by: Self / Same As Patient Allergies amlodipine Allergy (Unknown, Verified 08/25/24 14:15) Unknown Medication List - Last Reconciled 08/25/24 by LASHAE Zhang aspirin (Adult Low Dose Aspirin) 81 mg PO DAILY 90 days atorvastatin 80 mg PO BEDTIME 90 days brimonidine 0.2% 1 drp ophthalmic (eye) BID cholecalciferol (vitamin D3) 50 mcg PO DAILY 90 days fluocinolone 0.01% 1 appl topical DAILY fluticasone propionate 50 mcg/actuation 1 spray intranasal DAILY 30 days lisinopril 20 mg PO DAILY Tobacco use date assessed: 07/20/24 Fall risk assessment: No Falls in past year Last assessed Fall Risk: 08/25/24 Dental Screening Dental Screen Date: 07/20/24 HPI PREOP HPI Details The patient is a 89-year-old female, patient of Dr. Hernandez, last seen in office on 07/20/2024 The patient is presenting with a need for preop clearance evaluation for cataract surgery. She reports longstanding cataracts impacting vision. The plan involved cataracts surgery for right eye on 09/06/2024 and left eye 09/20/2024. Surgeon/location: Bart Fritz at [facility] Anesthesia: Mac. Patient denies any issues with anesthesia The patient denies any post surgery hypothermia or clotting disorder and she is not on any blood thinners. The patient is on aspirin 81 mg, which is low risk and should be continued Medical history significant for bradycardia, 1 episode of syncope, NSTEMI in 2023 Per the last echocardiogram, LVEF was 64%. Cardiac catheterization 2023-no significant coronary disease. With regard to the near syncopal episode, seems somewhat vasovagal. Not entirely clear if it is arrhythmogenic but there is no clear findings on telemetry here apart from nocturnal bradycardia which is physiological, per cardiology note. The patient had a recent Holter monitor that showed that 63.85% of the time of being monitored, she was in bradycardia. The patient remained asymptomatic. Per the patient's son cardiology called and told him that the Holter monitor readings were normal for the patient. The patient blood pressure was elevated today in office. Left arm 152/84 and right arm 156/82. The patient lisinopril was increased from 20 mg to 30 mg. Patient to return in 1 week for nurse visit and blood pressure check. We will hold off on clearing the patient for the procedure until blood pressure is under control. Patient denies any chest pain, shortness of breath, abdominal pain or change in bowel habits She denies any urinary symptoms PFSH Medical History NSTEMI (non-ST elevated myocardial infarction) Bicytopenia Dizziness Allergic rhinitis Hypovitaminosis D Transaminitis Dyspnea Hypertension Surgical History S/P cardiac catheterization Family History Daughter Pacemaker Mother Heart attack Father Heart attack Social History Household Members: Family Housing: Apartment Are you a primary career specialist to a significant other at home: No Do you presently have visiting nurse or other home services: Yes Alcohol intake: never Patient Tobacco Use Status: Never used Tobacco e-Cigarette/Vaping Use: Never Used Second Hand Smoke Exposure: No Advance Directives Date on File: 03/24/23 service: No Current occupational status: retired Cognitive needs: Yes (Walker/ Cane) Hearing needs: No Vision needs: Yes (Glasses) Questionnaire Thrive Questionnaire Date Thrive assessed: 07/20/24 EBER-7 AMB Questionnaire EBER-7 Date EBER - 7 assessed: 05/19/24 Source: Developed by Drs. Sukhdev Alaniz, Monse Hester, Da Rivera and colleagues, with an educational damián from [employer] [facility]. Review of Systems Const Denies headache(s) Eyes Reports blurry vision and Denies loss of vision ENT Denies vertigo, Denies dizziness, Denies headache(s) and Denies sore throat Card Denies chest pain, Denies leg edema and Denies lightheadedness Resp Denies cough, Denies hemoptysis and Denies wheezing GI Denies abdominal pain, Denies melena, Denies constipation, Denies diarrhea and Denies vomiting Denies urinary frequency, Denies dysuria and Denies urinary urgency Neuro Denies Abnormal speech present, Denies vertigo, Denies dizziness, Denies headache(s), Denies loss of vision and Denies memory loss Psych Denies anxiety, Denies depression, Denies memory loss and Denies panic attacks Ramone/Lymph Denies easy bleeding and Denies easy bruising Aller/Immun Denies wheezing Physical exam (Primary Care) Vital Signs: Last Vital Signs Temp 97.3 F 08/25/24 13:30 Pulse 87 08/25/24 13:30 BP 158/100 H 08/25/24 13:55 Pulse Ox 97 08/25/24 13:30 Oxygen Delivery Method Room Air 08/25/24 13:30 BMI result Body Mass Index 24.0 Tobacco/Smoking Status: Tobacco use Status Tobacco use date assessed 07/20/24 08/25/24 13:22 Patient Tobacco Use Status Never used Tobacco 08/25/24 13:22 Tobacco use type 11/09/20 13:25 e-Cigarette/Vaping Use Never Used 08/25/24 13:22 Thrive Assessment: Date of Thrive Assessment Date Thrive assessed 07/20/24 08/25/24 13:22 Const General: healthy appearing, no acute distress, alert and awake Nutritional Appearance: well nourished Orientation/consciousness: oriented to person, oriented to place and oriented to time [facility] Ears: TM's normal bilaterally General nose exam: Normal nasal mucous membranes and turbinates present Eyes Conjunctivae: conjunctivae normal Sclerae: sclerae normal Pupils: Equal, round and reactive pupils present Neck Neck: Yes no lymphadenopathy and Yes no JVD Thyroid: Thyroid normal Carotids: no bruits Resp Effort & Inspection: normal respiratory effort and not tachypneic Auscultation: no crackles, no rales, no rhonchi and no wheezes Cardio Rate: regular rate Rhythm: regular rhythm Heart sounds: no murmurs and normal S1 and S2 GI Palpation (GI): Soft to palpation and nontender Auscultation: normal bowel sounds Skin General skin exam: no rashes or lesions noted and dry skin Neuro General: oriented to person, oriented to place and oriented to time Cranial nerves: Yes Equal, round and reactive pupils present Speech: No Abnormal speech present Gait exam (Neuro): Normal gait present Motor exam (neuro): no tremor noted Extrem Right upper extremity: full ROM Left upper extremity: full ROM Right lower extremity: full ROM; no edema Left lower extremity: full ROM; no edema Psych Mental Status: mental status grossly normal Speech and movement: Normal speech and movement present Affect: normal affect Attitude: cooperative Thought process: Normal thought process present Results Reviewed Results Reviewed: Laboratory Tests 10/28/23 07/08/24 16:53 06:53 WBC 4.8 RBC 4.31 Hgb 13.1 Hct 37.7 MCV 87.5 MCH 30.4 MCHC 34.7 RDW 12.5 Plt Count 161 Sodium 140 Potassium 4.1 Chloride 110 H Carbon Dioxide 24 Anion Gap 10 L BUN 14 Creatinine 0.83 Estim Creat Clear Calc 39.4 Estimated GFR > 60 Random Glucose 98 Calcium 9.1 D Magnesium 2.0 Total Bilirubin 0.6 AST 24 ALT 14 Alkaline Phosphatase 58 Troponin I High Sens 4.2 D Total Protein 6.1 L Albumin 3.8 TSH 2.53 Urine Color Yellow Urine Appearance Clear Urine pH 8.0 Ur Specific [place] >= 1.030 H Urine Protein Negative Urine Glucose (UA) Negative Urine Ketones Negative Urine Blood Negative Urine Nitrite Negative Ur Leukocyte Esterase Small (1+) H Urine RBC 0-2 Urine WBC 6-10 Ur Squamous Epith Cells 0-2 Urine Bacteria None Seen Hyaline Casts 0-2 Coding Level of Care Code Est Pt Level 4 (11615) Diagnoses Preoperative clearance Z01.818 Bradycardia R00.1 NSTEMI (non-ST elevated myocardial infarction) I21.4 Essential hypertension I10 Hypertension type: essential hypertension Time Spent (min) 41 Assessment & Plan Assessment & Plan (1) Preoperative clearance: Code(s): Z01.818 - Encounter for other preprocedural examination Category: Medical Plan: Regarding preop clearance, the patient is not at acceptable risk for proposed surgery. Reviewed with the patient that no surgery is completely free of risk and that this examination is to assist the surgeon in reviewing informed consent. Patient blood pressure is elevated and needs to be controlled before she could be cleared for pending cataract surgery. (2) Bradycardia: Code(s): R00.1 - Bradycardia, unspecified Category: Medical Plan: Patient bradycardia is asymptomatic. Cardiology suspect that her one syncope episode was vasovagal in nature (3) NSTEMI (non-ST elevated myocardial infarction): Code(s): I21.4 - Non-ST elevation (NSTEMI) myocardial infarction Category: Medical Plan: She had chest pain with mild NSTEMI in October of 2023. She underwent cardiac catheterization but no significant coronary disease was noted (4) Hypertension: Comment: Stable Code(s): I10 - Essential (primary) hypertension Category: Medical Qualifiers: Hypertension type: essential hypertension Qualified Code(s): I10 - Essential (primary) hypertension Plan: Patient blood pressure was elevated in office 190/88, rechecked 158/100. The patient's son reports that he thinks that it is stress related because she has been arguing with another family member. Rechecked blood pressure continues to be elevated. The patient lisinopril was increased to 30 mg daily. Patient to return in 1 week for blood pressure check/nurse visit. Medications: New lisinopril 30 mg PO DAILY 30 tabs 1RF On Hold lisinopril Hold Comment: Doctor's Order 20 mg PO DAILY 90 tabs 2RF
[2024-08-25 13:30] VITALS: BP 190/88; PULSE 87; TEMP 36.3; O2SAT 97; BMI 24.0
[2024-08-25 13:55] VITALS: BP 158/100
== END 2024-08-25 14:55 | disposition home or self-care (01) ==
LOC: HO.HMCH 13:18
PROVIDERS: PCP Internal Medicine
DX: R00.1 Bradycardia, unspecified (principal); Z01.818 Encounter for other preprocedural examination; I25.2 Old myocardial infarction; I10 Essential (primary) hypertension

== ENCOUNTER → 2024-08-25 13:18 | Outpatient (BNVA) | payer OTHER, SELFPAY | PROVIDERS: PCP Internal Medicine | DX: Z01.818 Encounter for other preprocedural examination (principal); I25.2 Old myocardial infarction; I10 Essential (primary) hypertension; R00.1 Bradycardia, unspecified | CPT/HCPCS: 99212 ==

== ENCOUNTER → 2024-09-03 09:16 | Outpatient (BNVA) | payer OTHER, SELFPAY | PROVIDERS: PCP Internal Medicine | DX: Z13.89 Encounter for screening for other disorder (principal) ==

== ENCOUNTER 2024-09-06 06:45 | Day surgery (SDC) | payer OTHER, SELFPAY ==
[2024-08-25 13:05] VITALS: BMI 24.1
[2024-09-06] MEDS: Tetracaine HCl/PF 0.5% Oph Sol 4 ML DROPS 1 DROP EYE-RIGHT (07:20)
[2024-09-06] MEDS: Cyclopentolate 1 % Ophth Sol 2 ML DRPBTL 1 DROP EYE-RIGHT ×3 (07:21→07:37)
[2024-09-06] MEDS: Tropicamide 1 % Ophth Sol 3 ML BTL 1 DROP EYE-RIGHT ×3 (07:23→07:39)
[2024-09-06] MEDS: Ketorolac Tromethamine 0.5% Op 5 ML DROPS 1 DROP EYE-RIGHT ×3 (07:25→07:41)
[2024-09-06 07:26] VITALS: BP 178/75; PULSE 63; RESP 16; TEMP 36.5; O2SAT 98
[2024-09-06] MEDS: Phenylephrine HCL 2.5% Oph SoL 2 ML BOTTLE 1 DROP EYE-RIGHT ×3 (07:27→07:43)
[2024-09-06 07:40] VITALS: BMI 24.4
--- NOTE | 2024-09-06 07:46 | HO.ANESPROP2 ---
Documented by User: Janae Brasher NP 09/02/24 14:15 HPI - Anesthesia Eval Consult details Narrative: 89yo F for Right Cataract Extraction IOL Insertion Clearance pending BP check Follows [facility] [place] Cardiology: bradycardia, 1 episode of syncope, NSTEMI in 2023 Per the last echocardiogram, LVEF was 64%. Cardiac catheterization 2023-no significant coronary disease. No previous cataract on record PMFSH Active Problems Active Problems: All Active Problems Preoperative clearance (Acute) Near syncope (Acute) Bradycardia (Acute) NSTEMI (non-ST elevated myocardial infarction) (Acute) Seborrheic dermatitis of scalp (Acute) Stable angina (Acute) Chest pain (Acute) Abdominal pain (Acute) Syncope (Acute) Syncope (Acute) UTI (urinary tract infection) (Acute) Hospital discharge follow-up (Acute) COVID-19 virus infection (Acute) Calcific tendinitis of right shoulder (Acute) Right knee pain (Acute) Left knee pain (Acute) Right shoulder pain (Acute) Encounter for Medicare annual wellness exam (Acute) Sleep disorder breathing (Acute) Impaired glucose tolerance (Acute) COVID-19 virus detected (Acute) Hyperlipidemia (Acute) Viral syndrome (Acute) Dyspnea (Acute) S/P cardiac catheterization (Acute) Bicytopenia (Acute) Dizziness (Acute) Allergic rhinitis (Acute) Hypovitaminosis D (Acute) Transaminitis (Acute) Hypertension (Acute) Past Medical History Medical History (Updated 08/26/24 @ 17:59 by LASHAE Zhang) NSTEMI (non-ST elevated myocardial infarction) Bicytopenia Dizziness Allergic rhinitis Hypovitaminosis D Transaminitis Dyspnea Hypertension Family History Family History Daughter Pacemaker Mother Heart attack Father Heart attack Surgical History Surgical History (Updated 09/06/24 @ 07:41 by Dori Couch RN) H/O eye surgery S/P cardiac catheterization Social History Social History Household Members: Family Housing: Apartment Are you a primary personal caregiver to a significant other at home: No Do you presently have visiting nurse or other home services: Yes Alcohol intake: never Patient Tobacco Use Status: Never used Tobacco e-Cigarette/Vaping Use: Never Used Second Hand Smoke Exposure: No Use of substances other than those prescribed or required for medical reasons: No Baptism Healthcare Practices: Anabaptism Advance Directives: Yes Advance Directives Information Provided: Yes Advance Directives on File: Yes Advance Directives Date on File: 03/24/23 FDLMP: n/a service: No Current occupational status: retired Cognitive needs: Yes (Walker/ Cane) Hearing needs: No Vision needs: Yes (Glasses) Meds Allergies Allergy/AdvReac Type Severity Reaction Status Date / Time amlodipine Allergy Unknown Unknown Verified 09/06/24 07:42 Home Medications ?Medication ?Instructions ?Recorded ?Confirmed ?Last Taken ?Type brimonidine 0.2 % eye drops 1 drp ophthalmic (eye) BID 08/15/21 08/25/24 07/07/24 History fluocinolone 0.01 % topical 1 appl topical DAILY 07/20/24 08/25/24 Unknown History solution Exam Height,Weight and Vital Signs: Height 5 ft 2 in Weight 59.874 kg Assessment and Plan Assessment Anesthesia Assessment: Chart Reviewed Documented by User: Scarlett Mejia, 09/06/24 07:47 [facility] Past Medical History Medical History (Updated 08/26/24 @ 17:59 by LASHAE Zhang) NSTEMI (non-ST elevated myocardial infarction) Bicytopenia Dizziness Allergic rhinitis Hypovitaminosis D Transaminitis Dyspnea Hypertension Family History Family History Daughter Pacemaker Mother Heart attack Father Heart attack Family history of problems with anesthesia: No Surgical History Surgical History (Updated 09/06/24 @ 07:41 by Dori Couch RN) H/O eye surgery S/P cardiac catheterization History of Problems with Anesthesia: No Social History Social History Household Members: Family Housing: Apartment Are you a primary personal caregiver to a significant other at home: No Do you presently have visiting nurse or other home services: Yes Alcohol intake: never Patient Tobacco Use Status: Never used Tobacco e-Cigarette/Vaping Use: Never Used Second Hand Smoke Exposure: No Use of substances other than those prescribed or required for medical reasons: No Baptism Healthcare Practices: Anabaptism Advance Directives: Yes Advance Directives Information Provided: Yes Advance Directives on File: Yes Advance Directives Date on File: 03/24/23 FDLMP: n/a service: No Current occupational status: retired Cognitive needs: Yes (Walker/ Cane) Hearing needs: No Vision needs: Yes (Glasses) Meds Allergies Allergy/AdvReac Type Severity Reaction Status Date / Time amlodipine Allergy Unknown Unknown Verified 09/06/24 07:42 Home Medications ?Medication ?Instructions ?Recorded ?Confirmed ?Last Taken ?Type brimonidine 0.2 % eye drops 1 drp ophthalmic (eye) BID 08/15/21 08/25/24 07/07/24 History fluocinolone 0.01 % topical 1 appl topical DAILY 07/20/24 08/25/24 Unknown History solution Exam Exam Date and Time: 09/06/24 0745 Height,Weight and Vital Signs: Height 5 ft 2 in Weight 59.874 kg Vital Signs Temperature 97.7 F 09/06/24 07:26 Pulse Rate 63 09/06/24 07:26 Respiratory Rate 16 09/06/24 07:26 Blood Pressure 178/75 H 09/06/24 07:26 Pulse Oximetry 98 09/06/24 07:26 Oxygen Delivery Method Room Air 09/06/24 07:26 Temperature 97.7 F 09/06/24 07:26 Pulse Rate 63 09/06/24 07:26 Respiratory Rate 16 09/06/24 07:26 Blood Pressure 178/75 H 09/06/24 07:26 Pulse Oximetry 98 09/06/24 07:26 Oxygen Delivery Method Room Air 09/06/24 07:26 Airway Mallampati Class: II TM Dist: >3cm Neck ROM: Full Loose/Missing/Broken Teeth: Yes (edentulous) Heart: S1S2 Lungs: CTAB Assessment and Plan Assessment Anesthesia Assessment: Anesthesia Plan Discussed and Chart Reviewed Final Anesthetic Review Family History of Problems with Anesthesia: No History of Problems with Anesthesia: No NPO: Yes ASA Class: II Final Preanesthetic Review: No Changes in Pt Med Stat, Meds/Allgs Chart Reviewed, Consent Obtained/Reviewed and Anes Risks/Benef Reviewed Patient Risk: Low Procedure Risk: Low Anesthetic Plan Anesthetic Plan: MAC: and Agree w/ Assess. and Plan Disposition: Standard PACU
[2024-09-06] MEDS: Lactated Ringers 500 ML 50 ML IV (07:49)
--- NOTE | 2024-09-06 08:18 | MHC.SHP ---
Pre-Procedural Eval Section A - 24 Hr Update-Section A only Date of Service: 09/06/24 The patient is an INPATIENT: No Changes since office visit: No Cold of Flu in the past 2 weeks, No New Medical Problems, No Changes in Medication and No Patient answered all questions The patient has been examined within 24 hours of the surgical procedure. The History & Physical has been completed within 30 days and I have reviewed it.: Yes Section B - Complete if H&P > 30 days Chief Complaint: Age-related nuclear cataract, right eye Allergies: Allergies Allergy/AdvReac Type Severity Reaction Status Date / Time amlodipine Allergy Unknown Unknown Verified 09/06/24 07:42 Plan Diagnosis/Plan: Unchanged I have reviewed the history and physical and performed a pertinent physical examination on my patient. No changes have occurred unless specified. Time Spent With Patient Time: Total time managing care of this patient today ____ minutes.
--- NOTE | 2024-09-06 08:19 | P.PCNO_ITS ---
Ophthalmology Procedure Procedure Date of Service: 09/06/24 Ophthalmology Viscoelastic: Healon Duet Dual Pack Pro Ophthalmology Lenses: IOL Acrysof MP - [id number] (26.5) Procedure Notes: PREOPERATIVE DIAGNOSIS: Decreased visual acuity right eye secondary to cataract POSTOPERATIVE DIAGNOSIS: Same PROCEDURE: Right cataract extraction with intraocular lens insertion SURGEON: Bart Fritz M.D. ANESTHESIA: Topical/MAC ESTIMATED BLOOD LOSS: None COMPLICATIONS: None After obtaining informed consent, the patient was brought to the operating room suite and placed in the supine position. After adequate sedation per anesthesia, topical drops of Tetracaine were given to the right eye. The eye was then prepped and draped in the usual sterile fashion. The operating room microscope was then positioned over the operative eye and a lid speculum placed. A paracentesis was created. Viscoelastic was then instilled into the anterior chamber. A three plane incision was then created temporally, utilizing a 2.85 mm keratome. Capsulotomy forceps were then utilized to create a circular tear capsulotomy. Hydrodissection and hydrodelineation were carried out until adequate mobilization of the nucleus occurred. Phacoemulsification was then utilized to remove the dense central nu cleus followed by removal of the cortical material utilizing the automated aspiration irrigation unit. Viscoelastic was instilled into the posterior capsular bag followed by placement of a posterior chamber intraocular lens without difficulty. The residual Viscoelastic was then removed utilizing the automated IA machine. The wound was checked and found to be watertight. The patient tolerated the procedure well and the lid speculum was removed. Intracameral injection of Vigamox 0.1 mL followed by a subtenon injection of Kenalog-40 0.2 mL were administered. The patient will be seen in the a.m.
[2024-09-06 08:50] VITALS: BP 188/94; PULSE 60; RESP 12; TEMP 36.4; O2SAT 97
== END 2024-09-06 09:07 | disposition home or self-care (01) ==
PROVIDERS: PCP Internal Medicine; Visit Provider Ophthalmology
PROC: (CPT 66985; principal; 2024-09-06 08:30)
DX: H25.11 Age-related nuclear cataract, right eye (principal); Z83.511 Family history of glaucoma; H40.1131 Primary open-angle glaucoma, bilateral, mild stage; H18.413 Arcus senilis, bilateral; H04.123 Dry eye syndrome of bilateral lacrimal glands; I10 Essential (primary) hypertension; I25.2 Old myocardial infarction; D61.818 Other pancytopenia; E78.00 Pure hypercholesterolemia, unspecified; E55.9 Vitamin D deficiency, unspecified; J30.9 Allergic rhinitis, unspecified; R06.00 Dyspnea, unspecified; R74.01 Elevation of levels of liver transaminase levels; Z79.51 Long term (current) use of inhaled steroids; Z79.82 Long term (current) use of aspirin; Z79.899 Other long term (current) drug therapy
CPT/HCPCS: 66984; J3010; J3301; V2630

== ENCOUNTER 2024-11-16 10:24 | Outpatient (AMB) | payer OTHER, SELFPAY ==
--- NOTE | 2024-11-16 10:31 | A.OFFPC_ITS ---
Vital Signs 11/16/24 10:33 Height 5 ft 2 in Weight 129 lb BMI 23.6 BP 136/74 Blood Pressure Location Lt brachial Position Sitting Pulse 67 Pulse Source Pulse Oximeter Pulse Oximetry (%) 99 Oxygen Delivery Method Room Air Intake Visit Reasons: bp,nstemi Sign Writer Letterer Or Painter Required: No Accompanied by: Self / Same As Patient Allergies amlodipine Allergy (Unknown, Verified 11/16/24 10:43) Unknown Medication List - Last Reconciled 11/16/24 by Sandy Hartmann MD aspirin (Adult Low Dose Aspirin) 81 mg PO DAILY 90 days atorvastatin 80 mg PO BEDTIME 90 days brimonidine 0.2% 1 drp ophthalmic (eye) BID cholecalciferol (vitamin D3) 50 mcg PO DAILY 90 days fluocinolone 0.01% 1 appl topical DAILY fluticasone propionate 50 mcg/actuation 1 spray intranasal DAILY 30 days lisinopril 30 mg PO DAILY Held on 09/03/24. Instructions: Doctor's Order lisinopril 20 mg PO DAILY Tobacco use date assessed: 11/16/24 Fall risk assessment: No Falls in past year Last assessed Fall Risk: 11/16/24 Dental Screening Dental Screen Date: 11/16/24 Did you have a dental visit in the last 12 months?: No Did you have a dental problem in the last 6 months where you did not have access to dental care?: No Was dental information given to patient?: No HPI HPI Comments History of Present Illness Details The patient is an 89-year-old female presenting with hypertension management. Her blood pressure was recorded at 136/74 mmHg, which is considered well-controlled. She is compliant with her medication regimen, which includes amlodipine, aspirin, atorvastatin, and lisinopril. The patient has a history of bradycardia, for which she was hospitalized in July. Since her discharge, she has not had a follow-up appointment with her sales operations coordinator, which was recommended. She does have right knee osteoarthritis and has lost of balance and is on a cane but still has some loss of balance will benefit from a walker. Also has low vitamin-D on supplements. [facility] Medical History (Updated 11/16/24 @ 11:42 by Sandy Hartmann MD) NSTEMI (non-ST elevated myocardial infarction) Bicytopenia Dizziness Allergic rhinitis Hypovitaminosis D Transaminitis Dyspnea Hypertension Surgical History H/O eye surgery S/P cardiac catheterization Family History Daughter Pacemaker Mother Heart attack Father Heart attack Social History Household Members: Family Housing: Apartment Are you a primary manager progressive care to a significant other at home: No Do you presently have visiting nurse or other home services: Yes Alcohol intake: never Patient Tobacco Use Status: Never used Tobacco e-Cigarette/Vaping Use: Never Used Second Hand Smoke Exposure: No Advance Directives Date on File: 03/24/23 service: No Current occupational status: retired Cognitive needs: Yes (Walker/ Cane) Hearing needs: No Vision needs: Yes (Glasses) Questionnaire PHQ-9 Over the last 2 weeks, how often have you been bothered by any of the following problems? 1. Little interest or pleasure in doing things: not at all 2. Feeling down, depressed, or hopeless: not at all 3. Trouble falling or staying asleep, or sleeping too much: not at all 4. Feeling tired or having little energy: not at all 5. Poor appetite or overeating: more than half the days 6. Feeling bad about yourself - or that you are a failure or have let yourself or your family down: not at all 7. Trouble concentrating on things, such as reading the newspaper or watching television: not at all 8. Moving or speaking so slowly that other people could have noticed. Or the opposite - being so fidgety or restless that you have been moving around a lot more than usual: not at all 9. Thoughts that you would be better off or of hurting yourself in some way: not at all Total score: 2 Depression Screening Interpretation: Negative Depression Screening Done: Yes 08185 - PHQ-9 Billing: Yes Source: Developed by Drs. Sukhdev Alaniz, Monse Hester, Da Rievra and colleagues, with an educational damián from [employer]. Thrive Questionnaire Date Thrive assessed: 11/16/24 I am a: Patient What is your living situation today?: I have a steady place to live Within the past 12 months, did the food you bought not last and you didn't have the money to get more?: Sometimes True Within the past 12 months, did you worry whether your food would run out before you got money to buy more?: Sometimes True Do you have trouble paying for medicines?: Yes Do you have trouble getting transportation to medical appointments?: No Do you have trouble paying your heating and electricity bill?: No Do you have trouble taking care of your child, family member or friend?: No Do you have trouble with day-to-day activities such as bathing, preparing meals, shopping, managing finances, etc.?: Yes Are you currently unemployed and looking for a job?: Yes Are you interested in more education?: No Please select the resources that you would like help with: Food and Utilities Currently or been in a relationship where the following occur: I choose not to answer THRIVE Score: 2 AUDIT C Alcohol Use Questionnaire (AUDIT-C) 1. How often do you have a drink containing alcohol?: Never Total Score: 0 EBER-7 AMB Questionnaire EBER-7 Date EBER - 7 assessed: 11/16/24 Feeling nervous, anxious, or on edge: 0 = Not at all Not being able to stop or control worryin = Not at all Worrying too much about different things: 0 = Not at all Trouble relaxin = Not at all Being so restless that it is hard to sit still: 0 = Not at all Becoming easily annoyed or irritable: 0 = Not at all Feeling afraid as if something awful might happen: 0 = Not at all Total EBER-7 score (0-4 normal; 5-9 mild; 10-14 moderate; 15-21 severe): 0 Source: Developed by Drs. Sukhdev Alaniz, Monse Hester, Da Rivera and colleagues, with an educational damián from [employer]. EBER-7 Assessment Billing EBER-7 Assessment Tool: EBER-7 Assessment 36673 Review of Systems Const All systems reviewed & are unremarkable except as noted in HPI and below Card Denies chest pain at rest, Denies chest pain with activity, Denies edema, Denies irregular heart rhythm, Denies claudication, Denies dyspnea, Denies dyspnea on exertion, Denies orthopnea, Denies paroxysmal nocturnal dyspnea and Denies slow heart rate Resp Denies cough, Denies dyspnea and Denies dyspnea on exertion GI Denies abdominal pain, Denies change in bowel habits, Denies excessive flatus, Denies nausea and Denies vomiting Denies urinary incontinence, Denies urinary hesitancy and Denies urinary urgency Musc Denies atrophy, Denies deformity and Denies limited range of motion Physical exam (Primary Care) Vital Signs: Last Vital Signs Pulse 67 11/16/24 10:33 BP 136/74 11/16/24 10:33 Pulse Ox 99 11/16/24 10:33 Oxygen Delivery Method Room Air 11/16/24 10:33 BMI result Body Mass Index 23.6 Tobacco/Smoking Status: Tobacco use Status Tobacco use date assessed 11/16/24 11/16/24 10:39 Patient Tobacco Use Status Never used Tobacco 11/16/24 10:39 Tobacco use type 11/09/20 13:25 e-Cigarette/Vaping Use Never Used 11/16/24 10:39 PHQ-9: PHQ-9 Score PHQ-9: Total score 2 11/16/24 10:48 Depression Screening Interpretation: Negative Thrive Assessment: Date of Thrive Assessment Date Thrive assessed 11/16/24 11/16/24 10:39 Currently or been in a relationship where the following occur: I choose not to answer Const Limitations: ambulation with cane Resp Effort & Inspection: normal respiratory effort Auscultation: clear to auscultation bilaterally Cardio Jugular venous distension: no JVD Rate: regular rate Rhythm: regular rhythm Heart sounds: S1 normal heart sound present and S2 normal heart sound present Extrem General: Yes full ROM Coding Level of Care Code Est Pt Level 4 (94414) Complex EM visit Add On G2211 Diagnoses Osteoarthritis of right knee M17.11 Hypovitaminosis D E55.9 Essential hypertension I10 Loss of balance R26.89 Additional Codes EBER-7 Assessment Billing - EBER-7 Assessment Tool: EBER-7 Assessment 75492 ([id number]) PHQ-9 - 47066 - PHQ-9 Billing: Yes ([id number]) Time Spent (min) 21 Assessment & Plan Assessment & Plan (1) Osteoarthritis of right knee: Code(s): M17.11 - Unilateral primary osteoarthritis, right knee Category: Medical (2) Hypovitaminosis D: Code(s): E55.9 - Vitamin D deficiency, unspecified Category: Medical (3) Essential hypertension: Code(s): I10 - Essential (primary) hypertension Category: Medical (4) Loss of balance: Code(s): R26.89 - Other abnormalities of gait and mobility Category: Medical Plan The plan includes continued management of hypertension with current medications, ensuring adherence to the prescribed regimen of amlodipine, aspirin, atorvastatin, and lisinopril. A follow-up with the sales operations coordinator is necessary to address the previous bradycardia and ensure no further complications arise. Patient was informed and verbally consented to the use of an ambient scribe for clinic note documentation during this visit. Medications: New walker As directed 1 ea 0RF M17.11 - Unilateral primary osteoarthritis, right knee Refilled cholecalciferol (vitamin D3) 50 mcg PO DAILY 90 caps 1RF 90 days Discontinued lisinopril Discontinued Reason: Patient Completed Course 30 mg PO DAILY 30 tabs 1RF
[2024-11-16 10:33] VITALS: BP 136/74; PULSE 67; O2SAT 99; BMI 23.6
--- OUTSIDE RECORDS SUMMARY | 2024-11-16 11:27 | XMS_ITS | Clinical Summary ---
Author Organization [facility] Address [address] [place] [address] [place] [id number] Phone Care Team Providers Care Extracorporeal Technician Name Role Phone Sandy Loja MD Primary Care Provid er Social History Tobacco Use Types Packs/Day Years Used Date Smoking Tobacco: Never Assessed Education Answer Date Recorded Are you interested in more education? Not on christiano e 07/10/2024 Are you concerned about learning? Not on file 07/10/2024 No 07/10/2024 No 07/10/2024 Digital Access Answer Date Recorded No 07/10/2024 No 07/10/2024 Reliable internet access at home? Not on file 07/10/2024 Device with a working camera? Not on file Comments Unknown Sex and Gender Information Value Date Recorded Sex Assigned at Not on file Legal Sex Female 1:33 PM EDT Gender Identity Not on file Sexual Orientation Not on file Plan of Treatment Not on file Medical Devices [place] [id number] [facility] MEDICARE REPLACEMENT [place] [id number] [facility] SNP MEDICARE REPLACEMENT [facility] RE[facility] MEDIC[facility] REPLACEMENT [facility] SNP MEDICARE REPLACEMENT [place] [facility] [place] MEDICARE REPLACEMENT Care Teams Extracorporeal Technician Relationship Specialty Start Date End Date Sandy Loja MD [address] [place] [address] PCP - General 07/10/24 Additional Source Comments The information contained in this document represents components of the legal health record. It is not the complete legal health record.[facility]
== END 2024-11-16 10:53 | disposition home or self-care (01) ==
LOC: HO.HMCH 10:25
PROVIDERS: PCP Internal Medicine; Visit Provider Internal Medicine
DX: M17.11 Unilateral primary osteoarthritis, right knee (principal); E55.9 Vitamin D deficiency, unspecified; I10 Essential (primary) hypertension; R26.89 Other abnormalities of gait and mobility

== ENCOUNTER → 2024-11-16 10:24 | Outpatient (BNVA) | payer OTHER, SELFPAY | PROVIDERS: PCP Internal Medicine; Visit Provider Internal Medicine | DX: I10 Essential (primary) hypertension (principal); M17.11 Unilateral primary osteoarthritis, right knee; I11.0 Hypertensive heart disease with heart failure; E55.9 Vitamin D deficiency, unspecified; R26.89 Other abnormalities of gait and mobility | CPT/HCPCS: 96127; 99212 ==

== ENCOUNTER 2025-01-26 13:37 | Outpatient (AMB) | payer OTHER, SELFPAY ==
--- NOTE | 2025-01-26 14:01 | A.OFFVIS_ITS ---
Vital Signs 01/26/25 14:03 Height 5 ft 2 in Weight 127 lb 6.835 oz BMI 23.3 BP 120/60 Blood Pressure Location Lt brachial Position Sitting Pulse 69 Pulse Source Pulse Oximeter Intake Visit Reasons: r/s 09/20/24 6 mos followup Intake Note: r/s 6 mth f/up Material Handling Technician Required: Yes Material Handling Technician Language: Roll On Worker Services: Material Handling Technician Offered & Declined Material Handling Technician Name: son Accompanied by: Son Allergies amlodipine Allergy (Unknown, Verified 11/16/24 10:43) Unknown Medication List - Last Reconciled 01/26/25 by Chaka Morgan MD aspirin (Adult Low Dose Aspirin) 81 mg PO DAILY 90 days atorvastatin 80 mg PO BEDTIME 90 days brimonidine 0.2% 1 drp ophthalmic (eye) BID cholecalciferol (vitamin D3) 50 mcg PO DAILY 90 days fluocinolone 0.01% 1 appl topical DAILY fluticasone propionate 50 mcg/actuation 1 spray intranasal DAILY 30 days lisinopril 20 mg PO DAILY walker As directed HPI Comments Details: 89-year-old female here for follow-up. She previously was seen for dyspnea on exertion and she underwent stress testing and echocardiography did not show any significant issues. Recently she got admitted to [facility] with mild COVID-19 infection. In that setting she had a rise and fall in her troponin levels which was very mild. She has been experiencing some chest pressure which happen when she wakes up in the morning. This has been going on for approximately 5 months now. She also gets some chest pressure with exertion. She has been taking baby aspirin and other medications regularly. She has no lung disease reportedly. After discussion with her patient was started on amlodipine for blood pressure control and has anti anginal. She returns for follow-up today. She has been doing fine. She has no chest discomfort shortness of breath. Blood pressure control is reasonable. 10/20/2023: She is here for follow-up. She was in the ER on 10/09/2023. She said she was hot inside the house because the a conditioning was not working well and while standing in the kitchen she felt dizzy and passed out. Apparently her neighbor called EMS that she is confused and was brought in. Her workup was negative and she was given hydration and she felt better and was discharged back home. She is saying she has been getting some dizziness off and on which she feels like a spinning sensation like vertigo. Her blood pressure in the office is little low. She is taking medications otherwise regularly. 03/15/2024: 10/30/2023 she was transferred to [facility] because she presented to [facility] with some chest discomfort and mildly elevated troponin levels. ECHO showed basal inferior inferolateral wall motion abnormality. Cardiac catheterization did not show any significant coronary disease. 01/26/2025: She is here for follow-up. She is denying any active symptoms currently. Occasionally she gets dizzy and drinks water. She has had dizziness/syncope in the past related to dehydration and poor p.o. intake. [facility] Medical History NSTEMI (non-ST elevated myocardial infarction) Bicytopenia Dizziness Allergic rhinitis Hypovitaminosis D Transaminitis Dyspnea Hypertension Surgical History H/O eye surgery S/P cardiac catheterization Family History Daughter Pacemaker Mother Heart attack Father Heart attack Social History Household Members: Family Housing: Apartment Are you a primary director of medicare to a significant other at home: No Do you presently have visiting nurse or other home services: Yes Alcohol intake: never Patient Tobacco Use Status: Never used Tobacco e-Cigarette/Vaping Use: Never Used Second Hand Smoke Exposure: No Advance Directives Date on File: 03/24/23 service: No Current occupational status: retired Cognitive needs: Yes (Walker/ Cane) Hearing needs: No Vision needs: Yes (Glasses) Review of Systems Const Denies chills, Denies fatigue, Denies fever(s), Denies frequent falls, Denies weakness, Denies weight gain and Denies weight loss ENT Denies dizziness Card Denies chest pain, Denies leg edema, Denies lightheadedness, Denies palpitations, Denies dyspnea and Denies dyspnea on exertion Resp Denies cough, Denies dyspnea and Denies dyspnea on exertion GI Denies hematochezia Musc Denies abnormal gait, Denies muscle weakness, Denies numbness, Denies radiating pain into limb and Denies tingling Neuro Denies abnormal gait, Denies dizziness, Denies frequent falls, Denies numbness, Denies tingling and Denies weakness Endo Denies fatigue and Denies palpitations Physical Exam Vital Signs: Last Vital Signs Pulse 69 01/26/25 14:03 BP 120/60 01/26/25 14:03 BMI result Body Mass Index 23.3 GENERAL APPEARANCE: in no acute distress. NECK/THYROID: no carotid bruit, no jugular venous distention. SKIN: no suspicious lesions, warm and dry. HEART: no murmurs, regular rate and rhythm, S1, S2 normal. LUNGS: clear to auscultation bilaterally. ABDOMEN: normal, bowel sounds present, soft, nontender, nondistended. EXTREMITIES: no clubbing, cyanosis, or edema. PERIPHERAL PULSES: equal. NEUROLOGIC: nonfocal, alert and oriented. Assessment & Plan Assessment & Plan (1) Hypertension: Comment: Stable Code(s): I10 - Essential (primary) hypertension Category: Medical Qualifiers: Hypertension type: essential hypertension Qualified Code(s): I10 - Essential (primary) hypertension (2) Dizziness: Code(s): R42 - Dizziness and giddiness Category: Medical (3) Chest pain: Code(s): R07.9 - Chest pain, unspecified Category: Medical Plan Pleasant 89 year female who is here for follow-up. She has background history of dizziness with vasovagal syncope in the past and chest pain with mild NSTEMI in October of 2023. She underwent cardiac catheterization but no significant coronary disease was noted. Her blood pressure medications were adjusted previously with improvement in dizziness. Her blood pressure is currently stable and she is taking lisinopril 20 mg daily. Once again she was advised to keep herself well hydrated. Clinically stable and will see us back in 1 year. Thank you for allowing me to participate in the care of your patient. Please feel free to contact me if you have any questions. Coding Level of Care Code Est Pt Level 3 (58638) Diagnoses Essential hypertension I10 Hypertension type: essential hypertension Dizziness R42 Chest pain R07.9
[2025-01-26 14:03] VITALS: BP 120/60; PULSE 69; BMI 23.3
--- OUTSIDE RECORDS SUMMARY | 2025-01-26 19:23 | XMS_ITS | Clinical Summary ---
Author Organization [facility] Address [address] [place] [address] [place] [phone] Phone Care Team Providers Care Telephone Instrument Supervisor Name Role Phone Sandy Loja MD Primary [...] [place] [id number] [facility] MEDICARE REPLACEMENT [place] [id number] [facility] MEDICARE REPLACEMENT [facility] MEDICARE REPLACEMENT [facility] MEDICARE REPLACEMENT [facility] MEDICARE REPLACEMENT [facility] MEDICARE REPLACEMENT Care Teams Telephone Instrument Supervisor Relationship Specialty Start Date End Date Sandy Loja MD [address] [facility] [place] [address] PCP - General 07/10/24 Additional Source Comments The information contained in this document represents components of the legal health record. It is not the complete legal health record.[facility]
== END 2025-01-26 14:21 | disposition home or self-care (01) ==
LOC: HO.HCS 13:37
PROVIDERS: PCP Internal Medicine; Visit Provider Internal Medicine Cardiovascular Disease
DX: I10 Essential (primary) hypertension (principal); R42 Dizziness and giddiness; R07.9 Chest pain, unspecified
CPT/HCPCS: 99213

== ENCOUNTER → 2025-01-26 13:37 | Outpatient (BNVA) | payer OTHER, SELFPAY | PROVIDERS: PCP Internal Medicine; Visit Provider Internal Medicine Cardiovascular Disease | DX: I10 Essential (primary) hypertension (principal); R42 Dizziness and giddiness; R07.9 Chest pain, unspecified | CPT/HCPCS: 99212 ==

== ENCOUNTER 2025-04-01 10:09 | Emergency (ER) | payer OTHER, SELFPAY ==
--- NOTE | ~2025-04-01 | XR_ITS ---
EXAMINATION: XR CHEST CLINICAL INFORMATION: chest pain COMPARISON: X-ray 08/04/2024 TECHNIQUE: Frontal view of the chest was obtained. FINDINGS: The cardiomediastinal silhouette is within normal limits. Aorta is ectatic, tortuous and calcified. Lungs are mildly hyperinflated.. There is no focal consolidation, edema, or effusion. No pneumothorax. No acute osseous abnormality. XR/XR chest 1V IMPRESSION: No acute pulmonary disease Electronically signed by: Bipin Saul MD 04/01/2025 11:50 AM EST
--- NOTE | ~2025-04-01 | CT_ITS ---
EXAMINATION: CT HEAD WITHOUT IV CONTRAST HISTORY: headache, dizziness. TECHNIQUE: Unenhanced helical CT of the head was performed per standard departmental protocol. Coronal and sagittal reformats of the head were also evaluated. One or more of the following techniques was used for dose reduction: Automated exposure control, adjustment of the mA and/or kV according to patient size, use of iterative reconstruction technique. DLP: 617 mGy-cm COMPARISON: Comparison is made with the prior examination dated 10/28/2023. FINDINGS: BRAIN: There is mild prominence of the ventricular system and cortical sulci, consistent with atrophy. Periventricular and subcortical white matter hypodensities are noted which are nonspecific, but often seen in the setting of small vessel ischemic disease. There is no mass effect or midline shift. No intra- or extra-axial fluid collections are identified. SINUSES: The visualized paranasal sinuses are clear. The mastoid air cells and middle ear cavities are well pneumatized. ORBITS: The visualized orbits are unremarkable. BONES/SOFT TISSUES: The extracranial soft tissues are unremarkable. The calvarium is intact. No suspicious lytic or sclerotic lesions. CT/CT head/brain wo IV con IMPRESSION: No acute intracranial abnormality. Electronically signed by: Sukhdev Gunn MD 04/01/2025 12:13 PM [facility]
[2025-04-01 10:26] VITALS: BP 180/80; BP 214/101; PULSE 74; PULSE 89; RESP 18; TEMP 36.4; O2SAT 100; BMI 24.7
--- NOTE | 2025-04-01 10:34 | ECG_ITS ---
Test Reason : dizziness cp Blood Pressure : */* mmHG Vent. Rate : 56 BPM Atrial Rate : 56 BPM P-R Int : 186 ms QRS Dur : 80 ms QT Int : 460 ms P-R-T Axes : 75 37 70 degrees QTcB Int : 443 ms Sinus bradycardia Nonspecific T wave abnormality Abnormal ECG When compared with ECG of 08-Jul-2024 06:37, Nonspecific T wave abnormality no longer evident in Inferior leads Referred By: Generic ED Physician Electronically Signed By: BINH MCDOWELL MD
[2025-04-01 10:53] LABS: MANUAL DIFF FLAG NO
[2025-04-01 10:58] LABS: Hematocrit 39.5 % (37.0-47.0); Hemoglobin 13.1 g/dl (12.0-16.0); Imm Gran Abs Auto 0.02 X10*3/uL (0.00-0.03); Imm Gran Pct Auto 0.4 % (0.0-0.4); Lymphocytes Absolute Auto 1.2 X10*3/uL (1.2-4.9); Mean Corpuscular HGB Conc 33.2 g/dl (31.0-35.0); Mean Corpuscular Hemoglobin 29.6 pg (27.0-33.0); Mean Corpuscular Volume 89.4 fL (80.0-98.0); NRBC Abs Auto 0.000 X10*3/uL (0.0-0.012); NRBC Pct Auto 0.0 /100WBC (0.0-0.2); Platelet Count 157 X10*3/uL (160-400); Red Blood Count 4.42 X10*6/uL (4.20-5.50); White Blood Count 5.6 X10*3/uL (4.8-10.8)
--- NOTE | 2025-04-01 11:04 | ED.CHESTPAIN ---
HPI - Chest Pain General Chief Complaint: Chest Pain Stated Complaint: VERTIGO Time Seen by Provider: 04/01/25 11:04 History of Present Illness ED Provider: Ari VILLAFUERTE narrative: The patient is an 89-year-old woman who was at home. She was cooking in her kitchen, standing by the stove, when she rather abruptly started to feel unwell with a sense of dizziness and chest discomfort. She says that she was able to turn off the stove and sit down and tell her family members that she was feeling unwell. They called an ambulance and she was brought to the hospital. Here in the emergency room she is feeling somewhat better. She says that she had also has a headache when she was feeling dizzy but her headache has improved. She also had some nausea over the last 2 nights but she is not currently significantly nauseated. Her chest pain and shortness of breath are also better. The patient says this episode is very similar to an episode that prompted her to be hospitalized at this hospital about 8 months ago. At that time she was found to be relatively bradycardic. She was not on any chronotropic drugs. She was hospitalized in but no specific diagnosis was made. She is ultimately followed up with Cardiology without any specific interventions. The patient's family confirms that this episode is similar to the episode in July. Related Data Home Medications ?Medication ?Instructions ?Recorded ?Confirmed brimonidine 0.2 % eye drops 1 drp ophthalmic (eye) BID 08/15/21 01/26/25 fluocinolone 0.01 % topical 1 appl topical DAILY 07/20/24 01/26/25 solution Previous Rx's ?Medication ?Instructions ?Recorded lisinopril 20 mg tablet 20 mg PO DAILY #90 tabs 10/07/24 atorvastatin 80 mg tablet 80 mg PO BEDTIME 90 days #90 tabs 11/11/24 cholecalciferol (vitamin D3) 50 50 mcg PO DAILY 90 days #90 caps 11/16/24 mcg (2,000 unit) capsule walker #1 ea 11/16/24 aspirin 81 mg tablet,delayed 81 mg PO DAILY 90 days #90 tabs 02/04/25 release (Adult Low Dose Aspirin) fluticasone propionate 50 1 spray intranasal DAILY 30 days 03/02/25 mcg/actuation nasal #16 grams spray,suspension Allergies Allergy/AdvReac Type Severity Reaction Status Date / Time amlodipine Allergy Unknown Unknown Verified 04/01/25 10:30 Review of Systems Review of Systems: Yes all other systems are reviewed and are negative [facility] Past Medical History Medical History NSTEMI (non-ST elevated myocardial infarction) Bicytopenia Dizziness Allergic rhinitis Hypovitaminosis D Transaminitis Dyspnea Hypertension Surgical History H/O eye surgery S/P cardiac catheterization Family History Family History Daughter Pacemaker Mother Heart attack Father Heart attack Social History Social History Household Members: Family Housing: Apartment Are you a primary home health care social worker to a significant other at home: No Do you presently have visiting nurse or other home services: Yes Alcohol intake: never Patient Tobacco Use Status: Never used Tobacco Smoked in Last 30 Days: No e-Cigarette/Vaping Use: Never Used Second Hand Smoke Exposure: No Use of substances other than those prescribed or required for medical reasons: No Advance Directives: Yes Advance Directives on File: Yes Advance Directives Date on File: 03/24/23 service: No Current occupational status: retired Cognitive needs: Yes (Walker/ Cane) Hearing needs: No Vision needs: Yes (Glasses) Physical Exam Vital Signs: Vital Signs: Last Vital Signs Temp 97.6 F 04/01/25 17:11 Pulse 51 04/01/25 17:11 Resp 16 04/01/25 17:11 BP 166/72 H 04/01/25 17:11 Pulse Ox 98 04/01/25 17:11 O2 Del Method Room Air 04/01/25 17:11 BMI result Body Mass Index 24.7 Const: Other: The patient is a very talkative 89-year-old. She is primarily Lithuanian speaking. She was interviewed with a Lithuanian gate keeper. She did not seem in pain or respiratory difficulty and she seemed to be moving all of her extremities normally. HEENT: Other: Face is symmetrical, tongue is midline. Mucous membranes moist. Eyes: Other: Pupils are round equal, extraocular movements are intact no significant nystagmus Neck: Neck: Yes normal visual inspection, Yes full ROM and Yes no JVD Resp: Effort & Inspection: normal respiratory effort Auscultation: clear to auscultation bilaterally Cardio: Rate: regular rate Rhythm: regular rhythm Heart sounds: S1 normal heart sound present, S2 normal heart sound present and Murmur heart sound present (No murmur heard) GI: Other: Abdomen is soft and nontender Skin: Other: The skin is dry and unremarkable except there seems to be an area of excoriated skin near the right advent that appears chronic. Neuro: Other: The patient was awake and alert with a normal mental status. Pupils are round equal, extraocular movements are intact, no nystagmus, the face is symmetrical, speech is clear and appropriate and fluent. The patient has 5/5 strength in all extremities. No pronator drift. Finger-nose is normal. Heel-singer is normal. She was able to ambulate with a walker. Extrem: Other: There is no calf swelling or tenderness. No asymmetry. No peripheral edema. Medications Administered Discontinued Medications Generic Name Dose Route Start Last Admin Trade Name Davidq PRN Reason Stop Dose Admin Lactated Ringer's 500 mls @ 500 mls/hr 04/01/25 11:20 04/01/25 12:53 Lr IVCONT 04/01/25 12:19 Infused .Q1H ONE Infusion Acetaminophen 1,000 mg in 100 mls @ 400 mls/hr 04/01/25 13:09 04/01/25 13:47 Ofirmev IV 04/01/25 13:23 Infused ONCE ONE Infusion Meclizine HCl 25 mg 04/01/25 13:09 04/01/25 13:31 Meclizine Hcl 25 Mg Tablet PO 04/01/25 13:10 25 mg ONCE ONE Administration Medical Decision Making Medical Decision Making [facility] Narrative: The patient is an 89-year-old female who says that she developed abrupt onset of dizziness and chest pain in her kitchen while preparing food today. She did not fall or collapse. She had no obvious focal neurological deficits. She has a an EKG that shows sinus bradycardia at 56 beats per minute. No definite acute ischemic changes. She had a chest x-ray and a head CT that showed no acute findings. She has 2 normal troponins. Other labs are unremarkable. Overall I did not feel the patient's presentation was highly suggestive of either an acute coronary syndrome or a stroke. I did not appreciate any focal neurological deficits on her exam. The patient was given some IV fluids. She expressed a desire to go home. We then ambulated her and she said that she felt worse with the ambulation. She was then given some food to eat and also a dose of meclizine (which I believe she has been prescribed several times in the past). She was then observed for awhile. Ultimately she said that she was feeling better and again announced that she wanted to go home. We has a 2nd trial of ambulation which went fine. At that point she was discharged. Lab Data 04/01/25 10:47 04/01/25 10:47 Labs: Lab Results 04/01/25 04/01/25 04/01/25 Range/Units 10:47 11:34 11:59 WBC 5.6 (4.8-10.8) X10*3/uL RBC 4.42 (4.20-5.50) X10*6/uL Hgb 13.1 (12.0-16.0) g/dl Hct 39.5 (37.0-47.0) % MCV 89.4 (80.0-98.0) fL MCH 29.6 (27.0-33.0) pg MCHC 33.2 (31.0-35.0) g/dl RDW 12.7 (11.0-16.0) % Plt Count 157 L (160-400) X10*3/uL MPV 9.4 (9.4-12.3) fL Immature Gran % (Auto) 0.4 (0.0-0.4) % Neut % (Auto) 70.6 (45-73) % Lymph % (Auto) 21.4 (20-40) % [place] % (Auto) 6.5 (2-11) % Eos % (Auto) 0.7 (0-4) % Baso % (Auto) 0.4 (0-2) % Lymph # (Auto) 1.2 (1.2-4.9) X10*3/uL [place] # (Auto) 0.4 (0.1-1.2) X10*3/uL Eos # (Auto) 0.0 (0.0-0.4) X10*3/uL Baso # (Auto) 0.0 (0.0-0.2) X10*3/uL Abs Immat Gran (auto) 0.02 (0.00-0.03) X10*3/uL Absolute Neuts (auto) 3.9 (2.0-8.3) x10*3/uL Absolute Nucleated RBC 0.000 (0.0-0.012) X10*3/uL Nucleated RBC % (auto) 0.0 (0.0-0.2) /100WBC Sodium 139 (135-145) mmol/L Potassium 4.1 (3.3-5.1) mmol/L Chloride 104 (96-108) mmol/L Carbon Dioxide 25 (22-29) mmol/L Anion Gap 14 (12-20) BUN 20 H (9-16) mg/dL Creatinine 0.95 (0.5-1.4) mg/dL Estim Creat Clear Calc 31.8 Estimated GFR 55 Random Glucose 97 (60-115) mg/dL Calcium 9.9 D (8.4-10.2) mg/dL Magnesium 1.7 (1.6-2.6) mg/dL Total Bilirubin 0.9 (0.0-1.0) mg/dL AST 22 (5-31) U/L ALT 10 (0-31) U/L Alkaline Phosphatase 58 (39-117) U/L Troponin I High Sens 5.4 7.3 (<3.5-17.0) ng/L NT-Pro-B Natriuret Pep 296.7 (<300) pg/mL Total Protein 6.7 (6.5-8.0) g/dL Albumin 4.5 (3.5-5.0) g/dL Urine Color Urine Appearance Urine pH (5.0-9.0) Ur Specific [place] (1.005-1.025) Urine Protein (Neg-Trace) mg/dL Urine Glucose (UA) (Negative) mg/dL Urine Ketones (Negative) mg/dL Urine Blood (Negative) Urine Nitrite (Negative) Ur Leukocyte Esterase (Negative) Urine RBC (0-2) /HPF Urine WBC (0-5) /HPF Ur Squamous Epith Cells (0-2) /HPF Urine Bacteria (None Seen) Hyaline Casts (0-2) /LPF Urine Opiates Screen (Not Detect) Ur Buprenorphine Scrn (Not Detect) ng/mL Ur Oxycodone Screen (Not Detect) ng/mL Urine Methadone Screen (Not Detect) ng/mL Urine Fentanyl Screen (Not Detect) Ur Barbiturates Screen (Not Detect) Ur Phencyclidine Scrn (Not Detect) Ur Amphetamines Screen (Not Detect) U Benzodiazepines Scrn (Not Detect) Urine Cocaine Screen (Not Detect) U Marijuana (THC) Screen (Not Detect) Influenza Type A (PCR) NEGATIVE (Negative) Influenza Type B (PCR) NEGATIVE (Negative) RSV RNA Qual (PCR) NEGATIVE (Negative) SARS-CoV-2 RNA (RT-PCR) NEGATIVE (Negative) 04/01/25 Range/Units 13:18 WBC (4.8-10.8) X10*3/uL RBC (4.20-5.50) X10*6/uL Hgb (12.0-16.0) g/dl Hct (37.0-47.0) % MCV (80.0-98.0) fL MCH (27.0-33.0) pg MCHC (31.0-35.0) g/dl RDW (11.0-16.0) % Plt Count (160-400) X10*3/uL MPV (9.4-12.3) fL Immature Gran % (Auto) (0.0-0.4) % Neut % (Auto) (45-73) % Lymph % (Auto) (20-40) % [place] % (Auto) (2-11) % Eos % (Auto) (0-4) % Baso % (Auto) (0-2) % Lymph # (Auto) (1.2-4.9) X10*3/uL [place] # (Auto) (0.1-1.2) X10*3/uL Eos # (Auto) (0.0-0.4) X10*3/uL Baso # (Auto) (0.0-0.2) X10*3/uL Abs Immat Gran (auto) (0.00-0.03) X10*3/uL Absolute Neuts (auto) (2.0-8.3) x10*3/uL Absolute Nucleated RBC (0.0-0.012) X10*3/uL Nucleated RBC % (auto) (0.0-0.2) /100WBC Sodium (135-145) mmol/L Potassium (3.3-5.1) mmol/L Chloride (96-108) mmol/L Carbon Dioxide (22-29) mmol/L Anion Gap (12-20) BUN (9-16) mg/dL Creatinine (0.5-1.4) mg/dL Estim Creat Clear Calc Estimated GFR Random Glucose (60-115) mg/dL Calcium (8.4-10.2) mg/dL Magnesium (1.6-2.6) mg/dL Total Bilirubin (0.0-1.0) mg/dL AST (5-31) U/L ALT (0-31) U/L Alkaline Phosphatase (39-117) U/L Troponin I High Sens (<3.5-17.0) ng/L NT-Pro-B Natriuret Pep (<300) pg/mL Total Protein (6.5-8.0) g/dL Albumin (3.5-5.0) g/dL Urine Color Yellow Urine Appearance Clear Urine pH 7.0 (5.0-9.0) Ur Specific [place] 1.010 (1.005-1.025) Urine Protein Negative (Neg-Trace) mg/dL Urine Glucose (UA) Negative (Negative) mg/dL Urine Ketones 15 (Negative) mg/dL Urine Blood Small (1+) H (Negative) Urine Nitrite Negative (Negative) Ur Leukocyte Esterase Negative (Negative) Urine RBC 6-10 H (0-2) /HPF Urine WBC 0-5 (0-5) /HPF Ur Squamous Epith Cells 0-2 (0-2) /HPF Urine Bacteria None Seen (None Seen) Hyaline Casts 0-2 (0-2) /LPF Urine Opiates Screen Not Detected (Not Detect) Ur Buprenorphine Scrn Not Detected (Not Detect) ng/mL Ur Oxycodone Screen Not Detected (Not Detect) ng/mL Urine Methadone Screen Not Detected (Not Detect) ng/mL Urine Fentanyl Screen Not Detected (Not Detect) Ur Barbiturates Screen Not Detected (Not Detect) Ur Phencyclidine Scrn Not Detected (Not Detect) Ur Amphetamines Screen Not Detected (Not Detect) U Benzodiazepines Scrn Not Detected (Not Detect) Urine Cocaine Screen Not Detected (Not Detect) U Marijuana (THC) Screen Not Detected (Not Detect) Influenza Type A (PCR) (Negative) Influenza Type B (PCR) (Negative) RSV RNA Qual (PCR) (Negative) SARS-CoV-2 RNA (RT-PCR) (Negative) Discharge Plan Discharge Clinical Impression: Dizziness, Chest pain Patient Disposition: Home, Self-Care Additional Instructions: Please continue all of your regular medications. Please use your walker when getting around. Please contact your primary care doctor's office on Friday for a follow up appointment to discuss this episode further. Return to the emergency room if you feel significantly worse. Prescriptions: No Action lisinopril 20 mg tablet 20 mg PO DAILY Qty: 90 2RF atorvastatin 80 mg tablet 80 mg PO BEDTIME 90 Days Qty: 90 1RF aspirin [Adult Low Dose Aspirin] 81 mg tablet,delayed release (DR/EC) 81 mg PO DAILY 90 Days Qty: 90 0RF fluticasone propionate 50 mcg/actuation spray,suspension 1 spray intranasal DAILY 30 Days Qty: 16 1RF Rx Instructions: administer into each nostril brimonidine 0.2 % drops 1 drp ophthalmic (eye) BID Rx Instructions: Both eyes cholecalciferol (vitamin D3) 50 mcg (2,000 unit) capsule 50 mcg PO DAILY 90 Days Qty: 90 1RF (DME) walker Misc See Rx Instructions .Route Qty: 1 0RF Rx Instructions: As directed fluocinolone 0.01 % solution 1 appl topical DAILY Referrals: Sandy Loja MD [Primary Care Provider, Internal Medicine] Interventions: ED Discharge Assessment Last Done: 04/01/25 17:11 Discharge Date/Time: 04/01/25 17:20 Print Language: Lithuanian
[2025-04-01 11:09] LABS: Alanine Aminotransferase 10 U/L (0-31); Albumin Level 4.5 g/dL (3.5-5.0); Alkaline Phosphatase 58 U/L (39-117); Anion Gap 14 (12-20); Aspartate Amino Transferase 22 U/L (5-31); Blood Urea Nitrogen 20 mg/dL (9-16); Calcium 9.9 mg/dL (8.4-10.2); Carbon Dioxide 25 mmol/L (22-29); Chloride 104 mmol/L (96-108); Creatinine Clr Calc Pharmacy 31.8; Estimated Glomerular Filt Rate 55; Magnesium 1.7 mg/dL (1.6-2.6); Potassium 4.1 mmol/L (3.3-5.1); Sodium 139 mmol/L (135-145); Total Protein 6.7 g/dL (6.5-8.0)
[2025-04-01 11:19] LABS: Troponin-I High Sensitivity 5.4 ng/L (<3.5-17.0)
[2025-04-01 11:52] LABS: NT Pro B Type Natriuretic Pept 296.7 pg/mL (<300)
[2025-04-01] MEDS: Lactated Ringers 500 ML IVCONT (11:57)
[2025-04-01 11:58] VITALS: BP 159/81; PULSE 61; RESP 18; TEMP 36.4; O2SAT 99
--- NOTE | 2025-04-01 12:11 | PC.NURSE ---
Assumed care of this patient at 1100, patient resting quietly on stretcher, awaiting lab results / CT scan. Daughter at bedside. Denies pain at this time
[2025-04-01 12:28] LABS: Troponin-I High Sensitivity 7.3 ng/L (<3.5-17.0)
[2025-04-01 12:45] LABS: Resp Syncy Virus RNA Qual PCR NEGATIVE (Negative); SARS COV2 PCR INHOUSE NEGATIVE (Negative)
--- OUTSIDE RECORDS SUMMARY | 2025-04-01 12:54 | XMS_ITS | Clinical Summary ---
Author Organization [facility] Address [address] [place] [address] [place] [id number] Phone Care Team Providers Care Supervisor Tubing Name Role Phone Sandy Loja MD Primary [...] [place] [id number] [facility] MEDICARE REPLACEMENT [place] [id number] [facility] MEDICARE REPLACEMENT [facility] RE[facility]ACEMENT [facility] REPLACEMENT [facility] MEDIC[facility] REPLACEMENT [facility] MEDIC[facility] REPLACEMENT Care Teams Supervisor Tubing Relationship Specialty Start Date End Date Sandy Loja MD [address] [facility] [place] [id number] PCP - General 07/10/24 Additional Source Comments The information contained in this document represents components of the legal health record. It is not the complete legal health record.[facility]
[2025-04-01 13:25] LABS: Appearance Urine Clear; Glucose Urine UA Negative (Negative); PH 7.0 (5.0-9.0); Specific Gravity - Urine 1.010 (1.005-1.025); UMIC TRIGGER UACC YES
[2025-04-01 13:33] LABS: Cannabinoid Screen Urine Not Detected (Not Detect)
--- NOTE | 2025-04-01 13:46 | PC.NURSE ---
Attempted to walk patient to BR for ambulation trial. Patient unable to finish walk to BR d/t dizziness and head pain . Pt and family feel as if she is unable to go home. Provider Dr. Mayco ojeda.
--- NOTE | 2025-04-01 14:12 | PC.NURSE ---
Pt given something to eat per provider's request.
[2025-04-01 14:43] VITALS: BP 161/70; PULSE 57; RESP 17; TEMP 36.3; O2SAT 97
--- NOTE | 2025-04-01 16:37 | PC.NURSE ---
Pt able to walk in hallway with minimal assistance, wants to go home to eat, provider made aware.
[2025-04-01 16:58] VITALS: BP 166/72; PULSE 51; RESP 16; TEMP 36.4; O2SAT 98
[2025-04-01 17:11] VITALS: BP 166/72; PULSE 51; RESP 16; TEMP 36.4; O2SAT 98
== END 2025-04-01 17:20 | disposition home or self-care (01) ==
PROVIDERS: Emergency Provider Emergency Medicine; PCP Internal Medicine
DX: R42 Dizziness and giddiness (principal); R07.9 Chest pain, unspecified; Z03.818 Encounter for observation for suspected exposure to other biological agents ruled out; R51.9 Headache, unspecified; R00.1 Bradycardia, unspecified; I10 Essential (primary) hypertension; Z79.899 Other long term (current) drug therapy
CPT/HCPCS: 36415; 70450; 71045; 80053; 80307; 81001; 83735; 83880; 84484; 85025; 87637; 93005; 96361; 96365; 99285; J0131; J7120

== ENCOUNTER → 2025-04-01 10:34 | Outpatient (BNV) | payer OTHER, SELFPAY | PROVIDERS: Emergency Provider Emergency Medicine; PCP Internal Medicine; Visit Provider Internal Medicine Cardiovascular Disease | DX: R00.1 Bradycardia, unspecified (principal) | CPT/HCPCS: 93010 ==

== ENCOUNTER → 2025-04-01 11:21 | Outpatient (BNV) | payer OTHER, SELFPAY | PROVIDERS: Emergency Provider Emergency Medicine; Visit Provider Radiology Diagnostic Ultrasound | DX: R51.9 Headache, unspecified (principal); R42 Dizziness and giddiness; R07.9 Chest pain, unspecified | CPT/HCPCS: 70450; 71045 ==